=== PATIENT | male | born 1945 | race Caucasian/White ===

== ENCOUNTER 2023-06-22 08:09 | Inpatient (IN) | payer OTHER ==
[~2023-06-22] VITALS: Ht 165.1 cm; Wt 78.5 kg
[~2023-06-22 08:09] MED LIST: ASCO500T11 PO; ASPI81CH59 PO; B-COCAP36 OR; COEN50CA9 PO; GABA-1308 PO; LOVA40TA72 PO; METO25TA36 PO; MULT-778 PO; OMEGCAP2 OR; POTA99TA3 PO
[2023-06-22] MEDS ORDERED: ceFAZolin 2 GM/D5W100ml 100 ML IV ONE (10:12)
[2023-06-22] MEDS ORDERED: HYDROmorphone HCL 2 MG/ML VL/or syr ONE (10:14)
[2023-06-22] MEDS ORDERED: MIDAZOLAM HCL 2MG/2ML 2ml VIAL (1mg/ml) ONE (10:15)
[2023-06-22] MEDS ORDERED: LIDOCAINE 2% (LOCAL ANESTH.) PF 5ml SDV ONE (10:15)
[2023-06-22] MEDS ORDERED: GLYCOPYRROLATE 0.2 MG/ML 1ML VIAL ONE (10:15)
[2023-06-22] MEDS ORDERED: ONDANSETRON HCL 4 MG/2 ML VIAL ONE (10:15)
[2023-06-22] MEDS ORDERED: fentaNYL CITRATE 100 MCG/2 ML VL ONE ×2 (10:15→12:18)
[2023-06-22] MEDS ORDERED: DexAMETHasone SOD PHOS 10MG/1ML VIAL INJ ONE (10:15)
[2023-06-22] MEDS ORDERED: TRANEXAMIC ACID 20 ML ONE (11:32)
[2023-06-22] MEDS ORDERED: LIDOCAINE W/ EPINEPHRINE 2% INJ 20ML VIAL ONE (11:33)
[2023-06-22] MEDS ORDERED: NITROGLYCERIN 0.4 MG SL TAB SL PRN (13:30)
[2023-06-22] MEDS: ceFAZolin 1GM/50ML 50 ML IV SCH ×2 (13:30→21:38)
[2023-06-22] MEDS ORDERED: MORPHINE SULFATE INJ 2 MG/ml SYRG IV PRN ×2 (13:30)
[2023-06-22] MEDS ORDERED: ONDANSETRON HCL 4 MG/2 ML VIAL IV PRN ×2 (13:30→16:45)
[2023-06-22] MEDS: CYCLOBENZAPRINE HCL 10 MG TAB PO SCH ×2 (14:00→22:00)
[2023-06-22 16:23] VITALS: O2SAT 100
[2023-06-22] MEDS ORDERED: HYDROmorphone HCL 2 MG/ML VL/or syr IV PRN (16:45)
[2023-06-22] MEDS: D5W/SOD CHLO 0.9% 1,000 ML IV SCH ×2 (17:22→23:30)
[2023-06-22 18:38] VITALS: RESP 16; O2SAT 97
[2023-06-22 20:00] VITALS: PULSE 94
[2023-06-22] MEDS ORDERED: CYCLOBENZAPRINE HCL 10 MG TAB ONE (21:22)
[2023-06-22] MEDS ORDERED: DOCUSATE SOD 100 MG CAP PO ONE (21:22)
[2023-06-22] MEDS ORDERED: ceFAZolin 1GM/50ML 50 ML IV ONE ×2 (21:22→21:33)
[2023-06-22] MEDS: DOCUSATE SOD 100 MG CAP PO SCH (21:29)
[2023-06-22 22:00] VITALS: BP 138/75; PULSE 119; RESP 18; TEMP 97.4; O2SAT 97
[2023-06-23] VITALS (8 sets, daily range): BP systolic 105–131; BP diastolic 40–69; PULSE 85–121; RESP 16–20; TEMP 97.2–98.7; O2SAT 90–96
[2023-06-23] MEDS ORDERED: THROAT LOZENGES(CEPASTAT) MT ONE ×2 (00:11→03:30)
[2023-06-23] MEDS: THROAT LOZENGES(CEPASTAT) MT PRN ×2 (00:14→03:31)
[2023-06-23] MEDS: CYCLOBENZAPRINE HCL 10 MG TAB PO SCH ×3 (06:33→21:23)
[2023-06-23] MEDS: HYDROcodone-ACET 10/325MG TAB PO PRN ×2 (08:54→16:30)
[2023-06-23] MEDS: D5W/SOD CHLO 0.9% 1,000 ML IV SCH ×2 (08:57→20:26)
[2023-06-23] MEDS: DOCUSATE SOD 100 MG CAP PO SCH ×2 (09:52→21:23)
[2023-06-23] MEDS ORDERED: SACU1TAB PO (16:57)
[2023-06-24] VITALS (9 sets, daily range): BP systolic 116–142; BP diastolic 52–76; PULSE 103–116; RESP 17–20; TEMP 97.3–98.8; O2SAT 90–97
[2023-06-24] MEDS: HYDROcodone-ACET 10/325MG TAB PO PRN ×3 (01:30→16:57)
[2023-06-24] MEDS: CYCLOBENZAPRINE HCL 10 MG TAB PO SCH ×3 (05:30→21:45)
[2023-06-24] MEDS: D5W/SOD CHLO 0.9% 1,000 ML IV SCH (05:36)
[2023-06-24] MEDS: DOCUSATE SOD 100 MG CAP PO SCH ×2 (09:30→21:45)
[2023-06-25] MEDS: HYDROcodone-ACET 10/325MG TAB PO PRN ×3 (02:52→22:02)
[2023-06-25 05:00] VITALS: BP 99/68; PULSE 114; RESP 18; TEMP 98; O2SAT 94
[2023-06-25 06:32] LABS: Basophils # (auto) 0 10 ^3/uL (0-0.2); Basophils % (auto) 0.3 % (0.0-2.0); Eosinophils # (auto) 0.2 10 ^3/uL (0-0.8); Eosinophils % (auto) 1.8 % (0.0-7.0); Hematocrit 39.7 % (41.0-53.0); Hemoglobin 13.3 g/dL (13.5-17.5); Lymphocytes # (auto) 2.7 10 ^3/uL (0.4-5.4); Lymphocytes % (auto) 27.1 % (10.0-50.0); Mean Corpuscular Hemoglobin 32.2 pg (28.0-32.0); Mean Corpuscular Hgb Conc. 33.6 g/dL (32.0-36.0); Mean Corpuscular Volume 95.9 fL (80.0-100.0); Monocytes # (auto) 1.3 10 ^3/uL (0-1.3); Monocytes % (auto) 12.6 % (0.0-12.0); Neutrophils # (auto) 5.9 10 ^3/uL (1.6-8.6); Neutrophils % (auto) 58.2 % (37.0-80.0); Nucleated Red Blood Cells % 0.1 %; Red Blood Cells 4.14 10^6/uL (4.5-5.90); Red Cell Distribution Width 13.7 % (11.8-14.3); White Blood Cell 10.1 10^3/uL (4.4-10.8)
[2023-06-25 06:45] LABS: Calcium 8.6 mg/dL (8.7-10.4); Chloride 105 mmol/L (98-107); Potassium 4.8 mmol/L (3.5-5.1); Sodium 138 mmol/L (136-145)
[2023-06-25 06:46] LABS: Anion Gap 2 (5-15); Carbon Dioxide 31 mmol/L (20-30)
[2023-06-25 06:51] LABS: BUN/Creatinine Ratio 10.8 (10.0-20.0); Blood Urea Nitrogen 10 mg/dL (9-23); Glucose 127 mg/dL (74-106)
[2023-06-25] MEDS: CYCLOBENZAPRINE HCL 10 MG TAB PO SCH ×3 (07:08→22:00)
[2023-06-25] MEDS: ENOXAPARIN SOD 40 MG/0.4 ML SYRINGE SC SCH (07:25)
[2023-06-25 09:00] VITALS: BP 125/68; PULSE 116; RESP 18; TEMP 97.5; O2SAT 96
[2023-06-25] MEDS: DOCUSATE SOD 100 MG CAP PO SCH ×2 (09:30→22:00)
[2023-06-25 13:00] VITALS: BP 110/59; PULSE 117; RESP 20; TEMP 98.5; O2SAT 92
[2023-06-25 17:00] VITALS: BP 103/50; PULSE 104; RESP 20; TEMP 97.3; O2SAT 93
[2023-06-25 22:00] VITALS: BP 105/49; PULSE 123; RESP 18; TEMP 97.8; O2SAT 96
[2023-06-26] VITALS (7 sets, daily range): BP systolic 95–117; BP diastolic 45–64; PULSE 108–120; RESP 18–20; TEMP 97.6–100.4; O2SAT 92–96
[2023-06-26] MEDS: CYCLOBENZAPRINE HCL 10 MG TAB PO SCH ×3 (05:33→22:43)
[2023-06-26] MEDS: ENOXAPARIN SOD 40 MG/0.4 ML SYRINGE SC SCH (09:36)
[2023-06-26] MEDS: DOCUSATE SOD 100 MG CAP PO SCH ×2 (09:36→22:43)
[2023-06-26] MEDS: HYDROcodone-ACET 10/325MG TAB PO PRN ×2 (09:47→22:44)
[2023-06-27] VITALS (8 sets, daily range): BP systolic 91–130; BP diastolic 46–62; PULSE 62–107; RESP 17–20; TEMP 97.7–98.7; O2SAT 93–97
[2023-06-27] MEDS: CYCLOBENZAPRINE HCL 10 MG TAB PO SCH ×3 (06:00→22:35)
[2023-06-27] MEDS: DOCUSATE SOD 100 MG CAP PO SCH ×2 (09:49→22:35)
[2023-06-27] MEDS: ENOXAPARIN SOD 40 MG/0.4 ML SYRINGE SC SCH (09:49)
[2023-06-27] MEDS: HYDROcodone-ACET 10/325MG TAB PO PRN (10:00)
[2023-06-27] MEDS: ACETAMINOPHEN 325 MG TAB PO PRN (22:36)
[2023-06-28 05:00] VITALS: BP 126/63; PULSE 87; RESP 17; TEMP 97; O2SAT 96
[2023-06-28] MEDS: CYCLOBENZAPRINE HCL 10 MG TAB PO SCH ×2 (05:48→13:48)
[2023-06-28 08:00] VITALS: RESP 18; O2SAT 95
[2023-06-28] MEDS: ENOXAPARIN SOD 40 MG/0.4 ML SYRINGE SC SCH (08:58)
[2023-06-28] MEDS: DOCUSATE SOD 100 MG CAP PO SCH (08:59)
[2023-06-28 09:11] VITALS: BP 107/53; PULSE 56; RESP 16; TEMP 97.6; O2SAT 96
[2023-06-28 12:26] VITALS: TEMP 36.4
[2023-06-28 13:18] VITALS: BP 106/51; PULSE 92; RESP 16; TEMP 98.2; O2SAT 95
[2023-06-28] MEDS: ACETAMINOPHEN 325 MG TAB PO PRN (13:46)
== END 2023-06-28 15:55 | disposition home health service (06) | DRG 458 ==
LOC: SUR 08:09 → TELE 13:20 → TELE-WESTW 18:27 → WEST WING 06-24 21:54
PROVIDERS: ADMIT Orthopaedic Surgery; ATTEND Orthopaedic Surgery
PROC: 0SG10K1 Fusion of 2 or more Lumbar Vertebral Joints with Nonautologous Tissue Substitute, Posterior Approach, Posterior Column, Open Approach (ICD-10-PCS; principal; 2023-06-26)
PROC: 01NB0ZZ Release Lumbar Nerve, Open Approach (ICD-10-PCS; 2023-06-26)
PROC: 4A11X4G Monitoring of Peripheral Nervous Electrical Activity, Intraoperative, External Approach (ICD-10-PCS; 2023-06-26)
DX: M48.061 Spinal stenosis, lumbar region without neurogenic claudication (principal); M41.56 Other secondary scoliosis, lumbar region; M51.16 Intervertebral disc disorders with radiculopathy, lumbar region; G62.9 Polyneuropathy, unspecified; I10 Essential (primary) hypertension; E78.5 Hyperlipidemia, unspecified; G89.29 Other chronic pain
CPT/HCPCS: 36415; 72100; 76000; 80048; 85025; 86850; 86900; 86901; 93005; 97110; 97116; 97163; 97530; G0378; J1100; J2001; J2250; J2405; J7042

== ENCOUNTER 2024-05-07 21:19 | Inpatient (IN) | payer OTHER ==
[~2024-05-07] VITALS: Ht 152.4 cm; Wt 71.6 kg
[~2024-05-07 21:19] MED LIST changes: +SACU1TAB PO
[2024-05-07] MEDS ORDERED: ONDANSETRON HCL 4 MG/2 ML VIAL IV PRN (23:15)
[2024-05-07 23:42] VITALS: BP 126/62; PULSE 115; RESP 20; TEMP 97.4; O2SAT 95
[2024-05-08] VITALS (8 sets, daily range): BP systolic 93–128; BP diastolic 42–65; PULSE 63–111; RESP 16–20; TEMP 97.6–98.8; O2SAT 91–95
--- NOTE | 2024-05-08 00:39 | DVHHP2 ---
Admitting Diagnosis: Right Large Pleural Effusion History of Present Illness History Source: Patient Exam Limitations: No limitations HPI Mr. Segundo Gupta is a 78 yo male with a past medical history of non hodgkin's lymphoma, CHF, high cholesterol, hypertension. Patient is a direct admit from [facility] ED as per HMO insurance request. Patient had presented with a chief complaint of shortness of breath on exertion x 2 weeks. Patient reports exertional shortness of breath with chest pain when he coughs. Patient denies chest pain, dizziness, nausea, vomiting, fevers, chills, abdominal pain. [facility] workup: WBC 13.35, H&H 14/43.6, Platelets 346, INR 1.0, PT 10.9, Na 140, K 3.7, BUN 19/0.99, BNP 846, Troponin 13, Lipase 31, Lactic 1.1, CTA chest w contrast: large right pleural effusion. Complete right lower lobe atelectasis. Partial right upper lobe atelectasis. No pulmonary embolism. 21 mm right renal cyst. chest x ray: Dense right basilar airspace opacification, likely reflecting a combination of moderate right pleural effusion with adjacent atelectasis/ consolidation. Home Meds Reported Medications Sacubitril-Valsartan (Entresto 24-26 mg) 1 Tab Tab, 1 TAB PO BID, TAB 06/23/23 B-Complex W/Biotin & Folic Aci (SUPER B-COMPLEX) Complex Cap, 1 CAP OR DAILY, CAP 06/16/23 Ascorbic Acid (VITAMIN C TABLET) 500 Mg Tb, 500 MG PO DAILY, TAB 06/16/23 Potassium (Gnp Potassium) Unknown Strength Tab, PO DAILY, TAB 06/16/23 Multiple Vitamins W/ Minerals (MULTI FOR HIM) For Him Cap, 1 HIM PO DAILY, CAP 06/16/23 [place]-3 Fatty Acids (Fish Oil) Cap, 1 OR DAILY, CAP 06/16/23 Gabapentin (Gabapentin) 100 Mg Cap, 100 MG PO TID, CAP 06/16/23 Coenzyme Q10 (Coq-10) 50 Mg Cap, 50 MG PO DAILY, CAP 06/16/23 Aspirin (Aspirin Low Dose) 81 Mg Chw, 81 MG PO DAILY, TAB.CHEW 06/16/23 Lovastatin (Lovastatin) 40 Mg Tab, 40 MG PO DAILY, TAB 06/16/23 Metoprolol Succinate (Toprol Xl) 25 Mg Tab, 25 MG PO DAILY, TAB 06/16/23 Past Medical History Cardiac: CHF, HTN, Other (high cholesterol) Pulmonary: No pertinent Hx Central Nervous System: No pertinent Hx GI: No pertinent Hx Hemotology/Oncology: No pertinent Hx Hepatobiliary: No pertinent Hx Psychiatric: No pertinent Hx Musculoskeletal: No pertinent Hx Rheumotologic: No pertinent Hx Infectious Disease: No peritnent Hx ENT: No pertinent Hx Renal/: No pertinent Hx Endocrine: No pertinent Hx Dermatology: No pertinent Hx Others non hodgkin's lymphoma Patient Family History: Patient reports no known family medical history. Smoker: No Hx (Negative) Alocohol: None Drugs: None Lives with: With family Domestic Violence: Neg Review of Systems Constitutional: No symptom reported Ears, Nose, & Throat: No symptom reported Eyes: No symptom reported Pulmonary/Respiratory: Dyspnea (exertional), Cough, Pleuritic Chest Pain Cardiovascular: No symptom reported Gastrointestinal: No symptom reported Genitourinary: No symptom reported Musculoskeletal: No symptom reported Skin: No symptom reported Psychiatric: No symptom reported Endocrine: No symptom reported Hemotologic/Lymphatic: No symptom reported H&P Exam General Appeara: Well developed, Well nourished, Normal Appearance Head Exam: Normal inspection Neck Exam: Normal inspection, Non-tender, Normal alignment Eye Exam: bilateral eye Normal inspection, bilateral eye PERRL, bilateral eye EOMI Ear Exam: bilateral ear Auricle normal Nasal Exam: Normal inspection Mouth: Normal Inspection Pulmonary/Respiratory: Normal inspection, Chest non-tender, Other (diminished breath sounds) Cardiovascular/Chest: Normal inspection, Regular rate, Normal Rhythm Peripheral Pulses: 2+ dorsalis pedis (R), 2+ dorsalis pedis (L), 2+ Radial (R), 2+ Radial (L) Abdominal Exam: Normal bowel sounds, Soft Rectal Exam: Deferred Male Genital Exam: Not done CLINIC RECEPTIONIST Exam: Normal hearing, Normal speech, PERRL Neuro/Mental St: Alert, Oriented Appearance: Appropriate appearance, Appropriate insight Eye contact/ Speech: Cooperative, Good eye contact, Normal speech Thoughts/Psych: Normal thought pattern Skin Exam: Normal inspection, Normal color, Warm/dry Assessment/Plan Problem List: (1) Pleural effusion, right Plan 78 yo male with known history of hypertension, CHF, high cholesterol, non Hodgkin's Lymphoma presents as a direct admit from [facility] ED with shortness of breath, generalized weakness, cough. Patient found to have 1. right large pleural effusion 2. right lower lobe atelectasis 3. shortness of breath -Admit Telemetry Interventional radiology consultation thoracentesis IV diuresis Furosemide IV antibiotic Levaquin Fluid Restriction Strict I&O's PT, INR , CBC, BMP in am Discussed all above with patient who verbalizes agreement and understanding of care plan. All questions were answered. Discussed assessment and care plan with admitting and supervising MD Dr. Valdes. Plan discussed with: Patient, Other Code Visit Code Visit Total Time (mins): 45 Additional Comments Additional Comments Additional Comments Patient was seen and evaluated by me. I agree with the assessment and plan as outlined by my nurse practitioner. LEXY ATKINS May 08, 2024 00:39 MICHELLE VALDES MD May 08, 2024 14:10
[2024-05-08] MEDS: FUROSEMIDE 40 MG/4 ML VIAL IV SCH (01:17)
[2024-05-08 06:22] LABS: Basophils # (auto) 0 10 ^3/uL (0-0.2); Basophils % (auto) 0.1 % (0.0-2.0); Eosinophils # (auto) 0.2 10 ^3/uL (0-0.8); Eosinophils % (auto) 1.2 % (0.0-7.0); Hematocrit 43.2 % (41.0-53.0); Hemoglobin 14.1 g/dL (13.5-17.5); Lymphocytes # (auto) 3.4 10 ^3/uL (0.4-5.4); Lymphocytes % (auto) 26.1 % (10.0-50.0); Mean Corpuscular Hemoglobin 29.7 pg (28.0-32.0); Mean Corpuscular Hgb Conc. 32.5 g/dL (32.0-36.0); Mean Corpuscular Volume 91.4 fL (80.0-100.0); Monocytes % (auto) 7.9 % (0.0-12.0); Neutrophils # (auto) 8.5 10 ^3/uL (1.6-8.6); Neutrophils % (auto) 64.7 % (37.0-80.0); Nucleated Red Blood Cells % 0.1 %; Platelet Count (auto) 425 10^3/uL (140-450); Red Blood Cells 4.73 10^6/uL (4.5-5.90); Red Cell Distribution Width 13.4 % (11.8-14.3); White Blood Cell 13.2 10^3/uL (4.4-10.8)
[2024-05-08 06:32] LABS: Anion Gap 9 (5-15); Carbon Dioxide 29 mmol/L (20-31); Chloride 105 mmol/L (98-107); Potassium 4.1 mmol/L (3.5-5.1); Sodium 143 mmol/L (136-145)
[2024-05-08 06:33] LABS: Calcium 9.9 mg/dL (8.7-10.4)
[2024-05-08 06:38] LABS: BUN/Creatinine Ratio 16.2 (10.0-20.0); Blood Urea Nitrogen 18 mg/dL (9-23); Glucose 110 mg/dL (74-106)
[2024-05-08 07:00] LABS: INR 1.01 (0.9-1.15); Prothrombin Time 10.7 sec (9.3-11.8)
--- NOTE | 2024-05-08 08:07 | DVH ---
Procedure: US CHEST ULTRASOUND 05/08/2024 07:31 AM Indication: FLUID CHECK FOR POSSIBLE THORACENTESIS. Comparison: None Technique: Sonogram of the right and left homero thoraces utilizing grayscale technique. FINDINGS: At least moderate amount of right pleural effusion is seen. No pleural effusion on the side. IMPRESSION: At least moderate right pleural effusion sufficient for safe thoracentesis. No pleural effusion on th e left side.
[2024-05-08] MEDS: levoFLOXacin 500MG 100 ML IV SCH (10:00)
[2024-05-08] MEDS: PANTOPRAZOLE 40 MG/10 ML VIAL INJ IV SCH (10:37)
[2024-05-08] MEDS: ENOXAPARIN SOD 40 MG/0.4 ML SYRINGE SC SCH (10:38)
[2024-05-08] MEDS: levoFLOXacin 250MG 50 ML IV SCH (15:44)
[2024-05-08] MEDS: HYDROcodone-ACET 5/325MG TAB PO PRN (15:48)
--- NOTE | 2024-05-08 16:03 | DVH ---
CHEST RADIOGRAPH Indication:POST THORACENTESIS Technique: Single frontal view of the chest was obtained Comparison: None FINDINGS: Lines and Tubes: None Lungs: There is no pneumothorax on the right. Pleura: No effusion. No pneumothorax. Cardiomediastinal contours: Unremarkable Bones: No acute osseous abnormality. IMPRESSION: 1. No pneumothorax . 2. No pneumothorax on the right. Changes in the right base may represent residual findings from right pleural effusion.
--- NOTE | 2024-05-08 17:11 | DVH ---
US THORACENTESIS, HISTORY: RT PLUERAL EFFUSION PROCEDURE: Informed consent was obtained. The patient was seated on the gurney. A limited localizatio n ultrasound of the right thorax was obtained, and the optimal approach was marked on the skin. The a jackie was prepped with chlorhexidine which was allowed to dry and draped in the usual sterile fashion. Time out was performed. The skin and the soft tissues were infiltrated with 1% lidocaine. A 5.5 Frenc h centesis needle catheter was advanced into right pleural space. Following aspiration of fluid, the catheter was advanced and the needle removed. About 2400 cc of fluid was drained. Specimen/s was/were sent for appropriate cultures/cytology/cultures and cytology. No immediate complication was identifi ed. FINDINGS: Moderate to large right pleural effusion. Aspirated fluid is clear and serous. IMPRESSION: Right thoracentesis with 2.4L removed.
[2024-05-08 20:16] LABS: Body Fluid Polymorphonuclear 5 % (0-25); Body Fluid Red Blood Cells 12373 CUMM (0-2000); Body Fluid White Blood Cells 3308 CUMM (0-200)
--- NOTE | 2024-05-08 20:55 | DVHINCON2 ---
Date of service: May 08, 2024 Referring Physician Saba Iniguez NP Reason for Consultation YANEZ, right pleural effusion. History of Present Illness A 78-year-old man with past medical history of non Hodgkin's lymphoma, CHF, high cholesterol, and hypertension who is a direct admit from [facility] ED on 05/07 per HMO insurance request where he presented with a chief complaint of shortness of breath on exertion x 2 weeks. Patient reports exertional shortness of breath with chest pain when he coughs. Denies dizziness, nausea, vomiting, fevers, chills, or abdominal pain. CTA chest w/ contrast done at [facility] showed large right pleural effusion and atelectasis, no pulmonary embolism. Patient was admitted for further care and pulmonary consultation is requested for evaluation and management due to these findings. Review of Systems: 14-point review of systems negative unless otherwise noted above. Past Medical History: Non Hodgkin's lymphoma, CHF, high cholesterol, and hypertension Past Surgical History: None Medications: Reviewed. Allergies: No known drug allergies. Family History: No family history of premature CAD. No family history of lung disorders. Social History: Nonsmoker. No alcohol or illicit drug use. Family History: Patient reports no known family medical history. Allergies: Coded Allergies: NO KNOWN ALLERGIES (Unverified , 06/16/23) Home Meds Active Scripts Doxycycline (Monohydrate) (Doxycycline) 100 Mg Cap, 100 MG PO BID, #10 CAP Prov:LINO MCCORMACK MD 05/10/24 Sacubitril-Valsartan (Entresto 24-26 mg) 1 Tab Tab, 1 TAB PO BID, #60 TAB Prov:LINO MCCORMACK MD 05/10/24 Metoprolol Succinate (Toprol Xl) 25 Mg Tab, 25 MG PO DAILY, #60 TAB Prov:LINO MCCORMACK MD 05/10/24 Reported Medications B-Complex W/Biotin & Folic Aci (SUPER B-COMPLEX) Complex Cap, 1 CAP OR DAILY, CAP 06/16/23 Multiple Vitamins W/ Minerals (MULTI FOR HIM) For Him Cap, 1 HIM PO DAILY, CAP 06/16/23 [place]out-3 Fatty Acids (Fish Oil) Cap, 1 OR DAILY, CAP 06/16/23 Gabapentin (Gabapentin) 100 Mg Cap, 100 MG PO TID, CAP 06/16/23 Coenzyme Q10 (Coq-10) 50 Mg Cap, 50 MG PO DAILY, CAP 06/16/23 Aspirin (Aspirin Low Dose) 81 Mg Chw, 81 MG PO DAILY, TAB.CHEW 06/16/23 Lovastatin (Lovastatin) 40 Mg Tab, 40 MG PO DAILY, TAB 06/16/23 Discontinued Reported Medications Ascorbic Acid (VITAMIN C TABLET) 500 Mg Tb, 500 MG PO DAILY, TAB 06/16/23 Potassium (Gnp Potassium) Unknown Strength Tab, PO DAILY, TAB 06/16/23 Current Medications Current Medications Medications (Trade) Dose Ordered Sig/Anderson Route PRN Reason Start Time Stop Time Status Last Admin Furosemide (Lasix Injection) 40 mg BIDD IV 05/07/24 23:15 05/08/24 17:43 Ondansetron HCl (Zofran) 4 mg Q6HPRN PRN IV NAUSEA / VOMITING 05/07/24 23:15 Acetaminophen (Tylenol Tablet) 650 mg Q6HPRN PRN PO TEMP GREATER THAN 100.4 05/07/24 23:15 Pantoprazole Sodium (Protonix) 40 mg DAILY IV 05/08/24 10:00 05/08/24 10:37 Acetaminophen/ Hydrocodone Bitart ([place] 5/325MG Tab) 1 tab Q6HPRN PRN PO PAIN SCALE 1 THRU 6 05/07/24 23:15 05/08/24 15:48 Enoxaparin Sodium (Lovenox) 40 mg DAILY SC 05/08/24 10:00 05/08/24 10:38 Levofloxacin/ Dextrose 100 ml @ 100 mls/hr DAILY IV 05/08/24 10:00 05/08/24 12:39 DC Levofloxacin 50 ml @ 50 mls/hr DAILY IV 05/08/24 12:39 05/08/24 15:44 Vital Signs Vital Signs Date Time Temp Pulse Resp B/P (MAP) Pulse Ox O2 Delivery O2 Flow Rate FiO2 05/08/24 17:43 107/59 05/08/24 17:00 98.8 105 16 92 98.8 05/08/24 08:10 Room Air* 0 21 Physical Exam Gen.: Patient lying in bed in no apparent distress. Breathing on room air. Head: Normocephalic, atraumatic. Eyes: EOMI/PERRLA. Ears: Normal hearing. Normal anatomy. Neck/trachea: Trachea midline, supple. Nose: Normal external anatomy. Mouth: Moist mucous membranes. Chest: Decreased air entry bilaterally. No wheezing or rhonchi. Cardiovascular: Positive S1, positive S2. Regular rate and rhythm. Abdomen: Positive bowel sounds in all 4 quadrants. Soft, non-tender, non- distended. : Deferred. Rectal: Deferred. Skin: Warm, dry. Intact. Extremities: 2+ radial pulses bilaterally. No lower extremity edema. Neuro: Awake, alert, oriented x3. No gross motor or sensory deficits. Cranial nerves II through XII intact. Gait not assessed. Labs/Diagnostic Data Labs Test 05/08/24 17:00 05/08/24 11:39 05/08/24 05:25 Range/Units Body Fluid Source Pleural fluid Body Fluid pH 8.0 Body Fluid WBC (Manual) 3308 H 0-200 CUMM Body Fluid RBC (Manual) 83847 H 0-2000 CUMM Body Fluid Mononuclear Cells 95 % Body Fluid Polymorphonuclear Cells 5 0-25 % Troponin I High Sensitivity 75 *H </=54 ng/L White Blood Count 13.2 H 4.4-10.8 10^3/uL Red Blood Count 4.73 4.5-5.90 10^6/uL Hemoglobin 14.1 13.5-17.5 g/dL Hematocrit 43.2 41.0-53.0 % Mean Corpuscular Volume 91.4 80.0-100.0 fL Mean Corpuscular Hemoglobin 29.7 28.0-32.0 pg Mean Corpuscular Hemoglobin Concent 32.5 32.0-36.0 g/dL Red Cell Distribution Width 13.4 11.8-14.3 % Platelet Count 425 140-450 10^3/uL Mean Platelet Volume 7.7 6.9-10.8 fL Neutrophils (%) (Auto) 64.7 37.0-80.0 % Lymphocytes (%) (Auto) 26.1 10.0-50.0 % Monocytes (%) (Auto) 7.9 0.0-12.0 % Eosinophils (%) (Auto) 1.2 0.0-7.0 % Basophils (%) (Auto) 0.1 0.0-2.0 % Neutrophils # (Auto) 8.5 1.6-8.6 10 ^3/uL Lymphocytes # (Auto) 3.4 0.4-5.4 10 ^3/uL Monocytes # (Auto) 1.0 0-1.3 10 ^3/uL Eosinophils # (Auto) 0.2 0-0.8 10 ^3/uL Basophils # (Auto) 0 0-0.2 10 ^3/uL Nucleated Red Blood Cells 0.1 % Prothrombin Time 10.7 9.3-11.8 sec Prothrombin Time INR 1.01 0.9-1.15 Sodium Level 143 136-145 mmol/L Potassium Level 4.1 3.5-5.1 mmol/L Chloride Level 105 98-107 mmol/L Carbon Dioxide Level 29 20-31 mmol/L Anion Gap 9 5-15 Blood Urea Nitrogen 18 9-23 mg/dL Creatinine 1.11 0.700-1.30 mg/dL Glomerular Filtration Rate Calc 68 >90 mL/min BUN/Creatinine Ratio 16.2 10.0-20.0 Serum Glucose 110 H 74-106 mg/dL Calcium Level 9.9 8.7-10.4 mg/dL Assessment Impression: Large right pleural effusion Atelectasis Dyspnea Obesity, BMI 30.8 Plan: S/p right thoracentesis with drainage of 2.4 L. Supplemental oxygen PRN Titrate to keep O2 sats above 92%. Continue antibiotics -Levaquin Follow up cultures Incentive spirometry Diurese w/ Lasix Monitor renal function. Monitor electrolytes. Supplement as necessary. Monitor ins and outs. Diet and lifestyle modifications for weight reduction Obesity - complicates all care. DVT prophylaxis. Prognosis: Guarded given patient's multiple co-morbidities. Rest of plan per hospitalist and other consultants. Thank you Saba Iniguez NP, for allowing me to participate in this patient's care. Further recommendations will depend on the patient's clinical course. Please do not hesitate to contact me if you have any questions or concerns. This medical document was created using an electronic medical record system with [email or web address] dictation system. Although these documentations are being carefully reviewed, there may still be some phonetic and typographical changes. The errors are purely typographical, due to imperfection on the software program, and do not reflect any compromise in the patient's medical care. Plan discussed with: Patient, Other (CUSTOMER ENGAGEMENT ANALYST, RN) VALERI BRANTLEY MD May 08, 2024 20:55
[2024-05-09] VITALS (8 sets, daily range): BP systolic 94–113; BP diastolic 47–58; PULSE 88–106; RESP 16–19; TEMP 97.6–98.1; O2SAT 92–96
--- NOTE | 2024-05-09 06:10 | DVH ---
CHEST RADIOGRAPH Indication:post thoracentesis Technique: Single frontal view of the chest was obtained Comparison: XY CHEST PORTABLE on DOS: 05/08/24 FINDINGS: Lines and Tubes: None Lungs: Patchy right mid to lower lung zone opacities. Pleura: Small right pleural effusion. No pneumothorax. Cardiomediastinal contours: Unremarkable Bones: No acute osseous abnormality. IMPRESSION: 1. Right pleural effusion and right lower lung zone opacities.
--- NOTE | 2024-05-09 12:32 | DVHPN2 ---
Subjective Overnight events noted. Patient was refused chest x-ray as per the bedside RN. Pleural Fluid study is still pending. Patient had elevated troponin cardiology consult and 2D echo has been ordered. Reviewed: Care Plan Changes from previous H/P or p: No Changes Objective Vitals Vital Signs Date Time Temp Pulse Resp B/P (MAP) Pulse Ox O2 Delivery O2 Flow Rate FiO2 05/09/24 08:41 98.1 96 16 102/57 (72) 92 98.1 05/09/24 08:00 Room Air* 0 21 Intake/Output Intake and Output 05/09/24 07:00 Intake Total 1010 ml Output Total 600 ml Balance 410 ml Intake Oral 960 ml IV Total 50 ml Output Urine Total 600 ml Exam HEENT pupils are reactive Neck is supple CV is S1-S2 regular rate and rhythm Respiratory diminished breath sound right lung base GI posterior bowel sound Extremity no edema RAILROADER no motor deficit Medications Current Medications Medications Dose Ordered Sig/Anderson Route Start Time Stop Time Status Last Admin Dose Admin Furosemide 40 mg BIDD IV 05/07/24 23:15 05/09/24 05:15 40 MG Ondansetron HCl 4 mg Q6HPRN PRN IV 05/07/24 23:15 Acetaminophen 650 mg Q6HPRN PRN PO 05/07/24 23:15 Pantoprazole Sodium 40 mg DAILY IV 05/08/24 10:00 05/09/24 09:43 40 MG Acetaminophen/ Hydrocodone Bitart 1 tab Q6HPRN PRN PO 05/07/24 23:15 05/09/24 00:00 1 TAB Enoxaparin Sodium 40 mg DAILY SC 05/08/24 10:00 05/09/24 09:43 40 MG Levofloxacin 50 ml @ 50 mls/hr DAILY IV 05/08/24 12:39 05/09/24 09:43 50 MLS/HR Laboratory Results Laboratory Tests 05/08/24 05:25 Microbiology Microbiology Date/Time Source Procedure Growth Status 05/08/24 17:00 Pleural Fluid Gram Stain - Final Resulted 05/08/24 17:00 Pleural Fluid Body Fluid Culture - Preliminary Resulted Assessment/Plan Assessment/Plan 78-year-old male with a known history of hypertension, dyslipidemia, congestive heart failure, history of non-Hodgkin lymphoma in 50s status post radiation, history of non-Hodgkin lymphoma recurrence in 60s status post radiation at [facility] presented to the hospital with increasing shortness of breath for last three weeks found to have 1. Large right-sided pleural effusion status post thoracentesis with 2.4 L removed, rule out exudative/transudative pleural effusion 2. Shortness of breaths secondary to 1. Currently improved 3. Elevated troponin suspect demand ischemia rule out acute MO 4. Hypotension 5. Dyslipidemia 6. History of non-Hodgkin lymphoma status post radiation -had clear fluid status cytology, LDH, serum LDH, empirical antibiotics, repeat chest x-ray -2D echo, cardiology consultation, pulmonary consultation. Plan discussed with: Patient My Orders Orders - MICHELLE VALDES MD Procedure Category Date Status Time *Consult CONS 05/08/24 Transmitted / 13:35 Electrocardigram EKG 05/09/24 Logged 10:40 Cytology TYRA 05/09/24 Transmitted 11:23 * Cardiology Consult CONS 05/09/24 Transmitted 11:26 Echo 2d Mode Cardiac US 05/09/24 Logged DOP 11:26 Troponin-I Hs LAB 05/09/24 Logged 11:26 Troponin-I Hs LAB 05/09/24 Logged 12:26 Lactate Dehydrogenase LAB 05/09/24 Logged 11:31 * Infectious Louann- CONS 05/09/24 Transmitted Mallad 11:36 Date of Service: May 09, 2024 Billing Provider: MICHELLE VALDES MD Common Visit Codes: NOT BILLABLE MICHELLE VALDES MD May 09, 2024 12:32
--- NOTE | 2024-05-09 12:59 | DVH ---
CHEST RADIOGRAPH Indication:S/P Thora Technique: Single frontal view of the chest was obtained Comparison: XY CHEST PORTABLE on DOS: 05/09/24, XY CHEST PORTABLE on DOS: 05/08/24 FINDINGS: Lines and Tubes: None Lungs: Right basiclar opacty. Pleura: Small right pleural effusion. No pneumothorax. Cardiomediastinal contours: Unremarkable Bones: No acute osseous abnormality. IMPRESSION: Small right pleural effusion.
[2024-05-09] MEDS: METOPROLOL TARTRATE 25 MG TAB PO ONE (14:36)
--- NOTE | 2024-05-09 14:59 | DVHINCON2 ---
Date of service: May 09, [address] NP Reason for Consultation Pleural effusion History of Present Illness Mr. Segundo Gupta is a 78 yo male with a past medical history of non hodgkin's lymphoma, CHF, high cholesterol, hypertension. Patient is a direct admit from [facility] ED as per O insurance request. Patient had presented with a chief complaint of shortness of breath on exertion x 2 weeks. Patient reports exertional shortness of breath with chest pain when he coughs. Patient denies chest pain, dizziness, nausea, vomiting, fevers, chills, abdominal pain. Family History: Patient reports no known family medical history. Allergies: Coded Allergies: NO KNOWN ALLERGIES (Unverified , 06/16/23) Home Meds Reported Medications Sacubitril-Valsartan (Entresto 24-26 mg) 1 Tab Tab, 1 TAB PO BID, TAB 06/23/23 B-Complex W/Biotin & Folic Aci (SUPER B-COMPLEX) Complex Cap, 1 CAP OR DAILY, CAP 06/16/23 Ascorbic Acid (VITAMIN C TABLET) 500 Mg Tb, 500 MG PO DAILY, TAB 06/16/23 Potassium (Gnp Potassium) Unknown Strength Tab, PO DAILY, TAB 06/16/23 Multiple Vitamins W/ Minerals (MULTI FOR HIM) For Him Cap, 1 HIM PO DAILY, CAP 06/16/23 [place]-3 Fatty Acids (Fish Oil) Cap, 1 OR DAILY, CAP 06/16/23 Gabapentin (Gabapentin) 100 Mg Cap, 100 MG PO TID, CAP 06/16/23 Coenzyme Q10 (Coq-10) 50 Mg Cap, 50 MG PO DAILY, CAP 06/16/23 Aspirin (Aspirin Low Dose) 81 Mg Chw, 81 MG PO DAILY, TAB.CHEW 06/16/23 Lovastatin (Lovastatin) 40 Mg Tab, 40 MG PO DAILY, TAB 06/16/23 Metoprolol Succinate (Toprol Xl) 25 Mg Tab, 25 MG PO DAILY, TAB 06/16/23 Current Medications Current Medications Medications (Trade) Dose Ordered Sig/Anderson Route PRN Reason Start Time Stop Time Status Last Admin Metoprolol Tartrate (Lopressor Tablet) 25 mg BID PO 05/09/24 22:00 Doxycycline Monohydrate (Vibramycin Tablet) 100 mg Q12HR PO 05/09/24 22:00 Review of Systems Review of Systems Constitutional: No symptom reported Ears, Nose, & Throat: No symptom reported Eyes: No symptom reported Pulmonary/Respiratory: Dyspnea (exertional), Cough, Pleuritic Chest Pain Cardiovascular: No symptom reported Gastrointestinal: No symptom reported Genitourinary: No symptom reported Musculoskeletal: No symptom reported Skin: No symptom reported Psychiatric: No symptom reported Endocrine: No symptom reported Hemotologic/Lymphatic: No symptom reported Vital Signs Vital Signs Date Time Temp Pulse Resp B/P (MAP) Pulse Ox O2 Delivery O2 Flow Rate FiO2 05/09/24 14:36 129 112/58 05/09/24 13:00 97.6 16 96 97.6 05/09/24 08:00 Room Air* 0 21 Physical Exam H&P Exam General Appeara: Well developed, Well nourished, Normal Appearance Neck Exam: Normal inspection, Non-tender, Normal alignment Eye Exam: bilateral eye Normal inspection, bilateral eye PERRL, bilateral eye EOMI Pulmonary/Respiratory: Normal inspection, Chest non-tender, Other (diminished breath sounds r> L) Cardiovascular/Chest: Normal inspection, Regular rate, Normal Rhythm Peripheral Pulses: 2+ dorsalis pedis (R), 2+ dorsalis pedis (L), 2+ Radial (R), 2+ Radial (L) Abdominal Exam: Normal bowel sounds, Soft WIG COMBER Exam: Normal hearing, Normal speech, PERRL Neuro/Mental St: Alert, Oriented Appearance: Appropriate appearance, Appropriate insight Eye contact/ Speech: Cooperative, Good eye contact, Normal speech Thoughts/Psych: Normal thought pattern Skin Exam: Normal inspection, Normal color, Warm/dry Labs/Diagnostic Data Labs Test 05/09/24 14:05 05/08/24 17:00 05/08/24 05:25 Range/Units Troponin I High Sensitivity 35 </=54 ng/L Body Fluid Source Pleural fluid Body Fluid pH 8.0 Body Fluid WBC (Manual) 3308 H 0-200 CUMM Body Fluid RBC (Manual) 16738 H 0-2000 CUMM Body Fluid Mononuclear Cells 95 % Body Fluid Polymorphonuclear Cells 5 0-25 % White Blood Count 13.2 H 4.4-10.8 10^3/uL Red Blood Count 4.73 4.5-5.90 10^6/uL Hemoglobin 14.1 13.5-17.5 g/dL Hematocrit 43.2 41.0-53.0 % Mean Corpuscular Volume 91.4 80.0-100.0 fL Mean Corpuscular Hemoglobin 29.7 28.0-32.0 pg Mean Corpuscular Hemoglobin Concent 32.5 32.0-36.0 g/dL Red Cell Distribution Width 13.4 11.8-14.3 % Platelet Count 425 140-450 10^3/uL Mean Platelet Volume 7.7 6.9-10.8 fL Neutrophils (%) (Auto) 64.7 37.0-80.0 % Lymphocytes (%) (Auto) 26.1 10.0-50.0 % Monocytes (%) (Auto) 7.9 0.0-12.0 % Eosinophils (%) (Auto) 1.2 0.0-7.0 % Basophils (%) (Auto) 0.1 0.0-2.0 % Neutrophils # (Auto) 8.5 1.6-8.6 10 ^3/uL Lymphocytes # (Auto) 3.4 0.4-5.4 10 ^3/uL Monocytes # (Auto) 1.0 0-1.3 10 ^3/uL Eosinophils # (Auto) 0.2 0-0.8 10 ^3/uL Basophils # (Auto) 0 0-0.2 10 ^3/uL Nucleated Red Blood Cells 0.1 % Prothrombin Time 10.7 9.3-11.8 sec Prothrombin Time INR 1.01 0.9-1.15 Sodium Level 143 136-145 mmol/L Potassium Level 4.1 3.5-5.1 mmol/L Chloride Level 105 98-107 mmol/L Carbon Dioxide Level 29 20-31 mmol/L Anion Gap 9 5-15 Blood Urea Nitrogen 18 9-23 mg/dL Creatinine 1.11 0.700-1.30 mg/dL Glomerular Filtration Rate Calc 68 >90 mL/min BUN/Creatinine Ratio 16.2 10.0-20.0 Serum Glucose 110 H 74-106 mg/dL Calcium Level 9.9 8.7-10.4 mg/dL Microbiology Date/Time Source Procedure Growth Status 05/08/24 17:00 Pleural Fluid Gram Stain - Final Resulted 05/08/24 17:00 Pleural Fluid Body Fluid Culture - Preliminary Resulted Assessment Assessment/Plan 78 yo male with 1. right large pleural effusion 2. right lower lobe atelectasis 3. shortness of breath 4. New onset CHF with EF of 30% 5. non Hodgkin's Lymphoma recommendations s/p thoracocentesis 2.4L out fluid analysis is pending Follow fluid culture Cardiology is on board. EF is 30%, my suspicion for pleural fluid is possibly secondary to CHF however empirically continue antibiotics for possible pneumonia Repeat CBC strict I and O's also reviewed [facility] workup: WBC 13.35, H&H 14/43.6, Platelets 346, INR 1.0, PT 10.9, Na 140, K 3.7, BUN 19/0.99, BNP 846, Troponin 13, Lipase 31, Lactic 1.1, CTA chest w contrast: large right pleural effusion. Complete right lower lobe atelectasis. Partial right upper lobe atelectasis. No pulmonary embolism. 21 mm right renal cyst. chest x ray: Dense right basilar airspace opacification, likely reflecting a combination of moderate right pleural effusion with adjacent atelectasis/ consolidation. Discussed assessment and care plan with admitting and supervising MD Dr. Chavira. Plan/Recommendation Plan discussed with: Patient, Other ERICK LOPEZ MD May 09, 2024 14:59
--- NOTE | 2024-05-09 15:58 | DVHSR ---
APPROVED REPORT EXAM: LIMITED Two-dimensional and M-mode echocardiogram with Doppler and color Doppler. Blood Pressure: 102/57 mmHg INDICATION Elevated Trops RISK FACTORS Height: 5', Weight: 157 DIMENSIONS LVDd4.6 (3.8-5.7cm)LA (2D)3.5 (1.9-4.0cm)Aortic Root3.3 (2.0-3.7cm) LVDs4.0 (2.5-4.0cm)LA (MM) (1.9-4.0cm)Aortic Cusp Exc1.6 (1.5-2.0cm) EF (%) 30.0 (55-70%)Rt. Atrium (1.9-4.0cm)Asc. Aorta cm IVSd1.2 (0.7-1.1cm)RV (D) (1.8-2.4cm) PWd0.8 (0.7-1.1cm) Mitral Valve MitralMitral Stenosis E/A ratio0.02D MVAcm2 Aortic Valve Aortic ValveAortic Stenosis V10.60m/Dominick Mean GR.4mmHg V21.20m/Dominick Peak GR.6mmHg LVOT Diameter2.2 (1.8-2.4cm)Doppler AVA1.90cm2 Other Information Quality : Technically LimitedRhythm : Atrial Fibrillation Technically limited study due to body habitus and rhythm. Conclusion Technically difficult study. Difficult acoustic windows. Undetermined rhythm. Left atrial enlargement. Left ventricular enlargement. Concentric LVH. The mitral aortic and tricuspid appear to be structurally normal. Left ventricular function appears to be dyssynchronous. There is abnormal septal motion due to left bundle branch block. There is associated dyskinesis of the anterior septum. Overall left ventricula r ejection fraction is about 30%. Global hypokinesis. Normal RV function. Doppler reveals no significant regurgitant jets. No pericardial effusion masses or vegetations discernible. Increased pericardial reflection noted.
--- NOTE | 2024-05-09 18:15 | DVHINCON2 ---
Date Seen: May 09, [address] Oglesby Reason for Consultation Shortness of breath History of Present Illness 78-year-old gentleman with a previous history of back problems. I have had the pleasure of re-evaluating him several months ago. He recently had back surgery. He has a history of neuropathy of the lower extremities. Recently he has been complaining of right-sided chest pain. He came for further evaluation was noted to have a significant pleural effusion that required thoracentesis. He feels better. Cardiac evaluation was requested. Past Medical History His past medical history significant for back problems status post spinal surgery. He has a history of shortness of breath. Pleuritic pain and pain with coughing. His past medical history is otherwise noncontributory. With the exception of back pain. Past Surgical History Spinal surgery recently. Family History: Patient reports no known family medical history. Allergies: Coded Allergies: NO KNOWN ALLERGIES (Unverified , 06/16/23) Home Meds Reported Medications Sacubitril-Valsartan (Entresto 24-26 mg) 1 Tab Tab, 1 TAB PO BID, TAB 06/23/23 B-Complex W/Biotin & Folic Aci (SUPER B-COMPLEX) Complex Cap, 1 CAP OR DAILY, CAP 06/16/23 Ascorbic Acid (VITAMIN C TABLET) 500 Mg Tb, 500 MG PO DAILY, TAB 06/16/23 Potassium (Gnp Potassium) Unknown Strength Tab, PO DAILY, TAB 06/16/23 Multiple Vitamins W/ Minerals (MULTI FOR HIM) For Him Cap, 1 HIM PO DAILY, CAP 06/16/23 [place]-3 Fatty Acids (Fish Oil) Cap, 1 OR DAILY, CAP 06/16/23 Gabapentin (Gabapentin) 100 Mg Cap, 100 MG PO TID, CAP 06/16/23 Coenzyme Q10 (Coq-10) 50 Mg Cap, 50 MG PO DAILY, CAP 06/16/23 Aspirin (Aspirin Low Dose) 81 Mg Chw, 81 MG PO DAILY, TAB.CHEW 06/16/23 Lovastatin (Lovastatin) 40 Mg Tab, 40 MG PO DAILY, TAB 06/16/23 Metoprolol Succinate (Toprol Xl) 25 Mg Tab, 25 MG PO DAILY, TAB 06/16/23 Current Medications Current Medications Medications (Trade) Dose Ordered Sig/Anderson Route PRN Reason Start Time Stop Time Status Last Admin Metoprolol Tartrate (Lopressor Tablet) 25 mg BID PO 05/09/24 22:00 Doxycycline Monohydrate (Vibramycin Tablet) 100 mg Q12HR PO 05/09/24 22:00 Review of Systems No constitutional symptoms of fevers chills or weight loss. Neuro as noted above. Cardiac and respiratory as noted above with right-sided chest pain. ENT negative. GI musculoskeletal as noted. Skin psychiatric endocrine hematologic lymphatic and immunologic negative. Vital Signs Vital Signs Date Time Temp Pulse Resp B/P (MAP) Pulse Ox O2 Delivery O2 Flow Rate FiO2 05/09/24 17:00 97.9 105 16 94/55 (68) 93 97.9 05/09/24 08:00 Room Air* 0 21 Physical Exam His blood pressure is 94/55 respiratory rate of 16 HEENT examination is otherw ise unremarkable orally well hydrated. Trachea is central neck is supple thyroid is not palpable. Diminished air entry at the right base. Left side is clear. Heart exam reveals a regular S1-S2. Soft S4. Abdominal examination is unremarkable. Extremities reveal adequate perfusion without clubbing or cyanosis no edema. Neurologically intact. Integumentary is within [place] [address] hemoglobin and hematocrit of 14 and 43 respectively. Chemistry panel is otherwise unremarkable with a serum glucose of 110. Labs/Diagnostic Data Echocardiogram shows EF of 30%. Chest x-ray shows right pleural effusion. Labs Test 05/09/24 16:15 05/08/24 17:00 05/08/24 05:25 Range/Units Troponin I High Sensitivity 40 </=54 ng/L Body Fluid Source Pleural fluid Body Fluid pH 8.0 Body Fluid WBC (Manual) 3308 H 0-200 CUMM Body Fluid RBC (Manual) 72456 H 0-2000 CUMM Body Fluid Mononuclear Cells 95 % Body Fluid Polymorphonuclear Cells 5 0-25 % White Blood Count 13.2 H 4.4-10.8 10^3/uL Red Blood Count 4.73 4.5-5.90 10^6/uL Hemoglobin 14.1 13.5-17.5 g/dL Hematocrit 43.2 41.0-53.0 % Mean Corpuscular Volume 91.4 80.0-100.0 fL Mean Corpuscular Hemoglobin 29.7 28.0-32.0 pg Mean Corpuscular Hemoglobin Concent 32.5 32.0-36.0 g/dL Red Cell Distribution Width 13.4 11.8-14.3 % Platelet Count 425 140-450 10^3/uL Mean Platelet Volume 7.7 6.9-10.8 fL Neutrophils (%) (Auto) 64.7 37.0-80.0 % Lymphocytes (%) (Auto) 26.1 10.0-50.0 % Monocytes (%) (Auto) 7.9 0.0-12.0 % Eosinophils (%) (Auto) 1.2 0.0-7.0 % Basophils (%) (Auto) 0.1 0.0-2.0 % Neutrophils # (Auto) 8.5 1.6-8.6 10 ^3/uL Lymphocytes # (Auto) 3.4 0.4-5.4 10 ^3/uL Monocytes # (Auto) 1.0 0-1.3 10 ^3/uL Eosinophils # (Auto) 0.2 0-0.8 10 ^3/uL Basophils # (Auto) 0 0-0.2 10 ^3/uL Nucleated Red Blood Cells 0.1 % Prothrombin Time 10.7 9.3-11.8 sec Prothrombin Time INR 1.01 0.9-1.15 Sodium Level 143 136-145 mmol/L Potassium Level 4.1 3.5-5.1 mmol/L Chloride Level 105 98-107 mmol/L Carbon Dioxide Level 29 20-31 mmol/L Anion Gap 9 5-15 Blood Urea Nitrogen 18 9-23 mg/dL Creatinine 1.11 0.700-1.30 mg/dL Glomerular Filtration Rate Calc 68 >90 mL/min BUN/Creatinine Ratio 16.2 10.0-20.0 Serum Glucose 110 H 74-106 mg/dL Calcium Level 9.9 8.7-10.4 mg/dL Microbiology Date/Time Source Procedure Growth Status 05/08/24 17:00 Pleural Fluid Gram Stain - Final Resulted 05/08/24 17:00 Pleural Fluid Body Fluid Culture - Preliminary Resulted Assessment Pleural effusion. Etiology unknown. cardiomyopathy appears to be of new onset. EF of 30%. Plan/Recommendation We will initiate Entresto monitor blood pressure. Monitor for dysrhythmias. Plan discussed with: Patient Date of Service: May 09, 2024 Billing Provider: MIKALA JEFFERSON Sr., MD Cardiology Common Codes: 68606-[id number] INP/OBS CARE (High) MIKALA JEFFERSON Sr., MD May 09, 2024 18:15
--- NOTE | 2024-05-09 21:25 | DVHPN2 ---
Progress Note - Dictate Date Seen: May 09, 2024 Medical Necessity Reason Pt with a Central, PICC or Fol: No Subjective Patient seen and examined at bedside. Breathing comfortably on room air. Overnight events reviewed. vital signs Vital Sign Date Time Temp Pulse Resp B/P (MAP) Pulse Ox O2 Delivery O2 Flow Rate FiO2 05/09/24 18:00 94/45 05/09/24 17:00 97.9 105 16 93 97.9 05/09/24 08:00 Room Air* 0 21 Total Intake and Output 05/08/24 05/08/24 05/09/24 15:00 23:00 07:00 Intake Total 670 ml 340 ml Output Total 600 ml Balance 670 ml -260 ml medications Current Medications Medications Dose Ordered Sig/Anderson Route Start Time Stop Time Status Last Admin Dose Admin Furosemide 40 mg BIDD IV 05/07/24 23:15 05/09/24 05:15 40 MG Ondansetron HCl 4 mg Q6HPRN PRN IV 05/07/24 23:15 Acetaminophen 650 mg Q6HPRN PRN PO 05/07/24 23:15 Acetaminophen/ Hydrocodone Bitart 1 tab Q6HPRN PRN PO 05/07/24 23:15 05/09/24 14:09 1 TAB Enoxaparin Sodium 40 mg DAILY SC 05/08/24 10:00 05/09/24 09:43 40 MG Metoprolol Tartrate 25 mg BID PO 05/09/24 22:00 Doxycycline Monohydrate 100 mg Q12HR PO 05/09/24 22:00 objective Gen.: Patient lying in bed in no apparent distress. Breathing on room air. Head: Normocephalic, atraumatic. Eyes: EOMI/PERRLA. Ears: Normal hearing. Normal anatomy. Neck/trachea: Trachea midline, supple. Nose: Normal external anatomy. Mouth: Moist mucous membranes. Chest: Decreased air entry bilaterally. No wheezing or rhonchi. Cardiovascular: Positive S1, positive S2. Regular rate and rhythm. Abdomen: Positive bowel sounds in all 4 quadrants. Soft, non-tender, non- distended. : Deferred. Rectal: Deferred. Skin: Warm, dry. Intact. Extremities: 2+ radial pulses bilaterally. No lower extremity edema. Neuro: Awake, alert, oriented x3. No gross motor or sensory deficits. Cranial nerves II through XII intact. Gait not assessed laboratory and microbiology Laboratory Tests 05/08/24 05:25 Test 05/08/24 05:25 Range/Units Serum Glucose 110 H 74-106 mg/dL Assessment/Plan Impression: Large right pleural effusion Atelectasis Dyspnea Obesity, BMI 30.8 Events: Breathing on room air No respiratory distress. CXR reviewed, demonstrates small right pleural effusion. Diurese. Continue abx Follow up ID recommendations Recommend outpatient followup at [facility] for monitoring for pleural fluid recurrence. Labs and imaging reviewed. Rest of plan as noted below. Plan: S/p right thoracentesis with drainage of 2.4 L. Supplemental oxygen PRN Titrate to keep O2 sats above 92%. Continue antibiotics -Levaquin Follow up cultures Incentive spirometry Diurese w/ Lasix Monitor renal function. Monitor electrolytes. Supplement as necessary. Monitor ins and outs. Diet and lifestyle modifications for weight reduction Obesity - complicates all care. DVT prophylaxis. Prognosis: Guarded given patient's multiple co-morbidities. Rest of plan per hospitalist and other consultants. Thank you Saba Iniguez NP, for allowing me to participate in this patient's care. Further recommendations will depend on the patient's clinical course. Please do not hesitate to contact me if you have any questions or concerns. This medical document was created using an electronic medical record system with [employer] dictation system. Although these documentations are being carefully reviewed, there may still be some phonetic and typographical changes. The errors are purely typographical, due to imperfection on the software program, and do not reflect any compromise in the patient's medical care. Plan discussed with: Patient, Other (IBETH Lozano) VALERI BRANTLEY MD May 09, 2024 21:25
[2024-05-09] MEDS: DOXYCYCLINE 100 MG TAB/CAP PO SCH (22:05)
[2024-05-09] MEDS: ACETAMINOPHEN 325 MG TAB PO PRN (22:06)
[2024-05-09] MEDS: METOPROLOL TARTRATE 25 MG TAB PO SCH (22:07)
[2024-05-10] VITALS (7 sets, daily range): BP systolic 102–113; BP diastolic 47–57; PULSE 82–95; RESP 18–20; TEMP 97.7–98.7; O2SAT 94–97
--- NOTE | 2024-05-10 10:13 | DVHPN2 ---
Progress Note - Dictate Date Seen: May 10, 2024 Medical Necessity Reason Pt with a Central, PICC or Fol: No Subjective Patient was seen and evaluated. He feels better, chest pain is improved. vital signs Vital Sign Date Time Temp Pulse Resp B/P (MAP) Pulse Ox O2 Delivery O2 Flow Rate FiO2 05/10/24 05:55 105/55 05/10/24 05:00 97.8 82 18 94 97.8 05/09/24 20:00 Room Air* 0 21 Total Intake and Output 05/09/24 05/09/24 05/10/24 15:00 23:00 07:00 Intake Total 800 ml 970 ml 250 ml Output Total 600 ml 670 ml Balance 800 ml 370 ml -420 ml medications Current Medications Medications Dose Ordered Sig/Anderson Route Start Time Stop Time Status Last Admin Dose Admin Furosemide 40 mg BIDD IV 05/07/24 23:15 05/10/24 05:55 40 MG Ondansetron HCl 4 mg Q6HPRN PRN IV 05/07/24 23:15 Acetaminophen 650 mg Q6HPRN PRN PO 05/07/24 23:15 05/09/24 22:06 650 MG Acetaminophen/ Hydrocodone Bitart 1 tab Q6HPRN PRN PO 05/07/24 23:15 05/09/24 14:09 1 TAB Enoxaparin Sodium 40 mg DAILY SC 05/08/24 10:00 05/09/24 09:43 40 MG Metoprolol Tartrate 25 mg BID PO 05/09/24 22:00 05/09/24 22:07 25 MG Doxycycline Monohydrate 100 mg Q12HR PO 05/09/24 22:00 05/09/24 22:05 100 MG objective General Appeara: Well developed, Well nourished, Normal Appearance Neck Exam: Normal inspection, Non-tender, Normal alignment Eye Exam: bilateral eye Normal inspection, bilateral eye PERRL, bilateral eye EOMI Pulmonary/Respiratory: Normal inspection, Chest non-tender, Other (diminished breath sounds r> L) Cardiovascular/Chest: Normal inspection, Regular rate, Normal Rhythm Peripheral Pulses: 2+ dorsalis pedis (R), 2+ dorsalis pedis (L), 2+ Radial (R), 2+ Radial (L) Abdominal Exam: Normal bowel sounds, Soft [employer] Exam: Normal hearing, Normal speech, PERRL Neuro/Mental St: Alert, Oriented Appearance: Appropriate appearance, Appropriate insight Eye contact/ Speech: Cooperative, Good eye contact, Normal speech Thoughts/Psych: Normal thought pattern Skin Exam: Normal inspection, Normal color, Warm/dry laboratory and microbiology Laboratory Tests 05/08/24 05:25 Test 05/08/24 05:25 Range/Units Serum Glucose 110 H 74-106 mg/dL Assessment/Plan Assessment/Plan 78 yo male with 1. right large pleural effusion 2. right lower lobe atelectasis 3. shortness of breath 4. New onset CHF with EF of 30% 5. non Hodgkin's Lymphoma recommendations s/p thoracocentesis 2.4L out fluid analysis is pending: advised RN дмитрий to call lab for LDH Follow fluid culture: prelim no growth Cardiology is on board. EF is 30%, my suspicion for pleural fluid is possibly secondary to CHF however empirically continue antibiotics for possible pneumonia Repeat CBC strict I and O's on Doxycyline for now get EKG: for Qtc also reviewed [facility] workup: WBC 13.35, H&H 14/43.6, Platelets 346, INR 1.0, PT 10.9, Na 140, K 3.7, BUN 19/0.99, BNP 846, Troponin 13, Lipase 31, Lactic 1.1, CTA chest w contrast: large right pleural effusion. Complete right lower lobe atelectasis. Partial right upper lobe atelectasis. No pulmonary embolism. 21 mm right renal cyst. chest x ray: Dense right basilar airspace opacification, likely reflecting a combination of moderate right pleural effusion with adjacent atelectasis/ consolidation. Discussed assessment and care plan with patient and RN Plan discussed with: Patient ERICK LOPEZ MD May 10, 2024 10:13
[2024-05-10] MEDS ORDERED: SACU1TAB PO (12:48)
[2024-05-10] MEDS ORDERED: DOXY100C79 PO (12:48)
[2024-05-10] MEDS ORDERED: METO25TA36 PO (12:48)
--- NOTE | 2024-05-10 12:50 | DVHDS2 ---
Discharge Summary Date of Admission May 07, 2024 at 22:35 Date of Discharge: May 10, 2024 Labs/Diagnostic Data: Laboratory Results Test 05/09/24 16:15 05/08/24 17:00 05/08/24 05:25 Troponin I High Sensitivity 40 ng/L (</=54) Body Fluid Source Pleural fluid Body Fluid pH 8.0 Body Fluid WBC (Manual) 3308 CUMM (0-200) Body Fluid RBC (Manual) 26037 CUMM (0-2000) Body Fluid Mononuclear Cells 95 % Body Fluid Polymorphonuclear Cells 5 % (0-25) White Blood Count 13.2 10^3/uL (4.4-10.8) Red Blood Count 4.73 10^6/uL (4.5-5.90) Hemoglobin 14.1 g/dL (13.5-17.5) Hematocrit 43.2 % (41.0-53.0) Mean Corpuscular Volume 91.4 fL (80.0-100.0) Mean Corpuscular Hemoglobin 29.7 pg (28.0-32.0) Mean Corpuscular Hemoglobin Concent 32.5 g/dL (32.0-36.0) Red Cell Distribution Width 13.4 % (11.8-14.3) Platelet Count 425 10^3/uL (140-450) Mean Platelet Volume 7.7 fL (6.9-10.8) Neutrophils (%) (Auto) 64.7 % (37.0-80.0) Lymphocytes (%) (Auto) 26.1 % (10.0-50.0) Monocytes (%) (Auto) 7.9 % (0.0-12.0) Eosinophils (%) (Auto) 1.2 % (0.0-7.0) Basophils (%) (Auto) 0.1 % (0.0-2.0) Neutrophils # (Auto) 8.5 10 ^3/uL (1.6-8.6) Lymphocytes # (Auto) 3.4 10 ^3/uL (0.4-5.4) Monocytes # (Auto) 1.0 10 ^3/uL (0-1.3) Eosinophils # (Auto) 0.2 10 ^3/uL (0-0.8) Basophils # (Auto) 0 10 ^3/uL (0-0.2) Nucleated Red Blood Cells 0.1 % Prothrombin Time 10.7 sec (9.3-11.8) Prothrombin Time INR 1.01 (0.9-1.15) Sodium Level 143 mmol/L (136-145) Potassium Level 4.1 mmol/L (3.5-5.1) Chloride Level 105 mmol/L (98-107) Carbon Dioxide Level 29 mmol/L (20-31) Anion Gap 9 (5-15) Blood Urea Nitrogen 18 mg/dL (9-23) Creatinine 1.11 mg/dL (0.700-1.30) Glomerular Filtration Rate Calc 68 mL/min (>90) BUN/Creatinine Ratio 16.2 (10.0-20.0) Serum Glucose 110 mg/dL (74-106) Calcium Level 9.9 mg/dL (8.7-10.4) Other Laboratory Tests 05/08/24 05:25 Final Diagnosis/Problems List Pleural effusions status post thoracentesis ruled out malignancy Chronic congestive heart failure/cardiomyopathy EF 30% History of lymphoma Discharge Disposition: Home Discharge Instruct/Medications Diet: Consistent carbohydrate, Cardiac 2g Na,low cholest Diet comment: To limit your oral fluid intake to 1500 mL per 24 hours. Activity: No Restrictions, As Tolerated Follow Up/Referral: With Dr. Collado lung doctor after two weeks for results of lung fluid cytology. Dr. Del Valle primary care physician two weeks for heart failure management. Medications: As prescribed and home medications per discharge medication list. Discharge Statement: "Patient was advised to return to the ER or call 911 if any headaches, dizziness, shortness of breath, chest pain, abdominal pain, bleeding, fevers, or worsening of medical condition. Patient was counseled about treatment plan, medications, possible side effects, patientverbalized understanding. All questions were answered to the best of my ability. This discharge took greater then 30 minutes in planning, reviewing documentation, counseling the patient, and discussing with other team members." ASSESSMENT ASSESSMENT Assessment Pleural effusions status post thoracentesis ruled out malignancy Chronic congestive heart failure/cardiomyopathy EF 30% History of lymphoma LINO MCCORMACK MD May 10, 2024 12:50
[2024-05-10 13:07] LABS: Protein, Body Fluid 4.3 g/dL (.)
--- NOTE | 2024-05-10 22:29 | DVHPN2 ---
Progress Note - Dictate Date Seen: May 10, 2024 Medical Necessity Reason Pt with a Central, PICC or Fol: No vital signs Vital Sign Date Time Temp Pulse Resp B/P (MAP) Pulse Ox O2 Delivery O2 Flow Rate FiO2 05/10/24 14:55 98.7 84 20 97 05/10/24 12:00 112/57 (75) 05/10/24 08:30 Room Air* 0 21 Total Intake and Output 05/09/24 05/09/24 05/10/24 15:00 23:00 07:00 Intake Total 800 ml 970 ml 250 ml Output Total 600 ml 670 ml Balance 800 ml 370 ml -420 ml laboratory and microbiology Laboratory Tests 05/08/24 05:25 Test 05/08/24 05:25 Range/Units Serum Glucose 110 H 74-106 mg/dL PALOMA TINSLEY ACNP May 10, 2024 22:29
--- NOTE | 2024-05-11 10:16 | DVHPN2 ---
Progress Note - Dictate Date Seen: May 10, 2024 Medical Necessity Reason Pt with a Central, PICC or Fol: No Subjective Patient seen and examined at bedside. Breathing comfortably on room air. Overnight events reviewed. vital signs Vital Sign Date Time Temp Pulse Resp B/P (MAP) Pulse Ox O2 Delivery O2 Flow Rate FiO2 05/10/24 14:55 98.7 84 20 97 05/10/24 12:00 112/57 (75) 05/10/24 08:30 Room Air* 0 21 objective Gen.: Patient lying in bed in no apparent distress. Breathing on room air. Head: Normocephalic, atraumatic. Eyes: EOMI/PERRLA. Ears: Normal hearing. Normal anatomy. Neck/trachea: Trachea midline, supple. Nose: Normal external anatomy. Mouth: Moist mucous membranes. Chest: Decreased air entry bilaterally. No wheezing or rhonchi. Cardiovascular: Positive S1, positive S2. Regular rate and rhythm. Abdomen: Positive bowel sounds in all 4 quadrants. Soft, non-tender, non- distended. : Deferred. Rectal: Deferred. Skin: Warm, dry. Intact. Extremities: 2+ radial pulses bilaterally. No lower extremity edema. Neuro: Awake, alert, oriented x3. No gross motor or sensory deficits. Cranial nerves II through XII intact. Gait not assessed laboratory and microbiology Laboratory Tests 05/08/24 05:25 Test 05/08/24 05:25 Range/Units Serum Glucose 110 H 74-106 mg/dL Assessment/Plan Impression: Large right pleural effusion Atelectasis Dyspnea Obesity, BMI 30.8 Events: Breathing on room air No respiratory distress. CXR reviewed, demonstrates small right pleural effusion. Diurese. Continue abx ID recommendations appreciated Recommend outpatient followup at [facility] for monitoring for pleural fluid recurrence. Labs and imaging reviewed. Rest of plan as noted below. Plan: S/p right thoracentesis with drainage of 2.4 L. Supplemental oxygen PRN Titrate to keep O2 sats above 92%. Continue antibiotics -Levaquin Follow up cultures Incentive spirometry Diurese w/ Lasix Monitor renal function. Monitor electrolytes. Supplement as necessary. Monitor ins and outs. Diet and lifestyle modifications for weight reduction Obesity - complicates all care. DVT prophylaxis. Prognosis: Guarded given patient's multiple co-morbidities. Rest of plan per hospitalist and other consultants. Thank you Saba Iniguez NP, for allowing me to participate in this patient's care. Further recommendations will depend on the patient's clinical course. Please do not hesitate to contact me if you have any questions or concerns. This medical document was created using an electronic medical record system with [employer] dictation system. Although these documentations are being carefully reviewed, there may still be some phonetic and typographical changes. The errors are purely typographical, due to imperfection on the software program, and do not reflect any compromise in the patient's medical care. Plan discussed with: Patient, Other (RN) VALERI BRANTLEY MD May 11, 2024 10:16
== END 2024-05-10 15:30 | disposition home health service (06) | DRG 187 ==
LOC: CENTRAL 22:35 → TELE-CENTR 23:39
PROVIDERS: ADMIT Nurse Practitioner Family; ATTEND Hospitalist
PROC: 0W993ZZ Drainage of Right Pleural Cavity, Percutaneous Approach (ICD-10-PCS; principal; 2024-05-08)
DX: J90 Pleural effusion, not elsewhere classified (principal); I42.9 Cardiomyopathy, unspecified; J98.11 Atelectasis; I11.0 Hypertensive heart disease with heart failure; E66.9 Obesity, unspecified; I50.9 Heart failure, unspecified; E78.00 Pure hypercholesterolemia, unspecified; Z87.891 Personal history of nicotine dependence; Z85.72 Personal history of non-Hodgkin lymphomas; Z68.30 Body mass index [BMI] 30.0-30.9, adult; Z92.3 Personal history of irradiation
CPT/HCPCS: 32555; 36415; 71045; 76604; 76942; 80048; 83986; 84484; 85025; 85610; 87205; 89051; 93306; 97163; G0378; J2470

== ENCOUNTER 2024-05-22 14:57 | Emergency (ER) | payer OTHER ==
[~2024-05-22] VITALS: Ht 165.1 cm; Wt 64.0 kg
[~2024-05-22 14:57] MED LIST changes: -ASCO500T11 PO; +DOXY100C79 PO; -POTA99TA3 PO
[2024-05-22 15:20] VITALS: PULSE 103; RESP 16; O2SAT 97
[2024-05-22] MEDS: ACETAMINOPHEN/CODEINE#3 (300/30mg) TAB PO ONE (16:19)
--- NOTE | 2024-05-22 16:27 | DVH ---
PROCEDURE: ULTRASOUND GUIDED THORACENTESIS USING TEMPORARY CATHETER HISTORY: 78 Male with sob and right pleural effusion requiring thoracentesis. DOCUMENTATION: Informed consent was obtained and a procedural time out was performed. TECHNIQUE: Ultrasound was used to locate the right pleural fluid collection with an image archived i n the PACS. The skin over the right posterior hemithorax was sterilely prepped, draped, and infiltra artie with 1% lidocaine. Under real time ultrasound guidance, the right pleural space was accessed wit h a 19-gauge Yueh needle and connected to Vacutainers. The Yueh catheter was advanced, the needle was removed and the temporary catheter was advanced and connected to the Vacutainer. Approximately 0.3 l iters of straw colored fluid was removed. The temporary catheter was removed and sterile dressings w ere applied. FINDINGS: Ultrasound demonstrates a small right pleural effusion. Imaging confirms the needle tip wi thin the fluid. IMPRESSION: SUCCESSFUL ULTRASOUND GUIDED THORACENTESIS. Procedure perfomed by Dr. Cho
--- NOTE | 2024-05-22 16:33 | DVH ---
CHEST RADIOGRAPH Indication:POST THORACENTESIS Technique: Single frontal view of the chest was obtained Comparison: XY CHEST XRAY 1 VIEW on DOS: 05/09/24, XY CHEST PORTABLE on DOS: 05/09/24, XY CHEST RANDA BLE on DOS: 05/08/24 FINDINGS: Lines and Tubes: None Lungs: No focal consolidation. Elevated right hemidiaphragm with redemonstration of hazy opacificatio n of the right mid lower lung zones. Minimal blunting of the right costophrenic angle. No pneumothorax. Cardiomediastinal contours: Unremarkable Bones: No acute osseous abnormality. IMPRESSION: Elevated right hemidiaphragm with relatively unchanged hazy opacification of the right mid and lower lung zone. Possible small right-sided pleural effusion.
[2024-05-22] MEDS ORDERED: ACE3T PO (16:39)
--- NOTE | 2024-05-22 16:41 | ED.PDOC ---
History of Present Illness HPI Comments 78-year-old male complaining of right-sided abdominal and rib pain. Patient states he was at Dr. Collado's office today, senior speech pathologist, he was advised to come into the emergency department for paracentesis. Dr. Collado met the patient at the emergency department and performed paracentesis. 300 cc of fluid was r emoved. Patient states he did feel relief from his pain because they numb the injection area. Patient states he has been having the pain in that area since the last time they did paracentesis two weeks ago. Chief Complaint: Rib Pain Time Seen by MD: 15:25 Reviewed Notes: Nurses Notes Allergies: Coded Allergies: NO KNOWN ALLERGIES (Unverified , 06/16/23) Home Meds Active Scripts Doxycycline (Monohydrate) (Doxycycline) 100 Mg Cap, 100 MG PO BID, #10 CAP Prov:LINO MCCORMACK MD 05/10/24 Sacubitril-Valsartan (Entresto 24-26 mg) 1 Tab Tab, 1 TAB PO BID, #60 TAB Prov:LINO MCCORMACK MD 05/10/24 Metoprolol Succinate (Toprol Xl) 25 Mg Tab, 25 MG PO DAILY, #60 TAB Prov:LINO MCCORMACK MD 05/10/24 Reported Medications B-Complex W/Biotin & Folic Aci (SUPER B-COMPLEX) Complex Cap, 1 CAP OR DAILY, CAP 06/16/23 Multiple Vitamins W/ Minerals (MULTI FOR HIM) For Him Cap, 1 HIM PO DAILY, CAP 06/16/23 [place]-3 Fatty Acids (Fish Oil) Cap, 1 OR DAILY, CAP 06/16/23 Gabapentin (Gabapentin) 100 Mg Cap, 100 MG PO TID, CAP 06/16/23 Coenzyme Q10 (Coq-10) 50 Mg Cap, 50 MG PO DAILY, CAP 06/16/23 Aspirin (Aspirin Low Dose) 81 Mg Chw, 81 MG PO DAILY, TAB.CHEW 06/16/23 Lovastatin (Lovastatin) 40 Mg Tab, 40 MG PO DAILY, TAB 06/16/23 Information Source: Patient Mode of Arrival: Ambulatory Past Medical History PAST MEDICAL HISTORY: Denies Surgical History: Denies all surgeries Constitutional: denies: chills, diaphoresis, fatigue, fever, malaise, sweats, weakness, others EENTM: denies: blurred vision, double vision, ear bleeding, ear discharge, ear drainage, ear pain, ear ringing, eye pain, eye redness, hearing loss, mouth pain, mouth swelling, nasal discharge, nose bleeding, nose congestion, nose pain, photophobia, tearing, throat pain, throat swelling, voice changes, others Respiratory: denies: cough, hemoptysis, orthopnea, SOB at rest, shortness of breath, SOB with excertion, stridor, wheezing, others Cardiovascular: denies: chest pain, dizzy spells, diaphoresis, Dyspnea on exertion, edema, irregular heart beat, left arm pain, lightheadedness, palpitations, PND, syncope, others Gastrointestinal: denies: abdomen distended, abdominal pain, blood streaked bowels, constipated, diarrhea, dysphagia, difficulty swallowing, hematemesis, melena, nausea, poor appetite, poor fluid intake, rectal bleeding, rectal pain, vomiting, others Genitourinary: denies: burning, dysuria, flank pain, frequency, hematuria, incontinence, penile discharge, penile sore, pain, testicle pain, testicle swelling, urgency, others Neurological: denies: dizziness, fainting, headache, left sided numbness, left sided weakness, numbness, paresthesia, pre-existing deficit, right sided numbness, right sided weakness, seizure, speech problems, tingling, tremors, weakness, others Musculoskeletal: denies: back pain, gout, joint pain, joint swelling, muscle pain, muscle stiffness, neck pain, others Integumetry: denies: bruises, change in color, change in hair/nails, dryness, laceration, lesions, lumps, rash, wounds, others Allergic/Immunocompromised: denies: Difficulty Healing, Frequent Infections, Hives, Itching, others Hematologic/Lymphatic: denies: anemia, blood clots, easy bleeding, easy bruising, swollen glands, others Physical Exam General Appearance: No Apparent Distress, Normal HEENT: Normal ENT Inspection, Pharynx Normal, TMs Normal Neck: Full Range of Motion, Non-Tender, Normal, Normal Inspection Respiratory: Chest Non-Tender, Lungs Clear, No Accessory Muscle Use, No Respiratory Distress, Normal Breath Sounds Cardiovascular: No Edema, No JVD, No Murmur, No Gallop, Normal Peripheral Pulses, Regular Rate/Rhythm Breast Exam: Deferred Gastrointestinal: No Organomegaly, Non Tender, No Pulsatile Mass, Normal Bowel Sounds, Soft Genitalia: Deferred Pelvic: Deferred Rectal: Deferred Extremities: No calf tenderness, Normal capillary refill, Normal inspection, Normal range of motion, Non-tender, No pedal edema Musculoskeletal : Apperance: Normal Neurologic: Alert, support assistant II-XII nml as Tested, No Motor Deficits, Normal Affect, Normal Mood, No Sensory Deficits Cerebellar Function: Normal Reflexes: Normal Skin: Dry, Normal Color, Warm Lymphatic: No Adenopathy Was a procedure done? Was a procedure done?: No Differential Dx Considerations may include: Rib fracture, pneumonia, ascites, cellulitis X-Ray, Labs, Meds, VS Vital Signs Date Time Temp Pulse Resp B/P (MAP) Pulse Ox O2 Delivery O2 Flow Rate FiO2 05/22/24 15:20 97.9 103 16 149/55 (86) 97 05/22/24 15:20 97.9 103 16 149/55 (86) 97 97.9 05/22/24 15:20 103 16 97 Room Air* 0 21 Current Medications Medications (Trade) Dose Ordered Sig/Anderson Route Start Time Stop Time Status Last Admin Acetaminophen/ Codeine Phosphate (Tylenol W/Cod #3 Tablet) 1 tab ONCE ONCE PO 05/22/24 16:15 05/22/24 16:16 DC 05/22/24 16:19 X-Ray, Labs, Meds, VS Comment Imaging: X-rays and CT scans were reviewed and interpreted by this provider, imaging shows no fractures and no pathological disease. Pending radiology review. Laboratory: Labs reviewed and interpreted by this provider. No significant abnormalities noted. Patient has prior medical visits reviewed. Med reconciliation performed Vital signs reviewed Time of 1ST Reevaluation: 16:41 Reevaluation 1ST: Improved Patient Education/Counseling: Diagnosis, Treatment, Need For Follow Up (Patient advised to follow-up in the emergency room in the next 24 to 48 hours if symptoms do not improve. Advised follow-up with PCP in the next 3 to 5 days. P atient verbalized understanding. ) Family Education/Counseling: Diagnosis, Treatment Departure 1 Departure Time of Disposition: 16:39 Impression: Primary Impression: Pleural effusion, right Disposition: 01 HOME / SELF CARE / HOMELESS Condition: Fair e-Prescriptions Acetaminophen W/ Codeine (Tylenol W/Cod #3) 1 Tab Tb 1 TAB PO BID PRN, #20 TAB Prov: SHAHEEN WATSON 05/22/24 Discharged With: Self Critical Care Note Critical Care Time?: No Stability Stability form required: No Heart Score Heart Score: Heart Score Response (Comments) Value History N/A 0 EKG N/A 0 Age N/A 0 Risk Factors N/A 0 Troponin N/A 0 Total 0 SHAHEEN WATSON May 22, 2024 16:41
[2024-05-22 17:00] VITALS: BP 121/53; PULSE 108; RESP 14; TEMP 97.9; O2SAT 99
--- NOTE | 2024-05-22 17:03 | DVHNC2 ---
Procedure - Ultrasound-guided RIGHT thoracentesis procedure note: Physician: Dr Lilia Collado Date: 05/22/2024 Time: 0415 pm Consent: Consent was obtained from patient prior to procedure. Indication, risks, and benefits were explained at length. Procedure summary: A time-out was performed and a chest x-ray was reviewed prior to procedure. The appropriate site was confirmed and marked. My hands were washed immediately rodriguez or to the procedure, I wore a surgical cap, mask with protective eyewear, sterile gown and sterile gloves throughout the procedure. The patient was prepped and draped in a sterile manner using chlorhexidine scrub after the appropriate level was percussed and confirmed by ultrasound. 1% lidocaine was used to anesthetize the skin, subcutaneous tissue, superior aspect of the rib periosteum and parietal pleura. A finder needle was then introduced over the superior aspect of the rib to locate the pleural fluid; yellow fluid was aspirated. Thoracentesis needle was then introduced through the skin incision into the pleural space using negative aspiration pressure. The thoracentesis catheter was then threaded without difficulty. 300 mL of yellow colored fluid w ere removed without difficulty. The catheter was then removed. No immediate complications were noted during the procedure. A post-procedure chest x-ray is pending at the time of this note. Estimated blood loss is less than 5 mL's. CPT: 88310 VALERI COLLADO MD May 22, 2024 17:03
--- NOTE | 2024-05-22 17:04 | DVHINCON2 ---
Date of service: May 22, [address] Neves Reason for Consultation Right pleural effusion, in need of thoracentesis, intractable right sided pain. History of Present Illness 78-year-old man history of pleural effusion, CHF, hypertension, non-Hodgkin's lymphoma who presented for right-sided rib pain and abdominal pain. I referred him from my office in [address]. On examination he had dullness to percussion in the right lower lung field. It was suggestive of a right pleural effusion. He was recently drained during his last hospitalization. Limited chest ultrasound was performed and demonstrated a [id number] right pleural effusion. Pulmonary consultation was called for emergent right thoracentesis. Review of systems: 14 point review of systems is negative unless otherwise noted above. Past medical history: Pleural effusion, atelectasis, CHF, hypertension, non- Hodgkin's lymphoma Past surgical history: None mentioned in prior surgeries. Medications: Reviewed Allergies: No known drug allergies. Family history: No family history of premature CAD. No family history of lung disease. Social history: Smoker. Quit July 10, 1968. Former smoker. No illicit drug use. Social alcohol use. Family History: Patient reports no known family medical history. Allergies: Coded Allergies: NO KNOWN ALLERGIES (Unverified , 06/16/23) Home Meds Active Scripts Acetaminophen W/ Codeine (Tylenol W/Cod #3) 1 Tab Tb, 1 TAB PO BID PRN, #20 TAB Prov:SHAHEEN WATSON 05/22/24 Doxycycline (Monohydrate) (Doxycycline) 100 Mg Cap, 100 MG PO BID, #10 CAP Prov:LINO MCCORMACK MD 05/10/24 Sacubitril-Valsartan (Entresto 24-26 mg) 1 Tab Tab, 1 TAB PO BID, #60 TAB Prov:LINO MCCORMACK MD 05/10/24 Metoprolol Succinate (Toprol Xl) 25 Mg Tab, 25 MG PO DAILY, #60 TAB Prov:LINO MCCORMACK MD 05/10/24 Reported Medications B-Complex W/Biotin & Folic Aci (SUPER B-COMPLEX) Complex Cap, 1 CAP OR DAILY, CAP 06/16/23 Multiple Vitamins W/ Minerals (MULTI FOR HIM) For Him Cap, 1 HIM PO DAILY, CAP 06/16/23 [place]-3 Fatty Acids (Fish Oil) Cap, 1 OR DAILY, CAP 06/16/23 Gabapentin (Gabapentin) 100 Mg Cap, 100 MG PO TID, CAP 06/16/23 Coenzyme Q10 (Coq-10) 50 Mg Cap, 50 MG PO DAILY, CAP 06/16/23 Aspirin (Aspirin Low Dose) 81 Mg Chw, 81 MG PO DAILY, TAB.CHEW 06/16/23 Lovastatin (Lovastatin) 40 Mg Tab, 40 MG PO DAILY, TAB 06/16/23 Vital Signs Vital Signs Date Time Temp Pulse Resp B/P (MAP) Pulse Ox O2 Delivery O2 Flow Rate FiO2 05/22/24 15:20 97.9 103 16 149/55 (86) 97 05/22/24 15:20 Room Air* 0 21 Physical Exam Gen.: Patient lying in bed in moderate apparent distress. On room air. Head: Normocephalic, atraumatic Eyes: EOMI/PERRLA. Ears: Normal hearing. Normal anatomy. Neck/trachea: Trachea midline, supple. Nose: Normal external anatomy. Mouth: Moist mucous membranes. Chest: Decreased air entry bilaterally. No wheezing or rhonchi. Dullness to percussion in the right lower lung field. Cardio vascular: Tachycardic. Positive S1, positive S2. Regular rhythm. Abdomen: Positive bowel sounds in all 4 quadrants. Soft, non-tender, non- distended. : Deferred. Rectal: Deferred Skin: Warm, dry. Extremities: 2+ radial pulses bilaterally. No lower extremity edema. Neuro: Awake, alert, oriented x3. No gross motor or sensory deficits. Cranial nerves II through XII intact. Gait not assessed. Assessment Impression: Right pleural effusion, loculated Atelectasis , compressive Right rib pain CHF Non-Hodgkin's lymphoma Plan: Limited chest ultrasound was performed. Loculated right pleural effusion. Thoracentesis was performed with the largest pocket after informed consent was obtained. 300 mL of yellow-colored fluid was removed. Sent for culture and cytology. Patient tolerated procedure well. Postprocedure chest x-ray demonstrates no pneumothorax. Interval slight reduction in right pleural effusion. Elevated right hemidiaphragm. Unchanged hazy opacification of the right mid to lower lung field. See separate procedure note for full details. Patient was to follow up in the office in 2-3 weeks to discuss pleural fluid culture and cytology results. Condition: Critical Prognosis: Guarded given multiple comorbidities. Rest of plan per hospitalist and other consultants. A total of 36 minutes of critical care time was spent reviewing the patient record, examining the patient, making a diagnostic and therapeutic plan, discussing this plan with the medical personnel, following up on diagnostic studies and following the patient for clinical stability excluding any and all procedures. At least 50% of this time was spent in direct, [id number] contact. Thank you Dr. Neves/ BRYCE Watson for allowing me to participate in this patient's care. Please do not hesitate to contact me if you have any questions or concerns. This medical document was created using an electronic medical record system with [employer] dictation system. Although this document has been carefully reviewed, there may still be some phonetic and typographical errors. These areas are purely typographical due to imperfections of the software programs, and do not reflect any compromise in the patient's medical care. Plan discussed with: Patient, Spouse, Other (IBETH Hamm, BRYCE/) VALERI BRANTLEY MD May 22, 2024 17:04
[2024-05-22 22:07] LABS: Body Fluid Red Blood Cells 179 CUMM (0-2000); Body Fluid White Blood Cells 4014 CUMM (0-200)
[2024-05-22 22:08] LABS: Body Fluid Polymorphonuclear 3 % (0-25)
== END 2024-05-22 17:05 | disposition home or self-care (01) ==
LOC: ER 14:57
DX: J90 Pleural effusion, not elsewhere classified (principal); Z79.899 Other long term (current) drug therapy; Z79.84 Long term (current) use of oral hypoglycemic drugs
CPT/HCPCS: 71045; 76942; 83986; 87205; 89051; 99284; C1729

== ENCOUNTER 2024-05-26 09:11 | Emergency (ER) | payer OTHER ==
[~2024-05-26] VITALS: Ht 165.1 cm; Wt 63.6 kg
[~2024-05-26 09:11] MED LIST changes: +ACE3T PO
[2024-05-26 10:08] VITALS: PULSE 115; RESP 18; O2SAT 97
[2024-05-26 10:18] LABS: Basophils # (auto) 0 10 ^3/uL (0-0.2); Basophils % (auto) 0.4 % (0.0-2.0); Eosinophils # (auto) 0.1 10 ^3/uL (0-0.8); Eosinophils % (auto) 1.2 % (0.0-7.0); Hematocrit 35.6 % (41.0-53.0); Hemoglobin 11.9 g/dL (13.5-17.5); Lymphocytes # (auto) 1.6 10 ^3/uL (0.4-5.4); Lymphocytes % (auto) 18.1 % (10.0-50.0); Mean Corpuscular Hemoglobin 29.8 pg (28.0-32.0); Mean Corpuscular Hgb Conc. 33.4 g/dL (32.0-36.0); Mean Corpuscular Volume 89.2 fL (80.0-100.0); Monocytes # (auto) 0.8 10 ^3/uL (0-1.3); Monocytes % (auto) 9.6 % (0.0-12.0); Neutrophils # (auto) 6.1 10 ^3/uL (1.6-8.6); Neutrophils % (auto) 70.7 % (37.0-80.0); Platelet Count (auto) 447 10^3/uL (140-450); Red Blood Cells 3.99 10^6/uL (4.5-5.90); Red Cell Distribution Width 13.5 % (11.8-14.3); White Blood Cell 8.6 10^3/uL (4.4-10.8)
--- NOTE | 2024-05-26 10:23 | ED.PDOC ---
History of Present Illness HPI Comments 78M presents to the ER w/ prior Hx of hip surgery which may be associated to the c/c of ABD pain. Pt reports on having upper epigastric pain for the past 2 weeks associated w/ constipation for 3 days. [place] type of an 02/16. PMHx of pleura effusion, HTN, HF, Cancer, and High lipids. SHx of Stents, Tonsillectomy, Cataract Surgery and Hernia Surgery. Social Hx of rare alcohol use, but denies tobacco, and substance use. Family Hx of DM. Denies chills, fever, N/V/D, SOB, CP or other associated symptoms, modifiers, or recent injuries at this time. Chief Complaint: Abdominal Pain Time Seen by MD: 09:50 Reviewed Notes: Nurses Notes, Medications, Allergies Allergies: Coded Allergies: NO KNOWN ALLERGIES (Unverified , 06/16/23) Home Meds Active Scripts Acetaminophen W/ Codeine (Tylenol W/Cod #3) 1 Tab Tb, 1 TAB PO BID PRN, #20 TAB Prov:SHAHEEN WATSON 05/22/24 Doxycycline (Monohydrate) (Doxycycline) 100 Mg Cap, 100 MG PO BID, #10 CAP Prov:LINO MCCORMACK MD 05/10/24 Sacubitril-Valsartan (Entresto 24-26 mg) 1 Tab Tab, 1 TAB PO BID, #60 TAB Prov:LINO MCCORMACK MD 05/10/24 Metoprolol Succinate (Toprol Xl) 25 Mg Tab, 25 MG PO DAILY, #60 TAB Prov:LINO MCCORMACK MD 05/10/24 Reported Medications B-Complex W/Biotin & Folic Aci (SUPER B-COMPLEX) Complex Cap, 1 CAP OR DAILY, CAP 06/16/23 Multiple Vitamins W/ Minerals (MULTI FOR HIM) For Him Cap, 1 HIM PO DAILY, CAP 06/16/23 [place]-3 Fatty Acids (Fish Oil) Cap, 1 OR DAILY, CAP 06/16/23 Gabapentin (Gabapentin) 100 Mg Cap, 100 MG PO TID, CAP 06/16/23 Coenzyme Q10 (Coq-10) 50 Mg Cap, 50 MG PO DAILY, CAP 06/16/23 Aspirin (Aspirin Low Dose) 81 Mg Chw, 81 MG PO DAILY, TAB.CHEW 06/16/23 Lovastatin (Lovastatin) 40 Mg Tab, 40 MG PO DAILY, TAB 06/16/23 Information Source: Patient Mode of Arrival: Ambulatory Severity: Moderate Timing: Weeks Duration: Since onset Prehospital treatment: None Past Medical History PAST MEDICAL HISTORY: Cancer, High Lipids, HTN Past Medical History (Other): Pleura Effusion, HF Surgical History: Hernia Repair, Tonsillectomy Surgical History (Other): Stent, Hip Surgery, Cataract Surgery, Family History Family History: Family hx of DM Social History Smoker: Non-Smoker Alcohol: Rarely Drugs: Denies Drug Use Lives In: Home Constitutional: denies: chills, diaphoresis, fatigue, fever, malaise, sweats, weakness, others EENTM: denies: blurred vision, double vision, ear bleeding, ear discharge, ear drainage, ear pain, ear ringing, eye pain, eye redness, hearing loss, mouth pain, mouth swelling, nasal discharge, nose bleeding, nose congestion, nose pain, photophobia, tearing, throat pain, throat swelling, voice changes, others Respiratory: denies: cough, hemoptysis, orthopnea, SOB at rest, shortness of breath, SOB with excertion, stridor, wheezing, others Cardiovascular: denies: chest pain, dizzy spells, diaphoresis, Dyspnea on e xertion, edema, irregular heart beat, left arm pain, lightheadedness, palpitations, PND, syncope, others Gastrointestinal: reports: abdominal pain, constipated; denies: abdomen distended, blood streaked bowels, diarrhea, dysphagia, difficulty swallowing, hematemesis, melena, nausea, poor appetite, poor fluid intake, rectal bleeding, rectal pain, vomiting, others Genitourinary: denies: burning, dysuria, flank pain, frequency, hematuria, incontinence, penile discharge, penile sore, pain, testicle pain, testicle swelling, urgency, others Neurological: denies: dizziness, fainting, headache, left sided numbness, left sided weakness, numbness, paresthesia, pre-existing deficit, right sided numbness, right sided weakness, seizure, speech problems, tingling, tremors, weakness, others Musculoskeletal: denies: back pain, gout, joint pain, joint swelling, muscle pain, muscle stiffness, neck pain, others Integumetry: denies: bruises, change in color, change in hair/nails, dryness, laceration, lesions, lumps, rash, wounds, others Allergic/Immunocompromised: denies: Difficulty Healing, Frequent Infections, Hives, Itching, others Hematologic/Lymphatic: denies: anemia, blood clots, easy bleeding, easy bruisin g, swollen glands, others Endocrine: denies: excessive hunger, excessive sweating, excessive thirst, excessive urination, flushing, intolerance to cold, intolerance to heat, unexplained weight gain, unexplained weight loss, others Psychiatric: denies: anxiety, bipolar disorder, depression, hopeless, panic disorder, schizophrenia, sleepless, suicidal, others All Other Systems: Reviewed and Negative Physical Exam General Appearance: Mild Distress HEENT: Normal ENT Inspection, Pharynx Normal, TMs Normal Neck: Full Range of Motion, Non-Tender, Normal, Normal Inspection Respiratory: Chest Non-Tender, Lungs Clear, No Accessory Muscle Use, No Respiratory Distress, Normal Breath Sounds Cardiovascular: No Edema, No JVD, No Murmur, No Gallop, Normal Peripheral Pulses, Regular Rate/Rhythm Breast Exam: Deferred Gastrointestinal: No Organomegaly, Non Tender, No Pulsatile Mass, Normal Bowel Sounds, Soft Genitalia: Deferred Pelvic: Deferred Rectal: Deferred Extremities: No calf tenderness, Normal capillary refill, Normal inspection, Normal range of motion, Non-tender, No pedal edema Musculoskeletal : Apperance: Normal Neurologic: Alert, drilling engineer II-XII nml as Tested, No Motor Deficits, Normal Affect, Normal Mood, No Sensory Deficits Cerebellar Function: Normal Reflexes: Normal Skin: Dry, Normal Color, Warm Lymphatic: No Adenopathy Was a procedure done? Was a procedure done?: No EKG EKG : Pulse Rate (adult): 124 [place]: Normal Cardiac Rhythm: NSR Block: LBBB Hypertrophy: None ST: Normal Differential Dx Considerations may include: Generalized weakness, constipation, appendicitis, small-bowel obstruction X-Ray, Labs, Meds, VS Vital Signs Date Time Temp Pulse Resp B/P (MAP) Pulse Ox O2 Delivery O2 Flow Rate FiO2 05/26/24 10:23 124 05/26/24 10:08 115 18 136/67 (90) 95 05/26/24 10:08 115 18 97 Room Air* 0 21 05/26/24 09:39 124 05/26/24 09:36 97.9 131 22 123/57 79 97 Lab Test 05/26/24 13:34 05/26/24 10:10 Range/Units Urine Color Light-yellow Yellow Urine Clarity Clear Clear Urine pH 6.0 5.0-9.0 Urine Specific [place] 1.017 1.001-1.035 Urine Protein Negative Negative Urine Ketones 1+ H Negative Urine Blood Negative Negative /uL Urine Nitrite Negative Negative Urine Bilirubin Negative Negative Urine Urobilinogen Normal Negative mg/dL Urine Leukocyte Esterase Negative Negative /uL Urine RBC <1 0 - 3 /hpf Urine WBC <1 0 - 3 /hpf Urine Squamous Epithelial Cells None seen <5 /hpf Urine Bacteria None seen None Seen /hpf Urine Glucose Normal Normal mg/dL White Blood Count 8.6 4.4-10.8 10^3/uL Red Blood Count 3.99 L 4.5-5.90 10^6/uL Hemoglobin 11.9 L 13.5-17.5 g/dL Hematocrit 35.6 L 41.0-53.0 % Mean Corpuscular Volume 89.2 80.0-100.0 fL Mean Corpuscular Hemoglobin 29.8 28.0-32.0 pg Mean Corpuscular Hemoglobin Concent 33.4 32.0-36.0 g/dL Red Cell Distribution Width 13.5 11.8-14.3 % Platelet Count 447 140-450 10^3/uL Mean Platelet Volume 7.1 6.9-10.8 fL Neutrophils (%) (Auto) 70.7 37.0-80.0 % Lymphocytes (%) (Auto) 18.1 10.0-50.0 % Monocytes (%) (Auto) 9.6 0.0-12.0 % Eosinophils (%) (Auto) 1.2 0.0-7.0 % Basophils (%) (Auto) 0.4 0.0-2.0 % Neutrophils # (Auto) 6.1 1.6-8.6 10 ^3/uL Lymphocytes # (Auto) 1.6 0.4-5.4 10 ^3/uL Monocytes # (Auto) 0.8 0-1.3 10 ^3/uL Eosinophils # (Auto) 0.1 0-0.8 10 ^3/uL Basophils # (Auto) 0 0-0.2 10 ^3/uL Nucleated Red Blood Cells 0.0 % Sodium Level 138 136-145 mmol/L Potassium Level 4.2 3.5-5.1 mmol/L Chloride Level 103 98-107 mmol/L Carbon Dioxide Level 26 20-31 mmol/L Anion Gap 9 5-15 Blood Urea Nitrogen 15 9-23 mg/dL Creatinine 0.88 0.700-1.30 mg/dL Glomerular Filtration Rate Calc 87 >90 mL/min BUN/Creatinine Ratio 17.0 10.0-20.0 Serum Glucose 122 H 74-106 mg/dL Calcium Level 9.8 8.7-10.4 mg/dL Total Bilirubin 0.6 0.2-1.0 mg/dL Aspartate Amino Transferase (AST) 17 13-40 U/L Alanine Aminotransferase (ALT) 27 7-40 U/L Alkaline Phosphatase 152 H 46-116 U/L Total Protein 6.6 5.7-8.2 g/dL Albumin 4.2 3.2-4.8 g/dL Lipase 31 12-53 U/L The patient's urine test is negative for any infection. The patient's CBC is within normal limits. The chemistry panel is within normal limits An IV Hep-Lock was placed The patient stated that he did not want any morphine for the pain The patient was given [place] The CT scan of the abdomen and pelvis shows: IMPRESSION: 1. No acute abdominal or pelvic findings. 2. Nodular densities in the right lower lobe suspicious for pneumonia. 3. Small right pleural effusion. At this time, we did speak with the hospitalist from [facility] and the patient is now being discharged. Images Reviewed?: Images reviewed and evaluated by me Time of 1ST Reevaluation: 10:20 Reevaluation 1ST: Unchanged Patient Education/Counseling: Diagnosis, Treatment, Prognosis, Need For Follow Up Family Education/Counseling: No Family Present Departure 1 Departure Time of Disposition: 15:40 Impression: Primary Impression: Abdominal pain Qualified Codes: R10.9 - Unspecified abdominal pain Additional Impression: Constipation Qualified Codes: K59.00 - Constipation, unspecified Disposition: 01 HOME / SELF CARE / HOMELESS Condition: Fair Discharged With: Self Critical Care Note Critical Care Time?: No Stability Stability form required: No Heart Score Heart Score: Heart Score Response (Comments) Value History N/A 0 EKG N/A 0 Age N/A 0 Risk Factors N/A 0 Troponin N/A 0 Total 0 I personally scribed for MJ WINKLER MD ([email or web address]) on 05/26/24 at 10:23. Electronically submitted by Leonard Cleaning ([email or web address]). MJ WINKLER MD May 26, 2024 10:23
[2024-05-26 10:39] LABS: Alanine Aminotransferase 27 U/L (7-40); Alkaline Phosphatase 152 U/L (46-116); Anion Gap 9 (5-15); Aspartate Aminotransferase 17 U/L (13-40); Blood Urea Nitrogen 15 mg/dL (9-23); Calcium 9.8 mg/dL (8.7-10.4); Carbon Dioxide 26 mmol/L (20-31); Chloride 103 mmol/L (98-107); Glucose 122 mg/dL (74-106); Lipase 31 U/L (12-53); Potassium 4.2 mmol/L (3.5-5.1); Sodium 138 mmol/L (136-145)
[2024-05-26 10:40] LABS: Albumin 4.2 g/dL (3.2-4.8); Bilirubin, Total 0.6 mg/dL (0.2-1.0); Total Protein 6.6 g/dL (5.7-8.2)
--- NOTE | 2024-05-26 10:47 | DVH ---
Exam: CT CT AB PEL WO CON-NO ORAL OR IV History: pain Comparison Study: None Technique: Multidetector spiral CT of the abdomen was performed from lung bases to pubic symphysis. Imaging was performed without IV contrast. Axial, coronal and sagittal multiplanar reformats were ob tained from the axial data set by the technologist. Radiation Dose : 1. Abdomen/Pelvis: CTDIvol 9.0 mGy, DLP 542.07 mGy*cm. Findings: Evaluation of solid organs is limited due to lack of intravenous contrast use. Lung Bases: Nodular densities throughout the right lower lung, suspicious for pneumonia. Small right pleural effusion. Liver: The liver is normal in size. No focal lesions. Gallbladder and Biliary Tree: Unremarkable Spleen: Unremarkable Pancreas: The pancreas is grossly normal in appearance. Adrenal Glands: Unremarkable Kidneys: Kidneys are grossly normal without calculi or hydronephrosis. Bladder: Grossly unremarkable for degree of distention. Bowel: The stomach is grossly normal in appearance. Small bowel and colon are normal in caliber and d istribution. The appendix is not visualized; however, no secondary findings of acute appendicitis id entified. Ascites: Absent Lymphadenopathy: No mesenteric, retroperitoneal or periportal lymphadenopathy. Abdominal Wall and Mesentery: Trace fat containing umbilical hernia. Vasculature: The visualized abdominal aorta is normal in size and caliber. Evaluation of abdominal a nd pelvic vessels is limited due to lack of intravenous contrast. Pelvic Organs: Unremarkable Musculoskeletal: No aggressive focal bony lesions, acute fractures or dislocation. Surgical fixation hardware seen in the left hip. Lumbar fixation hardware is noted. IMPRESSION: 1. No acute abdominal or pelvic findings. 2. Nodular densities in the right lower lobe suspicious for pneumonia. 3. Small right pleural effusion. Radiation optimization: All CT scans at this facility use at least one of these dose optimization olga hniques: automated exposure control mA and/or kV adjustment per patient size (includes targeted exam s where dose is matched to clinical indication) or iterative reconstruction.
[2024-05-26] MEDS: MORPHINE SULFATE 4 MG/ML SYR/VIAL IV ONE (12:45)
[2024-05-26] MEDS: ONDANSETRON HCL 4 MG/2 ML VIAL IV ONE (13:30)
[2024-05-26 13:58] LABS: Urine Blood Negative /uL (Negative); Urine Clarity Clear (Clear); Urine Color Light-Yellow (Yellow); Urine Protein, UAD Negative (Negative); Urine Specific Gravity 1.017 (1.001-1.035); Urine Urobilinogen Normal (Negative); Urine WBC <1 /hpf (0 - 3)
[2024-05-26 14:02] LABS: Urine Bacteria NONE SEEN /hpf (None Seen)
[2024-05-26] MEDS: HYDROcodone-ACET 5/325MG TAB PO ONE (15:20)
[2024-05-26] MEDS ORDERED: AZIT1POW PO (15:56)
[2024-05-26 16:00] VITALS: BP 125/56; PULSE 111; RESP 14; O2SAT 92
--- NOTE | 2024-05-28 10:35 | ECG ---
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
== END 2024-05-26 16:54 | disposition home or self-care (01) ==
LOC: ER 09:11
DX: K59.00 Constipation, unspecified (principal); I10 Essential (primary) hypertension; J90 Pleural effusion, not elsewhere classified; J98.4 Other disorders of lung; Z79.82 Long term (current) use of aspirin; Z79.899 Other long term (current) drug therapy; Z90.89 Acquired absence of other organs; Z98.890 Other specified postprocedural states
CPT/HCPCS: 36415; 74176; 80053; 81001; 83690; 85025; 93005; 96374; 99285; J2405

== ENCOUNTER 2024-06-28 10:53 | Inpatient (IN) | payer OTHER ==
[~2024-06-28] VITALS: Ht 165.1 cm; Wt 82.3 kg
[~2024-06-28 10:53] MED LIST changes: +AMOX875T3 PO; +AZIT1POW PO; +LOSA-534 PO; +METO25TA93 PO; +PANT40TA2 PO; +TAMS0.4C39 PO; +TIZA2CAP PO; +TRAM50TA2 PO
[2024-06-28 11:31] LABS: Basophils # (auto) 0.1 10 ^3/uL (0-0.2); Basophils % (auto) 0.8 % (0.0-2.0); Eosinophils # (auto) 0 10 ^3/uL (0-0.8); Eosinophils % (auto) 0.5 % (0.0-7.0); Hematocrit 29.9 % (41.0-53.0); Hemoglobin 9.6 g/dL (13.5-17.5); Lymphocytes # (auto) 0.9 10 ^3/uL (0.4-5.4); Lymphocytes % (auto) 11.9 % (10.0-50.0); Mean Corpuscular Hemoglobin 26.6 pg (28.0-32.0); Mean Corpuscular Volume 83.3 fL (80.0-100.0); Monocytes # (auto) 0.9 10 ^3/uL (0-1.3); Monocytes % (auto) 11.6 % (0.0-12.0); Neutrophils # (auto) 5.9 10 ^3/uL (1.6-8.6); Neutrophils % (auto) 75.2 % (37.0-80.0); Nucleated Red Blood Cells % 0.1 %; Platelet Count (auto) 402 10^3/uL (140-450); Red Blood Cells 3.59 10^6/uL (4.5-5.90); Red Cell Distribution Width 14.6 % (11.8-14.3); White Blood Cell 7.8 10^3/uL (4.4-10.8)
--- NOTE | 2024-06-28 11:36 | ED.PDOC ---
SOB-HPI HPI Comments 69 y.o male with PMH of HTN, Hodgkin lymphoma, HI, was sent to the ED by Dr. Collado, PCP for an evaluation of hypoxia. Patient's SPO2 read 76% on room air at PCP's office, was placed on 4 liters via NC and it increased to 96%. Patient arrives to the ED with who states patient has had reoccurring PNA for the past 3 months and has a chest tube. reports patient is also developing a wound to his sacrum. Patient has an EJ fraction of 30%. No chest pain, nausea, vomiting, diarrhea, fever or chills reported. Chief Complaint: Shortness of Breath Time Seen by MD: 11:25 Reviewed notes: Nurses Notes, Medications, Allergies Information Source: Patient, Spouse Mode of Arrival: Ambulatory Severity: Moderate Timing: Days Duration: Since onset Context: At Rest History of: Recent Antibiotic, Other (PNA ) Modifying Factors: Nothing Associated Signs and Symptoms: Cough If cough with SOB: Productive Past Medical History PAST MEDICAL HISTORY: Cancer, High Lipids, HTN, HI Surgical History: Hernia Repair, Tonsillectomy Family History Family History: Family hx of DM Social History Smoker: Non-Smoker Alcohol: Rarely Drugs: Denies Drug Use Lives In: Home Constitutional: denies: chills, diaphoresis, fatigue, fever, malaise, sweats, weakness, others EENTM: denies: blurred vision, double vision, ear bleeding, ear discharge, ear drainage, ear pain, ear ringing, eye pain, eye redness, hearing loss, mouth pain, mouth swelling, nasal discharge, nose bleeding, nose congestion, nose pain, photophobia, tearing, throat pain, throat swelling, voice changes, others Respiratory: reports: SOB at rest, shortness of breath, SOB with excertion; denies: cough, hemoptysis, orthopnea, stridor, wheezing, others Cardiovascular: denies: chest pain, dizzy spells, diaphoresis, Dyspnea on exertion, edema, irregular heart beat, left arm pain, lightheadedness, palpitations, PND, syncope, others Gastrointestinal: denies: abdomen distended, abdominal pain, blood streaked bowels, constipated, diarrhea, dysphagia, difficulty swallowing, hematemesis, melena, nausea, poor appetite, poor fluid intake, rectal bleeding, rectal pain, vomiting, others Genitourinary: denies: burning, dysuria, flank pain, frequency, hematuria, incontinence, penile discharge, penile sore, pain, testicle pain, testicle swelling, urgency, others Neurological: denies: dizziness, fainting, headache, left sided numbness, left sided weakness, numbness, paresthesia, pre-existing deficit, right sided numbness, right sided weakness, seizure, speech problems, tingling, tremors, weakness, others Musculoskeletal: denies: back pain, gout, joint pain, joint swelling, muscle pain, muscle stiffness, neck pain, others Integumetry: denies: bruises, change in color, change in hair/nails, dryness, laceration, lesions, lumps, rash, wounds, others Allergic/Immunocompromised: denies: Difficulty Healing, Frequent Infections, Hives, Itching, others Hematologic/Lymphatic: denies: anemia, blood clots, easy bleeding, easy bruising, swollen glands, others Endocrine: denies: excessive hunger, excessive sweating, excessive thirst, excessive urination, flushing, intolerance to cold, intolerance to heat, unexplained weight gain, unexplained weight loss, others Psychiatric: denies: anxiety, bipolar disorder, depression, hopeless, panic disorder, schizophrenia, sleepless, suicidal, others All Other Systems: Reviewed and Negative Physical Exam General Appearance: Moderate Distress HEENT: Normal ENT Inspection, Pharynx Normal, TMs Normal Neck: Full Range of Motion, Non-Tender, Normal, Normal Inspection Respiratory: Accessory Muscle Use, Respiratory Distress, Other (Decreased breath sounds on the right side) Cardiovascular: No Edema, No JVD, No Murmur, No Gallop, Normal Peripheral Pulses, Regular Rate/Rhythm Breast Exam: Deferred Gastrointestinal: No Organomegaly, Non Tender, No Pulsatile Mass, Normal Bowel Sounds, Soft Genitalia: Deferred Pelvic: Deferred Rectal: Deferred Extremities: No calf tenderness Musculoskeletal : Apperance: Normal Neurologic: Alert Cerebellar Function: NOT DONE Reflexes: NOT DONE Skin: Dry, Normal Color, Warm Peripheral Pulses: 3+ Radial (R), 3+ Radial (L) Lymphatic: No Adenopathy Was a procedure done? Was a procedure done?: Yes Sedation Sedation?: No Chest Tube Indication: Effusion Procedure: Sterile preparation Anesthetic: Lidocaine Site: R 5th intercostal space Drainage: Fluid Informed consent obtained: Yes Risks/benefits/alt described: Yes Notes Catheter placed with success explained to the patient CT scan of the abdomen after the procedure shows in right place explained to the family that it was a difficult procedure as the area was very narrow. Catheter was very close to the liver was able to maneuver the catheter with ultrasound guide away from the liver into the pleural cavity. Differential Dx Differential Diagnosis: Anxiety, Asthma, Bronchitis, CHF, COPD, Pneumonia, Pneumothorax, Pulmonary Embolism, Respiratory Distress, URI X-Ray, Labs, Meds, VS Vital Signs Date Time Temp Pulse Resp B/P (MAP) Pulse Ox O2 Delivery O2 Flow Rate FiO2 06/28/24 13:47 96/43 06/28/24 11:46 89 15 06/28/24 11:46 92 21 99 Nasal Cannula* 2 28 06/28/24 11:30 100 Nasal Cannula* 2 28 06/28/24 11:08 98.0 89 20 70/31 (44) 95 Lab Test 06/28/24 12:57 06/28/24 11:10 Range/Units Sodium Level 137 136-145 mmol/L Potassium Level 4.3 3.5-5.1 mmol/L Chloride Level 105 98-107 mmol/L Carbon Dioxide Level 26 20-31 mmol/L Anion Gap 6 5-15 Blood Urea Nitrogen 20 9-23 mg/dL Creatinine 0.82 0.700-1.30 mg/dL Glomerular Filtration Rate Calc 89 >90 mL/min BUN/Creatinine Ratio 24.4 H 10.0-20.0 Serum Glucose 155 H 74-106 mg/dL Calcium Level 8.9 8.7-10.4 mg/dL Total Bilirubin 0.3 0.2-1.0 mg/dL Aspartate Amino Transferase (AST) 24 13-40 U/L Alanine Aminotransferase (ALT) 23 7-40 U/L Alkaline Phosphatase 185 H 46-116 U/L Troponin I High Sensitivity 11 10 </=54 ng/L Total Protein 4.7 L 5.7-8.2 g/dL Albumin 3.1 L 3.2-4.8 g/dL White Blood Count 7.8 4.4-10.8 10^3/uL Red Blood Count 3.59 L 4.5-5.90 10^6/uL Hemoglobin 9.6 L 13.5-17.5 g/dL Hematocrit 29.9 L 41.0-53.0 % Mean Corpuscular Volume 83.3 80.0-100.0 fL Mean Corpuscular Hemoglobin 26.6 L 28.0-32.0 pg Mean Corpuscular Hemoglobin Concent 32.0 32.0-36.0 g/dL Red Cell Distribution Width 14.6 H 11.8-14.3 % Platelet Count 402 140-450 10^3/uL Mean Platelet Volume 8.1 6.9-10.8 fL Neutrophils (%) (Auto) 75.2 37.0-80.0 % Lymphocytes (%) (Auto) 11.9 10.0-50.0 % Monocytes (%) (Auto) 11.6 0.0-12.0 % Eosinophils (%) (Auto) 0.5 0.0-7.0 % Basophils (%) (Auto) 0.8 0.0-2.0 % Neutrophils # (Auto) 5.9 1.6-8.6 10 ^3/uL Lymphocytes # (Auto) 0.9 0.4-5.4 10 ^3/uL Monocytes # (Auto) 0.9 0-1.3 10 ^3/uL Eosinophils # (Auto) 0 0-0.8 10 ^3/uL Basophils # (Auto) 0.1 0-0.2 10 ^3/uL Nucleated Red Blood Cells 0.1 % Prothrombin Time 12.0 H 9.3-11.8 sec Prothrombin Time INR 1.14 0.9-1.15 Activated Partial Thromboplast Time 28.9 24.5-34.5 SEC Lactic Acid Level 2.1 *H 0.4-2.0 mmol/L B-Type Natriuretic Peptide 137.58 0-100 pg/mL Current Medications Medications (Trade) Dose Ordered Sig/Anderson Route Start Time Stop Time Status Last Admin Ceftriaxone Sodium 50 ml @ 100 mls/hr ONCE ONCE IV 06/28/24 12:15 06/28/24 12:44 DC 06/28/24 12:24 Azithromycin 250 ml @ 125 mls/hr ONCE ONCE IV 06/28/24 12:15 06/28/24 14:14 DC 06/28/24 12:15 Norepinephrine Bitartrate 250 ml @ 3.75 mls/hr Q24H IV 06/28/24 13:15 06/28/24 13:47 Patient alert. Complaining of shortness a breath. Blood pressure low. Placed on oxygen. WBC within normal limits. Spoke with his primary care physician. Possibly will need chest tube for right side pleural effusion. Continue oxygen. Reviewed his previous visit. Explained to the patient. Continue cardiac monitoring. Time of 1ST Reevaluation: 11:35 Reevaluation 1ST: Unchanged Patient Education/Counseling: Diagnosis, Treatment, Prognosis Family Education/Counseling: Diagnosis, Treatment, Prognosis Additional Information The following tests were ordered, and results were reviewed by me: (Labs, XY, EKG) Additional Information was gathered from interviewing the following independent historians: spouse I reviewed and agreed with the following test results read by other providers: X-Ray, CT CHEST WITHOUT CONTRAST I discussed treatment and results with medical personnel and spouse CHEST RADIOGRAPH Indication: SOB Technique: Single frontal view of the chest was obtained Comparison: XY CHEST PORTABLE on DOS: 05/22/24, XY CHEST XRAY 1 VIEW on DOS: 05/09/24 FINDINGS: Lines and Tubes: None Lungs: Right mid and lower lung zone hazy and patchy opacities. Pleura: Moderate-size right pleural effusion.. No pneumothorax. Cardiomediastinal contours: Unremarkable Bones: No acute osseous abnormality. IMPRESSION: 1. Moderate size right pleural effusion with adjacent compressive atelectasis v ersus infiltrate. Procedure: CT CHEST WITHOUT CONTRAST 06/28/2024 11:29 AM Indication: SOB Comparison Study: None available at time of dictation. Technique: Axial images were obtained and reformatted in coronal and sagittal planes. All CT scans at this medical facility are performed using dose modulation techniques as appropriate to a performed exam including the following: Automated exposure control was utilized; adjustment of the MA and/or KV according to patient size; and use of iterative reconstruction technique. CT Dose: CTDI volume is 10.86 mGy. Dose-length product is 422.23 mGy*cm FINDINGS: Lower neck: Multinodular thyroid. Cardiomediastinal: Moderate cardiomegaly. Evidence of anemia. Coronary artery calcification. Calcification of the aortic valve. Aorta is normal in caliber with moderate scattered calcified plaques noted. Lungs: Moderate-sized loculated right pleural effusion along the posterolateral right hemithorax with moderate adjacent pulmonary opacities. No pneumothorax. Small amount of fluid mixed with air noted in the dependent part of the right main bronchus. A 5 mm noncalcified juxtapleural nodule is seen in the lateral basal segment of the left lower. Bones/soft tissues: A 2.6 cm lytic lesion noted in the medial aspect of the right 9th rib . Multilevel degenerative changes of the thoracic spine are noted. Upper abdomen: Incidentally noted is mild splenomegaly. Cholelithiasis. IMPRESSION: 1. Grossly stable moderate-sized loculated right pleural effusion with surrounding pleural thickening and adjacent alveolar and interstitial opacities. There is decreased volume of the right lung. No gas bubbles are seen in the pleural collection. The findings may reflect chronic complicated pleural effusion, hemothorax, empyema, post therapeutic/radiation changes, pruritus or other. Further evaluation thoracentesis and analysis of pleural fluid for cytology and culture is recommended. 2. A 2.6 cm lytic lesion in the medial aspect of the right 9th rib at the costochondral junction with full-thickness loss of the bone and overlying anterior and posterior cortices. Mild adjacent soft tissue thickening noted con cerning for extraosseous extension of pathology. The findings may reflect a primary or metastatic lytic bone lesion or osteomyelitis. Recommend clinical and biochemical correlation. 3. Cardiomegaly, atherosclerotic disease and anemia. 4. Visualized upper abdomen shows mild splenomegaly and cholelithiasis. Departure 1 Departure Time of Disposition: 11:45 Impression: Primary Impression: Acute respiratory failure Qualified Codes: J96.01 - Acute respiratory failure with hypoxia Additional Impressions: Pneumonia Qualified Codes: J18.9 - Pneumonia, unspecified organism Pleural effusion, right Disposition: ADMITTED INPATIENT Admit to: Med Surg Condition: Guarded Critical Care Note Critical Care Time?: Yes (90 min-critical care time only) Stability Stability form required: No I personally scribed for BIMAL HERNANDEZ MD ([email or web address]) on 06/28/24 at 11:36. Electronically submitted by Graciela Borrego ([facility]). I personally scribed for BIMAL HERNANDEZ MD ([email or web address]) on 06/28/24 at 12:48. Electronically submitted by Graciela Borrego ([facility]). BIMAL HERNANDEZ MD Jun 28, 2024 11:36
[2024-06-28 11:46] VITALS: PULSE 92; RESP 21; O2SAT 99
--- NOTE | 2024-06-28 11:46 | DVH ---
CHEST RADIOGRAPH Indication: SOB Technique: Single frontal view of the chest was obtained Comparison: XY CHEST PORTABLE on DOS: 05/22/24, XY CHEST XRAY 1 VIEW on DOS: 05/09/24 FINDINGS: Lines and Tubes: None Lungs: Right mid and lower lung zone hazy and patchy opacities. Pleura: Moderate-size right pleural effusion.. No pneumothorax. Cardiomediastinal contours: Unremarkable Bones: No acute osseous abnormality. IMPRESSION: 1. Moderate size right pleural effusion with adjacent compressive atelectasis versus infiltrate. HS:Y
[2024-06-28 11:47] LABS: INR 1.14 (0.9-1.15); Partial Thromboplastin Time 28.9 SEC (24.5-34.5)
--- NOTE | 2024-06-28 12:09 | DVH ---
Procedure: CT CHEST WITHOUT CONTRAST 06/28/2024 11:29 AM Indication: SOB Comparison Study: None available at time of dictation. Technique: Axial images were obtained and reformatted in coronal and sagittal planes. All CT scans at this medical facility are performed using dose modulation techniques as appropriate t o a performed exam including the following: Automated exposure control was utilized; adjustment of th e MA and/or KV according to patient size; and use of iterative reconstruction technique. CT Dose: CTDI volume is 10.86 mGy. Dose-length product is 422.23 mGy*cm FINDINGS: Lower neck: Multinodular thyroid. Cardiomediastinal: Moderate cardiomegaly. Evidence of anemia. Coronary artery calcification. Calcif ication of the aortic valve. Aorta is normal in caliber with moderate scattered calcified plaques no artie. Lungs: Moderate-sized loculated right pleural effusion along the posterolateral right hemithorax with moderate adjacent pulmonary opacities. No pneumothorax. Small amount of fluid mixed with air noted in the dependent part of the right main bronchus. A 5 mm noncalcified juxtapleural nodule is seen in the lateral basal segment of the left lower. Bones/soft tissues: A 2.6 cm lytic lesion noted in the medial aspect of the right 9th rib . Multileve l degenerative changes of the thoracic spine are noted. Upper abdomen: Incidentally noted is mild splenomegaly. Cholelithiasis. IMPRESSION: 1. Grossly stable moderate-sized loculated right pleural effusion with surrounding pleural thickening and adjacent alveolar and interstitial opacities. There is decreased volume of the right lung. No ga s bubbles are seen in the pleural collection. The findings may reflect chronic complicated pleural e ffusion, hemothorax, empyema, post therapeutic/radiation changes, pruritus or other. Further evaluati on thoracentesis and analysis of pleural fluid for cytology and culture is recommended. 2. A 2.6 cm lytic lesion in the medial aspect of the right 9th rib at the costochondral junction with full-thickness loss of the bone and overlying anterior and posterior cortices. Mild adjacent soft tissue thickening noted concerning for extraosseous extension of pathology. The findings may reflect a primary or metastatic lytic bone lesion or osteomyelitis. Recommend clinical and biochemical correl ation. 3. Cardiomegaly, atherosclerotic disease and anemia. 4. Visualized upper abdomen shows mild splenomegaly and cholelithiasis.
[2024-06-28] MEDS: AZITHROMYCIN 500MG/ 250ML 250 ML IV ONE (12:15)
[2024-06-28] MEDS: cefTRIAXone 1GM/50ML D5W 50 ML IV ONE (12:24)
[2024-06-28 12:31] LABS: Lactic Acid w/Reflex 2.1 mmol/L (0.4-2.0)
[2024-06-28] MEDS: LIDOCAINE 1% HCL (LOCAL ANESTH.) INJ 20ML MDV ONE (12:59)
[2024-06-28] MEDS: NOREPINEPHRINE 8 MG/250ML KIT 250 ML IV SCH (13:47)
[2024-06-28 13:48] LABS: Alanine Aminotransferase 23 U/L (7-40); Anion Gap 6 (5-15); Aspartate Aminotransferase 24 U/L (13-40); BUN/Creatinine Ratio 24.4 (10.0-20.0); Blood Urea Nitrogen 20 mg/dL (9-23); Calcium 8.9 mg/dL (8.7-10.4); Carbon Dioxide 26 mmol/L (20-31); Chloride 105 mmol/L (98-107); Potassium 4.3 mmol/L (3.5-5.1); Sodium 137 mmol/L (136-145)
[2024-06-28 13:52] LABS: Albumin 3.1 g/dL (3.2-4.8); Alkaline Phosphatase 185 U/L (46-116); Bilirubin, Total 0.3 mg/dL (0.2-1.0); Glucose 155 mg/dL (74-106); Total Protein 4.7 g/dL (5.7-8.2)
[2024-06-28] MEDS ORDERED: NITROGLYCERIN 0.4 MG SL TAB SL PRN (14:45)
[2024-06-28] MEDS ORDERED: ONDANSETRON HCL 4 MG/2 ML VIAL IV PRN (14:45)
[2024-06-28] MEDS ORDERED: MORPHINE SULFATE INJ 2 MG/ml SYRG IV PRN ×2 (14:45)
--- NOTE | 2024-06-28 14:59 | DVHHP2 ---
History of Present Illness Reason for Visit: Was sent by Dr. Collado for hypoxia History of Present Illness 78-year-old male with a known history of congestive heart failure with EF of 30%, coronary artery disease status post PCI, was seen by Dr. Collado in his clinic was found to have hypoxia with saturation at 60%. Eventually patient was sent to ER. In the ER patient was found to have right-sided pleural effusion rule out empyema. Patient does have known history of Hodgkin's disease. Patient is currently denies any chest pain palpitation cough or phlegm. Cardiovascular: CAD, CHF, RI Pulmonary: Pneumonia Heme/Onc: Other (Hodgkin's lymphoma.) Past Surgical History: Hernia Repair Family History: None Smoke: No ALCOHOL: none Review of Systems Review of Systems Review of system are negative besides mentioned above. Allergies: Coded Allergies: NO KNOWN ALLERGIES (Unverified , 06/16/23) Medications Current Medications Medications Dose Ordered Sig/Anderson Route Start Time Stop Time Status Last Admin Dose Admin Norepinephrine Bitartrate 250 ml @ 3.75 mls/hr Q24H IV 06/28/24 13:15 06/28/24 13:47 3.75 MLS/HR Acetaminophen/ Hydrocodone Bitart 1 tab Q4HP PRN PO 06/28/24 14:45 UNV Ondansetron HCl 4 mg Q4HP PRN IV 06/28/24 14:45 UNV Acetaminophen 650 mg Q6HP PRN PO 06/28/24 14:45 UNV Morphine Sulfate 2 mg Q4HPRN PRN IV 06/28/24 14:45 UNV Nitroglycerin 0.4 mg Q5MINP PRN SL 06/28/24 14:45 UNV Morphine Sulfate 2 mg Q30M PRN IV 06/28/24 14:45 UNV Exam Vital Signs Vital Signs Date Time Temp Pulse Resp B/P (MAP) Pulse Ox O2 Delivery O2 Flow Rate FiO2 06/28/24 13:47 96/43 06/28/24 11:46 89 15 06/28/24 11:30 100 Nasal Cannula* 2 28 06/28/24 11:08 98.0 Exam HEENT pupils are reactive Neck is supple CV is S1-S2 regular rate and rhythm Respiratory diminished breath sounds right lung base GI positive bowel sound Extremity no edema [employer]CTION[employer]ER[employer] DIRECTOR no motor deficit Labs/Xrays Labs Test 06/28/24 12:57 12/20/24 11:10 Range/Units Sodium Level 137 136-145 mmol/L Potassium Level 4.3 3.5-5.1 mmol/L Chloride Level 105 98-107 mmol/L Carbon Dioxide Level 26 20-31 mmol/L Anion Gap 6 5-15 Blood Urea Nitrogen 20 9-23 mg/dL Creatinine 0.82 0.700-1.30 mg/dL Glomerular Filtration Rate Calc 89 >90 mL/min BUN/Creatinine Ratio 24.4 H 10.0-20.0 Serum Glucose 155 H 74-106 mg/dL Calcium Level 8.9 8.7-10.4 mg/dL Total Bilirubin 0.3 0.2-1.0 mg/dL Aspartate Amino Transferase (AST) 24 13-40 U/L Alanine Aminotransferase (ALT) 23 7-40 U/L Alkaline Phosphatase 185 H 46-116 U/L Troponin I High Sensitivity 11 </=54 ng/L Total Protein 4.7 L 5.7-8.2 g/dL Albumin 3.1 L 3.2-4.8 g/dL White Blood Count 7.8 4.4-10.8 10^3/uL Red Blood Count 3.59 L 4.5-5.90 10^6/uL Hemoglobin 9.6 L 13.5-17.5 g/dL Hematocrit 29.9 L 41.0-53.0 % Mean Corpuscular Volume 83.3 80.0-100.0 fL Mean Corpuscular Hemoglobin 26.6 L 28.0-32.0 pg Mean Corpuscular Hemoglobin Concent 32.0 32.0-36.0 g/dL Red Cell Distribution Width 14.6 H 11.8-14.3 % Platelet Count 402 140-450 10^3/uL Mean Platelet Volume 8.1 6.9-10.8 fL Neutrophils (%) (Auto) 75.2 37.0-80.0 % Lymphocytes (%) (Auto) 11.9 10.0-50.0 % Monocytes (%) (Auto) 11.6 0.0-12.0 % Eosinophils (%) (Auto) 0.5 0.0-7.0 % Basophils (%) (Auto) 0.8 0.0-2.0 % Neutrophils # (Auto) 5.9 1.6-8.6 10 ^3/uL Lymphocytes # (Auto) 0.9 0.4-5.4 10 ^3/uL Monocytes # (Auto) 0.9 0-1.3 10 ^3/uL Eosinophils # (Auto) 0 0-0.8 10 ^3/uL Basophils # (Auto) 0.1 0-0.2 10 ^3/uL Nucleated Red Blood Cells 0.1 % Prothrombin Time 12.0 H 9.3-11.8 sec Prothrombin Time INR 1.14 0.9-1.15 Activated Partial Thromboplast Time 28.9 24.5-34.5 SEC Lactic Acid Level 2.1 *H 0.4-2.0 mmol/L B-Type Natriuretic Peptide 137.58 0-100 pg/mL Assessment/Plan Assessment/Plan 8-year-old male with a known history of Hodgkin's lymphoma initially presented to the hospital with a hypoxia found to have 1. Acute hypoxic respiratory failure 2. Right-sided pleural effusion rule out empyema 3. History of recurrent pneumonia 4. Lytic lesion 9th rib rule out malignancy 5. Acute CHF exacerbation with a possible systolic dysfunction 6. Coronary artery disease status post PCI -IR consult for thoracentesis versus pigtail catheter placement,-pulmonary consultation 2D echo, cardiologyConsultation -add IV antibiotics. Plan discussed with: Patient, Spouse My Orders Orders - MICHELLE VALDES MD Procedure Category Date Status Time Norepinephrine 8 PHA 06/28/24 In Process Mg/250ml Kit 13:15 Admit ADMIT 06/28/24 Transmitted 14:43 Code Status CODE 06/28/24 Transmitted 14:43 Hydrocodone-Acet PHA 06/28/24 Logged 5/325mg Tab ([place] 14:45 Ondansetron Hcl PHA 06/28/24 Logged (Zofran) 14:45 Fall Risk Precautions [facility]ES[facility] 06/28/[address] 14:43 Complete Blood Count LAB 06/29/24 Verified 04:00 Comprehensive LAB 06/29/24 Verified Metabolic Panel 04:00 Echo 2d Mode Cardiac US 06/28/24 Logged DOP 14:43 Condition: Critical JESICA 06/28/24 In Process 14:43 Acetaminophen Tablet PHA 06/28/24 Logged (Tylenol Tablet) 14:45 Morphine Sulfate PHA 06/28/24 Logged Injection 14:45 Nitroglycerin PHA 06/28/24 Logged Sublingual (Ntrostat 14:45 Morphine Sulfate PHA 06/28/24 Logged Injection 14:45 Stat Ekg For Chest [facility] 06/28/24 In Process Pain 14:43 Notify Md Of Changes [facility] 06/28/24 In Process From Base 14:43 Websphere Message Broker Developer For [facility] 06/28/24 In Process 24 Hours 14:43 Emergency Dysrhythmia [facility] 06/28/24 In Process Protocol 14:43 Rhythm Strips Once [facility] 06/28/24 In Process Every Shift 14:43 Oxygen By Nasal RT 06/28/24 Transmitted Cannula 14:43 * Cardiology Consult CONS 06/28/24 Transmitted 14:43 *Consult CONS 06/28/24 Transmitted / 14:43 Problem List: (1) Acute respiratory failure (2) Pleural effusion, right (3) Pneumonia Date of Service: Jun 28, 2024 Billing Provider: MICHELLE VALDES MD Common Visit Codes: NOT BILLABLE MICHELLE VALDES MD Jun 28, 2024 14:59
--- NOTE | 2024-06-28 15:18 | DVH ---
CHEST RADIOGRAPH Indication: CHEST TUBE Technique: Single frontal view of the chest was obtained Comparison: XY CHEST PORTABLE on DOS: 06/28/24, XY CHEST PORTABLE on DOS: 05/22/24, XY CHEST XRAY 1 V IEW on DOS: 05/09/24 FINDINGS: Lines and Tubes: Tubing from nasal oxygen noted over the right shoulder.. Chest tube noted along the right diaphragm in the right lower lung field. Lungs: Worsening right lower lobe infiltrate and small pleural effusion. No pneumothorax. Cardiomediastinal contours: Unremarkable Bones: No acute osseous abnormality. IMPRESSION: 1. Chest tube on the right along the right diaphragm with the pigtail catheter no medially in the rig ht lung base. 2. Right lower lobe infiltrate..
--- NOTE | 2024-06-28 15:52 | DVH ---
US US GUIDANCE FOR NEEDLE PLACEME, HISTORY: RT CHEST TUBE PLACEMENT TECHNICAL DATA: Transverse and longitudinal sonographic images were obtained of the chest. COMPARISON: None FINDINGS: Ultrasound guidance was utilized for placement of a chest tube performed by Dr. Ibarra. IMPRESSION: Ultrasound guidance was utilized for placement of a chest tube performed by Dr. Ibarra.
--- NOTE | 2024-06-28 16:41 | DVH ---
CT CT AB PEL WO CON-NO ORAL OR IV INDICATION: liver EXAM DATE: 06/28/2024 04:04 PM COMPARISON: CT CT AB PEL WO CON-NO ORAL OR IV on DOS: 05/26/24 RADIATION DOSE: CTDIvol: 11 mGy, DLP: 613 mGy*cm PROCEDURE: Helical CT images were obtained of the abdomen and pelvis without IV contrast Sagittal an d coronal reconstructions are provided. ORAL CONTRAST: None. ADDITIONAL IMAGES / REFORMATS: None All CT scans at this medical facility are performed using dose modulation techniques as appropriate t o a performed exam including the following: Automated exposure control was utilized; adjustment of th e MA and/or KV according to patient size; and use of iterative reconstruction technique. FINDINGS: LUNG BASE: Multifocal right basilar consolidation with a complex small right pleural effusion contain ing locules of gas and a pigtail catheter in the pleural space. LIVER: Normal. GALLBLADDER AND BILIARY TREE: Punctate gallstone in the gallbladder. No intra- or extrahepatic biliar y ductal dilation. PANCREAS: Normal. SPLEEN: Normal. BOWEL: Mild colonic diverticulosis. Appendix not seen. ADRENALS: Normal. KIDNEYS AND URETER: Small left peripelvic cysts are noted. There is a small left kidney cyst. BLADDER: Normal. REPRODUCTIVE ORGANS: Normal. LYMPH NODES:No lymphadenopathy. PERITONEUM: No ascites or free air. No other fluid collection. Trace pelvic fluid, likely physiologic . Mild mesenteric edema. VESSELS: Scattered atherosclerotic calcifications are noted. RETROPERITONEUM: Normal. ABDOMINAL WALL: Mildly edematous. BONES: Scattered osseous degenerative changes are noted. 3 left femoral neck screws are noted. Post s urgical changes from lumbar spinal hardware and laminectomy is noted. IMPRESSION: No hyperdense perihepatic fluid to suggest for hematoma. Multifocal right basilar consolidation with a complex small right pleural effusion containing locules of gas and a pigtail catheter in the pleural space. Mild colonic diverticulosis.
--- NOTE | 2024-06-28 19:28 | DVHINCON2 ---
Date of service: Jun 28, 2024 Referring Physician Maulik Chavira MD Reason for Consultation Acute hypoxic respiratory failure and loculated pleural effusion. History of Present Illness A 78-year-old man with past medical history of congestive heart failure with EF of 30%, coronary artery disease status post PCI, CA, Hodgkin's lymphoma, and pneumonia who was seen by Dr. Collado in his clinic, found to have hypoxia with saturation at 60%. Eventually patient was sent to ER. In the ER patient was found to have right-sided pleural effusion, rule out empyema. He denies any chest pain, palpitations, cough or phlegm. Patient was admitted for further care and pulmonary consultation is requested for evaluation and management of acute hypoxic respiratory failure and loculated pleural effusion. Review of Systems: 14-point review of systems negative unless otherwise noted above. Past Medical History: Congestive heart failure with EF of 30%, coronary artery disease status post PCI, CA, Hodgkin's lymphoma, and pneumonia Past Surgical History: Hernia Repair Medications: Reviewed. Allergies: No known drug allergies. Family History: No family history of premature CAD. No family history of lung disorders. Social History: Nonsmoker. No alcohol or illicit drug use. Family History: Patient reports no known family medical history. Allergies: Coded Allergies: NO KNOWN ALLERGIES (Unverified , 06/16/23) Home Meds Active Scripts Azithromycin (Zithromax) 1 Gm Pow, 1 PACK PO ONCE, #1 PACK Prov:MJ WINKLER MD 05/26/24 Acetaminophen W/ Codeine (Tylenol W/Cod #3) 1 Tab Tb, 1 TAB PO BID PRN, #20 TAB Prov:SHAHEEN WATSON 05/22/24 Doxycycline (Monohydrate) (Doxycycline) 100 Mg Cap, 100 MG PO BID, #10 CAP Prov:LINO MCCORMACK MD 05/10/24 Sacubitril-Valsartan (Entresto 24-26 mg) 1 Tab Tab, 1 TAB PO BID, #60 TAB Prov:LINO MCCORMACK MD 05/10/24 Metoprolol Succinate (Toprol Xl) 25 Mg Tab, 25 MG PO DAILY, #60 TAB Prov:LINO MCCORMACK MD 05/10/24 Reported Medications B-Complex W/Biotin & Folic Aci (SUPER B-COMPLEX) Complex Cap, 1 CAP OR DAILY, CAP 06/16/23 Multiple Vitamins W/ Minerals (MULTI FOR HIM) For Him Cap, 1 HIM PO DAILY, CAP 06/16/23 [place]-3 Fatty Acids (Fish Oil) Cap, 1 OR DAILY, CAP 06/16/23 Gabapentin (Gabapentin) 100 Mg Cap, 100 MG PO TID, CAP 06/16/23 Coenzyme Q10 (Coq-10) 50 Mg Cap, 50 MG PO DAILY, CAP 06/16/23 Aspirin (Aspirin Low Dose) 81 Mg Chw, 81 MG PO DAILY, TAB.CHEW 06/16/23 Lovastatin (Lovastatin) 40 Mg Tab, 40 MG PO DAILY, TAB 06/16/23 Current Medications Current Medications Medications (Trade) Dose Ordered Sig/Anderson Route PRN Reason Start Time Stop Time Status Last Admin Norepinephrine Bitartrate 250 ml @ 3.75 mls/hr Q24H IV 06/28/24 13:15 06/28/24 13:47 Acetaminophen/ Hydrocodone Bitart (Wilbur 5/325MG Tab) 1 tab Q4HP PRN PO MODERATE PAIN (4-6 PAIN SCALE) 06/28/24 14:45 Ondansetron HCl (Zofran) 4 mg Q4HP PRN IV NAUSEA / VOMITING 06/28/24 14:45 Acetaminophen (Tylenol Tablet) 650 mg Q6HP PRN PO PAIN SCALE 1-3 OR TEMP>100.4 06/28/24 14:45 Morphine Sulfate 2 mg Q4HPRN PRN IV SEVERE PAIN (7-10 PAIN SCALE) 06/28/24 14:45 Nitroglycerin (Ntrostat Sublingual) 0.4 mg Q5MINP PRN SL FOR CHEST PAIN 06/28/24 14:45 Morphine Sulfate 2 mg Q30M PRN IV FOR CHEST PAIN 06/28/24 14:45 Vital Signs Vital Signs Date Time Temp Pulse Resp B/P (MAP) Pulse Ox O2 Delivery O2 Flow Rate FiO2 06/28/24 19:00 83 20 131/54 (79) 99 06/28/24 11:46 Nasal Cannula* 2 28 06/28/24 11:08 98.0 Physical Exam Gen.: Patient lying in bed in no apparent distress. On supplemental oxygen. Head: Normocephalic, atraumatic. Eyes: EOMI/PERRLA. Ears: Normal hearing. Normal anatomy. Neck/trachea: Trachea midline, supple. Nose: Normal external anatomy. Mouth: Moist mucous membranes. Chest: Decreased air entry bilaterally. No wheezing or rhonchi. Cardiovascular: Positive S1, positive S2. Regular rate and rhythm. Abdomen: Positive bowel sounds in all 4 quadrants. Soft, non-tender, non- distended. : Deferred. Rectal: Deferred. Skin: Warm, dry. Intact. Extremities: 2+ radial pulses bilaterally. No lower extremity edema. Neuro: Awake, alert, oriented x3. No gross motor or sensory deficits. Cranial nerves II through XII intact. Gait not assessed. Labs/Diagnostic Data Labs Test 06/28/24 15:12 06/28/24 12:57 06/28/24 11:10 Range/Units Lactic Acid Level 1.4 0.4-2.0 mmol/L Troponin I High Sensitivity 11 </=54 ng/L Sodium Level 137 136-145 mmol/L Potassium Level 4.3 3.5-5.1 mmol/L Chloride Level 105 98-107 mmol/L Carbon Dioxide Level 26 20-31 mmol/L Anion Gap 6 5-15 Blood Urea Nitrogen 20 9-23 mg/dL Creatinine 0.82 0.700-1.30 mg/dL Glomerular Filtration Rate Calc 89 >90 mL/min BUN/Creatinine Ratio 24.4 H 10.0-20.0 Serum Glucose 155 H 74-106 mg/dL Calcium Level 8.9 8.7-10.4 mg/dL Total Bilirubin 0.3 0.2-1.0 mg/dL Aspartate Amino Transferase (AST) 24 13-40 U/L Alanine Aminotransferase (ALT) 23 7-40 U/L Alkaline Phosphatase 185 H 46-116 U/L Total Protein 4.7 L 5.7-8.2 g/dL Albumin 3.1 L 3.2-4.8 g/dL White Blood Count 7.8 4.4-10.8 10^3/uL Red Blood Count 3.59 L 4.5-5.90 10^6/uL Hemoglobin 9.6 L 13.5-17.5 g/dL Hematocrit 29.9 L 41.0-53.0 % Mean Corpuscular Volume 83.3 80.0-100.0 fL Mean Corpuscular Hemoglobin 26.6 L 28.0-32.0 pg Mean Corpuscular Hemoglobin Concent 32.0 32.0-36.0 g/dL Red Cell Distribution Width 14.6 H 11.8-14.3 % Platelet Count 402 140-450 10^3/uL Mean Platelet Volume 8.1 6.9-10.8 fL Neutrophils (%) (Auto) 75.2 37.0-80.0 % Lymphocytes (%) (Auto) 11.9 10.0-50.0 % Monocytes (%) (Auto) 11.6 0.0-12.0 % Eosinophils (%) (Auto) 0.5 0.0-7.0 % Basophils (%) (Auto) 0.8 0.0-2.0 % Neutrophils # (Auto) 5.9 1.6-8.6 10 ^3/uL Lymphocytes # (Auto) 0.9 0.4-5.4 10 ^3/uL Monocytes # (Auto) 0.9 0-1.3 10 ^3/uL Eosinophils # (Auto) 0 0-0.8 10 ^3/uL Basophils # (Auto) 0.1 0-0.2 10 ^3/uL Nucleated Red Blood Cells 0.1 % Prothrombin Time 12.0 H 9.3-11.8 sec Prothrombin Time INR 1.14 0.9-1.15 Activated Partial Thromboplast Time 28.9 24.5-34.5 SEC B-Type Natriuretic Peptide 137.58 0-100 pg/mL Assessment Impression: Acute hypoxic respiratory failure Loculated pleural effusion, right Atelectasis Shock, possible sepsis Pneumonia likely gram negative Plan: Supplemental oxygen 3 LPM NC Titrate to keep O2 sats above 92%. Taper O2 as tolerated. Bronchodilators PRN Antibiotics Incentive spirometry CT chest showing moderate-sized loculated right pleural effusion w/ surrounding pleural thickening and adjacent alveolar and interstitial opacities. A 2.6 cm lytic lesion in the medial aspect of the right 9th rib at the costochondral junction with full-thickness loss of the bone and overlying anterior and posterior cortices. See report for full details. Chest tube placement d/t loculated pleural effusion. Plan for tPA course to mobilize pleural fluid. Monitor renal function. Monitor electrolytes. Supplement as necessary. Monitor ins and outs. DVT prophylaxis. Prognosis: Poor given patient's multiple co-morbidities. Condition: Critical Rest of plan per hospitalist and other consultants. A total of 36 minutes of critical care time was spent reviewing the patient record, examining the patient, making a diagnostic and therapeutic plan, discussing this plan with the medical personnel, following up on diagnostic studies and following the patient for clinical stability excluding any and all procedures. At least 50% of this time was spent in direct, [id number] contact. Thank you Dr. Maulik Chavira MD, for allowing me to participate in this patient's care. Further recommendations will depend on the patient's clinical course. Please do not hesitate to contact me if you have any questions or concerns. This medical document was created using an electronic medical record system with [employer] computerized dictation system. Although these documentations are being carefully reviewed, there may still be some phonetic and typographical changes. The errors are purely typographical, due to imperfection on the software progr am, and do not reflect any compromise in the patient's medical care. Plan discussed with: Patient, Other (RN/MD Chavira) VALERI COLLADO MD Jun 28, 2024 19:28
[2024-06-28 20:30] VITALS: PULSE 93; RESP 17; O2SAT 100
[2024-06-28] MEDS: HYDROcodone-ACET 5/325MG TAB PO PRN (21:02)
[2024-06-29 01:15] LABS: Urine Bacteria None Seen /hpf (None Seen)
[2024-06-29 01:35] LABS: Urine Blood Negative /uL (Negative); Urine Clarity Clear (Clear); Urine Color Yellow (Yellow); Urine Hyaline Cast MOD /lpf (0 - 2); Urine Mucus FEW (None Seen); Urine Protein, UAD TRACE (Negative); Urine Specific Gravity 1.032 (1.001-1.035); Urine Squamous Epithelial Cell None Seen /hpf (<5); Urine Urobilinogen 2 mg/dL (Negative); Urine WBC <1 /hpf (0 - 3); Urine pH 5.5 (5.0-9.0)
[2024-06-29 05:43] LABS: Basophils # (auto) 0 10 ^3/uL (0-0.2); Eosinophils # (auto) 0.1 10 ^3/uL (0-0.8); Eosinophils % (auto) 0.7 % (0.0-7.0); Hemoglobin 9.1 g/dL (13.5-17.5); Monocytes # (auto) 0.9 10 ^3/uL (0-1.3); Red Cell Distribution Width 14.5 % (11.8-14.3); White Blood Cell 8.5 10^3/uL (4.4-10.8)
[2024-06-29 05:46] LABS: Basophils % (auto) 0.2 % (0.0-2.0); Hematocrit 27.6 % (41.0-53.0); Lymphocytes % (auto) 12.1 % (10.0-50.0); Mean Corpuscular Hgb Conc. 32.8 g/dL (32.0-36.0); Mean Corpuscular Volume 82.2 fL (80.0-100.0); Monocytes % (auto) 11.1 % (0.0-12.0); Neutrophils # (auto) 6.4 10 ^3/uL (1.6-8.6); Neutrophils % (auto) 75.9 % (37.0-80.0); Platelet Count (auto) 411 10^3/uL (140-450); Red Blood Cells 3.36 10^6/uL (4.5-5.90)
[2024-06-29 05:55] LABS: Alanine Aminotransferase 24 U/L (7-40); Albumin 3.4 g/dL (3.2-4.8); Anion Gap 5 (5-15); Aspartate Aminotransferase 23 U/L (13-40); BUN/Creatinine Ratio 20.3 (10.0-20.0); Bilirubin, Total 0.4 mg/dL (0.2-1.0); Blood Urea Nitrogen 14 mg/dL (9-23); Carbon Dioxide 27 mmol/L (20-31); Chloride 104 mmol/L (98-107); Potassium 4.2 mmol/L (3.5-5.1); Sodium 136 mmol/L (136-145)
[2024-06-29 06:02] LABS: Alkaline Phosphatase 167 U/L (46-116); Glucose 127 mg/dL (74-106); Total Protein 5.4 g/dL (5.7-8.2)
[2024-06-29 07:20] VITALS: PULSE 98; RESP 16; O2SAT 98
[2024-06-29] MEDS: CATHFLO ACTIVASE (ALTEPLASE) 2 MG VIAL IV ONE (11:00)
--- NOTE | 2024-06-29 12:04 | DVHINCON2 ---
DATE OF CONSULTATION: 06/28/2024 REFERRING PHYSICIAN: Dr. Chavira. CONSULTING PHYSICIAN: Dr. Hutton. INDICATION: Shortness of breath, hypoxia. 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 Further workup revealed pleural effusion, possible empyema. The patient has been complaining of cough for the most part nonproductive. Denies any fever or chills. Denies any orthopnea, paroxysmal nocturnal dyspnea. He has on and off leg swelling. PAST MEDICAL HISTORY: * History of CAD, status post DC, status post angioplasty. * Ischemic cardiomyopathy. * CHF. * History of pneumonia. MEDICATIONS: Per med rec. ALLERGIES: No known drug allergies. PHYSICAL EXAMINATION: GENERAL: Alert and awake, in no form of cardiopulmonary distress. VITAL SIGNS: Blood pressure 110/50, pulse 82 per minute, saturation 93%. HEENT: No carotid bruits. No jugular venous distention. CHEST: Bilateral air entry decreased, scattered wheeze and rhonchi. CARDIOVASCULAR: Submucosal and palpable. Normal S1, S2. EXTREMITIES: No peripheral edema. DIAGNOSTIC DATA: White count 8, hemoglobin 9, platelet is 411. Sodium 137, potassium 4.2, creatinine is 0.6. Troponin negative x 2. BNP is 137. ASSESSMENT: * Hypoxia. * Pleural effusion. * Sepsis. * Pneumonia. * History of coronary artery disease status angioplasty. * Ischemic cardiomyopathy. RECOMMENDATIONS: * Continue IV antibiotics. * The patient is awaiting thoracentesis. * Monitor electrolytes closely. * Start aspirin, statin therapy. * We will review echo . * Continue tele monitoring. Thank you for allowing me to participate in the care of this patient. MD SERINA Miranda/JAGUAR/HERNANDEZ TID: [id number] RECEIPT: [id number]
--- NOTE | 2024-06-29 13:47 | DVH ---
EXAM: XY CHEST XRAY 1 VIEW TECHNIQUE: Single frontal chest radiograph CLINICAL HISTORY: INTERVAL CHANGES STATUS POST TPA ADMINISTRATION COMPARISON: XY CHEST XRAY 1 VIEW on DOS: 06/28/24, XY CHEST PORTABLE on DOS: 06/28/24, XY CHEST RANDA BLE on DOS: 05/22/24 Findings/Impression: Frontal chest radiograph demonstrates no acute osseous or superficial soft tissue abnormalities. The trachea is midline. Mild cardiomegaly. Decreased size of the small right pleural effusion. There is associated compressive atelectasis. A mills perimposed infectious process is not excluded. Small bore chest tube terminates near the right cardio phrenic angle. No pneumothorax.
--- NOTE | 2024-06-29 16:41 | DVHPN2 ---
Progress Note - Dictate Date Seen: Jun 29, 2024 Medical Necessity Reason Pt with a Central, PICC or Fol: No Subjective Patient seen and examined at bedside. Remains on supplemental oxygen Overnight events reviewed. vital signs Vital Sign Date Time Temp Pulse Resp B/P (MAP) Pulse Ox O2 Delivery O2 Flow Rate FiO2 06/29/24 16:21 106 15 97/49 (65) 97 06/29/24 07:20 97.8 97.8 06/29/24 07:20 Nasal Cannula* 2 28 Total Intake and Output 06/28/24 06/28/24 06/29/24 15:00 23:00 07:00 Intake Total 52.5 ml 60.0 ml Balance 52.5 ml 60.0 ml medications Current Medications Medications Dose Ordered Sig/Anderson Route Start Time Stop Time Status Last Admin Dose Admin Norepinephrine Bitartrate 250 ml @ 3.75 mls/hr Q24H IV 06/28/24 13:15 06/28/24 13:47 3.75 MLS/HR Acetaminophen/ Hydrocodone Bitart 1 tab Q4HP PRN PO 06/28/24 14:45 06/29/24 15:50 1 TAB Ondansetron HCl 4 mg Q4HP PRN IV 06/28/24 14:45 Acetaminophen 650 mg Q6HP PRN PO 06/28/24 14:45 Morphine Sulfate 2 mg Q4HPRN PRN IV 06/28/24 14:45 Nitroglycerin 0.4 mg Q5MINP PRN SL 06/28/24 14:45 Morphine Sulfate 2 mg Q30M PRN IV 06/28/24 14:45 objective Gen.: Patient lying in bed in no apparent distress. On supplemental oxygen. Head: Normocephalic, atraumatic. Eyes: EOMI/PERRLA. Ears: Normal hearing. Normal anatomy. Neck/trachea: Trachea midline, supple. Nose: Normal external anatomy. Mouth: Moist mucous membranes. Chest: Decreased air entry bilaterally. No wheezing or rhonchi. Cardiovascular: Positive S1, positive S2. Regular rate and rhythm. Abdomen: Positive bowel sounds in all 4 quadrants. Soft, non-tender, non- distended. : Deferred. Rectal: Deferred. Skin: Warm, dry. Intact. Extremities: 2+ radial pulses bilaterally. No lower extremity edema. Neuro: Awake, alert, oriented x3. No gross motor or sensory deficits. Cranial nerves II through XII intact. Gait not assessed. laboratory and microbiology Laboratory Tests 06/29/24 05:11 Test 06/29/24 05:11 Range/Units Serum Glucose 127 H 74-106 mg/dL Assessment/Plan Impression: Acute hypoxic respiratory failure Loculated pleural effusion, right Atelectasis Shock, possible sepsis Pneumonia likely gram negative Events: Remains on supplemental oxygen, 2 LPM NC Taper O2 as tolerated Tapered off Levophed - hemodynamically stable. Continue antibiotics Incentive spirometry Minimal chest tube output Plan for first dose of tPA today. Labs and imaging reviewed. Rest of plan as noted below. Plan: Supplemental oxygen Titrate to keep O2 sats above 92%. Bronchodilators PRN Antibiotics Incentive spirometry CT chest showing moderate-sized loculated right pleural effusion w/ surrounding pleural thickening and adjacent alveolar and interstitial opacities. A 2.6 cm lytic lesion in the medial aspect of the right 9th rib at the costochondral junction with full-thickness loss of the bone and overlying anterior and posterior cortices. See report for full details. S/p right chest tube placement d/t loculated pleural effusion. Plan for tPA course to mobilize pleural fluid. Monitor renal function. Monitor electrolytes. Supplement as necessary. Monitor ins and outs. DVT prophylaxis. Prognosis: Poor given patient's multiple co-morbidities. Condition: Critical Rest of plan per hospitalist and other consultants. A total of 35 minutes of critical care time was spent reviewing the patient record, examining the patient, making a diagnostic and therapeutic plan, discussing this plan with the medical personnel, following up on diagnostic studies and following the patient for clinical stability excluding any and all procedures. At least 50% of this time was spent in direct, [id number] contact. Thank you Dr. Maulik Chavira MD, for allowing me to participate in this patient's care. Further recommendations will depend on the patient's clinical course. Please do not hesitate to contact me if you have any questions or concerns. This medical document was created using an electronic medical record system with [employer] system. Although these documentations are being carefully reviewed, there may still be some phonetic and typographical changes. The errors are purely typographical, due to imperfection on the software program, and do not reflect any compromise in the patient's medical care. Plan discussed with: Other (RN Maryan) Critical Care Time(min): 35 VALERI BRANTLEY MD Jun 29, 2024 16:41
[2024-06-29 17:31] VITALS: BP 78/48; PULSE 109; RESP 20; TEMP 98.5; O2SAT 91; O2SAT 93
--- NOTE | 2024-06-29 18:53 | DVHPN2 ---
Subjective Overnight events noted. Patient has had a chest tube placement. 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 Medications Current Medications Medications Dose Ordered Sig/Anderson Route Start Time Stop Time Status Last Admin Dose Admin Norepinephrine Bitartrate 250 ml @ 3.75 mls/hr Q24H IV 06/28/24 13:15 06/28/24 13:47 3.75 MLS/HR Acetaminophen/ Hydrocodone Bitart 1 tab Q4HP PRN PO 06/28/24 14:45 06/29/24 15:50 1 TAB Ondansetron HCl 4 mg Q4HP PRN IV 06/28/24 14:45 Acetaminophen 650 mg Q6HP PRN PO 06/28/24 14:45 Morphine Sulfate 2 mg Q4HPRN PRN IV 06/28/24 14:45 Nitroglycerin 0.4 mg Q5MINP PRN SL 06/28/24 14:45 Morphine Sulfate 2 mg Q30M PRN IV 06/28/24 14:45 Laboratory Results Laboratory Tests 06/29/24 05:11 Chemistry Test 06/29/24 05:11 Albumin 3.4 g/dL (3.2-4.8) Calcium Level 9.0 mg/dL (8.7-10.4) Total Protein 5.4 g/dL (5.7-8.2) L LFT Test 06/29/24 05:11 Alanine Aminotransferase (ALT) 24 U/L (7-40) Alkaline Phosphatase 167 U/L (46-116) H Aspartate Amino Transferase (AST) 23 U/L (13-40) Total Bilirubin 0.4 mg/dL (0.2-1.0) Urinalysis Test 06/29/24 01:10 Urine Color Yellow (Yellow) Urine Clarity Clear (Clear) Urine pH 5.5 (5.0-9.0) Urine Specific [place] 1.032 (1.001-1.035) Urine Protein Trace (Negative) H Urine Ketones Trace (Negative) Urine Blood Negative /uL (Negative) Urine Nitrite Negative (Negative) Urine Bilirubin Negative (Negative) Urine Urobilinogen 2 mg/dL (Negative) H Urine Leukocyte Esterase Negative /uL (Negative) Urine RBC 1 /hpf (0 - 3) Urine WBC <1 /hpf (0 - 3) Urine Squamous Epithelial Cells None seen /hpf (<5) Urine Bacteria None seen /hpf (None Seen) Urine Hyaline Casts Mod /lpf (0 - 2) Urine Mucus Few (None Seen) Urine Glucose Normal mg/dL (Normal) Assessment/Plan Assessment/Plan 78-year-old male with a known history of Hodgkin's lymphoma initially presented to the hospital with a hypoxia found to have 1. Acute hypoxic respiratory failure 2. Right-sided pleural effusion rule out empyema status post chest tube placement 3. History of recurrent pneumonia 4. Lytic lesion 9th rib rule out malignancy 5. Acute CHF exacerbation with a possible systolic dysfunction 6. Coronary artery disease status post PCI -status post chest tube placement,-pulmonary consultation appreciated 2D echo, cardiologyConsultation -add IV antibiotics. Plan discussed with: Patient Date of Service: Jun 29, 2024 Billing Provider: MICHELLE VALDES MD Common Visit Codes: NOT BILLABLE MICHELLE VALDES MD Jun 29, 2024 18:53
[2024-06-29] MEDS ORDERED: SACU1TAB PO (19:06)
[2024-06-29 20:00] VITALS: PULSE 97
[2024-06-29 21:00] VITALS: BP 106/49; PULSE 107; RESP 18; TEMP 99.1; O2SAT 94
[2024-06-30] VITALS (8 sets, daily range): BP systolic 99–118; BP diastolic 41–89; PULSE 94–120; RESP 18–81; TEMP 97.5–98.2; O2SAT 90–98
--- NOTE | 2024-06-30 05:39 | DVH ---
CHEST RADIOGRAPH Indication: INTERVAL CHANGES STATUS POST TPA ADMINISTRATION Technique: Single frontal view of the chest was obtained Comparison: XY CHEST XRAY 1 VIEW on DOS: 06/29/24, XY CHEST XRAY 1 VIEW on DOS: 06/28/24, XY CHEST PO RTABLE on DOS: 06/28/24 IMPRESSION: Cardiomediastinal silhouette appears stable. The left lung appears clear. There persists a small bas ilar right pneumothorax with pleural catheter along the right lateral aspect. Patchy airspace opaciti es in the right lower lung appear similar. No significant interval change.
[2024-06-30] MEDS: DOCUSATE SOD 100 MG CAP PO SCH (10:09)
--- NOTE | 2024-06-30 15:51 | DVHPN2 ---
Subjective Overnight events noted. Patient has had a chest tube placement. Reviewed: Care Plan Changes from previous H/P or p: No Changes Objective Vitals Vital Signs Date Time Temp Pulse Resp B/P (MAP) Pulse Ox O2 Delivery O2 Flow Rate FiO2 06/30/24 13:00 97.7 100 18 102/46 (64) 92 97.7 06/30/24 08:00 Nasal Cannula* 1 24 Intake/Output Intake and Output 06/30/24 07:00 Intake Total 432.5 ml Output Total 575 ml Balance -142.5 ml Intake Oral 425 ml IV Total 7.5 ml Output Urine Total 475 ml Chest Tube Drainage Total 100 ml Exam HEENT pupils are reactive Neck is supple CV is S1-S2 regular rate and rhythm Respiratory diminished breath sounds right lung base GI positive bowel sound Extremity no 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 Medications Current Medications Medications Dose Ordered Sig/Anderson Route Start Time Stop Time Status Last Admin Dose Admin Acetaminophen/ Hydrocodone Bitart 1 tab Q4HP PRN PO 06/28/24 14:45 06/30/24 08:39 1 TAB Ondansetron HCl 4 mg Q4HP PRN IV 06/28/24 14:45 Acetaminophen 650 mg Q6HP PRN PO 06/28/24 14:45 Morphine Sulfate 2 mg Q4HPRN PRN IV 06/28/24 14:45 Nitroglycerin 0.4 mg Q5MINP PRN SL 06/28/24 14:45 Morphine Sulfate 2 mg Q30M PRN IV 06/28/24 14:45 Docusate Sodium 100 mg BID PO 06/30/24 10:00 06/30/24 10:09 100 MG Sennosides 8.6 mg QID PRN PO 06/30/24 11:00 Laboratory Results Laboratory Tests 06/29/24 05:11 Urinalysis Test 06/29/24 01:10 Urine Color Yellow (Yellow) Urine Clarity Clear (Clear) Urine pH 5.5 (5.0-9.0) Urine Specific [place] 1.032 (1.001-1.035) Urine Protein Trace (Negative) H Urine Ketones Trace (Negative) Urine Blood Negative /uL (Negative) Urine Nitrite Negative (Negative) Urine Bilirubin Negative (Negative) Urine Urobilinogen 2 mg/dL (Negative) H Urine Leukocyte Esterase Negative /uL (Negative) Urine RBC 1 /hpf (0 - 3) Urine WBC <1 /hpf (0 - 3) Urine Squamous Epithelial Cells None seen /hpf (<5) Urine Bacteria None seen /hpf (None Seen) Urine Hyaline Casts Mod /lpf (0 - 2) Urine Mucus Few (None Seen) Urine Glucose Normal mg/dL (Normal) Microbiology Microbiology Date/Time Source Procedure Growth Status 06/30/24 06:40 Nose MRSA Screen - Final Complete Assessment/Plan Assessment/Plan 78-year-old male with a known history of Hodgkin's lymphoma initially presented to the hospital with a hypoxia found to have 1. Acute hypoxic respiratory failure 2. Right-sided pleural effusion rule out empyema status post chest tube placement 3. History of recurrent pneumonia 4. Lytic lesion 9th rib rule out malignancy 5. Acute CHF exacerbation with a possible systolic dysfunction 6. Coronary artery disease status post PCI -status post chest tube placement,-pulmonary consultation appreciated 2D echo, cardiologyConsultation -add IV antibiotics. Plan discussed with: Patient My Orders Orders - MICHELLE VALDES MD Procedure Category Date Status Time Senna Pod Tablet PHA 06/30/24 In Process (Senokot Tablet) 11:00 Pt Request For Service PT 06/30/24 Logged 15:19 Date of Service: Jun 30, 2024 Billing Provider: MICHELLE VALDES MD Common Visit Codes: NOT BILLABLE MICHELLE VALDES MD Jun 30, 2024 15:51
[2024-06-30] MEDS: SENNA 8.6 MG TAB PO PRN (17:25)
--- NOTE | 2024-06-30 22:03 | DVHPN2 ---
Progress Note - Dictate Date Seen: Jun 30, 2024 Medical Necessity Reason Pt with a Central, PICC or Fol: No Subjective Patient seen and examined at bedside. Remains on supplemental oxygen Overnight events reviewed. vital signs Vital Sign Date Time Temp Pulse Resp B/P (MAP) Pulse Ox O2 Delivery O2 Flow Rate FiO2 06/30/24 17:00 97.7 97 81 118/89 (99) 98 97.7 06/30/24 08:00 Nasal Cannula* 1 24 Total Intake and Output 06/29/24 06/29/24 06/30/24 15:00 23:00 07:00 Intake Total 7.5 ml 425 ml Output Total 575 ml Balance 7.5 ml -150 ml medications Current Medications Medications Dose Ordered Sig/Anderson Route Start Time Stop Time Status Last Admin Dose Admin Acetaminophen/ Hydrocodone Bitart 1 tab Q4HP PRN PO 06/28/24 14:45 06/30/24 17:25 1 TAB Ondansetron HCl 4 mg Q4HP PRN IV 06/28/24 14:45 Acetaminophen 650 mg Q6HP PRN PO 06/28/24 14:45 Morphine Sulfate 2 mg Q4HPRN PRN IV 06/28/24 14:45 Nitroglycerin 0.4 mg Q5MINP PRN SL 06/28/24 14:45 Morphine Sulfate 2 mg Q30M PRN IV 06/28/24 14:45 Docusate Sodium 100 mg BID PO 06/30/24 10:00 06/30/24 10:09 100 MG Sennosides 8.6 mg QID PRN PO 06/30/24 11:00 06/30/24 17:25 8.6 MG objective Gen.: Patient lying in bed in no apparent distress. On supplemental oxygen. Head: Normocephalic, atraumatic. Eyes: EOMI/PERRLA. Ears: Normal hearing. Normal anatomy. Neck/trachea: Trachea midline, supple. Nose: Normal external anatomy. Mouth: Moist mucous membranes. Chest: Decreased air entry bilaterally. No wheezing or rhonchi. Cardiovascular: Positive S1, positive S2. Regular rate and rhythm. Abdomen: Positive bowel sounds in all 4 quadrants. Soft, non-tender, non- distended. : Deferred. Rectal: Deferred. Skin: Warm, dry. Intact. Extremities: 2+ radial pulses bilaterally. No lower extremity edema. Neuro: Awake, alert, oriented x3. No gross motor or sensory deficits. Cranial nerves II through XII intact. Gait not assessed. laboratory and microbiology Laboratory Tests 06/29/24 05:11 Test 06/29/24 05:11 Range/Units Serum Glucose 127 H 74-106 mg/dL Assessment/Plan Impression: Acute hypoxic respiratory failure Loculated pleural effusion, right Atelectasis Shock, possible sepsis Pneumonia likely gram negative Events: Remains on supplemental oxygen, 1 LPM NC Taper O2 as tolerated CXR reviewed, demonstrates small basilar right pneumothorax with pleural catheter along the right lateral aspect. Patchy airspace opacities in the right lower lung. Serosanguineous fluid draining. Continue to monitor chest tube output Held off TPA today. Stool softeners. Continue antibiotics Incentive spirometry PT evaluation. Will reassess in the AM. Obtain CXR in the AM for interval changes Labs and imaging reviewed. Rest of plan as noted below. Plan: Supplemental oxygen Titrate to keep O2 sats above 92%. Bronchodilators PRN Antibiotics Incentive spirometry CT chest showing moderate-sized loculated right pleural effusion w/ surrounding pleural thickening and adjacent alveolar and interstitial opacities. A 2.6 cm lytic lesion in the medial aspect of the right 9th rib at the costochondral junction with full-thickness loss of the bone and overlying anterior and posterior cortices. See report for full details. S/p right chest tube placement d/t loculated pleural effusion. Plan for tPA course to mobilize pleural fluid. Off pressors, hemodynamically stable. Monitor renal function. Monitor electrolytes. Supplement as necessary. Monitor ins and outs. DVT prophylaxis. Prognosis: Poor given patient's multiple co-morbidities. Rest of plan per hospitalist and other consultants. Thank you Dr. Maulik Chavira MD, for allowing me to participate in this patient's care. Further recommendations will depend on the patient's clinical course. Please do not hesitate to contact me if you have any questions or concerns. This medical document was created using an electronic medical record system with [employer] system. Although these documentations are being carefully reviewed, there may still be some phonetic and typographical changes. The errors are purely typographical, due to imperfection on the software program, and do not reflect any compromise in the patient's medical care. Plan discussed with: Patient, Other (VALERI Kerns MD Jun 30, 2024 22:03
[2024-07-01] VITALS (9 sets, daily range): BP systolic 95–118; BP diastolic 46–54; PULSE 96–123; RESP 16–18; TEMP 97.9–98.4; O2SAT 94–99
--- NOTE | 2024-07-01 07:10 | DVH ---
CHEST RADIOGRAPH Indication: INTERVAL CHANGES STATUS POST tPA ADMINISTRATION Technique: Single frontal view of the chest was obtained Comparison: XY CHEST XRAY 1 VIEW on DOS: 06/30/24 FINDINGS: Lines and Tubes: Right pigtail catheter is unchanged. Lungs: Right mid to lower lung field opacification. Pleura: Right pleural effusion. No pneumothorax. Cardiomediastinal contours: Stable cardiovascular silhouette. Bones: No acute osseous abnormality. IMPRESSION: 1. Right pleural effusion and right basilar opacities similar to prior study. Right pigtail catheter is unchanged in position.
--- NOTE | 2024-07-01 15:07 | CONS ---
Pharmacy Clinical Information: CQM HF. Patient has had consistently low BP since admission; may be beneficial to correct hypotension before starting EBBB, ACEI/ARB/ARNI, MRA, SGLT2 as they have a side effect of hypotension. BHARATHI BRAY PHARMACIST Jul 01, 2024 15:07
--- NOTE | 2024-07-01 16:31 | DVHPN2 ---
Subjective Overnight events noted. Patient was stated the christina Collado is going to do another procedure today the chest tube Reviewed: Care Plan Changes from previous H/P or p: No Changes Objective Vitals Vital Signs Date Time Temp Pulse Resp B/P (MAP) Pulse Ox O2 Delivery O2 Flow Rate FiO2 07/01/24 12:47 97.9 98 18 106/49 (68) 98 97.9 07/01/24 08:00 Nasal Cannula* 1 24 Intake/Output Intake and Output 07/01/24 07:00 Intake Total 996 ml Output Total 600 ml Balance 396 ml Intake Oral 996 ml Output Urine Total 600 ml Exam HEENT pupils are reactive Neck is supple CV is S1-S2 regular rate and rhythm Respiratory diminished breath sounds right lung base GI positive bowel sound Extremity no edema 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 Medications Current Medications Medications Dose Ordered Sig/Anderson Route Start Time Stop Time Status Last Admin Dose Admin Acetaminophen/ Hydrocodone Bitart 1 tab Q4HP PRN PO 06/28/24 14:45 07/01/24 14:55 1 TAB Ondansetron HCl 4 mg Q4HP PRN IV 06/28/24 14:45 Acetaminophen 650 mg Q6HP PRN PO 06/28/24 14:45 Morphine Sulfate 2 mg Q4HPRN PRN IV 06/28/24 14:45 Nitroglycerin 0.4 mg Q5MINP PRN SL 06/28/24 14:45 Morphine Sulfate 2 mg Q30M PRN IV 06/28/24 14:45 Docusate Sodium 100 mg BID PO 06/30/24 10:00 07/01/24 09:25 100 MG Sennosides 8.6 mg QID PRN PO 06/30/24 11:00 06/30/24 17:25 8.6 MG Laboratory Results Laboratory Tests 06/29/24 05:11 Urinalysis Test 06/29/24 01:10 Urine Color Yellow (Yellow) Urine Clarity Clear (Clear) Urine pH 5.5 (5.0-9.0) Urine Specific [place] 1.032 (1.001-1.035) Urine Protein Trace (Negative) H Urine Ketones Trace (Negative) Urine Blood Negative /uL (Negative) Urine Nitrite Negative (Negative) Urine Bilirubin Negative (Negative) Urine Urobilinogen 2 mg/dL (Negative) H Urine Leukocyte Esterase Negative /uL (Negative) Urine RBC 1 /hpf (0 - 3) Urine WBC <1 /hpf (0 - 3) Urine Squamous Epithelial Cells None seen /hpf (<5) Urine Bacteria None seen /hpf (None Seen) Urine Hyaline Casts Mod /lpf (0 - 2) Urine Mucus Few (None Seen) Urine Glucose Normal mg/dL (Normal) Microbiology Microbiology Date/Time Source Procedure Growth Status 06/30/24 06:40 Nose MRSA Screen - Final Complete Assessment/Plan Assessment/Plan 78-year-old male with a known history of Hodgkin's lymphoma initially presented to the hospital with a hypoxia found to have 1. Acute hypoxic respiratory failure 2. Right-sided pleural effusion rule out empyema status post chest tube placement 3. History of recurrent pneumonia 4. Lytic lesion 9th rib rule out malignancy 5. Acute CHF exacerbation with a possible systolic dysfunction 6. Coronary artery disease status post PCI -status post chest tube placement,-pulmonary consultation appreciated 2D echo, cardiologyConsultation Continue current antibiotics Physical therapy evaluation and treatment. Plan discussed with: Patient Date of Service: Jul 01, 2024 Billing Provider: MICHELLE VALDES MD Common Visit Codes: NOT BILLABLE MICHELLE VALDES MD Jul 01, 2024 16:31
[2024-07-01] MEDS: CATHFLO ACTIVASE (ALTEPLASE) 2 MG VIAL XX ONE (18:50)
--- NOTE | 2024-07-01 22:05 | DVHPN2 ---
Progress Note - Dictate Date Seen: Jul 01, 2024 Medical Necessity Reason Pt with a Central, PICC or Fol: No Subjective Patient seen and examined at bedside. Remains on supplemental oxygen Overnight events reviewed. vital signs Vital Sign Date Time Temp Pulse Resp B/P (MAP) Pulse Ox O2 Delivery O2 Flow Rate FiO2 07/01/24 17:09 98.3 109 18 95/54 (68) 94 98.3 07/01/24 08:00 Nasal Cannula* 1 24 Total Intake and Output 06/30/24 06/30/24 07/01/24 15:00 23:00 07:00 Intake Total 236 ml 360 ml 400 ml Output Total 250 ml 350 ml Balance 236 ml 110 ml 50 ml medications Current Medications Medications Dose Ordered Sig/Anderson Route Start Time Stop Time Status Last Admin Dose Admin Acetaminophen/ Hydrocodone Bitart 1 tab Q4HP PRN PO 06/28/24 14:45 07/01/24 14:55 1 TAB Ondansetron HCl 4 mg Q4HP PRN IV 06/28/24 14:45 Acetaminophen 650 mg Q6HP PRN PO 06/28/24 14:45 Morphine Sulfate 2 mg Q4HPRN PRN IV 06/28/24 14:45 Nitroglycerin 0.4 mg Q5MINP PRN SL 06/28/24 14:45 Morphine Sulfate 2 mg Q30M PRN IV 06/28/24 14:45 Docusate Sodium 100 mg BID PO 06/30/24 10:00 07/01/24 09:25 100 MG Sennosides 8.6 mg QID PRN PO 06/30/24 11:00 06/30/24 17:25 8.6 MG objective Gen.: Patient lying in bed in no apparent distress. On supplemental oxygen. Head: Normocephalic, atraumatic. Eyes: EOMI/PERRLA. Ears: Normal hearing. Normal anatomy. Neck/trachea: Trachea midline, supple. Nose: Normal external anatomy. Mouth: Moist mucous membranes. Chest: Decreased air entry bilaterally. No wheezing or rhonchi. Cardiovascular: Positive S1, positive S2. Regular rate and rhythm. Abdomen: Positive bowel sounds in all 4 quadrants. Soft, non-tender, non- distended. : Deferred. Rectal: Deferred. Skin: Warm, dry. Intact. Extremities: 2+ radial pulses bilaterally. No lower extremity edema. Neuro: Awake, alert, oriented x3. No gross motor or sensory deficits. Cranial nerves II through XII intact. Gait not assessed. laboratory and microbiology Laboratory Tests 06/29/24 05:11 Test 06/29/24 05:11 Range/Units Serum Glucose 127 H 74-106 mg/dL Assessment/Plan Impression: Acute hypoxic respiratory failure Loculated pleural effusion, right Atelectasis Shock, possible sepsis Pneumonia likely gram negative Events: Remains on supplemental oxygen, 2 LPM NC Taper O2 as tolerated CXR reviewed, demonstrates right pleural effusion and right basilar opacities similar to prior study. Right pigtail catheter in place. Second dose of alteplase given this evening. Unclamp chest tube in 1.5 hours Obtain CXR in the AM for interval changes Stool softeners. Continue antibiotics Incentive spirometry IS. Pain control Avoid oversedation Labs and imaging reviewed. Rest of plan as noted below. Plan: Supplemental oxygen Titrate to keep O2 sats above 92%. Bronchodilators PRN Antibiotics Incentive spirometry CT chest showing moderate-sized loculated right pleural effusion w/ surrounding pleural thickening and adjacent alveolar and interstitial opacities. A 2.6 cm lytic lesion in the medial aspect of the right 9th rib at the costochondral junction with full-thickness loss of the bone and overlying anterior and posterior cortices. See report for full details. S/p right chest tube placement d/t loculated pleural effusion. Plan for tPA course to mobilize pleural fluid. Off pressors, hemodynamically stable. Monitor renal function. Monitor electrolytes. Supplement as necessary. Monitor ins and outs. DVT prophylaxis. Prognosis: Poor given patient's multiple co-morbidities. Rest of plan per hospitalist and other consultants. Thank you Dr. Maulik Chavira MD, for allowing me to participate in this patient's care. Further recommendations will depend on the patient's clinical course. Please do not hesitate to contact me if you have any questions or concerns. This medical document was created using an electronic medical record system with [employer] system. Although these documentations are being carefully reviewed, there may still be some phonetic and typographical changes. The errors are purely typographical, due to imperfection on the software program, and do not reflect any compromise in the patient's medical care. Plan discussed with: Patient, Other (IBETH Lo) VALERI BRANTLEY MD Jul 01, 2024 22:05
[2024-07-02] VITALS (8 sets, daily range): BP systolic 93–110; BP diastolic 46–51; PULSE 85–105; RESP 16–18; TEMP 97.3–98.5; O2SAT 97–100
--- NOTE | 2024-07-02 08:29 | DVH ---
CHEST RADIOGRAPH Indication: INTERVAL CHANGES STATUS POST TPA ADMINISTRATION Technique: Single frontal view of the chest was obtained COMPARISON: XY CHEST XRAY 1 VIEW on DOS: 07/01/24, XY CHEST XRAY 1 VIEW on DOS: 06/30/24, XY CHEST XR AY 1 VIEW on DOS: 06/29/24, XY CHEST XRAY 1 VIEW on DOS: 06/28/24, XY CHEST PORTABLE on DOS: 06/28/24 FINDINGS: Lines and Tubes: Right chest tube in-situ. Lungs: Multifocal right lung airspace disease. Pleura: No effusion. Small right basilar pneumothorax. Cardiomediastinal contours: Unremarkable Bones: Unremarkable IMPRESSION: No significant interval change.
--- NOTE | 2024-07-02 15:24 | DVH ---
CHEST RADIOGRAPH Indication: chest tube placement Technique: Single frontal view of the chest was obtained COMPARISON: XY CHEST XRAY 1 VIEW on DOS: 07/02/24, XY CHEST XRAY 1 VIEW on DOS: 07/01/24, XY CHEST XR AY 1 VIEW on DOS: 06/30/24, XY CHEST XRAY 1 VIEW on DOS: 06/29/24, XY CHEST XRAY 1 VIEW on DOS: 06/28 FINDINGS: Lines and Tubes: Right chest tube in the periphery of the right chest. Lungs: Multifocal right lung airspace disease. Pleura: No effusion. Small right basilar pneumothorax. Cardiomediastinal contours: Unremarkable Bones: Unremarkable IMPRESSION: Right chest tube in the periphery of the right chest; clinical correlation advised. Small right basilar pneumothorax, unchanged.
--- NOTE | 2024-07-02 17:35 | DVHPN2 ---
Subjective Overnight events noted. Patient's chest tube came out. Reviewed: Care Plan Changes from previous H/P or p: No Changes Objective Vitals Vital Signs Date Time Temp Pulse Resp B/P (MAP) Pulse Ox O2 Delivery O2 Flow Rate FiO2 07/02/24 16:53 97.3 94 16 93/49 (64) 100 97.3 07/02/24 08:00 Nasal Cannula* 2 28 Intake/Output Intake and Output 07/02/24 07:00 Intake Total 1580 ml Output Total 1110 ml Balance 470 ml Intake Oral 1580 ml Output Urine Total 700 ml Chest Tube Drainage Total 410 ml # Bowel Movements 1 Exam HEENT pupils are reactive Neck is supple CV is S1-S2 regular rate and rhythm Respiratory diminished breath sounds right lung base GI positive bowel sound Extremity no edema 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 Medications Current Medications Medications Dose Ordered Sig/Anderson Route Start Time Stop Time Status Last Admin Dose Admin Acetaminophen/ Hydrocodone Bitart 1 tab Q4HP PRN PO 06/28/24 14:45 07/02/24 08:39 1 TAB Ondansetron HCl 4 mg Q4HP PRN IV 06/28/24 14:45 Acetaminophen 650 mg Q6HP PRN PO 06/28/24 14:45 Morphine Sulfate 2 mg Q4HPRN PRN IV 06/28/24 14:45 Nitroglycerin 0.4 mg Q5MINP PRN SL 06/28/24 14:45 Morphine Sulfate 2 mg Q30M PRN IV 06/28/24 14:45 Docusate Sodium 100 mg BID PO 06/30/24 10:00 07/01/24 09:25 100 MG Sennosides 8.6 mg QID PRN PO 06/30/24 11:00 06/30/24 17:25 8.6 MG Laboratory Results Laboratory Tests 06/29/24 05:11 Urinalysis Test 06/29/24 01:10 Urine Color Yellow (Yellow) Urine Clarity Clear (Clear) Urine pH 5.5 (5.0-9.0) Urine Specific [place] 1.032 (1.001-1.035) Urine Protein Trace (Negative) H Urine Ketones Trace (Negative) Urine Blood Negative /uL (Negative) Urine Nitrite Negative (Negative) Urine Bilirubin Negative (Negative) Urine Urobilinogen 2 mg/dL (Negative) H Urine Leukocyte Esterase Negative /uL (Negative) Urine RBC 1 /hpf (0 - 3) Urine WBC <1 /hpf (0 - 3) Urine Squamous Epithelial Cells None seen /hpf (<5) Urine Bacteria None seen /hpf (None Seen) Urine Hyaline Casts Mod /lpf (0 - 2) Urine Mucus Few (None Seen) Urine Glucose Normal mg/dL (Normal) Microbiology Microbiology Date/Time Source Procedure Growth Status 06/30/24 06:40 Nose MRSA Screen - Final Complete Assessment/Plan Assessment/Plan 78-year-old male with a known history of Hodgkin's lymphoma initially presented to the hospital with a hypoxia found to have 1. Acute hypoxic respiratory failure 2. Right-sided pleural effusion rule out empyema status post chest tube placement 3. History of recurrent pneumonia 4. Lytic lesion 9th rib rule out malignancy 5. Acute CHF exacerbation with a possible systolic dysfunction 6. Coronary artery disease status post PCI -status post chest tube placement,-pulmonary consultation appreciated -follow up Pulmonary for chest tube removal Continue current antibiotics Physical therapy evaluation and treatment. Plan discussed with: Other Date of Service: Jul 02, 2024 Billing Provider: MICHELLE VALDES MD Common Visit Codes: NOT BILLABLE MICHELLE VALDES MD Jul 02, 2024 17:35
--- NOTE | 2024-07-02 21:28 | DVHPN2 ---
Progress Note - Dictate Date Seen: Jul 02, 2024 Medical Necessity Reason Pt with a Central, PICC or Fol: No Subjective Patient seen and examined at bedside. Remains on supplemental oxygen Overnight events reviewed. vital signs Vital Sign Date Time Temp Pulse Resp B/P (MAP) Pulse Ox O2 Delivery O2 Flow Rate FiO2 07/02/24 16:53 97.3 94 16 93/49 (64) 100 97.3 07/02/24 08:00 Nasal Cannula* 2 28 Total Intake and Output 07/01/24 07/01/24 07/02/24 15:00 23:00 07:00 Intake Total 1180 ml 400 ml Output Total 400 ml 710 ml Balance 780 ml -310 ml medications Current Medications Medications Dose Ordered Sig/Anderson Route Start Time Stop Time Status Last Admin Dose Admin Acetaminophen/ Hydrocodone Bitart 1 tab Q4HP PRN PO 06/28/24 14:45 07/02/24 21:23 1 TAB Ondansetron HCl 4 mg Q4HP PRN IV 06/28/24 14:45 Acetaminophen 650 mg Q6HP PRN PO 06/28/24 14:45 Morphine Sulfate 2 mg Q4HPRN PRN IV 06/28/24 14:45 Nitroglycerin 0.4 mg Q5MINP PRN SL 06/28/24 14:45 Morphine Sulfate 2 mg Q30M PRN IV 06/28/24 14:45 Docusate Sodium 100 mg BID PO 06/30/24 10:00 07/01/24 09:25 100 MG Sennosides 8.6 mg QID PRN PO 06/30/24 11:00 06/30/24 17:25 8.6 MG objective Gen.: Patient lying in bed in no apparent distress. On supplemental oxygen. Head: Normocephalic, atraumatic. Eyes: EOMI/PERRLA. Ears: Normal hearing. Normal anatomy. Neck/trachea: Trachea midline, supple. Nose: Normal external anatomy. Mouth: Moist mucous membranes. Chest: Decreased air entry bilaterally. No wheezing or rhonchi. Cardiovascular: Positive S1, positive S2. Regular rate and rhythm. Abdomen: Positive bowel sounds in all 4 quadrants. Soft, non-tender, non- distended. : Deferred. Rectal: Deferred. Skin: Warm, dry. Intact. Extremities: 2+ radial pulses bilaterally. No lower extremity edema. Neuro: Awake, alert, oriented x3. No gross motor or sensory deficits. Cranial nerves II through XII intact. Gait not assessed. laboratory and microbiology Laboratory Tests 06/29/24 05:11 Test 06/29/24 05:11 Range/Units Serum Glucose 127 H 74-106 mg/dL Assessment/Plan Impression: Acute hypoxic respiratory failure Loculated pleural effusion, right Atelectasis Shock, possible sepsis Pneumonia likely gram negative Events: Remains on supplemental oxygen, 2 LPM NC Taper O2 as tolerated Chest tube with 450 mL serosanguineous fluid output CXR reviewed, demonstrates multifocal right lung airspace disease. Small right basilar pneumothorax. Slight interval improvement. Incentive spirometry Pain control Avoid oversedation Labs and imaging reviewed. Rest of plan as noted below. Plan: Supplemental oxygen Titrate to keep O2 sats above 92%. Bronchodilators PRN Antibiotics Incentive spirometry CT chest showing moderate-sized loculated right pleural effusion w/ surrounding pleural thickening and adjacent alveolar and interstitial opacities. A 2.6 cm lytic lesion in the medial aspect of the right 9th rib at the costochondral junction with full-thickness loss of the bone and overlying anterior and posterior cortices. See report for full details. S/p right chest tube placement d/t loculated pleural effusion. Plan for tPA course to mobilize pleural fluid. S/p two doses of Alteplase Off pressors, hemodynamically stable. Monitor renal function. Monitor electrolytes. Supplement as necessary. Monitor ins and outs. DVT prophylaxis. Prognosis: Poor given patient's multiple co-morbidities. Rest of plan per hospitalist and other consultants. Thank you Dr. Maulik Chavira MD, for allowing me to participate in this patient's care. Further recommendations will depend on the patient's clinical course. Please do not hesitate to contact me if you have any questions or concerns. This medical document was created using an electronic medical record system with [employer] dictation system. Although these documentations are being carefully reviewed, there may still be some phonetic and typographical changes. The errors are purely typographical, due to imperfection on the software program, and do not reflect any compromise in the patient's medical care. Plan discussed with: Patient, Other (IBETH Lo) VALERI BRANTLEY MD Jul 02, 2024 21:28
[2024-07-03] VITALS (9 sets, daily range): BP systolic 10–105; BP diastolic 45–50; PULSE 91–121; RESP 16–20; TEMP 97.5–98.9; O2SAT 94–98
--- NOTE | 2024-07-03 05:27 | DVH ---
CHEST RADIOGRAPH Indication: CHEST TUBE Technique: Single frontal view of the chest was obtained Comparison: XY CHEST XRAY 1 VIEW on DOS: 07/02/24, XY CHEST XRAY 1 VIEW on DOS: 07/02/24, XY CHEST XR AY 1 VIEW on DOS: 07/01/24, XY CHEST XRAY 1 VIEW on DOS: 06/30/24, XY CHEST XRAY 1 VIEW on DOS: 06/29, XY CHEST XRAY 1 VIEW on DOS: 07/02/24 FINDINGS: Lines and Tubes: Right chest tube in the periphery of the right chest. Lungs: Multifocal right lung airspace disease. Pleura: No effusion. Small right basilar pneumothorax. Cardiomediastinal contours: Unremarkable Bones: Unremarkable IMPRESSION: Right chest tube in the periphery of the right chest; clinical correlation advised. Small right basilar pneumothorax, unchanged.
[2024-07-03] MEDS ORDERED: AZITHROMYCIN 500MG/ 250ML 250 ML IV SCH (12:30)
[2024-07-03] MEDS: cefTRIAXone 1GM/50ML D5W 50 ML IV SCH (12:43)
--- NOTE | 2024-07-03 13:14 | DVHPN2 ---
Subjective Overnight events noted. Patient's chest tube has been discontinued Reviewed: Care Plan Changes from previous H/P or p: No Changes Objective Vitals Vital Signs Date Time Temp Pulse Resp B/P (MAP) Pulse Ox O2 Delivery O2 Flow Rate FiO2 07/03/24 12:45 98.5 96 17 100/45 (63) 94 98.5 07/03/24 08:00 Nasal Cannula* 2 28 Intake/Output Intake and Output 07/03/24 07:00 Intake Total 860 ml Output Total 525 ml Balance 335 ml Intake Oral 860 ml Output Urine Total 525 ml Exam HEENT pupils are reactive Neck is supple CV is S1-S2 regular rate and rhythm Respiratory diminished breath sounds right lung base GI positive bowel sound Extremity no edema 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 Medications Current Medications Medications Dose Ordered Sig/Anderson Route Start Time Stop Time Status Last Admin Dose Admin Acetaminophen/ Hydrocodone Bitart 1 tab Q4HP PRN PO 06/28/24 14:45 07/02/24 21:23 1 TAB Ondansetron HCl 4 mg Q4HP PRN IV 06/28/24 14:45 Acetaminophen 650 mg Q6HP PRN PO 06/28/24 14:45 Morphine Sulfate 2 mg Q4HPRN PRN IV 06/28/24 14:45 Nitroglycerin 0.4 mg Q5MINP PRN SL 06/28/24 14:45 Morphine Sulfate 2 mg Q30M PRN IV 06/28/24 14:45 Docusate Sodium 100 mg BID PO 06/30/24 10:00 07/03/24 10:20 100 MG Sennosides 8.6 mg QID PRN PO 06/30/24 11:00 06/30/24 17:25 8.6 MG Ceftriaxone Sodium 50 ml @ 100 mls/hr DAILY@09 IV 07/03/24 13:00 07/03/24 12:43 100 MLS/HR Azithromycin 500 mg DAILY PO 07/04/24 10:00 Laboratory Results Laboratory Tests 06/29/24 05:11 Urinalysis Test 06/29/24 01:10 Urine Color Yellow (Yellow) Urine Clarity Clear (Clear) Urine pH 5.5 (5.0-9.0) Urine Specific [place] 1.032 (1.001-1.035) Urine Protein Trace (Negative) H Urine Ketones Trace (Negative) Urine Blood Negative /uL (Negative) Urine Nitrite Negative (Negative) Urine Bilirubin Negative (Negative) Urine Urobilinogen 2 mg/dL (Negative) H Urine Leukocyte Esterase Negative /uL (Negative) Urine RBC 1 /hpf (0 - 3) Urine WBC <1 /hpf (0 - 3) Urine Squamous Epithelial Cells None seen /hpf (<5) Urine Bacteria None seen /hpf (None Seen) Urine Hyaline Casts Mod /lpf (0 - 2) Urine Mucus Few (None Seen) Urine Glucose Normal mg/dL (Normal) Microbiology Microbiology Date/Time Source Procedure Growth Status 06/30/24 06:40 Nose MRSA Screen - Final Complete Assessment/Plan Assessment/Plan 78-year-old male with a known history of Hodgkin's lymphoma initially presented to the hospital with a hypoxia found to have 1. Acute hypoxic respiratory failure 2. Loculated Right-sided pleural effusion rule out empyema status post chest tube placement, status post chest tube removal 3. History of recurrent pneumonia 4. Lytic lesion 9th rib rule out malignancy 5. Acute CHF exacerbation with a possible systolic dysfunction 6. Coronary artery disease status post PCI -status post chest tube placement and removal,-pulmonary consultation appreciated -surgical consultation with Dr. De Los Santos for thoracotomy Continue current antibiotics Physical therapy evaluation and treatment. Plan discussed with: Patient My Orders Orders - MICHELLE VALDES MD Procedure Category Date Status Time Ceftriaxone 1gm/50ml PHA 07/03/24 In Process D5w (Rocephin) 13:00 Azithromycin Tablet PHA 07/04/24 In Process (Zithromax Tablet) 10:00 Date of Service: Jul 03, 2024 Billing Provider: MICHELLE VALDES MD Common Visit Codes: NOT BILLABLE MICHELLE VALDES MD Jul 03, 2024 13:14
[2024-07-03] MEDS: AZITHROMYCIN 250 MG TAB PO ONE (13:26)
--- NOTE | 2024-07-03 22:33 | DVHPN2 ---
Progress Note - Dictate Date Seen: Jul 03, 2024 Medical Necessity Reason Pt with a Central, PICC or Fol: No Subjective Patient seen and examined at bedside. Remains on supplemental oxygen Overnight events reviewed. vital signs Vital Sign Date Time Temp Pulse Resp B/P (MAP) Pulse Ox O2 Delivery O2 Flow Rate FiO2 07/03/24 21:00 98.2 117 20 101/49 (66) 96 98.2 07/03/24 20:00 Nasal Cannula* 3 32 Total Intake and Output 07/02/24 07/02/24 07/03/24 15:00 23:00 07:00 Intake Total 660 ml 200 ml Output Total 525 ml Balance 135 ml 200 ml medications Current Medications Medications Dose Ordered Sig/Anderson Route Start Time Stop Time Status Last Admin Dose Admin Acetaminophen/ Hydrocodone Bitart 1 tab Q4HP PRN PO 06/28/24 14:45 07/03/24 21:06 1 TAB Ondansetron HCl 4 mg Q4HP PRN IV 06/28/24 14:45 Acetaminophen 650 mg Q6HP PRN PO 06/28/24 14:45 Morphine Sulfate 2 mg Q4HPRN PRN IV 06/28/24 14:45 Nitroglycerin 0.4 mg Q5MINP PRN SL 06/28/24 14:45 Morphine Sulfate 2 mg Q30M PRN IV 06/28/24 14:45 Docusate Sodium 100 mg BID PO 06/30/24 10:00 07/03/24 21:06 100 MG Sennosides 8.6 mg QID PRN PO 06/30/24 11:00 06/30/24 17:25 8.6 MG Ceftriaxone Sodium 50 ml @ 100 mls/hr DAILY@09 IV 07/03/24 13:00 07/03/24 12:43 100 MLS/HR Azithromycin 500 mg DAILY PO 07/04/24 10:00 objective Gen.: Patient lying in bed in no apparent distress. On supplemental oxygen. Head: Normocephalic, atraumatic. Eyes: EOMI/PERRLA. Ears: Normal hearing. Normal anatomy. Neck/trachea: Trachea midline, supple. Nose: Normal external anatomy. Mouth: Moist mucous membranes. Chest: Decreased air entry bilaterally. No wheezing or rhonchi. Cardiovascular: Positive S1, positive S2. Regular rate and rhythm. Abdomen: Positive bowel sounds in all 4 quadrants. Soft, non-tender, non- distended. : Deferred. Rectal: Deferred. Skin: Warm, dry. Intact. Extremities: 2+ radial pulses bilaterally. No lower extremity edema. Neuro: Awake, alert, oriented x3. No gross motor or sensory deficits. Cranial nerves II through XII intact. Gait not assessed. laboratory and microbiology Laboratory Tests 06/29/24 05:11 Test 06/29/24 05:11 Range/Units Serum Glucose 127 H 74-106 mg/dL Assessment/Plan Impression: Acute hypoxic respiratory failure Loculated pleural effusion, right Atelectasis Shock, possible sepsis Pneumonia likely gram negative Events: Remains on supplemental oxygen, 2 LPM NC Taper O2 as tolerated CXR reviewed, demonstrates small right basilar pneumothorax. Chest tube is dislodged. Plan to remove chest tube in the AM by IR or by myself. Consult Surgery for decortication. Send pleural fluid for cultures Incentive spirometry Pain control Avoid oversedation Labs and imaging reviewed. Rest of plan as noted below. Plan: Supplemental oxygen Titrate to keep O2 sats above 92%. Bronchodilators PRN Antibiotics Incentive spirometry CT chest showing moderate-sized loculated right pleural effusion w/ surrounding pleural thickening and adjacent alveolar and interstitial opacities. A 2.6 cm lytic lesion in the medial aspect of the right 9th rib at the costochondral junction with full-thickness loss of the bone and overlying anterior and posterior cortices. See report for full details. S/p right chest tube placement d/t loculated pleural effusion. Plan for tPA course to mobilize pleural fluid. S/p two doses of Alteplase Off pressors, hemodynamically stable. Monitor renal function. Monitor electrolytes. Supplement as necessary. Monitor ins and outs. DVT prophylaxis. Prognosis: Poor given patient's multiple co-morbidities. Rest of plan per hospitalist and other consultants. Thank you Dr. Maulik Chavira MD, for allowing me to participate in this patient's care. Further recommendations will depend on the patient's clinical course. Please do not hesitate to contact me if you have any questions or concerns. This medical document was created using an electronic medical record system with [employer] system. Although these documentations are being carefully reviewed, there may still be some phonetic and typographical changes. The errors are purely typographical, due to imperfection on the software program, and do not reflect any compromise in the patient's medical care. Plan discussed with: Patient, Other (IBETH Davidson) VALERI BRANTLEY MD Jul 03, 2024 22:33
[2024-07-04] VITALS (8 sets, daily range): BP systolic 97–111; BP diastolic 49–56; PULSE 89–122; RESP 16–20; TEMP 97.7–99.4; O2SAT 95–99
--- NOTE | 2024-07-04 06:02 | DVH ---
CHEST RADIOGRAPH Indication: Interval changes in ex-vacuo pneumothorax Technique: Single frontal view of the chest was obtained COMPARISON: XY CHEST PORTABLE on DOS: 07/03/24, XY CHEST XRAY 1 VIEW on DOS: 07/02/24, XY CHEST XRAY 1 VIEW on DOS: 07/02/24, XY CHEST XRAY 1 VIEW on DOS: 07/01/24, XY CHEST XRAY 1 VIEW on DOS: 06/30/24 FINDINGS: Lines and Tubes: None Lungs: Multifocal right lung airspace disease. Pleura: Small right pleural effusion No pneumothorax. Cardiomediastinal contours: Unremarkable Bones: Unremarkable IMPRESSION: Multifocal right lung airspace disease. Small right pleural effusion.
--- NOTE | 2024-07-04 09:27 | DVHINCON2 ---
Date of service: Jul 04, 2024 Family History: Alcoholism G8 FATHER Diabetes mellitus G8 MOTHER FH: heart attack G8 MOTHER FH: heart failure G8 MOTHER FH: hypertension G8 MOTHER Allergies: Coded Allergies: NO KNOWN ALLERGIES (Unverified , 06/16/23) Home Meds Reported Medications Metoprolol Succinate (Metoprolol Succinate Er) 25 Mg Tab, 1 TAB PO DAILY for 60 Days, #60 07/01/24 Tamsulosin Hcl (Tamsulosin Hcl) 0.4 Mg Cap, 1 CAP PO DAILY for 90 Days, #90 07/01/24 Pantoprazole Sodium Sesquihydr (Protonix) 40 Mg Tab, 1 TAB PO DAILY for 30 Days, #30 07/01/24 Amoxicillin Trihydrate (Amoxicillin) 875 Mg Tab, 1 TAB PO BID for 10 Days, #20 07/01/24 Lovastatin (Lovastatin) 40 Mg Tab, 1 TAB PO DAILY for 90 Days, #90 06/29/24 Tramadol Hcl (Tramadol Hcl) 50 Mg Tab, 1 TAB PO TID PRN for PAIN SCALE 7 THRU 10 for 7 Days, #21 06/29/24 Sacubitril-Valsartan (Entresto 24-26 mg) 1 Tab Tab, 0.5 TAB PO DAILYPRN for IF SBP>115, MEDICATION IS HELD, TAB 06/29/24 Losartan Potassium (Losartan Potassium) 50 Mg Tab, 1 TAB PO DAILY for 90 Days, #90 06/29/24 Tizanidine Hydrochloride (Zanaflex) 2 Mg Cap, 1 CAP PO BID for 30 Days, #60 06/29/24 Current Medications Current Medications Medications (Trade) Dose Ordered Sig/Anderson Route PRN Reason Start Time Stop Time Status Last Admin Ceftriaxone Sodium 50 ml @ 100 mls/hr DAILY@09 IV 07/03/24 13:00 07/04/24 09:00 Azithromycin 250 ml @ 125 mls/hr DAILY IV 07/03/24 12:30 07/03/24 12:58 DC Azithromycin (Zithromax Tablet) 500 mg DAILY PO 07/04/24 10:00 Vital Signs Vital Signs Date Time Temp Pulse Resp B/P (MAP) Pulse Ox O2 Delivery O2 Flow Rate FiO2 07/04/24 09:00 98.4 109 20 107/52 (70) 98 98.4 12/26/24 07:49 Nasal Cannula* 2 28 Labs/Diagnostic Data Labs Test 06/29/24 05:11 06/29/24 01:10 06/28/24 15:12 06/28/24 11:10 Range/Units White Blood Count 8.5 4.4-10.8 10^3/uL Red Blood Count 3.36 L 4.5-5.90 10^6/uL Hemoglobin 9.1 L 13.5-17.5 g/dL Hematocrit 27.6 L 41.0-53.0 % Mean Corpuscular Volume 82.2 80.0-100.0 fL Mean Corpuscular Hemoglobin 27.0 L 28.0-32.0 pg Mean Corpuscular Hemoglobin Concent 32.8 32.0-36.0 g/dL Red Cell Distribution Width 14.5 H 11.8-14.3 % Platelet Count 411 140-450 10^3/uL Mean Platelet Volume 7.6 6.9-10.8 fL Neutrophils (%) (Auto) 75.9 37.0-80.0 % Lymphocytes (%) (Auto) 12.1 10.0-50.0 % Monocytes (%) (Auto) 11.1 0.0-12.0 % Eosinophils (%) (Auto) 0.7 0.0-7.0 % Basophils (%) (Auto) 0.2 0.0-2.0 % Neutrophils # (Auto) 6.4 1.6-8.6 10 ^3/uL Lymphocytes # (Auto) 1.0 0.4-5.4 10 ^3/uL Monocytes # (Auto) 0.9 0-1.3 10 ^3/uL Eosinophils # (Auto) 0.1 0-0.8 10 ^3/uL Basophils # (Auto) 0 0-0.2 10 ^3/uL Nucleated Red Blood Cells 0.0 % Sodium Level 136 136-145 mmol/L Potassium Level 4.2 3.5-5.1 mmol/L Chloride Level 104 98-107 mmol/L Carbon Dioxide Level 27 20-31 mmol/L Anion Gap 5 5-15 Blood Urea Nitrogen 14 9-23 mg/dL Creatinine 0.69 L 0.700-1.30 mg/dL Glomerular Filtration Rate Calc 94 >90 mL/min BUN/Creatinine Ratio 20.3 H 10.0-20.0 Serum Glucose 127 H 74-106 mg/dL Calcium Level 9.0 8.7-10.4 mg/dL Total Bilirubin 0.4 0.2-1.0 mg/dL Aspartate Amino Transferase (AST) 23 13-40 U/L Alanine Aminotransferase (ALT) 24 7-40 U/L Alkaline Phosphatase 167 H 46-116 U/L Total Protein 5.4 L 5.7-8.2 g/dL Albumin 3.4 3.2-4.8 g/dL Urine Color Yellow Yellow Urine Clarity Clear Clear Urine pH 5.5 5.0-9.0 Urine Specific [place] 1.032 1.001-1.035 Urine Protein Trace H Negative Urine Ketones Trace Negative Urine Blood Negative Negative /uL Urine Nitrite Negative Negative Urine Bilirubin Negative Negative Urine Urobilinogen 2 H Negative mg/dL Urine Leukocyte Esterase Negative Negative /uL Urine RBC 1 0 - 3 /hpf Urine WBC <1 0 - 3 /hpf Urine Squamous Epithelial Cells None seen <5 /hpf Urine Bacteria None seen None Seen /hpf Urine Hyaline Casts Mod 0 - 2 /lpf Urine Mucus Few None Seen Urine Glucose Normal Normal mg/dL Lactic Acid Level 1.4 0.4-2.0 mmol/L Troponin I High Sensitivity 11 </=54 ng/L Prothrombin Time 12.0 H 9.3-11.8 sec Prothrombin Time INR 1.14 0.9-1.15 Activated Partial Thromboplast Time 28.9 24.5-34.5 SEC B-Type Natriuretic Peptide 137.58 0-100 pg/mL Microbiology Date/Time Source Procedure Growth Status 06/30/24 06:40 Nose MRSA Screen - Final Complete Assessment patient quit smoking many years ago, hs been symptomatic with SOB for several months, has dilated ischemic myocardiopathy 2with compromised EF, multiple other comorbidities, has been treated for pneumonia during this hospitalization, requires supplemental oxygen at rest. He needs to be medically optimized and re evaluated by cardiology to asses his tolerance to a thoracotomy. I will schedule his operation for the 12 of July. he lost 30 lb s in the last tw2o months due to"difficulty eating". needs to be nutritionally optimized as well.thoracotomy and decortication explained in detail, all questions answered Plan discussed with: Patient JACE KRISHNA MD Jul 04, 2024 09:27
[2024-07-04] MEDS: AZITHROMYCIN 250 MG TAB PO SCH (09:32)
[2024-07-04 09:42] LABS: Basophils # (auto) 0 10 ^3/uL (0-0.2); Eosinophils # (auto) 0.1 10 ^3/uL (0-0.8); Hemoglobin 9.4 g/dL (13.5-17.5); Monocytes # (auto) 0.9 10 ^3/uL (0-1.3); Neutrophils % (auto) 76.8 % (37.0-80.0)
[2024-07-04 09:44] LABS: Basophils % (auto) 0.3 % (0.0-2.0); Eosinophils % (auto) 0.8 % (0.0-7.0); Hematocrit 29.3 % (41.0-53.0); Lymphocytes % (auto) 11.7 % (10.0-50.0); Mean Corpuscular Hemoglobin 26.3 pg (28.0-32.0); Mean Corpuscular Hgb Conc. 32.3 g/dL (32.0-36.0); Mean Corpuscular Volume 81.5 fL (80.0-100.0); Monocytes % (auto) 10.4 % (0.0-12.0); Neutrophils # (auto) 6.5 10 ^3/uL (1.6-8.6); Nucleated Red Blood Cells % 0.1 %; Platelet Count (auto) 405 10^3/uL (140-450); Red Blood Cells 3.59 10^6/uL (4.5-5.90); Red Cell Distribution Width 14.5 % (11.8-14.3); White Blood Cell 8.5 10^3/uL (4.4-10.8)
[2024-07-04 10:01] LABS: Alanine Aminotransferase 23 U/L (7-40); Anion Gap 4 (5-15); Aspartate Aminotransferase 18 U/L (13-40); Bilirubin, Total 0.4 mg/dL (0.2-1.0); Calcium 9.2 mg/dL (8.7-10.4); Carbon Dioxide 31 mmol/L (20-31); Chloride 102 mmol/L (98-107); Potassium 4.4 mmol/L (3.5-5.1); Sodium 137 mmol/L (136-145)
[2024-07-04 10:03] LABS: Albumin 3.2 g/dL (3.2-4.8); Alkaline Phosphatase 175 U/L (46-116); Blood Urea Nitrogen 9 mg/dL (9-23); Glucose 168 mg/dL (74-106); Total Protein 5.3 g/dL (5.7-8.2)
[2024-07-04 11:04] LABS: INR 1.09 (0.9-1.15); Partial Thromboplastin Time 32.2 SEC (24.5-34.5); Prothrombin Time 11.5 sec (9.3-11.8)
[2024-07-04] MEDS: Ensure HIGH Protein Chocolate 8oz Bottle PO SCH (12:16)
[2024-07-04] MEDS ORDERED: TPN PER PHARMACY 0 ML IV SCH (13:00)
[2024-07-04 13:24] LABS: Magnesium 2.1 mg/dL (1.6-2.6)
[2024-07-04 13:25] LABS: Phosphorus 3.1 mg/dL (2.4-5.1)
--- NOTE | 2024-07-04 16:34 | DVHPN2 ---
Subjective Overnight events noted. Surgical consultation for thoracotomy and decortication of the loculated pleural effusion. 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 Medications Current Medications Medications Dose Ordered Sig/Anderson Route Start Time Stop Time Status Last Admin Dose Admin Acetaminophen/ Hydrocodone Bitart 1 tab Q4HP PRN PO 06/28/24 14:45 07/04/24 05:21 1 TAB Ondansetron HCl 4 mg Q4HP PRN IV 06/28/24 14:45 Acetaminophen 650 mg Q6HP PRN PO 06/28/24 14:45 Morphine Sulfate 2 mg Q4HPRN PRN IV 06/28/24 14:45 Nitroglycerin 0.4 mg Q5MINP PRN SL 06/28/24 14:45 Morphine Sulfate 2 mg Q30M PRN IV 06/28/24 14:45 Docusate Sodium 100 mg BID PO 06/30/24 10:00 07/04/24 09:32 100 MG Sennosides 8.6 mg QID PRN PO 06/30/24 11:00 06/30/24 17:25 8.6 MG Ceftriaxone Sodium 50 ml @ 100 mls/hr DAILY@09 IV 07/03/24 13:00 07/04/24 09:00 100 MLS/HR Azithromycin 500 mg DAILY PO 07/04/24 10:00 07/04/24 09:32 500 MG Enteral Nutritional Formula 240 ml TIDWM PO 07/04/24 12:00 07/04/24 12:16 240 ML Amino Acids 0 ml @ 0 mls/hr PER PHARMACY IV 07/04/24 13:00 Diagnostic Test (Pha) 1 strip Q6HR 07/05/24 00:00 Insulin Human Regular FOLLOW SLIDING SCALE Q6HR SC 07/05/24 00:00 Dextrose 50 ml UD IV 07/05/24 00:00 Amino Acids 1,000 ml @ 41 mls/hr DAILY@2200 IV 07/04/24 22:00 07/05/24 21:59 Laboratory Results Laboratory Tests 07/04/24 09:18 Chemistry Test 07/04/24 09:18 Albumin 3.2 g/dL (3.2-4.8) Calcium Level 9.2 mg/dL (8.7-10.4) Magnesium Level 2.1 mg/dL (1.6-2.6) Phosphorus Level 3.1 mg/dL (2.4-5.1) Total Protein 5.3 g/dL (5.7-8.2) L Coagulation Test 07/04/24 09:18 Prothrombin Time 11.5 sec (9.3-11.8) Prothrombin Time INR 1.09 (0.9-1.15) Activated Partial Thromboplast Time 32.2 SEC (24.5-34.5) LFT Test 07/04/24 09:18 Alanine Aminotransferase (ALT) 23 U/L (7-40) Alkaline Phosphatase 175 U/L (46-116) H Aspartate Amino Transferase (AST) 18 U/L (13-40) Total Bilirubin 0.4 mg/dL (0.2-1.0) Urinalysis Test 06/29/24 01:10 Urine Color Yellow (Yellow) Urine Clarity Clear (Clear) Urine pH 5.5 (5.0-9.0) Urine Specific [place] 1.032 (1.001-1.035) Urine Protein Trace (Negative) H Urine Ketones Trace (Negative) Urine Blood Negative /uL (Negative) Urine Nitrite Negative (Negative) Urine Bilirubin Negative (Negative) Urine Urobilinogen 2 mg/dL (Negative) H Urine Leukocyte Esterase Negative /uL (Negative) Urine RBC 1 /hpf (0 - 3) Urine WBC <1 /hpf (0 - 3) Urine Squamous Epithelial Cells None seen /hpf (<5) Urine Bacteria None seen /hpf (None Seen) Urine Hyaline Casts Mod /lpf (0 - 2) Urine Mucus Few (None Seen) Urine Glucose Normal mg/dL (Normal) Microbiology Microbiology Date/Time Source Procedure Growth Status 06/30/24 06:40 Nose MRSA Screen - Final Complete Assessment/Plan Assessment/Plan 78-year-old male with a known history of Hodgkin's lymphoma initially presented to the hospital with a hypoxia found to have 1. Acute hypoxic respiratory failure 2. Loculated Right-sided pleural effusion rule out empyema status post chest tube placement, status post chest tube removal 3. History of recurrent pneumonia 4. Lytic lesion 9th rib rule out malignancy 5. Acute CHF exacerbation with a possible systolic dysfunction 6. Coronary artery disease status post PCI -status post chest tube placement and removal,-pulmonary consultation appreciated -surgical consultation with Dr. De Los Santos for thoracotomy Continue current antibiotics Physical therapy evaluation and treatment. Plan discussed with: Patient Date of Service: Jul 04, 2024 Billing Provider: MICHELLE VALDES MD Common Visit Codes: NOT BILLABLE MICHELLE VALDES MD Jul 04, 2024 16:34
[2024-07-04] MEDS: AMINO ACID INFUSION IN D5W 1,000 ML IV SCH (20:59)
--- NOTE | 2024-07-04 21:20 | DVHPN2 ---
Progress Note - Dictate Date Seen: Jul 04, 2024 Medical Necessity Reason Pt with a Central, PICC or Fol: Yes The following are medically ne: PICC Line Subjective Patient seen and examined at bedside. Remains on supplemental oxygen Overnight events reviewed. vital signs Vital Sign Date Time Temp Pulse Resp B/P (MAP) Pulse Ox O2 Delivery O2 Flow Rate FiO2 07/04/24 20:00 18 98 Nasal Cannula* 3 32 07/04/24 16:46 98.1 114 97/49 (65) 98.1 Total Intake and Output 07/03/24 07/03/24 07/04/24 15:00 23:00 07:00 Intake Total 750 ml 360 ml Output Total 475 ml 350 ml Balance 275 ml 10 ml medications Current Medications Medications Dose Ordered Sig/Anderson Route Start Time Stop Time Status Last Admin Dose Admin Acetaminophen/ Hydrocodone Bitart 1 tab Q4HP PRN PO 06/28/24 14:45 07/04/24 19:21 1 TAB Ondansetron HCl 4 mg Q4HP PRN IV 06/28/24 14:45 Acetaminophen 650 mg Q6HP PRN PO 06/28/24 14:45 Morphine Sulfate 2 mg Q4HPRN PRN IV 06/28/24 14:45 Nitroglycerin 0.4 mg Q5MINP PRN SL 06/28/24 14:45 Morphine Sulfate 2 mg Q30M PRN IV 06/28/24 14:45 Docusate Sodium 100 mg BID PO 06/30/24 10:00 07/04/24 20:59 100 MG Sennosides 8.6 mg QID PRN PO 06/30/24 11:00 06/30/24 17:25 8.6 MG Ceftriaxone Sodium 50 ml @ 100 mls/hr DAILY@09 IV 07/03/24 13:00 07/04/24 09:00 100 MLS/HR Azithromycin 500 mg DAILY PO 07/04/24 10:00 07/04/24 09:32 500 MG Enteral Nutritional Formula 240 ml TIDWM PO 07/04/24 12:00 07/04/24 17:31 240 ML Amino Acids 0 ml @ 0 mls/hr PER PHARMACY IV 07/04/24 13:00 Diagnostic Test (Pha) 1 strip Q6HR 07/05/24 00:00 Insulin Human Regular FOLLOW SLIDING SCALE Q6HR SC 07/05/24 00:00 Dextrose 50 ml UD IV 07/05/24 00:00 Amino Acids 1,000 ml @ 41 mls/hr DAILY@2200 IV 07/04/24 22:00 07/05/24 21:59 07/04/24 20:59 41 MLS/HR objective Gen.: Patient lying in bed in no apparent distress. On supplemental oxygen. Head: Normocephalic, atraumatic. Eyes: EOMI/PERRLA. Ears: Normal hearing. Normal anatomy. Neck/trachea: Trachea midline, supple. Nose: Normal external anatomy. Mouth: Moist mucous membranes. Chest: Decreased air entry bilaterally. No wheezing or rhonchi. Cardiovascular: Positive S1, positive S2. Regular rate and rhythm. Abdomen: Positive bowel sounds in all 4 quadrants. Soft, non-tender, non- distended. : Deferred. Rectal: Deferred. Skin: Warm, dry. Intact. Extremities: 2+ radial pulses bilaterally. No lower extremity edema. Neuro: Awake, alert, oriented x3. No gross motor or sensory deficits. Cranial nerves II through XII intact. Gait not assessed. laboratory and microbiology Laboratory Tests 07/04/24 09:18 Test 07/04/24 09:18 Range/Units Serum Glucose 168 H 74-106 mg/dL Assessment/Plan Impression: Acute hypoxic respiratory failure Loculated pleural effusion, right Atelectasis Shock, possible sepsis Pneumonia likely gram negative Events: Remains on supplemental oxygen, 2 LPM NC Taper O2 as tolerated PICC line in place. TPN for nutritional support Continue antibiotics CXR reviewed, demonstrates multifocal right lung airspace disease. Small right pleural effusion. S/p chest tube removal. Surgery consulted - recommend decortication. Patient agreed. Consult Cardiology for cardiology clearance. Incentive spirometry Pain control Avoid oversedation Labs and imaging reviewed. Rest of plan as noted below. Plan: Supplemental oxygen Titrate to keep O2 sats above 92%. Bronchodilators PRN Antibiotics Incentive spirometry CT chest showing moderate-sized loculated right pleural effusion w/ surrounding pleural thickening and adjacent alveolar and interstitial opacities. A 2.6 cm lytic lesion in the medial aspect of the right 9th rib at the costochondral junction with full-thickness loss of the bone and overlying anterior and posterior cortices. See report for full details. Pt underwent right chest tube placement d/t loculated pleural effusion. Plan for tPA course to mobilize pleural fluid. S/p two doses of Alteplase Currently s/p removal of chest tube. Off pressors, hemodynamically stable. Monitor renal function. Monitor electrolytes. Supplement as necessary. Monitor ins and outs. DVT prophylaxis. Prognosis: Poor given patient's multiple co-morbidities. Rest of plan per hospitalist and other consultants. Thank you Dr. Maulik Chavira MD, for allowing me to participate in this patient's care. Further recommendations will depend on the patient's clinical course. Please do not hesitate to contact me if you have any questions or concerns. This medical document was created using an electronic medical record system with [employer]ation system. Although these documentations are being carefully reviewed, there may still be some phonetic and typographical changes. The errors are purely typographical, due to imperfection on the software program, and do not reflect any compromise in the patient's medical care. Plan discussed with: Patient, Other (IBETH Bender) VALERI BRANTLEY MD Jul 04, 2024 21:20
[2024-07-04] MEDS: ACCU-CHEK COMFORT CURVE STRIP VI SCH (23:25)
[2024-07-04] MEDS: InsuLIN REG 1unit/0.01ml Soln (100units/ml) SC SCH (23:59)
[2024-07-05] VITALS (7 sets, daily range): BP systolic 94–109; BP diastolic 49–60; PULSE 87–125; RESP 17–20; TEMP 97.7–98.8; O2SAT 96–98
[2024-07-05] MEDS ORDERED: DEXTROSE (50%) 50ML SYRG IV SCH
[2024-07-05 08:11] LABS: Potassium 4.4 mmol/L (3.5-5.1)
[2024-07-05 08:13] LABS: Calcium 9.3 mg/dL (8.7-10.4)
[2024-07-05 08:17] LABS: Albumin 3.3 g/dL (3.2-4.8)
[2024-07-05 08:18] LABS: BUN/Creatinine Ratio 19.3 (10.0-20.0)
[2024-07-05 08:24] LABS: Phosphorus 2.5 mg/dL (2.4-5.1)
--- NOTE | 2024-07-05 13:39 | DVHSR ---
APPROVED REPORT EXAM: Two-dimensional echocardiogram. Blood Pressure: 94/49 mmHg INDICATION Limited for EF RISK FACTORS Height: 5' 5", Weight: 140 DIMENSIONS LVDd4.9 (3.8-5.7cm)LA (2D)4.0 (1.9-4.0cm)Aortic Root (2.0-3.7cm) LVDs4.3 (2.5-4.0cm)LA (MM) (1.9-4.0cm)Aortic Cusp Exc (1.5-2.0cm) EF (%) 25.0 (55-70%)Rt. Atrium3.7 (1.9-4.0cm)Asc. Aorta cm IVSd0.9 (0.7-1.1cm)RV (D) (1.8-2.4cm) PWd1.1 (0.7-1.1cm) Mitral Valve MitralMitral Stenosis E/A ratio0.02D MVAcm2 Other Information Quality : LimitedRhythm : Conclusion limited study to reassess LV function LV is dilated LV systolic function is severely depressed ejection fraction is estimated at 20%
--- NOTE | 2024-07-05 15:36 | DVHPN2 ---
Subjective Overnight events noted. Surgical consultation for thoracotomy and decortication of the loculated pleural effusion. Reviewed: Care Plan Changes from previous H/P or p: No Changes Objective Vitals Vital Signs Date Time Temp Pulse Resp B/P (MAP) Pulse Ox O2 Delivery O2 Flow Rate FiO2 07/05/24 13:00 98.0 115 18 101/60 (74) 97 98.0 07/05/24 08:00 Nasal Cannula* 3 32 Intake/Output Intake and Output 07/05/24 07:00 Intake Total 1799 ml Output Total 615 ml Balance 1184 ml Intake Oral 1380 ml IV Total 419 ml Output Urine Total 615 ml # Voids 2 # Bowel Movements 1 Exam HEENT pupils are reactive Neck is supple CV is S1-S2 regular rate and rhythm Respiratory diminished breath sounds right lung base GI positive bowel sound Extremity no edema [employer] no motor deficit Medications Current Medications Medications Dose Ordered Sig/Anderson Route Start Time Stop Time Status Last Admin Dose Admin Acetaminophen/ Hydrocodone Bitart 1 tab Q4HP PRN PO 06/28/24 14:45 07/05/24 15:13 1 TAB Ondansetron HCl 4 mg Q4HP PRN IV 06/28/24 14:45 Acetaminophen 650 mg Q6HP PRN PO 06/28/24 14:45 Morphine Sulfate 2 mg Q4HPRN PRN IV 06/28/24 14:45 Nitroglycerin 0.4 mg Q5MINP PRN SL 06/28/24 14:45 Morphine Sulfate 2 mg Q30M PRN IV 06/28/24 14:45 Docusate Sodium 100 mg BID PO 06/30/24 10:00 07/05/24 09:23 100 MG Sennosides 8.6 mg QID PRN PO 06/30/24 11:00 06/30/24 17:25 8.6 MG Ceftriaxone Sodium 50 ml @ 100 mls/hr DAILY@09 IV 07/03/24 13:00 07/05/24 08:56 100 MLS/HR Azithromycin 500 mg DAILY PO 07/04/24 10:00 07/05/24 09:23 500 MG Enteral Nutritional Formula 240 ml TIDWM PO 07/04/24 12:00 07/05/24 11:35 240 ML Amino Acids 0 ml @ 0 mls/hr PER PHARMACY IV 07/04/24 13:00 Diagnostic Test (Pha) 1 strip Q6HR 12/27/24 00:00 07/05/24 11:32 1 STRIP Insulin Human Regular FOLLOW SLIDING SCALE Q6HR SC 07/05/24 00:00 Dextrose 50 ml UD IV 07/05/24 00:00 Amino Acids 1,000 ml @ 41 mls/hr DAILY@2200 IV 07/04/24 22:00 07/05/24 21:59 07/04/24 20:59 41 MLS/HR Fat Emulsion Intravenous 50 ml/ Sodium Phosphate 26.4 meq/ Magnesium Sulfate 4 meq/ Multivitamins 10 ml/Chromium/ Copper/Manganese/ Zinc 1 ml/Amino Acids/Dextrose/ Purified Water 1,268.6 ml @ 52 mls/hr [id number] IV 07/05/24 22:00 07/06/24 21:59 Laboratory Results Laboratory Tests 07/04/24 09:18 07/05/24 06:47 Chemistry Test 07/05/24 06:47 Albumin 3.3 g/dL (3.2-4.8) Calcium Level 9.3 mg/dL (8.7-10.4) Magnesium Level 2.0 mg/dL (1.6-2.6) Phosphorus Level 2.5 mg/dL (2.4-5.1) Lipid panel Test 07/05/24 06:47 Triglycerides Level 123 mg/dL (< 150) Urinalysis Test 06/29/24 01:10 Urine Color Yellow (Yellow) Urine Clarity Clear (Clear) Urine pH 5.5 (5.0-9.0) Urine Specific [place] 1.032 (1.001-1.035) Urine Protein Trace (Negative) H Urine Ketones Trace (Negative) Urine Blood Negative /uL (Negative) Urine Nitrite Negative (Negative) Urine Bilirubin Negative (Negative) Urine Urobilinogen 2 mg/dL (Negative) H Urine Leukocyte Esterase Negative /uL (Negative) Urine RBC 1 /hpf (0 - 3) Urine WBC <1 /hpf (0 - 3) Urine Squamous Epithelial Cells None seen /hpf (<5) Urine Bacteria None seen /hpf (None Seen) Urine Hyaline Casts Mod /lpf (0 - 2) Urine Mucus Few (None Seen) Urine Glucose Normal mg/dL (Normal) Microbiology Microbiology Date/Time Source Procedure Growth Status 06/30/24 06:40 Nose MRSA Screen - Final Complete Assessment/Plan Assessment/Plan 78-year-old male with a known history of Hodgkin's lymphoma initially presented to the hospital with a hypoxia found to have 1. Acute hypoxic respiratory failure 2. Loculated Right-sided pleural effusion rule out empyema status post chest tube placement, status post chest tube removal 3. History of recurrent pneumonia 4. Lytic lesion 9th rib rule out malignancy 5. Acute CHF exacerbation with a possible systolic dysfunction 6. Coronary artery disease status post PCI -status post chest tube placement and removal,-pulmonary consultation appreciated -surgical consultation with Dr. De Los Santos for thoracotomy Continue current antibiotics Physical therapy evaluation and treatment. Plan discussed with: Patient Date of Service: Jul 05, 2024 Billing Provider: MICHELLE VALDES MD Common Visit Codes: NOT BILLABLE MICHELLE VALDES MD Jul 05, 2024 15:36
[2024-07-05] MEDS: LIDOCAINE 1% (LOCAL ANESTH.) PF 5ml SDV ID ONE (16:15)
[2024-07-05] MEDS: PPN PER PHARMACY IV NR (21:14)
--- NOTE | 2024-07-05 21:23 | DVHPN2 ---
Progress Note - Dictate Date Seen: Jul 05, 2024 Medical Necessity Reason Pt with a Central, PICC or Fol: Yes The following are medically ne: PICC Line Subjective Patient seen and examined at bedside. Remains on supplemental oxygen Overnight events reviewed. vital signs Vital Sign Date Time Temp Pulse Resp B/P (MAP) Pulse Ox O2 Delivery O2 Flow Rate FiO2 07/05/24 16:43 97.7 119 20 109/59 (76) 98 97.7 07/05/24 08:00 Nasal Cannula* 3 32 Total Intake and Output 07/04/24 07/04/24 07/05/24 15:00 23:00 07:00 Intake Total 50 ml 400 ml 1349 ml Output Total 615 ml Balance 50 ml 400 ml 734 ml medications Current Medications Medications Dose Ordered Sig/Anderson Route Start Time Stop Time Status Last Admin Dose Admin Acetaminophen/ Hydrocodone Bitart 1 tab Q4HP PRN PO 06/28/24 14:45 07/05/24 20:31 1 TAB Ondansetron HCl 4 mg Q4HP PRN IV 06/28/24 14:45 Acetaminophen 650 mg Q6HP PRN PO 06/28/24 14:45 Morphine Sulfate 2 mg Q4HPRN PRN IV 06/28/24 14:45 Nitroglycerin 0.4 mg Q5MINP PRN SL 06/28/24 14:45 Morphine Sulfate 2 mg Q30M PRN IV 06/28/24 14:45 Docusate Sodium 100 mg BID PO 06/30/24 10:00 07/05/24 09:23 100 MG Sennosides 8.6 mg QID PRN PO 06/30/24 11:00 06/30/24 17:25 8.6 MG Ceftriaxone Sodium 50 ml @ 100 mls/hr DAILY@09 IV 07/03/24 13:00 07/05/24 08:56 100 MLS/HR Azithromycin 500 mg DAILY PO 07/04/24 10:00 07/05/24 09:23 500 MG Enteral Nutritional Formula 240 ml TIDWM PO 07/04/24 12:00 07/05/24 18:24 240 ML Amino Acids 0 ml @ 0 mls/hr PER PHARMACY IV 07/04/24 13:00 Diagnostic Test (Pha) 1 strip Q6HR 07/05/24 00:00 12/27/24 18:24 1 STRIP Insulin Human Regular FOLLOW SLIDING SCALE Q6HR SC 07/05/24 00:00 07/05/24 18:25 2 UNITS Dextrose 50 ml UD IV 07/05/24 00:00 Amino Acids 1,000 ml @ 41 mls/hr DAILY@2200 IV 07/04/24 22:00 07/05/24 21:59 07/04/24 20:59 41 MLS/HR Fat Emulsion Intravenous 50 ml/ Sodium Phosphate 26.4 meq/ Magnesium Sulfate 4 meq/ Multivitamins 10 ml/Chromium/ Copper/Manganese/ Zinc 1 ml/Amino Acids/Dextrose/ Purified Water 1,268.6 ml @ 52 mls/hr [id number] IV 07/05/24 22:00 07/06/24 21:59 07/05/24 21:14 52 MLS/HR Sodium Chloride 10 ml QSHIFT@10,22 IV 07/05/24 22:00 objective Gen.: Patient lying in bed in no apparent distress. On supplemental oxygen. Head: Normocephalic, atraumatic. Eyes: EOMI/PERRLA. Ears: Normal hearing. Normal anatomy. Neck/trachea: Trachea midline, supple. Nose: Normal external anatomy. Mouth: Moist mucous membranes. Chest: Decreased air entry bilaterally. No wheezing or rhonchi. Cardiovascular: Positive S1, positive S2. Regular rate and rhythm. Abdomen: Positive bowel sounds in all 4 quadrants. Soft, non-tender, non- distended. : Deferred. Rectal: Deferred. Skin: Warm, dry. Intact. Extremities: 2+ radial pulses bilaterally. No lower extremity edema. Neuro: Awake, alert, oriented x3. No gross motor or sensory deficits. Cranial nerves II through XII intact. Gait not assessed. laboratory and microbiology Laboratory Tests 07/05/24 06:47 07/04/24 09:18 Test 07/05/24 06:47 Range/Units Serum Glucose 133 H 74-106 mg/dL Assessment/Plan Impression: Acute hypoxic respiratory failure Loculated pleural effusion, right Atelectasis Shock, possible sepsis Pneumonia likely gram negative Events: Remains on supplemental oxygen, 3 LPM NC Taper O2 as tolerated Awaiting Cardiology recommendations PICC line placement. Clinimix for nutritional support Continue antibiotics Incentive spirometry Recommend decortication surgery. Patient needs cardiology clearance. Pain control Avoid oversedation Continue PT. Labs and imaging reviewed. Rest of plan as noted below. Plan: Supplemental oxygen Titrate to keep O2 sats above 92%. Bronchodilators PRN Antibiotics Incentive spirometry CT chest showing moderate-sized loculated right pleural effusion w/ surrounding pleural thickening and adjacent alveolar and interstitial opacities. A 2.6 cm lytic lesion in the medial aspect of the right 9th rib at the costochondral junction with full-thickness loss of the bone and overlying anterior and posterior cortices. See report for full details. Pt underwent right chest tube placement d/t loculated pleural effusion. Plan for tPA course to mobilize pleural fluid. S/p two doses of Alteplase Currently s/p removal of chest tube. Off pressors, hemodynamically stable. Monitor renal function. Monitor electrolytes. Supplement as necessary. Monitor ins and outs. DVT prophylaxis. Prognosis: Poor given patient's multiple co-morbidities. Rest of plan per hospitalist and other consultants. Thank you Dr. Maulik Chavira MD, for allowing me to participate in this patient's care. Further recommendations will depend on the patient's clinical course. Please do not hesitate to contact me if you have any questions or concerns. This medical document was created using an electronic medical record system with [employer] dictation system. Although these documentations are being carefully reviewed, there may still be some phonetic and typographical changes. The errors are purely typographical, due to imperfection on the software program, and do not reflect any compromise in the patient's medical care. Dietary Evaluation Review Comments: encourage and monitor PO feedings to meet 75% of his needs. continue preasent plan of care: regular diet nutrition supplements with clinimix and ensure hi protein. may consider a 2GNA Diet with low fat Low cholesterol retriction if he has elevated lipid profile. Expected Outcomes/Goals: improved physical strength, gradual weight gain. Plan discussed with: Patient, Other (IBETH Bender) VALERI BRANTLEY MD Jul 05, 2024 21:23
[2024-07-05] MEDS: SODIUM CHLOR 0.9% PF (SALINE LOCK) 10ML VIAL/SYR IV SCH (22:29)
[2024-07-06] VITALS (7 sets, daily range): BP systolic 106–124; BP diastolic 37–56; PULSE 85–132; RESP 18–96; TEMP 97.1–98.4; O2SAT 96–99
[2024-07-06 07:30] LABS: Alanine Aminotransferase 21 U/L (7-40); Albumin 3.3 g/dL (3.2-4.8); Anion Gap 8 (5-15); Aspartate Aminotransferase 18 U/L (13-40); BUN/Creatinine Ratio 26.2 (10.0-20.0); Blood Urea Nitrogen 16 mg/dL (9-23); Calcium 9.3 mg/dL (8.7-10.4); Carbon Dioxide 29 mmol/L (20-31); Magnesium 2.1 mg/dL (1.6-2.6)
[2024-07-06 07:31] LABS: Bilirubin, Total 0.3 mg/dL (0.2-1.0); Phosphorus 3.2 mg/dL (2.4-5.1)
[2024-07-06 08:52] LABS: Alkaline Phosphatase 168 U/L (46-116); Chloride 100 mmol/L (98-107); Glucose 134 mg/dL (74-106); Potassium 4.3 mmol/L (3.5-5.1); Sodium 137 mmol/L (136-145); Total Protein 5.2 g/dL (5.7-8.2)
--- NOTE | 2024-07-06 16:58 | DVHPN2 ---
Subjective Overnight events noted. Surgical consultation for thoracotomy and decortication of the loculated pleural effusion. Dr. Loaiza was consulted for preop clearance patient is high risk for surgery because of ejection fraction 20%. Reviewed: Care Plan Changes from previous H/P or p: No Changes Objective Vitals Vital Signs Date Time Temp Pulse Resp B/P (MAP) Pulse Ox O2 Delivery O2 Flow Rate FiO2 07/06/24 16:52 97.2 85 18 113/41 (65) 99 97.2 07/06/24 08:03 Nasal Cannula* 3 32 Intake/Output Intake and Output 07/06/24 07:00 Intake Total 1130 ml Output Total 1750 ml Balance -620 ml Intake Oral 1130 ml Output Urine Total 1750 ml Exam HEENT pupils are reactive Neck is supple CV is S1-S2 regular rate and rhythm Respiratory diminished breath sounds right lung base GI positive bowel sound Extremity no edema [employer] no motor deficit Medications Current Medications Medications Dose Ordered Sig/Anderson Route Start Time Stop Time Status Last Admin Dose Admin Acetaminophen/ Hydrocodone Bitart 1 tab Q4HP PRN PO 06/28/24 14:45 07/06/24 12:07 1 TAB Ondansetron HCl 4 mg Q4HP PRN IV 06/28/24 14:45 Acetaminophen 650 mg Q6HP PRN PO 06/28/24 14:45 Morphine Sulfate 2 mg Q4HPRN PRN IV 06/28/24 14:45 Nitroglycerin 0.4 mg Q5MINP PRN SL 06/28/24 14:45 Morphine Sulfate 2 mg Q30M PRN IV 06/28/24 14:45 Docusate Sodium 100 mg BID PO 06/30/24 10:00 07/06/24 09:37 100 MG Sennosides 8.6 mg QID PRN PO 06/30/24 11:00 06/30/24 17:25 8.6 MG Ceftriaxone Sodium 50 ml @ 100 mls/hr DAILY@09 IV 07/03/24 13:00 07/06/24 08:48 100 MLS/HR Azithromycin 500 mg DAILY PO 07/04/24 10:00 07/06/24 09:37 500 MG Enteral Nutritional Formula 240 ml TIDWM PO 07/04/24 12:00 07/06/24 12:05 240 ML Amino Acids 0 ml @ 0 mls/hr PER PHARMACY IV 07/04/24 13:00 Diagnostic Test (Pha) 1 strip Q6HR 07/05/24 00:00 07/06/24 12:05 1 STRIP Insulin Human Regular FOLLOW SLIDING SCALE Q6HR SC 07/05/24 00:00 07/06/24 06:10 2 UNITS Dextrose 50 ml UD IV 07/05/24 00:00 Fat Emulsion Intravenous 50 ml/ Sodium Phosphate 26.4 meq/ Magnesium Sulfate 4 meq/ Multivitamins 10 ml/Chromium/ Copper/Manganese/ Zinc 1 ml/Amino Acids/Dextrose/ Purified Water 1,268.6 ml @ 52 mls/hr [id number] IV 07/05/24 22:00 07/06/24 21:59 07/05/24 21:14 52 MLS/HR Sodium Chloride 10 ml QSHIFT@10,22 IV 07/05/24 22:00 07/06/24 09:37 10 ML Fat Emulsion Intravenous 100 ml/Sodium Chloride 30 meq/ Sodium Phosphate 20 meq/Potassium Chloride 10 meq/ Magnesium Sulfate 8 meq/ Multivitamins 10 ml/Chromium/ Copper/Manganese/ Zinc 1 ml/Amino Acids/Dextrose/ Purified Water 1,530.5 ml @ 63 mls/hr [id number] IV 07/06/24 22:00 07/07/24 21:59 Laboratory Results Laboratory Tests 07/04/24 09:18 07/06/24 05:09 Chemistry Test 07/06/24 05:09 Albumin 3.3 g/dL (3.2-4.8) Calcium Level 9.3 mg/dL (8.7-10.4) Magnesium Level 2.1 mg/dL (1.6-2.6) Phosphorus Level 3.2 mg/dL (2.4-5.1) Total Protein 5.2 g/dL (5.7-8.2) L LFT Test 07/06/24 05:09 Alanine Aminotransferase (ALT) 21 U/L (7-40) Alkaline Phosphatase 168 U/L (46-116) H Aspartate Amino Transferase (AST) 18 U/L (13-40) Total Bilirubin 0.3 mg/dL (0.2-1.0) Urinalysis Test 06/29/24 01:10 Urine Color Yellow (Yellow) Urine Clarity Clear (Clear) Urine pH 5.5 (5.0-9.0) Urine Specific [place] 1.032 (1.001-1.035) Urine Protein Trace (Negative) H Urine Ketones Trace (Negative) Urine Blood Negative /uL (Negative) Urine Nitrite Negative (Negative) Urine Bilirubin Negative (Negative) Urine Urobilinogen 2 mg/dL (Negative) H Urine Leukocyte Esterase Negative /uL (Negative) Urine RBC 1 /hpf (0 - 3) Urine WBC <1 /hpf (0 - 3) Urine Squamous Epithelial Cells None seen /hpf (<5) Urine Bacteria None seen /hpf (None Seen) Urine Hyaline Casts Mod /lpf (0 - 2) Urine Mucus Few (None Seen) Urine Glucose Normal mg/dL (Normal) Microbiology Microbiology Date/Time Source Procedure Growth Status 06/30/24 06:40 Nose MRSA Screen - Final Complete Assessment/Plan Assessment/Plan 78-year-old male with a known history of Hodgkin's lymphoma initially presented to the hospital with a hypoxia found to have 1. Acute hypoxic respiratory failure 2. Loculated Right-sided pleural effusion rule out empyema status post chest tube placement, status post chest tube removal 3. History of recurrent pneumonia 4. Lytic lesion 9th rib rule out malignancy 5. Acute CHF exacerbation with a possible systolic dysfunction 6. Coronary artery disease status post PCI 7. 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% -status post chest tube placement and removal,-pulmonary consultation appreciated -surgical consultation with Dr. De Los Santos for thoracotomy Continue current antibiotics Physical therapy evaluation and treatment. Plan discussed with: Patient Date of Service: Jul 06, 2024 Billing Provider: MICHELLE VALDES MD Common Visit Codes: NOT BILLABLE MICHELLE VALDSE MD Jul 06, 2024 16:58
--- NOTE | 2024-07-06 20:47 | DVHPN2 ---
Progress Note - Dictate Date Seen: Jul 06, 2024 Medical Necessity Reason Pt with a Central, PICC or Fol: Yes The following are medically ne: PICC Line Subjective Patient seen and examined at bedside. Remains on supplemental oxygen Overnight events reviewed. vital signs Vital Sign Date Time Temp Pulse Resp B/P (MAP) Pulse Ox O2 Delivery O2 Flow Rate FiO2 07/06/24 16:52 97.2 85 18 113/41 (65) 99 97.2 07/06/24 08:03 Nasal Cannula* 3 32 Total Intake and Output 07/05/24 07/05/24 07/06/24 15:00 23:00 07:00 Intake Total 1030 ml 100 ml Output Total 750 ml 1000 ml Balance 280 ml -900 ml medications Current Medications Medications Dose Ordered Sig/Anderson Route Start Time Stop Time Status Last Admin Dose Admin Acetaminophen/ Hydrocodone Bitart 1 tab Q4HP PRN PO 06/28/24 14:45 07/06/24 20:40 1 TAB Ondansetron HCl 4 mg Q4HP PRN IV 06/28/24 14:45 Acetaminophen 650 mg Q6HP PRN PO 06/28/24 14:45 Morphine Sulfate 2 mg Q4HPRN PRN IV 06/28/24 14:45 Nitroglycerin 0.4 mg Q5MINP PRN SL 06/28/24 14:45 Morphine Sulfate 2 mg Q30M PRN IV 06/28/24 14:45 Docusate Sodium 100 mg BID PO 06/30/24 10:00 07/06/24 09:37 100 MG Sennosides 8.6 mg QID PRN PO 06/30/24 11:00 06/30/24 17:25 8.6 MG Ceftriaxone Sodium 50 ml @ 100 mls/hr DAILY@09 IV 07/03/24 13:00 07/06/24 08:48 100 MLS/HR Azithromycin 500 mg DAILY PO 07/04/24 10:00 07/06/24 09:37 500 MG Enteral Nutritional Formula 240 ml TIDWM PO 07/04/24 12:00 07/06/24 17:47 240 ML Amino Acids 0 ml @ 0 mls/hr PER PHARMACY IV 07/04/24 13:00 Diagnostic Test (Pha) 1 strip Q6HR 07/05/24 00:00 07/06/24 17:15 1 STRIP Insulin Human Regular FOLLOW SLIDING SCALE Q6HR SC 07/05/24 00:00 07/06/24 17:15 2 UNITS Dextrose 50 ml UD IV 07/05/24 00:00 Fat Emulsion Intravenous 50 ml/ Sodium Phosphate 26.4 meq/ Magnesium Sulfate 4 meq/ Multivitamins 10 ml/Chromium/ Copper/Manganese/ Zinc 1 ml/Amino Acids/Dextrose/ Purified Water 1,268.6 ml @ 52 mls/hr [id number] IV 07/05/24 22:00 07/06/24 21:59 07/05/24 21:14 52 MLS/HR Sodium Chloride 10 ml QSHIFT@10,22 IV 07/05/24 22:00 07/06/24 09:37 10 ML Fat Emulsion Intravenous 100 ml/Sodium Chloride 30 meq/ Sodium Phosphate 20 meq/Potassium Chloride 10 meq/ Magnesium Sulfate 8 meq/ Multivitamins 10 ml/Chromium/ Copper/Manganese/ Zinc 1 ml/Amino Acids/Dextrose/ Purified Water 1,530.5 ml @ 63 mls/hr [id number] IV 07/06/24 22:00 07/07/24 21:59 objective Gen.: Patient lying in bed in no apparent distress. On supplemental oxygen. Head: Normocephalic, atraumatic. Eyes: EOMI/PERRLA. Ears: Normal hearing. Normal anatomy. Neck/trachea: Trachea midline, supple. Nose: Normal external anatomy. Mouth: Moist mucous membranes. Chest: Decreased air entry bilaterally. No wheezing or rhonchi. Cardiovascular: Positive S1, positive S2. Regular rate and rhythm. Abdomen: Positive bowel sounds in all 4 quadrants. Soft, non-tender, non- distended. : Deferred. Rectal: Deferred. Skin: Warm, dry. Intact. Extremities: 2+ radial pulses bilaterally. No lower extremity edema. Neuro: Awake, alert, oriented x3. No gross motor or sensory deficits. Cranial nerves II through XII intact. Gait not assessed. laboratory and microbiology Laboratory Tests 07/06/24 05:09 07/04/24 09:18 Test 07/06/24 05:09 Range/Units Serum Glucose 134 H 74-106 mg/dL Assessment/Plan Impression: Acute hypoxic respiratory failure Loculated pleural effusion, right Atelectasis Shock, possible sepsis Pneumonia likely gram negative Events: Remains on supplemental oxygen, 2 LPM NC Taper O2 as tolerated Continue bronchodilators Continue antibiotics Incentive spirometry Recommend decortication surgery - pt wishes to proceed with surgery. Deemed to be high risk from cardiology standpoint - EF of 20% Cardiology recommendations appreciated. Pain control Avoid oversedation Continue PT. Clinimix for nutritional support Labs and imaging reviewed. Rest of plan as noted below. Plan: Supplemental oxygen Titrate to keep O2 sats above 92%. Bronchodilators PRN Antibiotics Incentive spirometry CT chest showing moderate-sized loculated right pleural effusion w/ surrounding pleural thickening and adjacent alveolar and interstitial opacities. A 2.6 cm lytic lesion in the medial aspect of the right 9th rib at the costochondral junction with full-thickness loss of the bone and overlying anterior and posterior cortices. See report for full details. Pt underwent right chest tube placement d/t loculated pleural effusion. Plan for tPA course to mobilize pleural fluid. S/p two doses of Alteplase Currently s/p removal of chest tube. Off pressors, hemodynamically stable. Monitor renal function. Monitor electrolytes. Supplement as necessary. Monitor ins and outs. DVT prophylaxis. Prognosis: Poor given patient's multiple co-morbidities. Rest of plan per hospitalist and other consultants. Thank you Dr. Maulik Chavira MD, for allowing me to participate in this patient's care. Further recommendations will depend on the patient's clinical course. Please do not hesitate to contact me if you have any questions or concerns. This medical document was created using an electronic medical record system with [employer] dictation system. Although these documentations are being carefully reviewed, there may still be some phonetic and typographical changes. The errors are purely typographical, due to imperfection on the software program, and do not reflect any compromise in the patient's medical care. Dietary Evaluation Review Comments: encourage and monitor PO feedings to meet 75% of his needs. continue preasent plan of care: regular diet nutrition supplements with clinimix and ensure hi protein. may consider a 2GNA Diet with low fat Low cholesterol retriction if he has elevated lipid profile. Expected Outcomes/Goals: improved physical strength, gradual weight gain. Plan discussed with: Patient, Other (IBETH Bender) VALERI BRANTLEY MD Jul 06, 2024 20:47
[2024-07-06] MEDS: PPN PER PHARMACY IV NR (21:36)
[2024-07-07] VITALS (9 sets, daily range): BP systolic 106–120; BP diastolic 49–95; PULSE 72–126; RESP 14–19; TEMP 97.5–98.1; O2SAT 95–98
[2024-07-07 09:02] LABS: Calcium 8.8 mg/dL (8.7-10.4); Potassium 4.3 mmol/L (3.5-5.1)
[2024-07-07 09:07] LABS: BUN/Creatinine Ratio 35.1 (10.0-20.0)
[2024-07-07 09:09] LABS: Phosphorus 3.1 mg/dL (2.4-5.1)
[2024-07-07 09:11] LABS: Albumin 3.1 g/dL (3.2-4.8)
--- NOTE | 2024-07-07 16:45 | DVHPN2 ---
Subjective Overnight events noted. Surgical consultation for thoracotomy and decortication of the loculated pleural effusion. Dr. Loaiza was consulted for preop clearance patient is high risk for surgery because of ejection fraction 20%. 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 Medications Current Medications Medications Dose Ordered Sig/Anderson Route Start Time Stop Time Status Last Admin Dose Admin Acetaminophen/ Hydrocodone Bitart 1 tab Q4HP PRN PO 06/28/24 14:45 07/07/24 05:42 1 TAB Ondansetron HCl 4 mg Q4HP PRN IV 06/28/24 14:45 Acetaminophen 650 mg Q6HP PRN PO 06/28/24 14:45 Morphine Sulfate 2 mg Q4HPRN PRN IV 06/28/24 14:45 Nitroglycerin 0.4 mg Q5MINP PRN SL 06/28/24 14:45 Morphine Sulfate 2 mg Q30M PRN IV 06/28/24 14:45 Docusate Sodium 100 mg BID PO 06/30/24 10:00 07/07/24 09:51 100 MG Sennosides 8.6 mg QID PRN PO 06/30/24 11:00 06/30/24 17:25 8.6 MG Ceftriaxone Sodium 50 ml @ 100 mls/hr DAILY@09 IV 07/03/24 13:00 07/07/24 09:51 100 MLS/HR Azithromycin 500 mg DAILY PO 07/04/24 10:00 07/07/24 09:52 500 MG Enteral Nutritional Formula 240 ml TIDWM PO 07/04/24 12:00 07/07/24 11:42 240 ML Amino Acids 0 ml @ 0 mls/hr PER PHARMACY IV 07/04/24 13:00 Diagnostic Test (Pha) 1 strip Q6HR 07/05/24 00:00 07/07/24 11:44 1 STRIP Insulin Human Regular FOLLOW SLIDING SCALE Q6HR SC 07/05/24 00:00 07/07/24 11:45 2 UNITS Dextrose 50 ml UD IV 07/05/24 00:00 Sodium Chloride 10 ml QSHIFT@10,22 IV 07/05/24 22:00 07/07/24 09:52 10 ML Fat Emulsion Intravenous 100 ml/Sodium Chloride 30 meq/ Sodium Phosphate 20 meq/Potassium Chloride 10 meq/ Magnesium Sulfate 8 meq/ Multivitamins 10 ml/Chromium/ Copper/Manganese/ Zinc 1 ml/Amino Acids/Dextrose/ Purified Water 1,530.5 ml @ 63 mls/hr [id number] IV 07/06/24 22:00 07/07/24 21:59 07/06/24 21:36 63 MLS/HR Fat Emulsion Intravenous 150 ml/Sodium Chloride 50 meq/ Sodium Phosphate 24 meq/Potassium Chloride 10 meq/ Magnesium Sulfate 12 meq/ Multivitamins 10 ml/Chromium/ Copper/Manganese/ Zinc 1 ml/Amino Acids/Dextrose/ Purified Water 1,537.5 ml @ 64 mls/hr Q24H2M IV 07/07/24 22:00 07/08/24 21:59 Laboratory Results Laboratory Tests 07/04/24 09:18 07/07/24 07:15 Chemistry Test 07/07/24 07:15 Albumin 3.1 g/dL (3.2-4.8) L Calcium Level 8.8 mg/dL (8.7-10.4) Magnesium Level 2.0 mg/dL (1.6-2.6) Phosphorus Level 3.1 mg/dL (2.4-5.1) Urinalysis Test 06/29/24 01:10 Urine Color Yellow (Yellow) Urine Clarity Clear (Clear) Urine pH 5.5 (5.0-9.0) Urine Specific [place] 1.032 (1.001-1.035) Urine Protein Trace (Negative) H Urine Ketones Trace (Negative) Urine Blood Negative /uL (Negative) Urine Nitrite Negative (Negative) Urine Bilirubin Negative (Negative) Urine Urobilinogen 2 mg/dL (Negative) H Urine Leukocyte Esterase Negative /uL (Negative) Urine RBC 1 /hpf (0 - 3) Urine WBC <1 /hpf (0 - 3) Urine Squamous Epithelial Cells None seen /hpf (<5) Urine Bacteria None seen /hpf (None Seen) Urine Hyaline Casts Mod /lpf (0 - 2) Urine Mucus Few (None Seen) Urine Glucose Normal mg/dL (Normal) Microbiology Microbiology Date/Time Source Procedure Growth Status 06/30/24 06:40 Nose MRSA Screen - Final Complete Assessment/Plan Assessment/Plan 78-year-old male with a known history of Hodgkin's lymphoma initially presented to the hospital with a hypoxia found to have 1. Acute hypoxic respiratory failure 2. Loculated Right-sided pleural effusion rule out empyema status post chest tube placement, status post chest tube removal 3. History of recurrent pneumonia 4. Lytic lesion 9th rib rule out malignancy 5. Acute CHF exacerbation with a possible systolic dysfunction 6. Coronary artery disease status post PCI 7. 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% -status post chest tube placement and removal,-pulmonary consultation appreciated -surgical consultation with Dr. De Los Santos for thoracotomy Continue current antibiotics Physical therapy evaluation and treatment. Plan discussed with: Patient, Other My Orders Orders - MICHELLE VALDES MD Procedure Category Date Status Time Code Status CODE 07/07/24 Transmitted 07:02 Date of Service: Jul 07, 2024 Billing Provider: MICHELLE VALDES MD Common Visit Codes: NOT BILLABLE MICHELLE VALDES MD Jul 07, 2024 16:45
--- NOTE | 2024-07-07 17:46 | DVHPN ---
DATE: 07/06/2024 REFERRING PHYSICIAN: Dr. Chavira. This is for preoperative cardiac risk assessment. SUBJECTIVE: The patient denies any active chest pain; however, does have a history of shortness of breath with exertion. The patient is currently being evaluated for possible thoracotomy and decortication. OBJECTIVE: VITAL SIGNS: Blood pressure 110/60, pulse 102 per minute, saturation 96%. HEENT: No carotid bruits. No jugular venous distention. CHEST: Bilateral air entry decreased. CARDIOVASCULAR: Precordium is quiet. PMI nonpalpable. Normal S1, S2. Tachycardic. EXTREMITIES: No peripheral edema. DIAGNOSTIC DATA: White count 8, hemoglobin 9, platelet is 405. Sodium 137, potassium 4.3, creatinine is 0.6. ASSESSMENT AND PLAN: A 78-year-old male with history of coronary artery disease, status post angioplasty in the past, ischemic cardiomyopathy, ejection fraction at 20%, was sent to the hospital because he was found to be hypoxic. Further workup revealed empyema, currently being evaluated for possible thoracotomy and decortication. Given severe ischemic cardiomyopathy with ejection fraction of 20%, the patient is at high risk for perioperative cardiac event. This patient is to proceed with planned surgery. Avoid perioperative fluid overload given severe LV systolic dysfunction. Monitor electrolytes closely and keep potassium above 4 and magnesium above 2. MD SERINA Miranda/ELIZABETH/[place]OR[place] TID: [id number] RECEIPT: [id number]
--- NOTE | 2024-07-07 20:17 | DVHPN2 ---
Progress Note - Dictate Date Seen: Jul 07, 2024 Medical Necessity Reason Pt with a Central, PICC or Fol: Yes The following are medically ne: PICC Line Subjective Patient seen and examined at bedside. Remains on supplemental oxygen Overnight events reviewed. vital signs Vital Sign Date Time Temp Pulse Resp B/P (MAP) Pulse Ox O2 Delivery O2 Flow Rate FiO2 07/07/24 17:00 98.0 72 14 120/95 (103) 95 98.0 07/07/24 07:33 Nasal Cannula* 3 32 Total Intake and Output 07/06/24 07/06/24 07/07/24 15:00 23:00 07:00 Intake Total 300 ml Output Total 275 ml 800 ml Balance -275 ml -500 ml medications Current Medications Medications Dose Ordered Sig/Anderson Route Start Time Stop Time Status Last Admin Dose Admin Ondansetron HCl 4 mg Q4HP PRN IV 06/28/24 14:45 Acetaminophen 650 mg Q6HP PRN PO 06/28/24 14:45 Nitroglycerin 0.4 mg Q5MINP PRN SL 06/28/24 14:45 Docusate Sodium 100 mg BID PO 06/30/24 10:00 07/07/24 09:51 100 MG Sennosides 8.6 mg QID PRN PO 06/30/24 11:00 06/30/24 17:25 8.6 MG Ceftriaxone Sodium 50 ml @ 100 mls/hr DAILY@09 IV 07/03/24 13:00 07/07/24 09:51 100 MLS/HR Azithromycin 500 mg DAILY PO 07/04/24 10:00 07/07/24 09:52 500 MG Enteral Nutritional Formula 240 ml TIDWM PO 07/04/24 12:00 07/07/24 17:30 240 ML Amino Acids 0 ml @ 0 mls/hr PER PHARMACY IV 07/04/24 13:00 Diagnostic Test (Pha) 1 strip Q6HR 07/05/24 00:00 07/07/24 17:29 1 STRIP Insulin Human Regular FOLLOW SLIDING SCALE Q6HR SC 07/05/24 00:00 07/07/24 11:45 2 UNITS Dextrose 50 ml UD IV 07/05/24 00:00 Sodium Chloride 10 ml QSHIFT@ IV 07/05/24 22:00 07/07/24 09:52 10 ML Fat Emulsion Intravenous 100 ml/Sodium Chloride 30 meq/ Sodium Phosphate 20 meq/Potassium Chloride 10 meq/ Magnesium Sulfate 8 meq/ Multivitamins 10 ml/Chromium/ Copper/Manganese/ Zinc 1 ml/Amino Acids/Dextrose/ Purified Water 1,530.5 ml @ 63 mls/hr [id number] IV 07/06/24 22:00 07/07/24 21:59 07/06/24 21:36 63 MLS/HR Fat Emulsion Intravenous 150 ml/Sodium Chloride 50 meq/ Sodium Phosphate 24 meq/Potassium Chloride 10 meq/ Magnesium Sulfate 12 meq/ Multivitamins 10 ml/Chromium/ Copper/Manganese/ Zinc 1 ml/Amino Acids/Dextrose/ Purified Water 1,537.5 ml @ 64 mls/hr Q24H2M IV 07/07/24 22:00 07/08/24 21:59 Acetaminophen/ Hydrocodone Bitart 1 tab Q4HPRN PRN PO 07/07/24 20:15 UNV objective Gen.: Patient lying in bed in no apparent distress. On supplemental oxygen. Head: Normocephalic, atraumatic. Eyes: EOMI/PERRLA. Ears: Normal hearing. Normal anatomy. Neck/trachea: Trachea midline, supple. Nose: Normal external anatomy. Mouth: Moist mucous membranes. Chest: Decreased air entry bilaterally. No wheezing or rhonchi. Cardiovascular: Positive S1, positive S2. Regular rate and rhythm. Abdomen: Positive bowel sounds in all 4 quadrants. Soft, non-tender, non- distended. : Deferred. Rectal: Deferred. Skin: Warm, dry. Intact. Extremities: 2+ radial pulses bilaterally. No lower extremity edema. Neuro: Awake, alert, oriented x3. No gross motor or sensory deficits. Cranial nerves II through XII intact. Gait not assessed. laboratory and microbiology Laboratory Tests 07/07/24 07:15 07/04/24 09:18 Test 07/07/24 07:15 Range/Units Serum Glucose 136 H 74-106 mg/dL Assessment/Plan Impression: Acute hypoxic respiratory failure Loculated pleural effusion, right Atelectasis Shock, possible sepsis Pneumonia likely gram negative Events: Remains on supplemental oxygen, 3 LPM NC Taper O2 as tolerated Continue bronchodilators Continue antibiotics - PO Zithromax Incentive spirometry Pain control Avoid oversedation Continue PT. TPN for nutritional support S/p right upper extremity PICC line. Labs and imaging reviewed. Rest of plan as noted below. Plan: Supplemental oxygen Titrate to keep O2 sats above 92%. Bronchodilators PRN Antibiotics Incentive spirometry CT chest showing moderate-sized loculated right pleural effusion w/ surrounding pleural thickening and adjacent alveolar and interstitial opacities. A 2.6 cm lytic lesion in the medial aspect of the right 9th rib at the costochondral junction with full-thickness loss of the bone and overlying anterior and posterior cortices. See report for full details. Pt underwent right chest tube placement d/t loculated pleural effusion. Plan for tPA course to mobilize pleural fluid. S/p two doses of Alteplase Currently s/p removal of chest tube. Recommend decortication surgery - pt wishes to proceed with surgery. Deemed to be high risk from cardiology standpoint - EF of 20% Cardiology recommendations appreciated. Off pressors, hemodynamically stable. Monitor renal function. Monitor electrolytes. Supplement as necessary. Monitor ins and outs. DVT prophylaxis. Prognosis: Poor given patient's multiple co-morbidities. Rest of plan per hospitalist and other consultants. Thank you Dr. Maulik Chavira MD, for allowing me to participate in this patient's care. Further recommendations will depend on the patient's clinical course. Please do not hesitate to contact me if you have any questions or concerns. This medical document was created using an electronic medical record system with [employer] dictation system. Although these documentations are being carefully reviewed, there may still be some phonetic and typographical changes. The errors are purely typographical, due to imperfection on the software program, and do not reflect any compromise in the patient's medical care. Dietary Evaluation Review Comments: encourage and monitor PO feedings to meet 75% of his needs. continue preasent plan of care: regular diet nutrition supplements with clinimix and ensure hi protein. may consider a 2GNA Diet with low fat Low cholesterol retriction if he has elevated lipid profile. Expected Outcomes/Goals: improved physical strength, gradual weight gain. Plan discussed with: Patient, Other (IBETH Bender) VALERI BRANTLEY MD Jul 07, 2024 20:17
[2024-07-07] MEDS: HYDROcodone-ACET 5/325MG TAB PO PRN (20:28)
[2024-07-07] MEDS: TPN PER PHARMACY IV NR (22:04)
[2024-07-08] VITALS (8 sets, daily range): BP systolic 106–127; BP diastolic 50–63; PULSE 102–123; RESP 14–20; TEMP 97.7–99; O2SAT 95–98
[2024-07-08 08:16] LABS: Anion Gap 5 (5-15); Bilirubin, Total 0.3 mg/dL (0.2-1.0); Calcium 8.8 mg/dL (8.7-10.4); Carbon Dioxide 30 mmol/L (20-31); Chloride 100 mmol/L (98-107); GFR African American 164 mL/min; GFR Non-African American 136 mL/min; Phosphorus 2.8 mg/dL (2.4-5.1); Potassium 4.3 mmol/L (3.5-5.1)
[2024-07-08 08:17] LABS: BUN/Creatinine Ratio 32.8 (10.0-20.0); Blood Urea Nitrogen 20 mg/dL (9-23)
[2024-07-08 08:18] LABS: Alanine Aminotransferase 52 U/L (7-40); Alkaline Phosphatase 227 U/L (46-116); Aspartate Aminotransferase 43 U/L (13-40); Glucose 167 mg/dL (74-106); Sodium 135 mmol/L (136-145)
[2024-07-08 08:19] LABS: Albumin 3.1 g/dL (3.2-4.8)
--- NOTE | 2024-07-08 16:53 | DVHPN2 ---
Subjective Overnight events noted. Surgical consultation for thoracotomy and decortication of the loculated pleural effusion. Dr. Loaiza was consulted for preop clearance patient is high risk for surgery because of ejection fraction 20%. Reviewed: Care Plan Changes from previous H/P or p: No Changes Objective Vitals Vital Signs Date Time Temp Pulse Resp B/P (MAP) Pulse Ox O2 Delivery O2 Flow Rate FiO2 07/08/24 13:00 97.7 108 16 108/54 (72) 97 97.7 07/07/24 20:00 Nasal Cannula* 3 32 Intake/Output Intake and Output 07/08/24 07:00 Intake Total 2682.5 ml Output Total 1875 ml Balance 807.5 ml Intake Oral 1145 ml IV Total 1537.5 ml Output Urine Total 1875 ml # Bowel Movements 2 Exam HEENT pupils are reactive Neck is supple CV is S1-S2 regular rate and rhythm Respiratory diminished breath sounds right lung base GI positive bowel sound 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 Medications Current Medications Medications Dose Ordered Sig/Anderson Route Start Time Stop Time Status Last Admin Dose Admin Ondansetron HCl 4 mg Q4HP PRN IV 06/28/24 14:45 Acetaminophen 650 mg Q6HP PRN PO 06/28/24 14:45 Nitroglycerin 0.4 mg Q5MINP PRN SL 06/28/24 14:45 Docusate Sodium 100 mg BID PO 06/30/24 10:00 07/07/24 22:02 100 MG Sennosides 8.6 mg QID PRN PO 06/30/24 11:00 06/30/24 17:25 8.6 MG Ceftriaxone Sodium 50 ml @ 100 mls/hr DAILY@09 IV 07/03/24 13:00 07/08/24 08:56 100 MLS/HR Azithromycin 500 mg DAILY PO 07/04/24 10:00 07/08/24 08:58 500 MG Enteral Nutritional Formula 240 ml TIDWM PO 07/04/24 12:00 07/08/24 12:15 240 ML Amino Acids 0 ml @ 0 mls/hr PER PHARMACY IV 07/04/24 13:00 Diagnostic Test (Pha) 1 strip Q6HR 07/05/24 00:00 07/08/24 12:14 1 STRIP Insulin Human Regular FOLLOW SLIDING SCALE Q6HR SC 07/05/24 00:00 07/08/24 12:00 2 UNITS Dextrose 50 ml UD IV 07/05/24 00:00 Sodium Chloride 10 ml QSHIFT@10,22 IV 07/05/24 22:00 07/08/24 08:57 10 ML Fat Emulsion Intravenous 150 ml/Sodium Chloride 50 meq/ Sodium Phosphate 24 meq/Potassium Chloride 10 meq/ Magnesium Sulfate 12 meq/ Multivitamins 10 ml/Chromium/ Copper/Manganese/ Zinc 1 ml/Amino Acids/Dextrose/ Purified Water 1,537.5 ml @ 64 mls/hr Q24H2M IV 07/07/24 22:00 07/08/24 21:59 07/07/24 22:04 64 MLS/HR Acetaminophen/ Hydrocodone Bitart 1 tab Q4HPRN PRN PO 07/07/24 20:15 07/08/24 11:22 1 TAB Fat Emulsion Intravenous 150 ml/Sodium Chloride 60 meq/ Sodium Phosphate 32 meq/Magnesium Sulfate 14 meq/ Multivitamins 10 ml/Chromium/ Copper/Manganese/ Zinc 1 ml/Insulin Human Regular 2 units/Potassium Chloride 10 meq/ Amino Acids/ Dextrose/Purified Water 1,342.52 ml @ 55 mls/hr [id number] IV 07/08/24 22:00 07/09/24 21:59 Laboratory Results Laboratory Tests 07/04/24 09:18 07/08/24 06:36 Chemistry Test 07/08/24 06:36 Albumin 3.1 g/dL (3.2-4.8) L Calcium Level 8.8 mg/dL (8.7-10.4) Magnesium Level 2.0 mg/dL (1.6-2.6) Phosphorus Level 2.8 mg/dL (2.4-5.1) Total Protein 5.0 g/dL (5.7-8.2) L LFT Test 07/08/24 06:36 Alanine Aminotransferase (ALT) 52 U/L (7-40) H Alkaline Phosphatase 227 U/L (46-116) H Aspartate Amino Transferase (AST) 43 U/L (13-40) H Total Bilirubin 0.3 mg/dL (0.2-1.0) Urinalysis Test 06/29/24 01:10 Urine Color Yellow (Yellow) Urine Clarity Clear (Clear) Urine pH 5.5 (5.0-9.0) Urine Specific [place] 1.032 (1.001-1.035) Urine Protein Trace (Negative) H Urine Ketones Trace (Negative) Urine Blood Negative /uL (Negative) Urine Nitrite Negative (Negative) Urine Bilirubin Negative (Negative) Urine Urobilinogen 2 mg/dL (Negative) H Urine Leukocyte Esterase Negative /uL (Negative) Urine RBC 1 /hpf (0 - 3) Urine WBC <1 /hpf (0 - 3) Urine Squamous Epithelial Cells None seen /hpf (<5) Urine Bacteria None seen /hpf (None Seen) Urine Hyaline Casts Mod /lpf (0 - 2) Urine Mucus Few (None Seen) Urine Glucose Normal mg/dL (Normal) Microbiology Microbiology Date/Time Source Procedure Growth Status 06/30/24 06:40 Nose MRSA Screen - Final Complete Assessment/Plan Assessment/Plan 78-year-old male with a known history of Hodgkin's lymphoma initially presented to the hospital with a hypoxia found to have 1. Acute hypoxic respiratory failure 2. Loculated Right-sided pleural effusion rule out empyema status post chest tube placement, status post chest tube removal 3. History of recurrent pneumonia 4. Lytic lesion 9th rib rule out malignancy 5. Acute CHF exacerbation with a possible systolic dysfunction 6. Coronary artery disease status post PCI 7. 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% -status post chest tube placement and removal,-pulmonary consultation appreciated -surgical consultation with Dr. De Los Santos for thoracotomy, which is scheduled for July 12 Continue current antibiotics Physical therapy evaluation and treatment. Plan discussed with: Patient, Other Date of Service: Jul 08, 2024 Billing Provider: MICHELLE VALDES MD Common Visit Codes: NOT BILLABLE MICHELLE VALDES MD Jul 08, 2024 16:53
[2024-07-08] MEDS: TPN PER PHARMACY IV NR (22:08)
[2024-07-09] VITALS (8 sets, daily range): BP systolic 110–125; BP diastolic 50–68; PULSE 73–128; RESP 14–19; TEMP 98–98.9; O2SAT 95–97
[2024-07-09 08:02] LABS: Anion Gap 5 (5-15); Blood Urea Nitrogen 22 mg/dL (9-23); Calcium 8.8 mg/dL (8.7-10.4); Carbon Dioxide 30 mmol/L (20-31); Chloride 103 mmol/L (98-107); Magnesium 2.2 mg/dL (1.6-2.6); Potassium 4.3 mmol/L (3.5-5.1); Sodium 138 mmol/L (136-145)
[2024-07-09 08:03] LABS: Alanine Aminotransferase 88 U/L (7-40); Albumin 3.1 g/dL (3.2-4.8); Alkaline Phosphatase 261 U/L (46-116); Aspartate Aminotransferase 65 U/L (13-40); BUN/Creatinine Ratio 37.9 (10.0-20.0); Bilirubin, Total 0.3 mg/dL (0.2-1.0); Glucose 164 mg/dL (74-106)
[2024-07-09 08:06] LABS: Total Protein 4.9 g/dL (5.7-8.2)
--- NOTE | 2024-07-09 12:22 | DVHPN2 ---
Progress Note - Dictate Date Seen: Jul 09, 2024 Medical Necessity Reason Pt with a Central, PICC or Fol: Yes The following are medically ne: PICC Line Subjective Clinically remains stable. Waiting for surgeon to evaluate for possible thoracotomy and decortication for loculated lung effusions. Patient had a chest tube for this and it was removed. vital signs Vital Sign Date Time Temp Pulse Resp B/P (MAP) Pulse Ox O2 Delivery O2 Flow Rate FiO2 07/09/24 09:00 98.7 117 18 113/51 (71) 97 98.7 07/08/24 20:00 Nasal Cannula* 3 32 Total Intake and Output 07/08/24 07/08/24 07/09/24 15:00 23:00 07:00 Intake Total 100 ml 2400 ml 400 ml Output Total 350 ml Balance 100 ml 2400 ml 50 ml medications Current Medications Medications Dose Ordered Sig/Anderson Route Start Time Stop Time Status Last Admin Dose Admin Ondansetron HCl 4 mg Q4HP PRN IV 06/28/24 14:45 Acetaminophen 650 mg Q6HP PRN PO 06/28/24 14:45 Nitroglycerin 0.4 mg Q5MINP PRN SL 06/28/24 14:45 Docusate Sodium 100 mg BID PO 06/30/24 10:00 07/07/24 22:02 100 MG Sennosides 8.6 mg QID PRN PO 06/30/24 11:00 06/30/24 17:25 8.6 MG Ceftriaxone Sodium 50 ml @ 100 mls/hr DAILY@09 IV 07/03/24 13:00 07/09/24 11:35 100 MLS/HR Azithromycin 500 mg DAILY PO 07/04/24 10:00 07/09/24 11:35 500 MG Enteral Nutritional Formula 240 ml TIDWM PO 07/04/24 12:00 07/09/24 08:00 240 ML Amino Acids 0 ml @ 0 mls/hr PER PHARMACY IV 07/04/24 13:00 Diagnostic Test (Pha) 1 strip Q6HR 07/05/24 00:00 07/09/24 05:57 1 STRIP Insulin Human Regular FOLLOW SLIDING SCALE Q6HR SC 07/05/24 00:00 07/09/24 05:57 4 UNITS Dextrose 50 ml UD IV 07/05/24 00:00 Sodium Chloride 10 ml QSHIFT@ IV 07/05/24 22:00 07/09/24 11:36 10 ML Acetaminophen/ Hydrocodone Bitart 1 tab Q4HPRN PRN PO 07/07/24 20:15 07/09/24 08:40 1 TAB Fat Emulsion Intravenous 150 ml/Sodium Chloride 60 meq/ Sodium Phosphate 32 meq/Magnesium Sulfate 14 meq/ Multivitamins 10 ml/Chromium/ Copper/Manganese/ Zinc 1 ml/Insulin Human Regular 2 units/Potassium Chloride 10 meq/ Amino Acids/ Dextrose/Purified Water 1,342.52 ml @ 55 mls/hr [id number] IV 07/08/24 22:00 07/09/24 21:59 07/08/24 22:08 55 MLS/HR Fat Emulsion Intravenous 150 ml/Sodium Chloride 60 meq/ Sodium Phosphate 32 meq/Potassium Chloride 10 meq/ Magnesium Sulfate 14 meq/ Multivitamins 10 ml/Chromium/ Copper/Manganese/ Zinc 1 ml/Amino Acids/Dextrose/ Purified Water 1,217.5 ml @ 50 mls/hr [id number] IV 07/09/24 22:00 07/10/24 21:59 objective Comfortable in bed. Alert awake oriented to place and person. Heart regular rate and rhythm S1-S2. Lungs fair air movement with a degraded breath sounds in the bases. No audible wheezing. Abdomen soft positive bowel sounds. Extremities no edema. laboratory and microbiology Laboratory Tests 07/09/24 06:21 07/04/24 09:18 Test 07/09/24 06:21 Range/Units Serum Glucose 164 H 74-106 mg/dL Assessment/Plan Encouraged activity and ambulation and sitting out of bed to chair as much as possible to prevent general physical deconditioning given the prolonged hospital stay. Continue present management as he is on and apparently surgeon will be planned for decortication of his loculated pleural effusion for July 12. Discussed with the nurse and patient regarding care plan Problems(with codes): (1) Constipation (2) Pneumonia (3) Acute respiratory failure (4) Pleural effusion, right Dietary Evaluation Review Comments: encourage and monitor PO feedings to meet 75% of his needs. continue preasent plan of care: regular diet nutrition supplements with clinimix and ensure hi protein. may consider a 2GNA Diet with low fat Low cholesterol retriction if he has elevated lipid profile. Expected Outcomes/Goals: improved physical strength, gradual weight gain. Plan discussed with: Other LINO MCCORMACK MD Jul 09, 2024 12:21
[2024-07-09] MEDS: TPN PER PHARMACY IV NR (20:57)
--- NOTE | 2024-07-09 22:14 | DVHPN2 ---
Progress Note - Dictate Date Seen: Jul 09, 2024 Medical Necessity Reason Pt with a Central, PICC or Fol: Yes The following are medically ne: PICC Line Subjective Patient seen and examined at bedside. Remains on supplemental oxygen Overnight events reviewed. vital signs Vital Sign Date Time Temp Pulse Resp B/P (MAP) Pulse Ox O2 Delivery O2 Flow Rate FiO2 07/09/24 21:00 98.6 127 19 110/52 (71) 97 98.6 07/09/24 18:00 Nasal Cannula* 3 32 Total Intake and Output 07/08/24 07/08/24 07/09/24 15:00 23:00 07:00 Intake Total 100 ml 2400 ml 400 ml Output Total 350 ml Balance 100 ml 2400 ml 50 ml medications Current Medications Medications Dose Ordered Sig/Anderson Route Start Time Stop Time Status Last Admin Dose Admin Ondansetron HCl 4 mg Q4HP PRN IV 06/28/24 14:45 Acetaminophen 650 mg Q6HP PRN PO 06/28/24 14:45 Nitroglycerin 0.4 mg Q5MINP PRN SL 06/28/24 14:45 Docusate Sodium 100 mg BID PO 06/30/24 10:00 07/09/24 17:53 100 MG Sennosides 8.6 mg QID PRN PO 06/30/24 11:00 06/30/24 17:25 8.6 MG Ceftriaxone Sodium 50 ml @ 100 mls/hr DAILY@09 IV 07/03/24 13:00 07/09/24 11:35 100 MLS/HR Azithromycin 500 mg DAILY PO 07/04/24 10:00 07/09/24 11:35 500 MG Enteral Nutritional Formula 240 ml TIDWM PO 07/04/24 12:00 07/09/24 18:00 240 ML Amino Acids 0 ml @ 0 mls/hr PER PHARMACY IV 07/04/24 13:00 Diagnostic Test (Pha) 1 strip Q6HR 07/05/24 00:00 07/09/24 18:00 1 STRIP Insulin Human Regular FOLLOW SLIDING SCALE Q6HR SC 07/05/24 00:00 07/09/24 18:00 4 UNITS Dextrose 50 ml UD IV 07/05/24 00:00 Sodium Chloride 10 ml QSHIFT@10,22 IV 07/05/24 22:00 07/09/24 11:36 10 ML Acetaminophen/ Hydrocodone Bitart 1 tab Q4HPRN PRN PO 07/07/24 20:15 07/09/24 17:52 1 TAB Fat Emulsion Intravenous 150 ml/Sodium Chloride 60 meq/ Sodium Phosphate 32 meq/Potassium Chloride 10 meq/ Magnesium Sulfate 14 meq/ Multivitamins 10 ml/Chromium/ Copper/Manganese/ Zinc 1 ml/Amino Acids/Dextrose/ Purified Water 1,217.5 ml @ 50 mls/hr [id number] IV 07/09/24 22:00 07/10/24 21:59 07/09/24 20:57 50 MLS/HR objective Gen.: Patient lying in bed in no apparent distress. On supplemental oxygen. Head: Normocephalic, atraumatic. Eyes: EOMI/PERRLA. Ears: Normal hearing. Normal anatomy. Neck/trachea: Trachea midline, supple. Nose: Normal external anatomy. Mouth: Moist mucous membranes. Chest: Decreased air entry bilaterally. No wheezing or rhonchi. Cardiovascular: Positive S1, positive S2. Regular rate and rhythm. Abdomen: Positive bowel sounds in all 4 quadrants. Soft, non-tender, non- distended. : Deferred. Rectal: Deferred. Skin: Warm, dry. Intact. Extremities: 2+ radial pulses bilaterally. No lower extremity edema. Neuro: Awake, alert, oriented x3. No gross motor or sensory deficits. Cranial nerves II through XII intact. Gait not assessed. laboratory and microbiology Laboratory Tests 07/09/24 06:21 07/04/24 09:18 Test 07/09/24 06:21 Range/Units Serum Glucose 164 H 74-106 mg/dL Assessment/Plan Impression: Acute hypoxic respiratory failure Loculated pleural effusion, right Atelectasis Shock, possible sepsis Pneumonia likely gram negative Events: Remains on supplemental oxygen, 3 LPM NC Taper O2 as tolerated Constipation - soapsuds enema Continue bronchodilators PRN Continue antibiotics Incentive spirometry Continue PT. TPN for nutritional support Labs and imaging reviewed. Rest of plan as noted below. Plan: Supplemental oxygen Titrate to keep O2 sats above 92%. Bronchodilators PRN Antibiotics Incentive spirometry Pain control Avoid oversedation CT chest showing moderate-sized loculated right pleural effusion w/ surrounding pleural thickening and adjacent alveolar and interstitial opacities. A 2.6 cm lytic lesion in the medial aspect of the right 9th rib at the costochondral junction with full-thickness loss of the bone and overlying anterior and posterior cortices. See report for full details. Pt underwent right chest tube placement d/t loculated pleural effusion. Plan for tPA course to mobilize pleural fluid. S/p two doses of Alteplase Currently s/p removal of chest tube. Recommend decortication surgery - pt wishes to proceed with surgery. Deemed to be high risk from cardiology standpoint - EF of 20% Cardiology recommendations appreciated. Off pressors, hemodynamically stable. Monitor renal function. Monitor electrolytes. Supplement as necessary. Monitor ins and outs. DVT prophylaxis. Prognosis: Poor given patient's multiple co-morbidities. Rest of plan per hospitalist and other consultants. Thank you Dr. Maulik Chavira MD, for allowing me to participate in this patient's care. Further recommendations will depend on the patient's clinical course. Please do not hesitate to contact me if you have any questions or concerns. This medical document was created using an electronic medical record system with [employer] dictation system. Although these documentations are being carefully reviewed, there may still be some phonetic and typographical changes. The errors are purely typographical, due to imperfection on the software program, and do not reflect any compromise in the patient's medical care. Dietary Evaluation Review Comments: encourage and monitor PO feedings to meet 75% of his needs. continue preasent plan of care: regular diet nutrition supplements with clinimix and ensure hi protein. may consider a 2GNA Diet with low fat Low cholesterol retriction if he has elevated lipid profile. Expected Outcomes/Goals: improved physical strength, gradual weight gain. Plan discussed with: Patient, Other (IBETH Muniz) VALERI BRANTLEY MD Jul 09, 2024 22:14
[2024-07-10] VITALS (7 sets, daily range): BP systolic 101–124; BP diastolic 48–58; PULSE 103–116; RESP 18–20; TEMP 97.7–98.4; O2SAT 93–98
[2024-07-10 05:35] LABS: Anion Gap 6 (5-15); BUN/Creatinine Ratio 40.4 (10.0-20.0); Calcium 9.1 mg/dL (8.7-10.4); Carbon Dioxide 28 mmol/L (20-31); Chloride 103 mmol/L (98-107); Magnesium 2.1 mg/dL (1.6-2.6); Potassium 4.4 mmol/L (3.5-5.1); Sodium 137 mmol/L (136-145)
[2024-07-10 05:36] LABS: Bilirubin, Total 0.3 mg/dL (0.2-1.0); Phosphorus 3.3 mg/dL (2.4-5.1)
[2024-07-10 05:42] LABS: Eosinophils # (auto) 0.1 10 ^3/uL (0-0.8); Monocytes # (auto) 1.1 10 ^3/uL (0-1.3); Red Cell Distribution Width 15.5 % (11.8-14.3); White Blood Cell 9.7 10^3/uL (4.4-10.8)
[2024-07-10 05:44] LABS: Basophils # (auto) 0 10 ^3/uL (0-0.2); Basophils % (auto) 0.4 % (0.0-2.0); Eosinophils % (auto) 0.9 % (0.0-7.0); Hematocrit 24.9 % (41.0-53.0); Hemoglobin 7.9 g/dL (13.5-17.5); Lymphocytes # (auto) 0.9 10 ^3/uL (0.4-5.4); Lymphocytes % (auto) 9.3 % (10.0-50.0); Mean Corpuscular Hemoglobin 25.8 pg (28.0-32.0); Mean Corpuscular Hgb Conc. 31.9 g/dL (32.0-36.0); Monocytes % (auto) 11.4 % (0.0-12.0); Neutrophils # (auto) 7.6 10 ^3/uL (1.6-8.6); Platelet Count (auto) 322 10^3/uL (140-450); Red Blood Cells 3.08 10^6/uL (4.5-5.90)
[2024-07-10 05:57] LABS: Alanine Aminotransferase 103 U/L (7-40); Alkaline Phosphatase 283 U/L (46-116); Aspartate Aminotransferase 69 U/L (13-40); Blood Urea Nitrogen 23 mg/dL (9-23); Glucose 153 mg/dL (74-106)
[2024-07-10 05:58] LABS: Albumin 3.1 g/dL (3.2-4.8); Total Protein 5.1 g/dL (5.7-8.2)
--- NOTE | 2024-07-10 06:52 | DVH ---
CHEST RADIOGRAPH Indication: sob Technique: Single frontal view of the chest was obtained Comparison: XY CHEST XRAY 1 VIEW on DOS: 07/04/24, XY CHEST PORTABLE on DOS: 07/03/24, XY CHEST XRAY 1 VIEW on DOS: 07/02/24 IMPRESSION: The heart appears prominent size. The left lung appears relatively clear. Stable small right pleural effusion with airspace opacity of the right lower lung. Mild pulmonary vascular congestion. No disc rete pneumothorax. Right PICC line has been placed with tip in the region of the superior vena cava.
[2024-07-10] MEDS ORDERED: TPN PER PHARMACY IV ONE (12:30)
--- NOTE | 2024-07-10 16:54 | DVHPN2 ---
Progress Note - Dictate Date Seen: Jul 10, 2024 Medical Necessity Reason Pt with a Central, PICC or Fol: Yes The following are medically ne: PICC Line Subjective Clinically remains stable. Waiting for surgeon to evaluate for possible thoracotomy and decortication for loculated lung effusions apparently scheduled by surgeon for July 12 vital signs Vital Sign Date Time Temp Pulse Resp B/P (MAP) Pulse Ox O2 Delivery O2 Flow Rate FiO2 07/10/24 13:00 98.0 113 18 110/57 (74) 95 98.0 07/09/24 18:00 Nasal Cannula* 3 32 Total Intake and Output 07/09/24 07/09/24 07/10/24 15:00 23:00 07:00 Intake Total 820 ml 1250 ml 350 ml Output Total 670 ml 520 ml Balance 820 ml 580 ml -170 ml medications Current Medications Medications Dose Ordered Sig/Anderson Route Start Time Stop Time Status Last Admin Dose Admin Ondansetron HCl 4 mg Q4HP PRN IV 06/28/24 14:45 Acetaminophen 650 mg Q6HP PRN PO 06/28/24 14:45 Nitroglycerin 0.4 mg Q5MINP PRN SL 06/28/24 14:45 Docusate Sodium 100 mg BID PO 06/30/24 10:00 07/10/24 10:27 100 MG Sennosides 8.6 mg QID PRN PO 06/30/24 11:00 06/30/24 17:25 8.6 MG Ceftriaxone Sodium 50 ml @ 100 mls/hr DAILY@09 IV 07/03/24 13:00 07/10/24 10:27 100 MLS/HR Azithromycin 500 mg DAILY PO 07/04/24 10:00 07/10/24 11:34 500 MG Enteral Nutritional Formula 240 ml TIDWM PO 07/04/24 12:00 07/10/24 16:14 240 ML Amino Acids 0 ml @ 0 mls/hr PER PHARMACY IV 07/04/24 13:00 Diagnostic Test (Pha) 1 strip Q6HR 07/05/24 00:00 07/10/24 11:44 1 STRIP Insulin Human Regular FOLLOW SLIDING SCALE Q6HR SC 07/05/24 00:00 07/10/24 11:44 2 UNITS Dextrose 50 ml UD IV 07/05/24 00:00 Sodium Chloride 10 ml QSHIFT@ IV 07/05/24 22:00 07/10/24 09:46 10 ML Acetaminophen/ Hydrocodone Bitart 1 tab Q4HPRN PRN PO 07/07/24 20:15 07/10/24 09:45 1 TAB Fat Emulsion Intravenous 150 ml/Sodium Chloride 60 meq/ Sodium Phosphate 32 meq/Potassium Chloride 10 meq/ Magnesium Sulfate 14 meq/ Multivitamins 10 ml/Chromium/ Copper/Manganese/ Zinc 1 ml/Amino Acids/Dextrose/ Purified Water 1,217.5 ml @ 50 mls/hr [id number] IV 07/09/24 22:00 07/10/24 21:59 07/09/24 20:57 50 MLS/HR Fat Emulsion Intravenous 150 ml/Sodium Chloride 80 meq/ Sodium Phosphate 20 meq/Potassium Chloride 10 meq/ Magnesium Sulfate 16 meq/ Multivitamins 10 ml/Chromium/ Copper/Manganese/ Zinc 1 ml/Insulin Human Regular 2 units/Amino Acids/ Dextrose/Purified Water 1,345.02 ml @ 56 mls/hr Q24H2M IV 07/10/24 22:00 07/11/24 21:59 Cancel Fat Emulsion Intravenous 150 ml/Sodium Chloride 80 meq/ Sodium Phosphate 20 meq/Potassium Chloride 10 meq/ Magnesium Sulfate 16 meq/ Multivitamins 10 ml/Chromium/ Copper/Manganese/ Zinc 1 ml/Insulin Human Regular 2 units/Amino Acids/ Dextrose/Purified Water 1,345.02 ml @ 56 mls/hr Q24H2M IV 07/10/24 22:00 07/11/24 21:59 objective Comfortable in bed. Alert awake oriented to place and person. Heart regular rate and rhythm S1-S2. Lungs fair air movement with a degraded breath sounds in the bases. No audible wheezing. Abdomen soft positive bowel sounds. Extremities no edema. laboratory and microbiology Laboratory Tests 07/10/24 04:15 Test 07/10/24 04:15 Range/Units Serum Glucose 153 H 74-106 mg/dL Assessment/Plan His echocardiogram results reviewed and EF is 20%. Patient already seen by tobacco stemmer machine. We will have tobacco stemmer machine make a follow up evaluation and risk stratification from cardiac point of view prior to his thoracotomy. Discussed with the nurse at bedside regarding care plan. Encouraged activity and ambulation and sitting out of bed to chair as much as possible to prevent general physical deconditioning given the prolonged hospital stay. Continue present management as he is on and apparently surgeon will be planned for decortication of his loculated pleural effusion for July 12. Discussed with the nurse and patient regarding care plan Problems(with codes): (1) Pneumonia (2) Acute respiratory failure (3) Pleural effusion, right (4) Constipation Dietary Evaluation Review Comments: encourage and monitor PO feedings to meet 75% of his needs. continue preasent plan of care: regular diet nutrition supplements with clinimix and ensure hi protein. may consider a 2GNA Diet with low fat Low cholesterol retriction if he has elevated lipid profile. Expected Outcomes/Goals: improved physical strength, gradual weight gain. Plan discussed with: Other LINO MCCORMACK MD Jul 10, 2024 16:54
[2024-07-10] MEDS: TPN PER PHARMACY IV NR (21:19)
[2024-07-10] MEDS ORDERED: TPN PER PHARMACY IV NR (22:00)
--- NOTE | 2024-07-10 23:16 | DVHPN2 ---
Progress Note - Dictate Date Seen: Jul 10, 2024 Medical Necessity Reason Pt with a Central, PICC or Fol: Yes The following are medically ne: PICC Line Subjective Patient seen and examined at bedside. Remains on supplemental oxygen Overnight events reviewed. vital signs Vital Sign Date Time Temp Pulse Resp B/P (MAP) Pulse Ox O2 Delivery O2 Flow Rate FiO2 07/10/24 21:00 98.2 116 19 119/55 (76) 98 98.2 07/09/24 18:00 Nasal Cannula* 3 32 Total Intake and Output 07/09/24 07/09/24 07/10/24 15:00 23:00 07:00 Intake Total 820 ml 1250 ml 350 ml Output Total 670 ml 520 ml Balance 820 ml 580 ml -170 ml medications Current Medications Medications Dose Ordered Sig/Anderson Route Start Time Stop Time Status Last Admin Dose Admin Ondansetron HCl 4 mg Q4HP PRN IV 06/28/24 14:45 Acetaminophen 650 mg Q6HP PRN PO 06/28/24 14:45 Nitroglycerin 0.4 mg Q5MINP PRN SL 06/28/24 14:45 Docusate Sodium 100 mg BID PO 06/30/24 10:00 07/10/24 22:00 100 MG Sennosides 8.6 mg QID PRN PO 06/30/24 11:00 06/30/24 17:25 8.6 MG Ceftriaxone Sodium 50 ml @ 100 mls/hr DAILY@09 IV 07/03/24 13:00 07/10/24 10:27 100 MLS/HR Azithromycin 500 mg DAILY PO 07/04/24 10:00 07/10/24 11:34 500 MG Enteral Nutritional Formula 240 ml TIDWM PO 07/04/24 12:00 07/10/24 17:50 240 ML Amino Acids 0 ml @ 0 mls/hr PER PHARMACY IV 07/04/24 13:00 Diagnostic Test (Pha) 1 strip Q6HR 07/05/24 00:00 07/10/24 17:48 1 STRIP Insulin Human Regular FOLLOW SLIDING SCALE Q6HR SC 07/05/24 00:00 07/10/24 17:48 2 UNITS Dextrose 50 ml UD IV 07/05/24 00:00 Sodium Chloride 10 ml QSHIFT@ IV 07/05/24 22:00 07/10/24 22:00 10 ML Acetaminophen/ Hydrocodone Bitart 1 tab Q4HPRN PRN PO 07/07/24 20:15 07/10/24 22:35 1 TAB Fat Emulsion Intravenous 150 ml/Sodium Chloride 80 meq/ Sodium Phosphate 20 meq/Potassium Chloride 10 meq/ Magnesium Sulfate 16 meq/ Multivitamins 10 ml/Chromium/ Copper/Manganese/ Zinc 1 ml/Insulin Human Regular 2 units/Amino Acids/ Dextrose/Purified Water 1,345.02 ml @ 56 mls/hr Q24H2M IV 07/10/24 22:00 07/11/24 21:59 Cancel Fat Emulsion Intravenous 150 ml/Sodium Chloride 80 meq/ Sodium Phosphate 20 meq/Potassium Chloride 10 meq/ Magnesium Sulfate 16 meq/ Multivitamins 10 ml/Chromium/ Copper/Manganese/ Zinc 1 ml/Insulin Human Regular 2 units/Amino Acids/ Dextrose/Purified Water 1,345.02 ml @ 56 mls/hr Q24H2M IV 07/10/24 22:00 07/11/24 21:59 07/10/24 21:19 56 MLS/HR objective Gen.: Patient lying in bed in no apparent distress. On supplemental oxygen. Head: Normocephalic, atraumatic. Eyes: EOMI/PERRLA. Ears: Normal hearing. Normal anatomy. Neck/trachea: Trachea midline, supple. Nose: Normal external anatomy. Mouth: Moist mucous membranes. Chest: Decreased air entry bilaterally. No wheezing or rhonchi. Cardiovascular: Positive S1, positive S2. Regular rate and rhythm. Abdomen: Positive bowel sounds in all 4 quadrants. Soft, non-tender, non- distended. : Deferred. Rectal: Deferred. Skin: Warm, dry. Intact. Extremities: 2+ radial pulses bilaterally. No lower extremity edema. Neuro: Awake, alert, oriented x3. No gross motor or sensory deficits. Cranial nerves II through XII intact. Gait not assessed. laboratory and microbiology Laboratory Tests 07/10/24 04:15 Test 07/10/24 04:15 Range/Units Serum Glucose 153 H 74-106 mg/dL Assessment/Plan Impression: Acute hypoxic respiratory failure Loculated pleural effusion, right Atelectasis Shock, possible sepsis Pneumonia likely gram negative Events: Remains on supplemental oxygen, 3 LPM NC Taper O2 as tolerated Continue bronchodilators PRN Continue antibiotics Incentive spirometry Pain control Avoid oversedation Continue PT. TPN for nutritional support Labs and imaging reviewed. Rest of plan as noted below. Plan: Supplemental oxygen Titrate to keep O2 sats above 92%. Bronchodilators PRN Antibiotics Incentive spirometry Pain control Avoid oversedation CT chest showing moderate-sized loculated right pleural effusion w/ surrounding pleural thickening and adjacent alveolar and interstitial opacities. A 2.6 cm lytic lesion in the medial aspect of the right 9th rib at the costochondral junction with full-thickness loss of the bone and overlying anterior and posterior cortices. See report for full details. Pt underwent right chest tube placement d/t loculated pleural effusion. Plan for tPA course to mobilize pleural fluid. S/p two doses of Alteplase Currently s/p removal of chest tube. Recommend decortication surgery - pt wishes to proceed with surgery. Deemed to be high risk from cardiology standpoint - EF of 20% Cardiology recommendations appreciated. Off pressors, hemodynamically stable. Monitor renal function. Monitor electrolytes. Supplement as necessary. Monitor ins and outs. DVT prophylaxis. Prognosis: Poor given patient's multiple co-morbidities. Rest of plan per hospitalist and other consultants. Thank you Dr. Maulik Chavira MD, for allowing me to participate in this patient's care. Further recommendations will depend on the patient's clinical course. Please do not hesitate to contact me if you have any questions or concerns. This medical document was created using an electronic medical record system with [email or web address] dictation system. Although these documentations are being carefully reviewed, there may still be some phonetic and typographical changes. The errors are purely typographical, due to imperfection on the software program, and do not reflect any compromise in the patient's medical care. Dietary Evaluation Review Comments: encourage and monitor PO feedings to meet 75% of his needs. continue preasent plan of care: regular diet nutrition supplements with clinimix and ensure hi protein. may consider a 2GNA Diet with low fat Low cholesterol retriction if he has elevated lipid profile. Expected Outcomes/Goals: improved physical strength, gradual weight gain. Plan discussed with: Patient, Other (IBETH Barakat) VALERI BRANTLEY MD Jul 10, 2024 23:16
[2024-07-11] VITALS (8 sets, daily range): BP systolic 102–118; BP diastolic 49–65; PULSE 60–116; RESP 17–20; TEMP 98.3–98.8; O2SAT 91–96
[2024-07-11 00:50] LABS: INR 1.06 (0.9-1.15); Partial Thromboplastin Time 30.8 SEC (24.5-34.5); Prothrombin Time 11.4 sec (9.3-11.8)
[2024-07-11 05:38] LABS: Albumin 3.2 g/dL (3.2-4.8); Anion Gap 6 (5-15); BUN/Creatinine Ratio 41.8 (10.0-20.0); Bilirubin, Total 0.4 mg/dL (0.2-1.0); Calcium 9.2 mg/dL (8.7-10.4); Carbon Dioxide 28 mmol/L (20-31); Chloride 103 mmol/L (98-107); Magnesium 2.2 mg/dL (1.6-2.6); Potassium 4.5 mmol/L (3.5-5.1); Sodium 137 mmol/L (136-145)
[2024-07-11 06:11] LABS: Alanine Aminotransferase 125 U/L (7-40); Alkaline Phosphatase 311 U/L (46-116); Aspartate Aminotransferase 77 U/L (13-40); Blood Urea Nitrogen 23 mg/dL (9-23); Glucose 134 mg/dL (74-106); Total Protein 5.3 g/dL (5.7-8.2)
--- NOTE | 2024-07-11 17:26 | DVHPN2 ---
Progress Note - Dictate Date Seen: Jul 11, 2024 Medical Necessity Reason Pt with a Central, PICC or Fol: Yes The following are medically ne: PICC Line Subjective Clinically remains stable. Family/daughter at bedside. Patient evaluated by market research coordinator. Patient has seen by convex grinder felt moderate risk for surgery due to his poor ejection fraction with echocardiogram showing 20%. However patient does need to thoracotomy given his loculated lung effusions have not improved with a chest tube. This is discussed once again with the patient daughter at bedside and the risk of mixed. /postoperative complications given his poor ejection fraction with a cardiac history. vital signs Vital Sign Date Time Temp Pulse Resp B/P (MAP) Pulse Ox O2 Delivery O2 Flow Rate FiO2 07/11/24 16:46 98.6 60 20 102/65 (77) 96 98.6 07/09/24 18:00 Nasal Cannula* 3 32 Total Intake and Output 07/10/24 07/10/24 07/11/24 15:00 23:00 07:00 Intake Total 950 ml 340 ml Output Total 530 ml Balance 950 ml -190 ml medications Current Medications Medications Dose Ordered Sig/Anderson Route Start Time Stop Time Status Last Admin Dose Admin Ondansetron HCl 4 mg Q4HP PRN IV 06/28/24 14:45 Acetaminophen 650 mg Q6HP PRN PO 06/28/24 14:45 Nitroglycerin 0.4 mg Q5MINP PRN SL 06/28/24 14:45 Docusate Sodium 100 mg BID PO 06/30/24 10:00 07/11/24 08:19 100 MG Sennosides 8.6 mg QID PRN PO 06/30/24 11:00 06/30/24 17:25 8.6 MG Ceftriaxone Sodium 50 ml @ 100 mls/hr DAILY@09 IV 07/03/24 13:00 07/11/24 08:18 100 MLS/HR Azithromycin 500 mg DAILY PO 07/04/24 10:00 07/11/24 08:19 500 MG Enteral Nutritional Formula 240 ml TIDWM PO 07/04/24 12:00 07/11/24 12:09 240 ML Amino Acids 0 ml @ 0 mls/hr PER PHARMACY IV 07/04/24 13:00 Diagnostic Test (Pha) 1 strip Q6HR 07/05/24 00:00 07/11/24 12:07 1 STRIP Insulin Human Regular FOLLOW SLIDING SCALE Q6HR SC 07/05/24 00:00 07/11/24 12:12 4 UNITS Dextrose 50 ml UD IV 07/05/24 00:00 Sodium Chloride 10 ml QSHIFT@10,22 IV 07/05/24 22:00 07/11/24 08:19 10 ML Acetaminophen/ Hydrocodone Bitart 1 tab Q4HPRN PRN PO 07/07/24 20:15 07/11/24 15:58 1 TAB Fat Emulsion Intravenous 150 ml/Sodium Chloride 80 meq/ Sodium Phosphate 20 meq/Potassium Chloride 10 meq/ Magnesium Sulfate 16 meq/ Multivitamins 10 ml/Chromium/ Copper/Manganese/ Zinc 1 ml/Insulin Human Regular 2 units/Amino Acids/ Dextrose/Purified Water 1,345.02 ml @ 56 mls/hr Q24H2M IV 07/10/24 22:00 07/11/24 21:59 Cancel Fat Emulsion Intravenous 150 ml/Sodium Chloride 80 meq/ Sodium Phosphate 20 meq/Potassium Chloride 10 meq/ Magnesium Sulfate 16 meq/ Multivitamins 10 ml/Chromium/ Copper/Manganese/ Zinc 1 ml/Insulin Human Regular 2 units/Amino Acids/ Dextrose/Purified Water 1,345.02 ml @ 56 mls/hr Q24H2M IV 07/10/24 22:00 07/11/24 21:59 07/10/24 21:19 56 MLS/HR Fat Emulsion Intravenous 100 ml/Sodium Chloride 80 meq/ Sodium Phosphate 30 meq/Potassium Acetate 10 meq/ Magnesium Sulfate 16 meq/ Multivitamins 10 ml/Chromium/ Copper/Manganese/ Zinc 1 ml/Insulin Human Regular 2 units/Amino Acids/ Dextrose/Purified Water 1,347.52 ml @ 56 mls/hr Q24H4M IV 07/11/24 22:00 07/12/24 21:59 objective Comfortable in bed. Alert awake oriented to place and person. Heart regular rate and rhythm S1-S2. Lungs fair air movement with a degraded breath sounds in the bases. No audible wheezing. Abdomen soft positive bowel sounds. Extremities no edema. laboratory and microbiology Laboratory Tests 07/11/24 04:20 07/10/24 04:15 Test 07/11/24 04:20 Range/Units Serum Glucose 134 H 74-106 mg/dL Assessment/Plan His echocardiogram results reviewed and EF is 20%. Patient already seen by convex grinder. Patient is at moderate to high risk for Postoperative complications given his cardiac history. This is discussed with the patient and daughter. They understand the risks and given patient did not improve with conservative treatment they wanted to proceed with a thoracotomy/decortication as deemed appropriate by the surgeon, accepting the risks. Therefore we will keep him NPO after midnight and hopefully surgeon can re-evaluate him tomorrow and proceed with the planned surgery if anesthesia willing to proceed as well for the surgery. Meantime continue current supportive care and treatment as he is on. Patient's daughter verbalized understanding of his diagnosis and plan of care. Problems(with codes): (1) Constipation (2) Pleural effusion, right (3) Acute respiratory failure (4) Pneumonia Dietary Evaluation Review Comments: encourage and monitor PO feedings to meet 75% of his needs. continue preasent plan of care: regular diet nutrition supplements with clinimix and ensure hi protein. may consider a 2GNA Diet with low fat Low cholesterol retriction if he has elevated lipid profile. Expected Outcomes/Goals: improved physical strength, gradual weight gain. Plan discussed with: Other LINO MCCORMACK MD Jul 11, 2024 17:26
[2024-07-11] MEDS: TPN PER PHARMACY IV NR (21:36)
--- NOTE | 2024-07-11 22:16 | DVHPN2 ---
Progress Note - Dictate Date Seen: Jul 11, 2024 Medical Necessity Reason Pt with a Central, PICC or Fol: Yes The following are medically ne: PICC Line Subjective Patient seen and examined at bedside. Remains on supplemental oxygen Overnight events reviewed. vital signs Vital Sign Date Time Temp Pulse Resp B/P (MAP) Pulse Ox O2 Delivery O2 Flow Rate FiO2 07/11/24 16:46 98.6 60 20 102/65 (77) 96 98.6 07/09/24 18:00 Nasal Cannula* 3 32 Total Intake and Output 07/10/24 07/10/24 07/11/24 15:00 23:00 07:00 Intake Total 950 ml 340 ml Output Total 530 ml Balance 950 ml -190 ml medications Current Medications Medications Dose Ordered Sig/Anderson Route Start Time Stop Time Status Last Admin Dose Admin Ondansetron HCl 4 mg Q4HP PRN IV 06/28/24 14:45 Acetaminophen 650 mg Q6HP PRN PO 06/28/24 14:45 Nitroglycerin 0.4 mg Q5MINP PRN SL 06/28/24 14:45 Docusate Sodium 100 mg BID PO 06/30/24 10:00 07/11/24 21:24 100 MG Sennosides 8.6 mg QID PRN PO 06/30/24 11:00 06/30/24 17:25 8.6 MG Ceftriaxone Sodium 50 ml @ 100 mls/hr DAILY@09 IV 07/03/24 13:00 07/11/24 08:18 100 MLS/HR Azithromycin 500 mg DAILY PO 07/04/24 10:00 07/11/24 08:19 500 MG Enteral Nutritional Formula 240 ml TIDWM PO 07/04/24 12:00 07/11/24 17:52 240 ML Amino Acids 0 ml @ 0 mls/hr PER PHARMACY IV 07/04/24 13:00 Diagnostic Test (Pha) 1 strip Q6HR 07/05/24 00:00 07/11/24 17:51 1 STRIP Insulin Human Regular FOLLOW SLIDING SCALE Q6HR SC 07/05/24 00:00 07/11/24 17:50 2 UNITS Dextrose 50 ml UD IV 07/05/24 00:00 Sodium Chloride 10 ml QSHIFT@,22 IV 07/05/24 22:00 07/11/24 21:37 10 ML Acetaminophen/ Hydrocodone Bitart 1 tab Q4HPRN PRN PO 07/07/24 20:15 07/11/24 21:24 1 TAB Fat Emulsion Intravenous 150 ml/Sodium Chloride 80 meq/ Sodium Phosphate 20 meq/Potassium Chloride 10 meq/ Magnesium Sulfate 16 meq/ Multivitamins 10 ml/Chromium/ Copper/Manganese/ Zinc 1 ml/Insulin Human Regular 2 units/Amino Acids/ Dextrose/Purified Water 1,345.02 ml @ 56 mls/hr Q24H2M IV 07/10/24 22:00 07/11/24 21:59 Cancel Fat Emulsion Intravenous 100 ml/Sodium Chloride 80 meq/ Sodium Phosphate 30 meq/Potassium Acetate 10 meq/ Magnesium Sulfate 16 meq/ Multivitamins 10 ml/Chromium/ Copper/Manganese/ Zinc 1 ml/Insulin Human Regular 2 units/Amino Acids/ Dextrose/Purified Water 1,347.52 ml @ 56 mls/hr Q24H4M IV 07/11/24 22:00 07/12/24 21:59 07/11/24 21:36 56 MLS/HR objective Gen.: Patient lying in bed in no apparent distress. On supplemental oxygen. Head: Normocephalic, atraumatic. Eyes: EOMI/PERRLA. Ears: Normal hearing. Normal anatomy. Neck/trachea: Trachea midline, supple. Nose: Normal external anatomy. Mouth: Moist mucous membranes. Chest: Decreased air entry bilaterally. No wheezing or rhonchi. Cardiovascular: Positive S1, positive S2. Regular rate and rhythm. Abdomen: Positive bowel sounds in all 4 quadrants. Soft, non-tender, non- distended. : Deferred. Rectal: Deferred. Skin: Warm, dry. Intact. Extremities: 2+ radial pulses bilaterally. No lower extremity edema. Neuro: Awake, alert, oriented x3. No gross motor or sensory deficits. Cranial nerves II through XII intact. Gait not assessed. laboratory and microbiology Laboratory Tests 07/11/24 04:20 07/10/24 04:15 Test 07/11/24 04:20 Range/Units Serum Glucose 134 H 74-106 mg/dL Assessment/Plan Impression: Acute hypoxic respiratory failure Loculated pleural effusion, right Atelectasis Shock, possible sepsis Pneumonia likely gram negative Events: Remains on supplemental oxygen, 3 LPM NC Taper O2 as tolerated Awaiting cardiac clearance Patient planned for decortication surgery on Monday. NPO at midnight TPN for nutritional support Continue bronchodilators PRN Continue antibiotics Incentive spirometry Pain control Avoid oversedation Continue PT. Labs and imaging reviewed. Rest of plan as noted below. Plan: Supplemental oxygen Titrate to keep O2 sats above 92%. Bronchodilators PRN Antibiotics Incentive spirometry Pain control Avoid oversedation CT chest showing moderate-sized loculated right pleural effusion w/ surrounding pleural thickening and adjacent alveolar and interstitial opacities. A 2.6 cm lytic lesion in the medial aspect of the right 9th rib at the costochondral junction with full-thickness loss of the bone and overlying anterior and posterior cortices. See report for full details. Pt underwent right chest tube placement d/t loculated pleural effusion. Plan for tPA course to mobilize pleural fluid. S/p two doses of Alteplase Currently s/p removal of chest tube. Recommend decortication surgery - pt wishes to proceed with surgery. Deemed to be high risk from cardiology standpoint - EF of 20% Cardiology recommendations appreciated. Off pressors, hemodynamically stable. Monitor renal function. Monitor electrolytes. Supplement as necessary. Monitor ins and outs. DVT prophylaxis. Prognosis: Poor given patient's multiple co-morbidities. Rest of plan per hospitalist and other consultants. Thank you Dr. Maulik Chavira MD, for allowing me to participate in this patient's care. Further recommendations will depend on the patient's clinical course. Please do not hesitate to contact me if you have any questions or concerns. This medical document was created using an electronic medical record system with [email or web address] dictation system. Although these documentations are being carefully reviewed, there may still be some phonetic and typographical changes. The errors are purely typographical, due to imperfection on the software program, and do not reflect any compromise in the patient's medical care. Dietary Evaluation Review Comments: encourage and monitor PO feedings to meet 75% of his needs. continue preasent plan of care: regular diet nutrition supplements with clinimix and ensure hi protein. may consider a 2GNA Diet with low fat Low cholesterol retriction if he has elevated lipid profile. Expected Outcomes/Goals: improved physical strength, gradual weight gain. Plan discussed with: Patient, Other (IBETH Garcia) VALERI BRANTLEY MD Jul 11, 2024 22:16
[2024-07-12] VITALS (34 sets, daily range): BP systolic 70–121; BP diastolic 38–79; PULSE 93–124; RESP 14–25; TEMP 97.6–102.1; O2SAT 92–100
[2024-07-12 06:18] LABS: Anion Gap 6 (5-15); BUN/Creatinine Ratio 45.1 (10.0-20.0); Bilirubin, Total 0.4 mg/dL (0.2-1.0); Blood Urea Nitrogen 23 mg/dL (9-23); Calcium 9.2 mg/dL (8.7-10.4); Carbon Dioxide 27 mmol/L (20-31); Chloride 104 mmol/L (98-107); Magnesium 2.2 mg/dL (1.6-2.6); Phosphorus 3.1 mg/dL (2.4-5.1); Potassium 4.5 mmol/L (3.5-5.1); Sodium 137 mmol/L (136-145)
[2024-07-12 06:21] LABS: Glucose 175 mg/dL (74-106)
[2024-07-12 06:22] LABS: Alanine Aminotransferase 132 U/L (7-40); Albumin 3.2 g/dL (3.2-4.8); Alkaline Phosphatase 329 U/L (46-116); Aspartate Aminotransferase 66 U/L (13-40); Total Protein 5.1 g/dL (5.7-8.2)
[2024-07-12 06:36] LABS: Triglycerides 75 mg/dL (< 150)
[2024-07-12] MEDS ORDERED: KETAMINE 50mg/ML 1ml syringe ONE (08:17)
[2024-07-12] MEDS ORDERED: MIDAZOLAM HCL 2MG/2ML 2ml VIAL (1mg/ml) ONE (08:18)
[2024-07-12] MEDS ORDERED: fentaNYL CITRATE 100 MCG/2 ML VL ONE (08:18)
[2024-07-12] MEDS ORDERED: PROPOFOL 10 MG/ML 20 ML IV ONE (08:18)
[2024-07-12] MEDS ORDERED: MORPHINE SULF PF 5 MG/10 ML VIAL ONE (08:18)
[2024-07-12] MEDS ORDERED: ROCURONIUM 10MG/ML 10ML VIAL IV ONE (08:18)
[2024-07-12] MEDS ORDERED: LIDOCAINE 1% INJ PF 5ML AMP ONE ×2 (08:18→09:16)
[2024-07-12] MEDS ORDERED: SODIUM CHLORIDE LOCK 50 ML ONE (08:18)
[2024-07-12] MEDS ORDERED: LIDOCAINE HCL 2% TOP JELLY 5ML TOP ONE (08:18)
[2024-07-12] MEDS: ceFAZolin 2 GM/D5W100ml 100 ML IV ONE (08:24)
[2024-07-12] MEDS ORDERED: HYDROmorphone HCL 2 MG/ML VL/or syr ONE (08:56)
[2024-07-12] MEDS: BUPIVACAINE HCL 50 ML ONE (09:47)
[2024-07-12] MEDS ORDERED: HYDROmorphone HCL 2 MG/ML VL/or syr IV PRN ×3 (10:45→11:15)
[2024-07-12] MEDS: MIDAZOLAM DRIP 50 mg/50mL 50 ML IV ONE (10:48)
[2024-07-12] MEDS: MIDAZOLAM DRIP 50 mg/50mL 50 ML IV SCH (11:05)
[2024-07-12] MEDS ORDERED: fentaNYL CITRATE 100 MCG/2 ML VL IV PRN (11:15)
[2024-07-12] MEDS: fentaNYL Drip 2500mCg/250mlNS 250 ML IV SCH (11:30)
--- NOTE | 2024-07-12 11:34 | DVHOP ---
DATE OF SURGERY: 07/12/2024 PREOPERATIVE DIAGNOSES: Right lung pleural peel, pneumonia, pleural effusion. POSTOPERATIVE DIAGNOSES: Right lung pleural peel, pneumonia, pleural effusion. SURGEON: Anam De Los Santos MD ASSISTANT TECHNICIAN: Riley Goldman NP ANESTHESIA: General endotracheal, Dr. Sosa. PROCEDURES: * Right thoracotomy. * Right lung decortication. * Partial parietal pleurectomy. * Right upper lobe lung biopsy. DESCRIPTION OF PROCEDURE: Under general endotracheal anesthesia with the patient's skin prepped and the patient's body secured in a lateral decubitus position with the right chest facing upward, the down axilla protected by axillary roll, the knees on pillows, arms protected and padded and the body secured with a beanbag insufflation, the right posterolateral thoracotomy was accomplished. Incision deepened with electrocautery through subcutaneous fat and muscles. The thoracotomy was an incision in the fifth interspace. The intercostal muscles were and the pleural cavity was entered. The lung was densely adherent to the chest wall. The pleural peel was several millimeters thick. It was stripped from the lung to the best of my ability incurring several areas of disrupted pulmonary parenchyma. Following thorough mobilization of the lung, decortication of the accessible portions of the lung, there was an induration of the lingular segment anterolateral portion of the right upper lung. This was secured for biopsy. Biopsy was submitted. The patient's chest cavity was then irrigated and irrigant was aspirated. A size 40 chest tube was placed and directed posterosuperiorly. Subsequently, the chest cavity was closed using pericostal [id number] sutures with approximation of the ribs. Muscles were reapproximated using #1 double-stranded PDS suture. Skin was approximated using metallic skin suze. Approximately 7 mL of plain 0.5% Marcaine was then injected beneath the fourth and fifth ribs to accomplish a partial intercostal block. Skin approximated using metallic skin suze. The patient remained relatively stable throughout the procedure, left the operating room following an accurate needle and sponge count. MD DORINDA Stephens/MARISELA TID: [id number] RECEIPT: [id number]
--- NOTE | 2024-07-12 11:48 | DVH ---
CHEST RADIOGRAPH Indication: POST RIGHT LUNG DECORTICATION Technique: Single frontal view of the chest was obtained COMPARISON: XY CHEST PORTABLE on DOS: 07/10/24, XY CHEST XRAY 1 VIEW on DOS: 07/04/24, XY CHEST PORTABL E on DOS: 07/03/24, XY CHEST XRAY 1 VIEW on DOS: 07/02/24, XY CHEST XRAY 1 VIEW on DOS: 07/02/24 FINDINGS: Lines and Tubes: Endotracheal tube, enteric catheter and right chest tube and right PICC in satisfact ory position. Lungs: Multifocal right lung airspace disease. Pleura: No effusion. Small right basilar pneumothorax with right chest tube in-situ. Cardiomediastinal contours: Unremarkable Bones: Unremarkable IMPRESSION: Small right basilar pneumothorax with right chest tube in-situ.
[2024-07-12 12:13] LABS: Base Excess -2.8 mmol/L (-2.0-3.0)
[2024-07-12] MEDS: METOCLOPRAMIDE HCL 5MG/ml INJ 2ml VIAL IV ONE (13:00)
--- NOTE | 2024-07-12 15:15 | DVHPN2 ---
Progress Note - Dictate Date Seen: Jul 12, 2024 Medical Necessity Reason Pt with a Central, PICC or Fol: Yes The following are medically ne: PICC Line Subjective Status post thoracotomy with a decortication procedure this morning by surgeon. Postop patient remains intubated in the recovery unit. vital signs Vital Sign Date Time Temp Pulse Resp B/P (MAP) Pulse Ox O2 Delivery O2 Flow Rate FiO2 07/12/24 14:50 104 19 105/46 (65) 100 07/12/24 13:00 70 07/12/24 11:05 Mechanical Ventilator 07/12/24 11:05 98.2 98.2 Total Intake and Output 07/11/24 07/11/24 07/12/24 15:00 23:00 07:00 Intake Total 50 ml 1900 ml 0 ml Output Total 1000 ml 700 ml Balance 50 ml 900 ml -700 ml medications Current Medications Medications Dose Ordered Sig/Anderson Route Start Time Stop Time Status Last Admin Dose Admin Ondansetron HCl 4 mg Q4HP PRN IV 06/28/24 14:45 Acetaminophen 650 mg Q6HP PRN PO 06/28/24 14:45 Nitroglycerin 0.4 mg Q5MINP PRN SL 06/28/24 14:45 Docusate Sodium 100 mg BID PO 06/30/24 10:00 07/11/24 21:24 100 MG Sennosides 8.6 mg QID PRN PO 06/30/24 11:00 06/30/24 17:25 8.6 MG Ceftriaxone Sodium 50 ml @ 100 mls/hr DAILY@09 IV 07/03/24 13:00 07/11/24 08:18 100 MLS/HR Azithromycin 500 mg DAILY PO 07/04/24 10:00 07/11/24 08:19 500 MG Enteral Nutritional Formula 240 ml TIDWM PO 07/04/24 12:00 07/11/24 17:52 240 ML Amino Acids 0 ml @ 0 mls/hr PER PHARMACY IV 07/04/24 13:00 Diagnostic Test (Pha) 1 strip Q6HR 07/05/24 00:00 07/12/24 12:56 1 STRIP Insulin Human Regular FOLLOW SLIDING SCALE Q6HR SC 07/05/24 00:00 07/12/24 12:56 2 UNITS Dextrose 50 ml UD IV 07/05/24 00:00 Sodium Chloride 10 ml QSHIFT@10,22 IV 07/05/24 22:00 07/11/24 21:37 10 ML Acetaminophen/ Hydrocodone Bitart 1 tab Q4HPRN PRN PO 07/07/24 20:15 07/11/24 21:24 1 TAB Fat Emulsion Intravenous 150 ml/Sodium Chloride 80 meq/ Sodium Phosphate 20 meq/Potassium Chloride 10 meq/ Magnesium Sulfate 16 meq/ Multivitamins 10 ml/Chromium/ Copper/Manganese/ Zinc 1 ml/Insulin Human Regular 2 units/Amino Acids/ Dextrose/Purified Water 1,345.02 ml @ 56 mls/hr Q24H2M IV 07/10/24 22:00 07/11/24 21:59 Cancel Fat Emulsion Intravenous 100 ml/Sodium Chloride 80 meq/ Sodium Phosphate 30 meq/Potassium Acetate 10 meq/ Magnesium Sulfate 16 meq/ Multivitamins 10 ml/Chromium/ Copper/Manganese/ Zinc 1 ml/Insulin Human Regular 2 units/Amino Acids/ Dextrose/Purified Water 1,347.52 ml @ 56 mls/hr Q24H4M IV 07/11/24 22:00 07/12/24 21:59 07/11/24 21:36 56 MLS/HR Midazolam HCl 50 ml @ 1 mls/hr Q24H IV 07/12/24 10:45 07/12/24 11:05 1 MLS/HR Fentanyl Citrate 250 ml @ 2.5 mls/hr Q24H IV 07/12/24 10:45 07/12/24 11:30 2.5 MLS/HR Hydromorphone HCl 1 mg Q4HPRN PRN IV 07/12/24 10:45 Fat Emulsion Intravenous 100 ml/Sodium Chloride 80 meq/ Sodium Phosphate 30 meq/Potassium Acetate 10 meq/ Magnesium Sulfate 16 meq/ Multivitamins 10 ml/Chromium/ Copper/Manganese/ Zinc 1 ml/Insulin Human Regular 4 units/Amino Acids/ Dextrose/Purified Water 1,347.54 ml @ 56 mls/hr Q24H4M IV 07/12/24 22:00 07/13/24 21:59 objective Comfortable in bed. On ventilator without any acute cardiopulmonary distress. HEENT neck supple no JVD. Heart regular rate and rhythm S1 and S2. Lungs no audible wheezing noted. Abdomen soft positive bowel sounds. Extremities no edema. laboratory and microbiology Laboratory Tests 07/12/24 05:02 07/10/24 04:15 Test 07/12/24 05:02 Range/Units Serum Glucose 175 H 74-106 mg/dL Assessment/Plan Status post thoracotomy with a decortication with this morning and postop he remains intubated. Patient is on fentanyl and Versed for sedation and comfort. Not on any pressors. Vital signs are stable. Continue present management for now. We will do a hemoglobin check today and consider transfusing for hemoglobin below 7.5. Given patient has heart failure with the EF 20% avoid aggressive hydration or fluid resuscitation. This is discussed with the nurse at bedside. Problems(with codes): (1) Pneumonia (2) Acute respiratory failure (3) Pleural effusion, right (4) Constipation Dietary Evaluation Review Comments: encourage and monitor PO feedings to meet 75% of his needs. continue preasent plan of care: regular diet nutrition supplements with clinimix and ensure hi protein. may consider a 2GNA Diet with low fat Low cholesterol retriction if he has elevated lipid profile. Expected Outcomes/Goals: improved physical strength, gradual weight gain. Plan discussed with: Other LINO MCCORMACK MD Jul 12, 2024 15:15
[2024-07-12 15:20] LABS: Basophils # (auto) 0.1 10 ^3/uL (0-0.2); Basophils % (auto) 0.8 % (0.0-2.0); Eosinophils # (auto) 0.1 10 ^3/uL (0-0.8); Eosinophils % (auto) 0.9 % (0.0-7.0); Hematocrit 24.9 % (41.0-53.0); Hemoglobin 7.6 g/dL (13.5-17.5); Lymphocytes # (auto) 1.1 10 ^3/uL (0.4-5.4); Lymphocytes % (auto) 7.3 % (10.0-50.0); Mean Corpuscular Hemoglobin 25.1 pg (28.0-32.0); Mean Corpuscular Hgb Conc. 30.7 g/dL (32.0-36.0); Mean Corpuscular Volume 81.8 fL (80.0-100.0); Monocytes # (auto) 1.8 10 ^3/uL (0-1.3); Monocytes % (auto) 12.1 % (0.0-12.0); Neutrophils # (auto) 11.7 10 ^3/uL (1.6-8.6); Neutrophils % (auto) 78.9 % (37.0-80.0); Platelet Count (auto) 363 10^3/uL (140-450); Red Blood Cells 3.04 10^6/uL (4.5-5.90); Red Cell Distribution Width 15.7 % (11.8-14.3); White Blood Cell 14.8 10^3/uL (4.4-10.8)
[2024-07-12] MEDS: FUROSEMIDE 20 MG/2 ML VIAL IV ONE (18:00)
[2024-07-12] MEDS: ACETAMINOPHEN 325 MG TAB PO PRN (20:44)
[2024-07-12] MEDS: TPN PER PHARMACY IV NR (22:00)
[2024-07-12] MEDS: SODIUM CHLORIDE 0.9% 1,000 ML IV ONE (22:51)
[2024-07-12] MEDS: DOCUSATE ORAL LIQUID 100 MG/10 ML UD GT SCH (23:00)
--- NOTE | 2024-07-12 23:28 | DVHPN2 ---
Progress Note - Dictate Date Seen: Jul 12, 2024 Medical Necessity Reason Pt with a Central, PICC or Fol: Yes The following are medically ne: PICC Line Subjective Patient seen and examined at bedside. Sedated, intubated on mechanical ventilator. Overnight events reviewed. vital signs Vital Sign Date Time Temp Pulse Resp B/P (MAP) Pulse Ox O2 Delivery O2 Flow Rate FiO2 07/12/24 21:04 102.1 122 25 101/38 96 50 102.1 07/12/24 11:05 Mechanical Ventilator Total Intake and Output 07/11/24 07/11/24 07/12/24 15:00 23:00 07:00 Intake Total 50 ml 1900 ml 0 ml Output Total 1000 ml 700 ml Balance 50 ml 900 ml -700 ml medications Current Medications Medications Dose Ordered Sig/Anderson Route Start Time Stop Time Status Last Admin Dose Admin Ondansetron HCl 4 mg Q4HP PRN IV 06/28/24 14:45 Acetaminophen 650 mg Q6HP PRN PO 06/28/24 14:45 07/12/24 20:44 Nitroglycerin 0.4 mg Q5MINP PRN SL 06/28/24 14:45 Sennosides 8.6 mg QID PRN PO 06/30/24 11:00 06/30/24 17:25 Ceftriaxone Sodium 50 ml @ 100 mls/hr DAILY@09 IV 07/03/24 13:00 07/11/24 08:18 Azithromycin 500 mg DAILY PO 07/04/24 10:00 07/11/24 08:19 Enteral Nutritional Formula 240 ml TIDWM PO 07/04/24 12:00 07/11/24 17:52 Amino Acids 0 ml @ 0 mls/hr PER PHARMACY IV 07/04/24 13:00 Diagnostic Test (Pha) 1 strip Q6HR 07/05/24 00:00 07/12/24 19:24 Insulin Human Regular FOLLOW SLIDING SCALE Q6HR SC 07/05/24 00:00 07/12/24 19:24 Dextrose 50 ml UD IV 07/05/24 00:00 Sodium Chloride 10 ml QSHIFT@10,22 IV 07/05/24 22:00 07/12/24 22:26 Acetaminophen/ Hydrocodone Bitart 1 tab Q4HPRN PRN PO 07/07/24 20:15 07/11/24 21:24 Fat Emulsion Intravenous 150 ml/Sodium Chloride 80 meq/ Sodium Phosphate 20 meq/Potassium Chloride 10 meq/ Magnesium Sulfate 16 meq/ Multivitamins 10 ml/Chromium/ Copper/Manganese/ Zinc 1 ml/Insulin Human Regular 2 units/Amino Acids/ Dextrose/Purified Water 1,345.02 ml @ 56 mls/hr Q24H2M IV 07/10/24 22:00 07/11/24 21:59 Cancel Midazolam HCl 50 ml @ 1 mls/hr Q24H IV 07/12/24 10:45 07/12/24 11:05 Fentanyl Citrate 250 ml @ 2.5 mls/hr Q24H IV 07/12/24 10:45 07/12/24 11:30 Hydromorphone HCl 1 mg Q4HPRN PRN IV 07/12/24 10:45 Fat Emulsion Intravenous 100 ml/Sodium Chloride 80 meq/ Sodium Phosphate 30 meq/Potassium Acetate 10 meq/ Magnesium Sulfate 16 meq/ Multivitamins 10 ml/Chromium/ Copper/Manganese/ Zinc 1 ml/Insulin Human Regular 4 units/Amino Acids/ Dextrose/Purified Water 1,347.54 ml @ 56 mls/hr Q24H4M IV 07/12/24 22:00 07/13/24 21:59 07/12/24 22:00 Potassium Chloride/Dextrose/ Sod Cl 1,000 ml @ 100 mls/hr Q10H IV 07/12/24 22:30 Docusate Sodium 100 mg BID GT 07/12/24 23:00 objective Gen.: Patient lying in bed in medical ICU. Sedated, intubated on mechanical ventilator. Head: Normocephalic, atraumatic. Eyes: PERRLA. Ears: Normal external anatomy. Throat: Endotracheal tube and orogastric tube in place. Neck: Supple, trachea midline. Chest: Transmitted breath sounds bilaterally. Decreased air entry bilaterally. No wheezing. Bibasilar crackles. Cardiovascular: Positive S1, positive S2. Regular rate and rhythm. Abdomen: Positive bowel sounds in all 4 quadrants. Soft, nontender, nondistended. : Cespedes in place. Normal external genitalia. Rectal: Deferred. Skin: Warm, dry. Intact. Extremities: 2+ radial pulses bilaterally. No lower extremity edema. Neuro: Sedated. laboratory and microbiology Laboratory Tests 07/12/24 14:47 07/12/24 05:02 Test 07/12/24 05:02 Range/Units Serum Glucose 175 H 74-106 mg/dL Assessment/Plan Impression: Acute hypoxic respiratory failure on mechanical ventilator Loculated pleural effusion, right Atelectasis Shock, possible sepsis Pneumonia likely gram negative S/p decortication, right lung Empyema Events: s/p intubation on mechanical ventilator. AC mode with RR 14, VT 500, PEEP 5, FiO2 of 50% Sedated on Versed, Fentanyl. Patient is s/p decortication surgery Chest tube in place d/t empyema. Monitor chest tube output - 375 ml serosanguineous fluid drained Monitor renal function Monitor electrolytes. Supplement as necessary. Monitor ins and outs. TPN for nutritional support Continue bronchodilators PRN Continue antibiotics Labs and imaging reviewed. Rest of plan as noted below. Plan: s/p intubation on mechanical ventilator. AC mode with RR 14, VT 500, PEEP 5, FiO2 of 50% Sedated on Versed, Fentanyl. Pressors if necessary for hemodynamic support Titrate to keep mean arterial pressure greater than 65 mmHg. Bronchodilators PRN Antibiotics Incentive spirometry Pain control Avoid oversedation CT chest showing moderate-sized loculated right pleural effusion w/ surrounding pleural thickening and adjacent alveolar and interstitial opacities. A 2.6 cm lytic lesion in the medial aspect of the right 9th rib at the costochondral junction with full-thickness loss of the bone and overlying anterior and posterior cortices. See report for full details. Pt underwent right chest tube placement d/t loculated pleural effusion. Plan for tPA course to mobilize pleural fluid. S/p two doses of Alteplase S/p decortication surgery Deemed to be high risk from cardiology standpoint - EF of 20% Cardiology recommendations appreciated. Off pressors, hemodynamically stable. Monitor renal function. Monitor electrolytes. Supplement as necessary. Monitor ins and outs. DVT prophylaxis. Prognosis: Poor given patient's multiple co-morbidities. Rest of plan per hospitalist and other consultants. Thank you Dr. Maulik Chavira MD, for allowing me to participate in this patient's care. Further recommendations will depend on the patient's clinical course. Please do not hesitate to contact me if you have any questions or concerns. This medical document was created using an electronic medical record system with [employer] system. Although these documentations are being carefully reviewed, there may still be some phonetic and typographical changes. The errors are purely typographical, due to imperfection on the software program, and do not reflect any compromise in the patient's medical care. Dietary Evaluation Review Comments: encourage and monitor PO feedings to meet 75% of his needs. continue preasent plan of care: regular diet nutrition supplements with clinimix and ensure hi protein. may consider a 2GNA Diet with low fat Low cholesterol retriction if he has elevated lipid profile. Expected Outcomes/Goals: improved physical strength, gradual weight gain. Plan discussed with: Other (IBETH Nesbitt) Critical Care Time(min): 35 VALERI BRANTLEY MD Jul 12, 2024 23:28
[2024-07-12] MEDS: D5W/SOD CHL 0.45%/KCL 20MEQ 1,000 ML IV SCH (23:38)
[2024-07-13] VITALS (113 sets, daily range): BP systolic 86–131; BP diastolic 22–73; PULSE 81–97; RESP 12–25; TEMP 98.6–100.6; O2SAT 92–100
[2024-07-13] MEDS: PHENYLEPHRINE IV 250 ML IV SCH (01:45)
[2024-07-13 01:46] LABS: Basophils # (auto) 0.1 10 ^3/uL (0-0.2); Eosinophils # (auto) 0.1 10 ^3/uL (0-0.8); Eosinophils % (auto) 0.5 % (0.0-7.0); Hematocrit 23.7 % (41.0-53.0)
[2024-07-13 01:48] LABS: Basophils % (auto) 0.6 % (0.0-2.0); Hemoglobin 7.5 g/dL (13.5-17.5); Lymphocytes # (auto) 0.9 10 ^3/uL (0.4-5.4); Lymphocytes % (auto) 7.1 % (10.0-50.0); Mean Corpuscular Hemoglobin 26.7 pg (28.0-32.0); Mean Corpuscular Hgb Conc. 31.6 g/dL (32.0-36.0); Mean Corpuscular Volume 84.7 fL (80.0-100.0); Monocytes # (auto) 1.5 10 ^3/uL (0-1.3); Monocytes % (auto) 11.7 % (0.0-12.0); Neutrophils # (auto) 10.1 10 ^3/uL (1.6-8.6); Neutrophils % (auto) 80.1 % (37.0-80.0); Platelet Count (auto) 286 10^3/uL (140-450); Red Cell Distribution Width 17.5 % (11.8-14.3); White Blood Cell 12.7 10^3/uL (4.4-10.8)
--- NOTE | 2024-07-13 05:38 | DVH ---
CHEST RADIOGRAPH Indication: Ventilated Technique: Single frontal view of the chest was obtained Comparison: XY CHEST PORTABLE on DOS: 07/12/24, XY CHEST PORTABLE on DOS: 07/10/24, XY CHEST XRAY 1 VIEW on DOS: 07/04/24 IMPRESSION: Heart is prominent size. Support lines and tubes appear unchanged in position. Right basilar pneumo thorax appear similar with right chest tube. Airspace opacities and atelectasis in the right lower l sheryl persist. Increased subcutaneous emphysema along the right chest wall.
[2024-07-13 06:15] LABS: Basophils # (auto) 0.1 10 ^3/uL (0-0.2); Basophils % (auto) 0.5 % (0.0-2.0); Eosinophils # (auto) 0.1 10 ^3/uL (0-0.8); Eosinophils % (auto) 0.5 % (0.0-7.0); Hemoglobin 8.8 g/dL (13.5-17.5); Lymphocytes # (auto) 1.1 10 ^3/uL (0.4-5.4); Lymphocytes % (auto) 5.5 % (10.0-50.0); Mean Corpuscular Hemoglobin 26.8 pg (28.0-32.0); Mean Corpuscular Hgb Conc. 31.4 g/dL (32.0-36.0); Mean Corpuscular Volume 85.3 fL (80.0-100.0); Monocytes # (auto) 2.8 10 ^3/uL (0-1.3); Monocytes % (auto) 14.4 % (0.0-12.0); Neutrophils # (auto) 15.4 10 ^3/uL (1.6-8.6); Neutrophils % (auto) 79.1 % (37.0-80.0); Platelet Count (auto) 426 10^3/uL (140-450); Red Blood Cells 3.28 10^6/uL (4.5-5.90); Red Cell Distribution Width 16.8 % (11.8-14.3); White Blood Cell 19.5 10^3/uL (4.4-10.8)
[2024-07-13 06:38] LABS: Anion Gap 5 (5-15); Aspartate Aminotransferase 37 U/L (13-40); BUN/Creatinine Ratio 36.1 (10.0-20.0); Calcium 8.7 mg/dL (8.7-10.4); Carbon Dioxide 27 mmol/L (20-31); Chloride 106 mmol/L (98-107); Magnesium 2.2 mg/dL (1.6-2.6); Phosphorus 2.9 mg/dL (2.4-5.1); Sodium 138 mmol/L (136-145)
[2024-07-13 06:39] LABS: Alanine Aminotransferase 82 U/L (7-40); Albumin 2.9 g/dL (3.2-4.8); Alkaline Phosphatase 266 U/L (46-116); Bilirubin, Total 1.9 mg/dL (0.2-1.0); Blood Urea Nitrogen 26 mg/dL (9-23); Glucose 205 mg/dL (74-106); Total Protein 4.7 g/dL (5.7-8.2)
--- NOTE | 2024-07-13 08:32 | DVHPN2 ---
Progress Note Date Seen: Jul 13, 2024 Medical Necessity Reason Pt with a Central, PICC or Fol: Yes The following are medically ne: PICC Line Objective vital signs Vital Sign Date Time Temp Pulse Resp B/P (MAP) Pulse Ox O2 Delivery O2 Flow Rate FiO2 07/13/24 07:52 87 17 115/52 (73) 97 30 07/13/24 06:14 Mechanical Ventilator+ 07/13/24 04:00 99.9 99.9 Total Intake and Output 07/12/24 07/12/24 07/13/24 15:00 23:00 07:00 Intake Total 1108 ml 2655.5 ml Output Total 125 ml 800 ml 475 ml Balance -125 ml 308 ml 2180.5 ml medications Current Medications Medications Dose Ordered Sig/Anderson Route Start Time Stop Time Status Last Admin Dose Admin Ondansetron HCl 4 mg Q4HP PRN IV 06/28/24 14:45 Acetaminophen 650 mg Q6HP PRN PO 06/28/24 14:45 07/12/24 20:44 650 MG Nitroglycerin 0.4 mg Q5MINP PRN SL 06/28/24 14:45 Sennosides 8.6 mg QID PRN PO 06/30/24 11:00 06/30/24 17:25 8.6 MG Ceftriaxone Sodium 50 ml @ 100 mls/hr DAILY@09 IV 07/03/24 13:00 07/11/24 08:18 100 MLS/HR Azithromycin 500 mg DAILY PO 07/04/24 10:00 07/11/24 08:19 500 MG Enteral Nutritional Formula 240 ml TIDWM PO 07/04/24 12:00 07/11/24 17:52 240 ML Amino Acids 0 ml @ 0 mls/hr PER PHARMACY IV 07/04/24 13:00 Diagnostic Test (Pha) 1 strip Q6HR 07/05/24 00:00 07/13/24 05:36 1 STRIP Insulin Human Regular FOLLOW SLIDING SCALE Q6HR SC 07/05/24 00:00 07/13/24 05:36 4 UNITS Dextrose 50 ml UD IV 07/05/24 00:00 Sodium Chloride 10 ml QSHIFT@10,22 IV 07/05/24 22:00 07/12/24 22:26 10 ML Acetaminophen/ Hydrocodone Bitart 1 tab Q4HPRN PRN PO 07/07/24 20:15 07/11/24 21:24 1 TAB Fat Emulsion Intravenous 150 ml/Sodium Chloride 80 meq/ Sodium Phosphate 20 meq/Potassium Chloride 10 meq/ Magnesium Sulfate 16 meq/ Multivitamins 10 ml/Chromium/ Copper/Manganese/ Zinc 1 ml/Insulin Human Regular 2 units/Amino Acids/ Dextrose/Purified Water 1,345.02 ml @ 56 mls/hr Q24H2M IV 07/10/24 22:00 07/11/24 21:59 Cancel Midazolam HCl 50 ml @ 1 mls/hr Q24H IV 07/12/24 10:45 07/13/24 06:37 5 MLS/HR Fentanyl Citrate 250 ml @ 2.5 mls/hr Q24H IV 07/12/24 10:45 07/12/24 11:30 2.5 MLS/HR Hydromorphone HCl 1 mg Q4HPRN PRN IV 07/12/24 10:45 Fat Emulsion Intravenous 100 ml/Sodium Chloride 80 meq/ Sodium Phosphate 30 meq/Potassium Acetate 10 meq/ Magnesium Sulfate 16 meq/ Multivitamins 10 ml/Chromium/ Copper/Manganese/ Zinc 1 ml/Insulin Human Regular 4 units/Amino Acids/ Dextrose/Purified Water 1,347.54 ml @ 56 mls/hr Q24H4M IV 07/12/24 22:00 07/13/24 21:59 07/12/24 22:00 56 MLS/HR Potassium Chloride/Dextrose/ Sod Cl 1,000 ml @ 100 mls/hr Q10H IV 07/12/24 22:30 07/12/24 23:38 100 MLS/HR Docusate Sodium 100 mg BID GT 07/12/24 23:00 07/12/24 23:00 100 MG Phenylephrine HCl 250 ml @ 30 mls/hr Q8H20M IV 07/13/24 01:15 07/13/24 05:26 67.5 MLS/HR laboratory and microbiology Laboratory Tests 07/13/24 06:00 Test 07/13/24 06:00 Range/Units Serum Glucose 205 H 74-106 mg/dL Problem List/Assessment/Plan Problem List/Assessment/Plan 07/13/24 NEEDED INCREASED IV FLUID INTAKE AND BP SUPPORT RX DUE TO HYPOTENSION, BP NOW 117/62,HEART RATE 75,OCCASIONAL PVC, CHEST TUBE WITH MINIMAL AIR LEAK AND SOME SUBCUTANEOUS EMPHYSEMA IS PRESENT ALONG THE LATERAL RIGHT CHEST WALL, CXR WITH SMALL PNEUMOTHORAX AND STABLE LUNG APPEARANCE, "SURGICALLY" STABLE. HAVE CALLED TO GIVE AN UPDATE. KEEP INTUBATED NEXT 72 HOURS. Plan discussed with: Spouse, Other Dietary Evaluation Review Comments: encourage and monitor PO feedings to meet 75% of his needs. continue preasent plan of care: regular diet nutrition supplements with clinimix and ensure hi protein. may consider a 2GNA Diet with low fat Low cholesterol retriction if he has elevated lipid profile. Expected Outcomes/Goals: improved physical strength, gradual weight gain. JACE KRISHNA MD Jul 13, 2024 08:32
[2024-07-13] MEDS: ALBUMIN 25% 50 ML IV ONE (10:12)
[2024-07-13] MEDS: D5W/SOD CHL 0.45% 1,000 ML IV SCH (10:46)
[2024-07-13] MEDS: PHENYLEPHRINE IV 250 ML IV ONE (12:53)
[2024-07-13] MEDS: PHENYLEPHRINE INJ 80 MG in SODIUM CHL 0.9% 242 ML IV SCH (13:07)
--- NOTE | 2024-07-13 16:15 | DVHPN2 ---
Subjective Overnight events noted. Patient is status post thoracotomy and decortication of the right lung with a parietal pleurectomy postop day one.. Reviewed: Care Plan Changes from previous H/P or p: Changes Objective Vitals Vital Signs Date Time Temp Pulse Resp B/P (MAP) Pulse Ox O2 Delivery O2 Flow Rate FiO2 07/13/24 14:30 94 16 98/30 (52) 93 07/13/24 14:16 30 07/13/24 14:13 100.0 07/13/24 08:00 Mechanical Ventilator+ Intake/Output Intake and Output 07/13/24 07:00 Intake Total 3763.5 ml Output Total 1400 ml Balance 2363.5 ml IV Total 2863.5 ml Blood Product 300 ml Other 600 ml Output Urine Total 1100 ml Stool Total 0 ml Chest Tube Drainage Total 175 ml Drainage Total 125 ml Exam HEENT pupils are reactive Neck is supple CV is S1-S2 regular rate and rhythm Respiratory diminished breath sounds right lung base GI positive bowel sound Extremity no edema [employer]ING [employer]QU[employer]MENT [employer] intubated and sedated Medications Current Medications Medications Dose Ordered Sig/Anderson Route Start Time Stop Time Status Last Admin Dose Admin Ondansetron HCl 4 mg Q4HP PRN IV 06/28/24 14:45 Acetaminophen 650 mg Q6HP PRN PO 06/28/24 14:45 07/13/24 13:13 650 MG Nitroglycerin 0.4 mg Q5MINP PRN SL 06/28/24 14:45 Sennosides 8.6 mg QID PRN PO 06/30/24 11:00 06/30/24 17:25 8.6 MG Ceftriaxone Sodium 50 ml @ 100 mls/hr DAILY@09 IV 07/03/24 13:00 07/13/24 09:28 100 MLS/HR Azithromycin 500 mg DAILY PO 07/04/24 10:00 07/13/24 15:02 500 MG Amino Acids 0 ml @ 0 mls/hr PER PHARMACY IV 07/04/24 13:00 Diagnostic Test (Pha) 1 strip Q6HR 07/05/24 00:00 07/13/24 12:23 1 STRIP Insulin Human Regular FOLLOW SLIDING SCALE Q6HR SC 07/05/24 00:00 07/13/24 12:23 4 UNITS Dextrose 50 ml UD IV 07/05/24 00:00 Sodium Chloride 10 ml QSHIFT@ IV 07/05/24 22:00 07/13/24 11:01 10 ML Acetaminophen/ Hydrocodone Bitart 1 tab Q4HPRN PRN PO 07/07/24 20:15 07/11/24 21:24 1 TAB Fat Emulsion Intravenous 150 ml/Sodium Chloride 80 meq/ Sodium Phosphate 20 meq/Potassium Chloride 10 meq/ Magnesium Sulfate 16 meq/ Multivitamins 10 ml/Chromium/ Copper/Manganese/ Zinc 1 ml/Insulin Human Regular 2 units/Amino Acids/ Dextrose/Purified Water 1,345.02 ml @ 56 mls/hr Q24H2M IV 07/10/24 22:00 07/11/24 21:59 Cancel Midazolam HCl 50 ml @ 1 mls/hr Q24H IV 07/12/24 10:45 07/13/24 06:37 5 MLS/HR Fentanyl Citrate 250 ml @ 2.5 mls/hr Q24H IV 07/12/24 10:45 07/12/24 11:30 2.5 MLS/HR Hydromorphone HCl 1 mg Q4HPRN PRN IV 07/12/24 10:45 Fat Emulsion Intravenous 100 ml/Sodium Chloride 80 meq/ Sodium Phosphate 30 meq/Potassium Acetate 10 meq/ Magnesium Sulfate 16 meq/ Multivitamins 10 ml/Chromium/ Copper/Manganese/ Zinc 1 ml/Insulin Human Regular 4 units/Amino Acids/ Dextrose/Purified Water 1,347.54 ml @ 56 mls/hr Q24H4M IV 07/12/24 22:00 07/13/24 21:59 07/12/24 22:00 56 MLS/HR Docusate Sodium 100 mg BID GT 07/12/24 23:00 07/13/24 10:53 100 MG Fat Emulsion Intravenous 150 ml/Sodium Chloride 60 meq/ Sodium Phosphate 40 meq/Magnesium Sulfate 16 meq/ Multivitamins 10 ml/Insulin Human Regular 4 units/ Amino Acids/ Dextrose/Purified Water 1,539.04 ml @ 64 mls/hr Q24H3M IV 07/13/24 22:00 07/14/24 21:59 Dextrose/Sodium Chloride 1,000 ml @ 100 mls/hr Q10H IV 07/13/24 10:30 07/13/24 10:46 100 MLS/HR Phenylephrine HCl 80 mg/Sodium Chloride 250 ml @ 7.5 mls/hr Q24H IV 07/13/24 11:00 07/13/24 13:07 16.875 MLS/HR Laboratory Results Laboratory Tests 07/13/24 06:00 Chemistry Test 07/13/24 06:00 Albumin 2.9 g/dL (3.2-4.8) L Calcium Level 8.7 mg/dL (8.7-10.4) Magnesium Level 2.2 mg/dL (1.6-2.6) Phosphorus Level 2.9 mg/dL (2.4-5.1) Total Protein 4.7 g/dL (5.7-8.2) L LFT Test 07/13/24 06:00 Alanine Aminotransferase (ALT) 82 U/L (7-40) H Alkaline Phosphatase 266 U/L (46-116) H Aspartate Amino Transferase (AST) 37 U/L (13-40) Total Bilirubin 1.9 mg/dL (0.2-1.0) H Urinalysis Test 06/29/24 01:10 Urine Color Yellow (Yellow) Urine Clarity Clear (Clear) Urine pH 5.5 (5.0-9.0) Urine Specific [place] 1.032 (1.001-1.035) Urine Protein Trace (Negative) H Urine Ketones Trace (Negative) Urine Blood Negative /uL (Negative) Urine Nitrite Negative (Negative) Urine Bilirubin Negative (Negative) Urine Urobilinogen 2 mg/dL (Negative) H Urine Leukocyte Esterase Negative /uL (Negative) Urine RBC 1 /hpf (0 - 3) Urine WBC <1 /hpf (0 - 3) Urine Squamous Epithelial Cells None seen /hpf (<5) Urine Bacteria None seen /hpf (None Seen) Urine Hyaline Casts Mod /lpf (0 - 2) Urine Mucus Few (None Seen) Urine Glucose Normal mg/dL (Normal) Blood Gas Results Test 07/13/24 07:40 Arterial Blood pH 7.351 (7.350-7.450) FiO2 % 30.0 Microbiology Microbiology Date/Time Source Procedure Growth Status 07/12/24 11:17 Trachea Gram Stain - Final Resulted 07/12/24 11:17 Trachea Respiratory Culture - Preliminary Resulted Assessment/Plan Assessment/Plan 78-year-old male with a known history of Hodgkin's lymphoma initially presented to the hospital with a hypoxia found to have 1. Acute hypoxic respiratory failure currently status post intubation after the surgery 2. Loculated Right-sided pleural effusiont status post chest tube placement, status post chest tube removal, status post thoracotomy and decortication of the right lung with a parietal pleurectomy postop day one 3. History of recurrent pneumonia 4. Lytic lesion 9th rib rule out malignancy 5. Acute CHF exacerbation with a possible systolic dysfunction 6. Coronary artery disease status post PCI 7. 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
[2024-07-13] MEDS: ENOXAPARIN SOD 40 MG/0.4 ML SYRINGE SC SCH (17:39)
[2024-07-13] MEDS: TPN PER PHARMACY IV NR (21:32)
--- NOTE | 2024-07-13 22:36 | DVHPN2 ---
Progress Note - Dictate Date Seen: Jul 13, 2024 Medical Necessity Reason Pt with a Central, PICC or Fol: Yes The following are medically ne: PICC Line Subjective Patient seen and examined at bedside. Sedated, intubated on mechanical ventilator. Overnight events reviewed. vital signs Vital Sign Date Time Temp Pulse Resp B/P (MAP) Pulse Ox O2 Delivery O2 Flow Rate FiO2 07/13/24 22:00 14 97 Mechanical Ventilator+ 30 30 07/13/24 22:00 85 07/13/24 22:00 86/62 (70) 07/13/24 19:15 98.6 98.6 Total Intake and Output 07/12/24 07/12/24 07/13/24 15:00 23:00 07:00 Intake Total 1108 ml 2655.5 ml Output Total 125 ml 800 ml 475 ml Balance -125 ml 308 ml 2180.5 ml medications Current Medications Medications Dose Ordered Sig/Anderson Route Start Time Stop Time Status Last Admin Dose Admin Ondansetron HCl 4 mg Q4HP PRN IV 06/28/24 14:45 Acetaminophen 650 mg Q6HP PRN PO 06/28/24 14:45 07/13/24 13:13 650 MG Nitroglycerin 0.4 mg Q5MINP PRN SL 06/28/24 14:45 Sennosides 8.6 mg QID PRN PO 06/30/24 11:00 06/30/24 17:25 8.6 MG Ceftriaxone Sodium 50 ml @ 100 mls/hr DAILY@09 IV 07/03/24 13:00 07/13/24 09:28 100 MLS/HR Azithromycin 500 mg DAILY PO 07/04/24 10:00 07/13/24 15:02 500 MG Amino Acids 0 ml @ 0 mls/hr PER PHARMACY IV 07/04/24 13:00 Diagnostic Test (Pha) 1 strip Q6HR 07/05/24 00:00 07/13/24 18:19 1 STRIP Insulin Human Regular FOLLOW SLIDING SCALE Q6HR SC 07/05/24 00:00 07/13/24 18:20 4 UNITS Dextrose 50 ml UD IV 07/05/24 00:00 Sodium Chloride 10 ml QSHIFT@10,22 IV 07/05/24 22:00 07/13/24 21:57 10 ML Acetaminophen/ Hydrocodone Bitart 1 tab Q4HPRN PRN PO 07/07/24 20:15 07/11/24 21:24 1 TAB Fat Emulsion Intravenous 150 ml/Sodium Chloride 80 meq/ Sodium Phosphate 20 meq/Potassium Chloride 10 meq/ Magnesium Sulfate 16 meq/ Multivitamins 10 ml/Chromium/ Copper/Manganese/ Zinc 1 ml/Insulin Human Regular 2 units/Amino Acids/ Dextrose/Purified Water 1,345.02 ml @ 56 mls/hr Q24H2M IV 07/10/24 22:00 07/11/24 21:59 Cancel Midazolam HCl 50 ml @ 1 mls/hr Q24H IV 07/12/24 10:45 07/13/24 18:29 5 MLS/HR Fentanyl Citrate 250 ml @ 2.5 mls/hr Q24H IV 07/12/24 10:45 07/13/24 16:39 7.5 MLS/HR Hydromorphone HCl 1 mg Q4HPRN PRN IV 07/12/24 10:45 Docusate Sodium 100 mg BID GT 07/12/24 23:00 07/13/24 21:31 100 MG Fat Emulsion Intravenous 150 ml/Sodium Chloride 60 meq/ Sodium Phosphate 40 meq/Magnesium Sulfate 16 meq/ Multivitamins 10 ml/Insulin Human Regular 4 units/ Amino Acids/ Dextrose/Purified Water 1,539.04 ml @ 64 mls/hr Q24H3M IV 07/13/24 22:00 07/14/24 21:59 07/13/24 21:32 64 MLS/HR Dextrose/Sodium Chloride 1,000 ml @ 100 mls/hr Q10H IV 07/13/24 10:30 07/13/24 20:36 100 MLS/HR Phenylephrine HCl 80 mg/Sodium Chloride 250 ml @ 7.5 mls/hr Q24H IV 07/13/24 11:00 07/13/24 13:07 16.875 MLS/HR Enoxaparin Sodium 40 mg DAILY SC 07/13/24 16:15 07/13/24 17:39 40 MG objective Gen.: Patient lying in bed in medical ICU. Sedated, intubated on mechanical ventilator. Head: Normocephalic, atraumatic. Eyes: PERRLA. Ears: Normal external anatomy. Throat: Endotracheal tube and orogastric tube in place. Neck: Supple, trachea midline. Chest: Transmitted breath sounds bilaterally. Decreased air entry bilaterally. No wheezing. Bibasilar crackles. Cardiovascular: Positive S1, positive S2. Regular rate and rhythm. Abdomen: Positive bowel sounds in all 4 quadrants. Soft, nontender, nondistended. : Cespedes in place. Normal external genitalia. Rectal: Deferred. Skin: Warm, dry. Intact. Extremities: 2+ radial pulses bilaterally. No lower extremity edema. Neuro: Sedated. laboratory and microbiology Laboratory Tests 07/13/24 06:00 Test 07/13/24 06:00 Range/Units Serum Glucose 205 H 74-106 mg/dL Assessment/Plan Impression: Acute hypoxic respiratory failure on mechanical ventilator Loculated pleural effusion, right Atelectasis Shock, possible sepsis Pneumonia likely gram negative S/p decortication, right lung Empyema Events: s/p intubation on mechanical ventilator. AC mode with RR 14, VT 500, PEEP 5, FiO2 of 30% Improved O2 requirements Sedated on Versed, Fentanyl. Patient is s/p decortication surgery Chest tube in place d/t empyema. Monitor chest tube output - 190 ml serosanguineous fluid drained On pressors for hemodynamic support. On Rupert-Synephrine at 90 micrograms/minute. Monitor renal function Monitor electrolytes. Supplement as necessary. Monitor ins and outs. TPN for nutritional support Continue bronchodilators PRN Continue antibiotics Labs and imaging reviewed. Rest of plan as noted below. Plan: s/p intubation on mechanical ventilator. AC mode with RR 14, VT 500, PEEP 5, FiO2 of 30% Sedated on Versed, Fentanyl. Pressors if necessary for hemodynamic support Titrate to keep mean arterial pressure greater than 65 mmHg. Bronchodilators PRN Antibiotics Incentive spirometry Pain control Avoid oversedation CT chest showing moderate-sized loculated right pleural effusion w/ surrounding pleural thickening and adjacent alveolar and interstitial opacities. A 2.6 cm lytic lesion in the medial aspect of the right 9th rib at the costochondral junction with full-thickness loss of the bone and overlying anterior and posterior cortices. See report for full details. Pt underwent right chest tube placement d/t loculated pleural effusion. Plan for tPA course to mobilize pleural fluid. S/p two doses of Alteplase S/p decortication surgery Deemed to be high risk from cardiology standpoint - EF of 20% Cardiology recommendations appreciated. Off pressors, hemodynamically stable. Monitor renal function. Monitor electrolytes. Supplement as necessary. Monitor ins and outs. DVT prophylaxis. Prognosis: Poor given patient's multiple co-morbidities. Rest of plan per hospitalist and other consultants. Thank you Dr. Maulik Chavira MD, for allowing me to participate in this patient's care. Further recommendations will depend on the patient's clinical course. Please do not hesitate to contact me if you have any questions or concerns. This medical document was created using an electronic medical record system with [employer] dictation system. Although these documentations are being carefully reviewed, there may still be some phonetic and typographical changes. The errors are purely typographical, due to imperfection on the software program, and do not reflect any compromise in the patient's medical care. Dietary Evaluation Review Comments: encourage and monitor PO feedings to meet 75% of his needs. continue preasent plan of care: regular diet nutrition supplements with clinimix and ensure hi protein. may consider a 2GNA Diet with low fat Low cholesterol retriction if he has elevated lipid profile. Expected Outcomes/Goals: improved physical strength, gradual weight gain. Plan discussed with: Other (IBETH Shah, RT, ) Critical Care Time(min): 35 VALERI BRANTLEY MD Jul 13, 2024 22:36
[2024-07-14] VITALS (96 sets, daily range): BP systolic 83–120; BP diastolic 26–61; PULSE 73–89; RESP 9–24; TEMP 98.6–100; O2SAT 94–100
[2024-07-14 05:10] LABS: Anion Gap 5 (5-15); Aspartate Aminotransferase 27 U/L (13-40); BUN/Creatinine Ratio 35.8 (10.0-20.0); Carbon Dioxide 24 mmol/L (20-31); Chloride 105 mmol/L (98-107); Magnesium 2.3 mg/dL (1.6-2.6); Phosphorus 3.1 mg/dL (2.4-5.1); Potassium 4.5 mmol/L (3.5-5.1)
[2024-07-14 05:13] LABS: Alanine Aminotransferase 50 U/L (7-40); Albumin 2.7 g/dL (3.2-4.8); Alkaline Phosphatase 220 U/L (46-116); Bilirubin, Total 1.7 mg/dL (0.2-1.0); Blood Urea Nitrogen 24 mg/dL (9-23); Calcium 8.5 mg/dL (8.7-10.4); Glucose 270 mg/dL (74-106); Sodium 134 mmol/L (136-145); Total Protein 4.5 g/dL (5.7-8.2)
--- NOTE | 2024-07-14 06:13 | DVH ---
CHEST RADIOGRAPH Indication: vented and chest tube Technique: Single frontal view of the chest was obtained COMPARISON: XY CHEST PORTABLE on DOS: 07/13/24, XY CHEST PORTABLE on DOS: 07/12/24, XY CHEST PORTABLE on DOS: 07/10/24, XY CHEST XRAY 1 VIEW on DOS: 07/04/24, XY CHEST PORTABLE on DOS: 07/03/24 FINDINGS: Lines and Tubes: Endotracheal tube, enteric catheter and right PICC in satisfactory position. Right c hest tube in satisfactory position. Lungs: Right mid and lower lung airspace disease. Diffuse congestion. Pleura: No effusion. No pneumothorax. Cardiomediastinal contours: Cardiomegaly Bones: Unremarkable IMPRESSION: Lines and tubes in satisfactory position. No significant interval change.
[2024-07-14 08:32] LABS: Eosinophils # (auto) 0.2 10 ^3/uL (0-0.8); Hemoglobin 7.8 g/dL (13.5-17.5); Mean Corpuscular Hemoglobin 27.3 pg (28.0-32.0); Monocytes # (auto) 2.7 10 ^3/uL (0-1.3)
[2024-07-14 08:35] LABS: Basophils # (auto) 0.2 10 ^3/uL (0-0.2); Basophils % (auto) 0.9 % (0.0-2.0); Eosinophils % (auto) 0.6 % (0.0-7.0); Hematocrit 25.6 % (41.0-53.0); Lymphocytes # (auto) 1.6 10 ^3/uL (0.4-5.4); Lymphocytes % (auto) 6.3 % (10.0-50.0); Mean Corpuscular Hgb Conc. 30.4 g/dL (32.0-36.0); Mean Corpuscular Volume 89.8 fL (80.0-100.0); Monocytes % (auto) 10.9 % (0.0-12.0); Neutrophils # (auto) 20.1 10 ^3/uL (1.6-8.6); Neutrophils % (auto) 81.3 % (37.0-80.0); Platelet Count (auto) 380 10^3/uL (140-450); Red Blood Cells 2.85 10^6/uL (4.5-5.90); Red Cell Distribution Width 17.8 % (11.8-14.3); White Blood Cell 24.7 10^3/uL (4.4-10.8)
--- NOTE | 2024-07-14 09:00 | DVHPN2 ---
Progress Note Date Seen: Jul 14, 2024 Medical Necessity Reason Pt with a Central, PICC or Fol: Yes The following are medically ne: PICC Line Objective vital signs Vital Sign Date Time Temp Pulse Resp B/P (MAP) Pulse Ox O2 Delivery O2 Flow Rate FiO2 07/14/24 06:32 77 15 117/35 (62) 97 30 07/14/24 06:00 Mechanical Ventilator+ 07/14/24 04:00 98.6 98.6 Total Intake and Output 07/13/24 07/13/24 07/14/24 15:00 23:00 07:00 Intake Total 1886.11 ml 1518.61 ml 1439.502 ml Output Total 565 ml 490 ml Balance 1886.11 ml 953.61 ml 949.502 ml medications Current Medications Medications Dose Ordered Sig/Adnerson Route Start Time Stop Time Status Last Admin Dose Admin Ondansetron HCl 4 mg Q4HP PRN IV 06/28/24 14:45 Acetaminophen 650 mg Q6HP PRN PO 06/28/24 14:45 07/13/24 13:13 650 MG Nitroglycerin 0.4 mg Q5MINP PRN SL 06/28/24 14:45 Sennosides 8.6 mg QID PRN PO 06/30/24 11:00 06/30/24 17:25 8.6 MG Ceftriaxone Sodium 50 ml @ 100 mls/hr DAILY@09 IV 07/03/24 13:00 07/13/24 09:28 100 MLS/HR Azithromycin 500 mg DAILY PO 07/04/24 10:00 07/13/24 15:02 500 MG Amino Acids 0 ml @ 0 mls/hr PER PHARMACY IV 07/04/24 13:00 Diagnostic Test (Pha) 1 strip Q6HR 07/05/24 00:00 07/14/24 06:08 1 STRIP Insulin Human Regular FOLLOW SLIDING SCALE Q6HR SC 07/05/24 00:00 07/14/24 06:09 4 UNITS Dextrose 50 ml UD IV 07/05/24 00:00 Sodium Chloride 10 ml QSHIFT@10, IV 07/05/24 22:00 07/13/24 21:57 10 ML Acetaminophen/ Hydrocodone Bitart 1 tab Q4HPRN PRN PO 07/07/24 20:15 07/11/24 21:24 1 TAB Fat Emulsion Intravenous 150 ml/Sodium Chloride 80 meq/ Sodium Phosphate 20 meq/Potassium Chloride 10 meq/ Magnesium Sulfate 16 meq/ Multivitamins 10 ml/Chromium/ Copper/Manganese/ Zinc 1 ml/Insulin Human Regular 2 units/Amino Acids/ Dextrose/Purified Water 1,345.02 ml @ 56 mls/hr Q24H2M IV 07/10/24 22:00 07/11/24 21:59 Cancel Midazolam HCl 50 ml @ 1 mls/hr Q24H IV 07/12/24 10:45 07/14/24 04:23 5 MLS/HR Fentanyl Citrate 250 ml @ 2.5 mls/hr Q24H IV 07/12/24 10:45 07/13/24 16:39 7.5 MLS/HR Hydromorphone HCl 1 mg Q4HPRN PRN IV 07/12/24 10:45 Docusate Sodium 100 mg BID GT 07/12/24 23:00 07/13/24 21:31 100 MG Fat Emulsion Intravenous 150 ml/Sodium Chloride 60 meq/ Sodium Phosphate 40 meq/Magnesium Sulfate 16 meq/ Multivitamins 10 ml/Insulin Human Regular 4 units/ Amino Acids/ Dextrose/Purified Water 1,539.04 ml @ 64 mls/hr Q24H3M IV 07/13/24 22:00 07/14/24 21:59 07/13/24 21:32 64 MLS/HR Dextrose/Sodium Chloride 1,000 ml @ 100 mls/hr Q10H IV 07/13/24 10:30 07/14/24 06:30 100 MLS/HR Phenylephrine HCl 80 mg/Sodium Chloride 250 ml @ 7.5 mls/hr Q24H IV 07/13/24 11:00 07/14/24 01:41 21.563 MLS/HR Enoxaparin Sodium 40 mg DAILY SC 07/13/24 16:15 07/13/24 17:39 40 MG laboratory and microbiology Laboratory Tests 07/14/24 04:01 Test 07/14/24 04:01 Range/Units Serum Glucose 270 H 74-106 mg/dL Problem List/Assessment/Plan Problem List/Assessment/Plan 07/13/24 NEEDED INCREASED IV FLUID INTAKE AND BP SUPPORT RX DUE TO HYPOTENSION, BP NOW 117/62,HEART RATE 75,OCCASIONAL PVC, CHEST TUBE WITH MINIMAL AIR LEAK AND SOME SUBCUTANEOUS EMPHYSEMA IS PRESENT ALONG THE LATERAL RIGHT CHEST WALL, CXR WITH SMALL PNEUMOTHORAX AND STABLE LUNG APPEARANCE, "SURGICALLY" STABLE. HAVE CALLED TO GIVE AN UPDATE. KEEP INTUBATED NEXT 72 HOURS. 07/14/24 sedated, intubated, leukocytosis, afebrile, BP 128/40,heart rate 81, urine output adequate, cxr slightly improved, no chest tube air leak, at bedside, questions answered Plan discussed with: Spouse Dietary Evaluation Review Comments: encourage and monitor PO feedings to meet 75% of his needs. continue preasent plan of care: regular diet nutrition supplements with clinimix and ensure hi protein. may consider a 2GNA Diet with low fat Low cholesterol retriction if he has elevated lipid profile. Expected Outcomes/Goals: improved physical strength, gradual weight gain. JACE KRISHNA MD Jul 14, 2024 08:59
[2024-07-14 09:34] LABS: Base Excess -3.5 mmol/L (-2.0-3.0)
--- NOTE | 2024-07-14 16:11 | DVHPN2 ---
Subjective Overnight events noted. Patient is status post thoracotomy and decortication of the right lung with a parietal pleurectomy postop day one.. Reviewed: Care Plan Changes from previous H/P or p: No Changes Objective Vitals Vital Signs Date Time Temp Pulse Resp B/P (MAP) Pulse Ox O2 Delivery O2 Flow Rate FiO2 07/14/24 14:15 78 15 115/30 (58) 95 30 07/14/24 06:00 Mechanical Ventilator+ 07/14/24 04:00 98.6 98.6 Intake/Output Intake and Output 07/14/24 07:00 Intake Total 4844.222 ml Output Total 1055 ml Balance 3789.222 ml IV Total 4844.222 ml Output Urine Total 725 ml Chest Tube Drainage Total 330 ml Exam HEENT pupils are reactive Neck is supple CV is S1-S2 regular rate and rhythm Respiratory diminished breath sounds right lung base GI positive bowel sound Extremity no edema H[employer]ER intubated and sedated Medications Current Medications Medications Dose Ordered Sig/Anderson Route Start Time Stop Time Status Last Admin Dose Admin Ondansetron HCl 4 mg Q4HP PRN IV 06/28/24 14:45 Acetaminophen 650 mg Q6HP PRN PO 06/28/24 14:45 07/13/24 13:13 650 MG Nitroglycerin 0.4 mg Q5MINP PRN SL 06/28/24 14:45 Sennosides 8.6 mg QID PRN PO 06/30/24 11:00 06/30/24 17:25 8.6 MG Ceftriaxone Sodium 50 ml @ 100 mls/hr DAILY@09 IV 07/03/24 13:00 07/14/24 11:25 100 MLS/HR Azithromycin 500 mg DAILY PO 07/04/24 10:00 07/14/24 11:18 500 MG Amino Acids 0 ml @ 0 mls/hr PER PHARMACY IV 07/04/24 13:00 Diagnostic Test (Pha) 1 strip Q6HR 07/05/24 00:00 07/14/24 11:23 1 STRIP Insulin Human Regular FOLLOW SLIDING SCALE Q6HR SC 07/05/24 00:00 07/14/24 11:22 2 UNITS Dextrose 50 ml UD IV 07/05/24 00:00 Sodium Chloride 10 ml QSHIFT@ IV 07/05/24 22:00 07/14/24 11:18 10 ML Acetaminophen/ Hydrocodone Bitart 1 tab Q4HPRN PRN PO 07/07/24 20:15 07/11/24 21:24 1 TAB Fat Emulsion Intravenous 150 ml/Sodium Chloride 80 meq/ Sodium Phosphate 20 meq/Potassium Chloride 10 meq/ Magnesium Sulfate 16 meq/ Multivitamins 10 ml/Chromium/ Copper/Manganese/ Zinc 1 ml/Insulin Human Regular 2 units/Amino Acids/ Dextrose/Purified Water 1,345.02 ml @ 56 mls/hr Q24H2M IV 07/10/24 22:00 07/11/24 21:59 Cancel Midazolam HCl 50 ml @ 1 mls/hr Q24H IV 07/12/24 10:45 07/14/24 04:23 5 MLS/HR Fentanyl Citrate 250 ml @ 2.5 mls/hr Q24H IV 07/12/24 10:45 07/13/24 16:39 7.5 MLS/HR Hydromorphone HCl 1 mg Q4HPRN PRN IV 07/12/24 10:45 Docusate Sodium 100 mg BID GT 07/12/24 23:00 07/14/24 11:18 100 MG Fat Emulsion Intravenous 150 ml/Sodium Chloride 60 meq/ Sodium Phosphate 40 meq/Magnesium Sulfate 16 meq/ Multivitamins 10 ml/Insulin Human Regular 4 units/ Amino Acids/ Dextrose/Purified Water 1,539.04 ml @ 64 mls/hr Q24H3M IV 07/13/24 22:00 07/14/24 21:59 07/13/24 21:32 64 MLS/HR Dextrose/Sodium Chloride 1,000 ml @ 100 mls/hr Q10H IV 07/13/24 10:30 07/14/24 06:30 100 MLS/HR Phenylephrine HCl 80 mg/Sodium Chloride 250 ml @ 7.5 mls/hr Q24H IV 07/13/24 11:00 07/14/24 11:15 26.25 MLS/HR Enoxaparin Sodium 40 mg DAILY SC 07/13/24 16:15 07/14/24 11:19 40 MG Fat Emulsion Intravenous 150 ml/Sodium Chloride 80 meq/ Sodium Acetate 20 meq/Sodium Phosphate 20 meq/ Potassium Acetate 20 meq/Magnesium Sulfate 14 meq/ Multivitamins 10 ml/Insulin Human Regular 8 units/ Amino Acids/ Dextrose/Purified Water 1,658.58 ml @ 69 mls/hr Q24H3M IV 07/14/24 22:00 07/15/24 21:59 Laboratory Results Laboratory Tests 07/14/24 04:01 Chemistry Test 07/14/24 04:01 Albumin 2.7 g/dL (3.2-4.8) L Calcium Level 8.5 mg/dL (8.7-10.4) L Magnesium Level 2.3 mg/dL (1.6-2.6) Phosphorus Level 3.1 mg/dL (2.4-5.1) Total Protein 4.5 g/dL (5.7-8.2) L LFT Test 07/14/24 04:01 Alanine Aminotransferase (ALT) 50 U/L (7-40) H Alkaline Phosphatase 220 U/L (46-116) H Aspartate Amino Transferase (AST) 27 U/L (13-40) Total Bilirubin 1.7 mg/dL (0.2-1.0) H Urinalysis Test 06/29/24 01:10 Urine Color Yellow (Yellow) Urine Clarity Clear (Clear) Urine pH 5.5 (5.0-9.0) Urine Specific [place] 1.032 (1.001-1.035) Urine Protein Trace (Negative) H Urine Ketones Trace (Negative) Urine Blood Negative /uL (Negative) Urine Nitrite Negative (Negative) Urine Bilirubin Negative (Negative) Urine Urobilinogen 2 mg/dL (Negative) H Urine Leukocyte Esterase Negative /uL (Negative) Urine RBC 1 /hpf (0 - 3) Urine WBC <1 /hpf (0 - 3) Urine Squamous Epithelial Cells None seen /hpf (<5) Urine Bacteria None seen /hpf (None Seen) Urine Hyaline Casts Mod /lpf (0 - 2) Urine Mucus Few (None Seen) Urine Glucose Normal mg/dL (Normal) Blood Gas Results Test 07/14/24 09:03 Arterial Blood pH 7.284 (7.350-7.450) FiO2 % 30.0 Microbiology Microbiology Date/Time Source Procedure Growth Status 07/12/24 11:17 Trachea Gram Stain - Final Resulted 07/12/24 11:17 Trachea Respiratory Culture - Preliminary Resulted Assessment/Plan Assessment/Plan 78-year-old male with a known history of Hodgkin's lymphoma initially presented to the hospital with a hypoxia found to have 1. Acute hypoxic respiratory failure currently status post intubation after the surgery 2. Loculated Right-sided pleural effusiont status post chest tube placement, status post chest tube removal, status post thoracotomy and decortication of the right lung with a parietal pleurectomy postop day one 3. History of recurrent pneumonia 4. Lytic lesion 9th rib rule out malignancy 5. Acute CHF exacerbation with a possible systolic dysfunction 6. Coronary artery disease status post PCI 7. 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% -status post chest tube placement and removal, status post thoracotomy and decortication of right lung on07/12 with a chest tube placements -add DVT prophylaxis and GI prophylaxis -Continue current antibiotics -follow up Pulmonary/general surgery recommendation Plan discussed with: Other My Orders Orders - MICHELLE VALDES MD Procedure Category Date Status Time Enoxaparin Sodium PHA 07/13/24 In Process (Lovenox) 16:15 Chest Xray 1 View XY 07/14/24 Resulted 04:00 Date of Service: Jul 14, 2024 Billing Provider: MICHELLE VALDES MD Common Visit Codes: NOT BILLABLE MICHELLE VALDES MD Jul 14, 2024 16:11
[2024-07-14 18:14] LABS: Base Excess -4.9 mmol/L (-2.0-3.0)
[2024-07-14] MEDS: TPN PER PHARMACY IV NR (23:12)
--- NOTE | 2024-07-14 23:56 | DVHPN2 ---
Progress Note - Dictate Date Seen: Jul 14, 2024 Medical Necessity Reason Pt with a Central, PICC or Fol: Yes The following are medically ne: PICC Line, Caballero Catheter Reason for caballero catheter: Strict I&O Subjective Patient seen and examined at bedside. Sedated, intubated on mechanical ventilator. Overnight events reviewed. vital signs Vital Sign Date Time Temp Pulse Resp B/P (MAP) Pulse Ox O2 Delivery O2 Flow Rate FiO2 07/14/24 22:11 73 18 114/32 (59) 97 30 07/14/24 21:15 98.8 209.8 07/14/24 20:00 Mechanical Ventilator+ Total Intake and Output 07/13/24 07/13/24 07/14/24 15:00 23:00 07:00 Intake Total 1886.11 ml 1518.61 ml 1618.502 ml Output Total 565 ml 490 ml Balance 1886.11 ml 953.61 ml 1128.502 ml medications Current Medications Medications Dose Ordered Sig/Anderson Route Start Time Stop Time Status Last Admin Dose Admin Ondansetron HCl 4 mg Q4HP PRN IV 06/28/24 14:45 Acetaminophen 650 mg Q6HP PRN PO 06/28/24 14:45 07/13/24 13:13 650 MG Nitroglycerin 0.4 mg Q5MINP PRN SL 06/28/24 14:45 Sennosides 8.6 mg QID PRN PO 06/30/24 11:00 06/30/24 17:25 8.6 MG Ceftriaxone Sodium 50 ml @ 100 mls/hr DAILY@09 IV 07/03/24 13:00 07/14/24 11:25 100 MLS/HR Azithromycin 500 mg DAILY PO 07/04/24 10:00 07/14/24 11:18 500 MG Amino Acids 0 ml @ 0 mls/hr PER PHARMACY IV 07/04/24 13:00 Diagnostic Test (Pha) 1 strip Q6HR 07/05/24 00:00 07/14/24 17:32 1 STRIP Insulin Human Regular FOLLOW SLIDING SCALE Q6HR SC 07/05/24 00:00 07/14/24 17:31 4 UNITS Dextrose 50 ml UD IV 07/05/24 00:00 Sodium Chloride 10 ml QSHIFT@ IV 07/05/24 22:00 07/14/24 22:00 10 ML Acetaminophen/ Hydrocodone Bitart 1 tab Q4HPRN PRN PO 07/07/24 20:15 07/11/24 21:24 1 TAB Fat Emulsion Intravenous 150 ml/Sodium Chloride 80 meq/ Sodium Phosphate 20 meq/Potassium Chloride 10 meq/ Magnesium Sulfate 16 meq/ Multivitamins 10 ml/Chromium/ Copper/Manganese/ Zinc 1 ml/Insulin Human Regular 2 units/Amino Acids/ Dextrose/Purified Water 1,345.02 ml @ 56 mls/hr Q24H2M IV 07/10/24 22:00 07/11/24 21:59 Cancel Midazolam HCl 50 ml @ 1 mls/hr Q24H IV 07/12/24 10:45 07/14/24 17:08 5 MLS/HR Fentanyl Citrate 250 ml @ 2.5 mls/hr Q24H IV 07/12/24 10:45 07/14/24 17:24 10 MLS/HR Hydromorphone HCl 1 mg Q4HPRN PRN IV 07/12/24 10:45 Docusate Sodium 100 mg BID GT 07/12/24 23:00 07/14/24 23:09 100 MG Dextrose/Sodium Chloride 1,000 ml @ 100 mls/hr Q10H IV 07/13/24 10:30 07/14/24 17:48 100 MLS/HR Phenylephrine HCl 80 mg/Sodium Chloride 250 ml @ 7.5 mls/hr Q24H IV 07/13/24 11:00 07/14/24 20:51 26.25 MLS/HR Enoxaparin Sodium 40 mg DAILY SC 07/13/24 16:15 07/14/24 11:19 40 MG Fat Emulsion Intravenous 150 ml/Sodium Chloride 80 meq/ Sodium Acetate 20 meq/Sodium Phosphate 20 meq/ Potassium Acetate 20 meq/Magnesium Sulfate 14 meq/ Multivitamins 10 ml/Insulin Human Regular 8 units/ Amino Acids/ Dextrose/Purified Water 1,658.58 ml @ 69 mls/hr Q24H3M IV 07/14/24 22:00 07/15/24 21:59 07/14/24 23:12 69 MLS/HR objective Gen.: Patient lying in bed in medical ICU. Sedated, intubated on mechanical ventilator. Head: Normocephalic, atraumatic. Eyes: PERRLA. Ears: Normal external anatomy. Throat: Endotracheal tube and orogastric tube in place. Neck: Supple, trachea midline. Chest: Transmitted breath sounds bilaterally. Decreased air entry bilaterally. No wheezing. Bibasilar crackles. Cardiovascular: Positive S1, positive S2. Regular rate and rhythm. Abdomen: Positive bowel sounds in all 4 quadrants. Soft, nontender, nondistended. : Caballero in place. Normal external genitalia. Rectal: Deferred. Skin: Warm, dry. Intact. Extremities: 2+ radial pulses bilaterally. No lower extremity edema. Neuro: Sedated. laboratory and microbiology Laboratory Tests 07/14/24 04:01 Test 07/14/24 04:01 Range/Units Serum Glucose 270 H 74-106 mg/dL Assessment/Plan Impression: Acute hypoxic respiratory failure on mechanical ventilator Loculated pleural effusion, right Atelectasis Shock, possible sepsis Pneumonia likely gram negative S/p decortication, right lung Empyema Events: Remains on mechanical ventilator. AC mode with RR 18, VT 500, PEEP 5, FiO2 of 30% Sedated on Versed, Fentanyl. Patient is s/p decortication surgery Chest tube in place d/t empyema. Monitor chest tube output - now serous No air leak Continue antibiotics On pressors for hemodynamic support. On Rupert-Synephrine at 140 micrograms/minute. Titrate to keep mean arterial pressure greater than 65 mmHg. Monitor renal function Monitor electrolytes. Supplement as necessary. Monitor ins and outs. TPN for nutritional support Continue bronchodilators PRN Continue antibiotics Plan for CPAP in AM if OK with surgery. Labs and imaging reviewed. Rest of plan as noted below. Plan: s/p intubation on mechanical ventilator. AC mode with RR 18, VT 500, PEEP 5, FiO2 of 30% Sedated on Versed, Fentanyl. Pressors if necessary for hemodynamic support Titrate to keep mean arterial pressure greater than 65 mmHg. Bronchodilators PRN Antibiotics Incentive spirometry Pain control Avoid oversedation CT chest showing moderate-sized loculated right pleural effusion w/ surrounding pleural thickening and adjacent alveolar and interstitial opacities. A 2.6 cm lytic lesion in the medial aspect of the right 9th rib at the costochondral junction with full-thickness loss of the bone and overlying anterior and posterior cortices. See report for full details. Pt underwent right chest tube placement d/t loculated pleural effusion. Plan for tPA course to mobilize pleural fluid. S/p two doses of Alteplase S/p decortication surgery Deemed to be high risk from cardiology standpoint - EF of 20% Cardiology recommendations appreciated. Off pressors, hemodynamically stable. Monitor renal function. Monitor electrolytes. Supplement as necessary. Monitor ins and outs. DVT prophylaxis. Prognosis: Poor given patient's multiple co-morbidities. Condition: Critical Rest of plan per hospitalist and other consultants. A total of 35 minutes of critical care time was spent reviewing the patient record, examining the patient, making a diagnostic and therapeutic plan, discussing this plan with the medical personnel, following up on diagnostic studies and following the patient for clinical stability excluding any and all procedures. At least 50% of this time was spent in direct, [id number] contact. Thank you Dr. Maulik Chavira MD, for allowing me to participate in this patient's care. Further recommendations will depend on the patient's clinical course. Please do not hesitate to contact me if you have any questions or concerns. This medical document was created using an electronic medical record system with [employer] dictation system. Although these documentations are being carefully reviewed, there may still be some phonetic and typographical changes. The errors are purely typographical, due to imperfection on the software program, and do not reflect any compromise in the patient's medical care. Dietary Evaluation Review Comments: encourage and monitor PO feedings to meet 75% of his needs. continue preasent plan of care: regular diet nutrition supplements with clinimix and ensure hi protein. may consider a 2GNA Diet with low fat Low cholesterol retriction if he has elevated lipid profile. Expected Outcomes/Goals: improved physical strength, gradual weight gain. Plan discussed with: Other (IBETH Pink) Critical Care Time(min): 35 VLAERI BRANTLEY MD Jul 14, 2024 23:56
[2024-07-15] VITALS (108 sets, daily range): BP systolic 87–140; BP diastolic 27–45; PULSE 65–99; RESP 11–39; TEMP 97.2–99.5; O2SAT 93–98
[2024-07-15] MEDS ORDERED: VANCOMYCIN PER PHARMACY 0 MG IV SCH (00:15)
[2024-07-15 03:58] LABS: Anion Gap 4 (5-15); Aspartate Aminotransferase 28 U/L (13-40); BUN/Creatinine Ratio 45.9 (10.0-20.0); Calcium 8.8 mg/dL (8.7-10.4); Carbon Dioxide 25 mmol/L (20-31); Chloride 105 mmol/L (98-107); Magnesium 2.2 mg/dL (1.6-2.6); Phosphorus 3.1 mg/dL (2.4-5.1); Potassium 4.7 mmol/L (3.5-5.1)
[2024-07-15 04:15] LABS: Alanine Aminotransferase 44 U/L (7-40); Albumin 2.6 g/dL (3.2-4.8); Alkaline Phosphatase 206 U/L (46-116); Bilirubin, Total 1.8 mg/dL (0.2-1.0); Blood Urea Nitrogen 28 mg/dL (9-23); Glucose 162 mg/dL (74-106); Sodium 134 mmol/L (136-145); Total Protein 4.4 g/dL (5.7-8.2)
[2024-07-15 07:16] LABS: Base Excess -6.7 mmol/L (-2.0-3.0)
[2024-07-15] MEDS: SODIUM BICARB 8.4% 50Meq/50ml SYR Vial IV ONE (10:42)
--- NOTE | 2024-07-15 10:50 | DVHPN2 ---
Progress Note Date Seen: Jul 15, 2024 Medical Necessity Reason Pt with a Central, PICC or Fol: Yes The following are medically ne: PICC Line Objective vital signs Vital Sign Date Time Temp Pulse Resp B/P (MAP) Pulse Ox O2 Delivery O2 Flow Rate FiO2 07/15/24 09:59 69 18 125/35 (65) 98 30 07/15/24 07:00 99.1 210.4 07/15/24 06:00 Mechanical Ventilator+ Total Intake and Output 07/14/24 07/14/24 07/15/24 15:00 23:00 07:00 Intake Total 1587.00 ml 1285.80 ml 1701.6 ml Output Total 830 ml 530 ml Balance 1587.00 ml 455.80 ml 1171.6 ml medications Current Medications Medications Dose Ordered Sig/Anderson Route Start Time Stop Time Status Last Admin Dose Admin Ondansetron HCl 4 mg Q4HP PRN IV 06/28/24 14:45 Acetaminophen 650 mg Q6HP PRN PO 06/28/24 14:45 07/13/24 13:13 650 MG Nitroglycerin 0.4 mg Q5MINP PRN SL 06/28/24 14:45 Sennosides 8.6 mg QID PRN PO 06/30/24 11:00 06/30/24 17:25 8.6 MG Ceftriaxone Sodium 50 ml @ 100 mls/hr DAILY@09 IV 07/03/24 13:00 07/15/24 09:06 100 MLS/HR Azithromycin 500 mg DAILY PO 07/04/24 10:00 07/15/24 10:43 500 MG Amino Acids 0 ml @ 0 mls/hr PER PHARMACY IV 07/04/24 13:00 Diagnostic Test (Pha) 1 strip Q6HR 07/05/24 00:00 07/15/24 06:00 1 STRIP Insulin Human Regular FOLLOW SLIDING SCALE Q6HR SC 07/05/24 00:00 07/15/24 06:00 2 UNITS Dextrose 50 ml UD IV 07/05/24 00:00 Sodium Chloride 10 ml QSHIFT@, IV 07/05/24 22:00 07/14/24 22:00 10 ML Acetaminophen/ Hydrocodone Bitart 1 tab Q4HPRN PRN PO 07/07/24 20:15 07/11/24 21:24 1 TAB Fat Emulsion Intravenous 150 ml/Sodium Chloride 80 meq/ Sodium Phosphate 20 meq/Potassium Chloride 10 meq/ Magnesium Sulfate 16 meq/ Multivitamins 10 ml/Chromium/ Copper/Manganese/ Zinc 1 ml/Insulin Human Regular 2 units/Amino Acids/ Dextrose/Purified Water 1,345.02 ml @ 56 mls/hr Q24H2M IV 07/10/24 22:00 07/11/24 21:59 Cancel Midazolam HCl 50 ml @ 1 mls/hr Q24H IV 07/12/24 10:45 07/15/24 01:07 5 MLS/HR Fentanyl Citrate 250 ml @ 2.5 mls/hr Q24H IV 07/12/24 10:45 07/14/24 17:24 10 MLS/HR Hydromorphone HCl 1 mg Q4HPRN PRN IV 07/12/24 10:45 Docusate Sodium 100 mg BID GT 07/12/24 23:00 07/15/24 10:39 100 MG Dextrose/Sodium Chloride 1,000 ml @ 100 mls/hr Q10H IV 07/13/24 10:30 07/14/24 17:48 100 MLS/HR Phenylephrine HCl 80 mg/Sodium Chloride 250 ml @ 7.5 mls/hr Q24H IV 07/13/24 11:00 07/14/24 20:51 26.25 MLS/HR Enoxaparin Sodium 40 mg DAILY SC 07/13/24 16:15 07/15/24 10:42 40 MG Fat Emulsion Intravenous 150 ml/Sodium Chloride 80 meq/ Sodium Acetate 20 meq/Sodium Phosphate 20 meq/ Potassium Acetate 20 meq/Magnesium Sulfate 14 meq/ Multivitamins 10 ml/Insulin Human Regular 8 units/ Amino Acids/ Dextrose/Purified Water 1,658.58 ml @ 69 mls/hr Q24H3M IV 07/14/24 22:00 07/15/24 21:59 07/14/24 23:12 69 MLS/HR Vancomycin HCl 0 ml @ 0 mls/hr UD IV 07/15/24 00:15 UNV Fat Emulsion Intravenous 150 ml/Sodium Chloride 80 meq/ Sodium Acetate 20 meq/Sodium Phosphate 20 meq/ Magnesium Sulfate 14 meq/ Multivitamins 10 ml/Insulin Human Regular 6 units/ Amino Acids/ Dextrose/Purified Water 1,548.56 ml @ 64 mls/hr [id number] IV 07/15/24 22:00 07/16/24 21:59 laboratory and microbiology Laboratory Tests 07/15/24 03:09 07/14/24 04:01 Test 07/15/24 03:09 Range/Units Serum Glucose 162 #H 74-106 mg/dL Problem List/Assessment/Plan Problem List/Assessment/Plan 07/13/24 NEEDED INCREASED IV FLUID INTAKE AND BP SUPPORT RX DUE TO HYPOTENSION, BP NOW 117/62,HEART RATE 75,OCCASIONAL PVC, CHEST TUBE WITH MINIMAL AIR LEAK AND SOME SUBCUTANEOUS EMPHYSEMA IS PRESENT ALONG THE LATERAL RIGHT CHEST WALL, CXR WITH SMALL PNEUMOTHORAX AND STABLE LUNG APPEARANCE, "SURGICALLY" STABLE. HAVE CALLED TO GIVE AN UPDATE. KEEP INTUBATED NEXT 72 HOURS. 07/14/24 sedated, intubated, leukocytosis, afebrile, BP 128/40,heart rate 81, urine output adequate, cxr slightly improved, no chest tube air leak, at bedside, questions answered 07/15/24 remains unchangedm chest tube with moderate serosanguineous drainage, no air leak sub cut emphysema subsided, dressing dry, still requires BP support, OK to initiate weaning and CPAP trials, Plan discussed with: Other Dietary Evaluation Review Comments: encourage and monitor PO feedings to meet 75% of his needs. continue preasent plan of care: regular diet nutrition supplements with clinimix and ensure hi protein. may consider a 2GNA Diet with low fat Low cholesterol retriction if he has elevated lipid profile. Expected Outcomes/Goals: improved physical strength, gradual weight gain. JACE KRISHNA MD Jul 15, 2024 10:50
--- NOTE | 2024-07-15 16:37 | DVHPN2 ---
Subjective Overnight events noted. Patient is status post thoracotomy and decortication of the right lung with a parietal pleurectomy postop day three.. Reviewed: Care Plan Changes from previous H/P or p: No Changes Objective Vitals Vital Signs Date Time Temp Pulse Resp B/P (MAP) Pulse Ox O2 Delivery O2 Flow Rate FiO2 07/15/24 16:00 30 07/15/24 15:56 108/38 07/15/24 14:00 18 97 Mechanical Ventilator+ 07/15/24 13:51 74 07/15/24 07:00 99.1 210.4 Intake/Output Intake and Output 07/15/24 07:00 Intake Total 4574.40 ml Output Total 1360 ml Balance 3214.40 ml Intake Oral 20 ml IV Total 4554.40 ml Output Urine Total 1050 ml Chest Tube Drainage Total 310 ml Exam HEENT pupils are reactive Neck is supple CV is S1-S2 regular rate and rhythm Respiratory diminished breath sounds right lung base GI positive bowel sound Extremity no edema [employer] intubated and sedated Medications Current Medications Medications Dose Ordered Sig/Anderson Route Start Time Stop Time Status Last Admin Dose Admin Ondansetron HCl 4 mg Q4HP PRN IV 06/28/24 14:45 Acetaminophen 650 mg Q6HP PRN PO 06/28/24 14:45 07/13/24 13:13 650 MG Nitroglycerin 0.4 mg Q5MINP PRN SL 06/28/24 14:45 Sennosides 8.6 mg QID PRN PO 06/30/24 11:00 06/30/24 17:25 8.6 MG Ceftriaxone Sodium 50 ml @ 100 mls/hr DAILY@09 IV 07/03/24 13:00 07/15/24 09:06 100 MLS/HR Amino Acids 0 ml @ 0 mls/hr PER PHARMACY IV 07/04/24 13:00 Diagnostic Test (Pha) 1 strip Q6HR 07/05/24 00:00 07/15/24 12:12 1 STRIP Insulin Human Regular FOLLOW SLIDING SCALE Q6HR SC 07/05/24 00:00 07/15/24 12:11 4 UNITS Dextrose 50 ml UD IV 07/05/24 00:00 Sodium Chloride 10 ml QSHIFT@ IV 07/05/24 22:00 07/15/24 10:50 10 ML Acetaminophen/ Hydrocodone Bitart 1 tab Q4HPRN PRN PO 07/07/24 20:15 07/11/24 21:24 1 TAB Fat Emulsion Intravenous 150 ml/Sodium Chloride 80 meq/ Sodium Phosphate 20 meq/Potassium Chloride 10 meq/ Magnesium Sulfate 16 meq/ Multivitamins 10 ml/Chromium/ Copper/Manganese/ Zinc 1 ml/Insulin Human Regular 2 units/Amino Acids/ Dextrose/Purified Water 1,345.02 ml @ 56 mls/hr Q24H2M IV 07/10/24 22:00 07/11/24 21:59 Cancel Midazolam HCl 50 ml @ 1 mls/hr Q24H IV 07/12/24 10:45 07/15/24 15:21 5 MLS/HR Fentanyl Citrate 250 ml @ 2.5 mls/hr Q24H IV 07/12/24 10:45 07/14/24 17:24 10 MLS/HR Hydromorphone HCl 1 mg Q4HPRN PRN IV 07/12/24 10:45 Docusate Sodium 100 mg BID GT 07/12/24 23:00 07/15/24 10:39 100 MG Dextrose/Sodium Chloride 1,000 ml @ 100 mls/hr Q10H IV 07/13/24 10:30 07/15/24 15:20 100 MLS/HR Phenylephrine HCl 80 mg/Sodium Chloride 250 ml @ 7.5 mls/hr Q24H IV 07/13/24 11:00 07/15/24 15:52 26.25 MLS/HR Enoxaparin Sodium 40 mg DAILY SC 07/13/24 16:15 07/15/24 10:42 40 MG Fat Emulsion Intravenous 150 ml/Sodium Chloride 80 meq/ Sodium Acetate 20 meq/Sodium Phosphate 20 meq/ Potassium Acetate 20 meq/Magnesium Sulfate 14 meq/ Multivitamins 10 ml/Insulin Human Regular 8 units/ Amino Acids/ Dextrose/Purified Water 1,658.58 ml @ 69 mls/hr Q24H3M IV 07/14/24 22:00 07/15/24 21:59 07/14/24 23:12 69 MLS/HR Vancomycin HCl 0 ml @ 0 mls/hr UD IV 07/15/24 00:15 UNV Fat Emulsion Intravenous 150 ml/Sodium Chloride 80 meq/ Sodium Acetate 20 meq/Sodium Phosphate 20 meq/ Magnesium Sulfate 14 meq/ Multivitamins 10 ml/Insulin Human Regular 6 units/ Amino Acids/ Dextrose/Purified Water 1,548.56 ml @ 64 mls/hr [id number] IV 07/15/24 22:00 07/16/24 21:59 Laboratory Results Laboratory Tests 07/14/24 04:01 07/15/24 03:09 Chemistry Test 07/15/24 03:09 Albumin 2.6 g/dL (3.2-4.8) L Calcium Level 8.8 mg/dL (8.7-10.4) Magnesium Level 2.2 mg/dL (1.6-2.6) Phosphorus Level 3.1 mg/dL (2.4-5.1) Total Protein 4.4 g/dL (5.7-8.2) L LFT Test 07/15/24 03:09 Alanine Aminotransferase (ALT) 44 U/L (7-40) H Alkaline Phosphatase 206 U/L (46-116) H Aspartate Amino Transferase (AST) 28 U/L (13-40) Total Bilirubin 1.8 mg/dL (0.2-1.0) H Urinalysis Test 06/29/24 01:10 Urine Color Yellow (Yellow) Urine Clarity Clear (Clear) Urine pH 5.5 (5.0-9.0) Urine Specific [place] 1.032 (1.001-1.035) Urine Protein Trace (Negative) H Urine Ketones Trace (Negative) Urine Blood Negative /uL (Negative) Urine Nitrite Negative (Negative) Urine Bilirubin Negative (Negative) Urine Urobilinogen 2 mg/dL (Negative) H Urine Leukocyte Esterase Negative /uL (Negative) Urine RBC 1 /hpf (0 - 3) Urine WBC <1 /hpf (0 - 3) Urine Squamous Epithelial Cells None seen /hpf (<5) Urine Bacteria None seen /hpf (None Seen) Urine Hyaline Casts Mod /lpf (0 - 2) Urine Mucus Few (None Seen) Urine Glucose Normal mg/dL (Normal) Blood Gas Results Test 07/14/24 18:07 07/15/24 07:11 Arterial Blood pH 7.264 (7.350-7.450) 7.289 (7.350-7.450) FiO2 % 30.0 30.0 Microbiology Microbiology Date/Time Source Procedure Growth Status 07/12/24 11:17 Trachea Gram Stain - Final Complete 07/12/24 11:17 Trachea Respiratory Culture - Final Complete Assessment/Plan Assessment/Plan 78-year-old male with a known history of Hodgkin's lymphoma initially presented to the hospital with a hypoxia found to have 1. Acute hypoxic respiratory failure currently status post intubation after the surgery 2. Loculated Right-sided pleural effusiont status post chest tube placement, status post chest tube removal, status post thoracotomy and decortication of the right lung with a parietal pleurectomy postop day one 3. History of recurrent pneumonia 4. Lytic lesion 9th rib rule out malignancy 5. Acute CHF exacerbation with a possible systolic dysfunction 6. Coronary artery disease status post PCI 7. 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% -status post chest tube placement and removal, status post thoracotomy and decortication of right lung on07/12 with a chest tube placements -CPAP trial per Pulmonary -DVT prophylaxis and GI prophylaxis -Continue current antibiotics -follow up Pulmonary/general surgery recommendation Plan discussed with: Other My Orders Orders - MICHELLE VALDES MD Procedure Category Date Status Time * Wound Consult CONS 07/15/24 Transmitted Date of Service: Jul 15, 2024 Billing Provider: MICHELLE VALDES MD Common Visit Codes: NOT BILLABLE MICHELLE VALDES MD Jul 15, 2024 16:37
[2024-07-15] MEDS: TPN PER PHARMACY IV NR (22:00)
[2024-07-15] MEDS: D5W/SOD CHL 0.45% 1,000 ML IV SCH (22:13)
--- NOTE | 2024-07-15 22:45 | DVHPN2 ---
Progress Note - Dictate Date Seen: Jul 15, 2024 Medical Necessity Reason Pt with a Central, PICC or Fol: Yes The following are medically ne: PICC Line, Caballero Catheter Reason for caballero catheter: Strict I&O Subjective Patient seen and examined at bedside. Sedated, intubated on mechanical ventilator. Overnight events reviewed. vital signs Vital Sign Date Time Temp Pulse Resp B/P (MAP) Pulse Ox O2 Delivery O2 Flow Rate FiO2 07/15/24 22:21 74 18 136/37 (70) 97 30 07/15/24 20:00 Mechanical Ventilator+ 07/15/24 18:45 99.3 99.3 Total Intake and Output 07/14/24 07/14/24 07/15/24 14:59 22:59 06:59 Intake Total 1560.75 ml 1349.85 ml 1632.6 ml Output Total 830 ml 530 ml Balance 1560.75 ml 519.85 ml 1102.6 ml medications Current Medications Medications Dose Ordered Sig/Anderson Route Start Time Stop Time Status Last Admin Dose Admin Ondansetron HCl 4 mg Q4HP PRN IV 06/28/24 14:45 Acetaminophen 650 mg Q6HP PRN PO 06/28/24 14:45 07/13/24 13:13 650 MG Nitroglycerin 0.4 mg Q5MINP PRN SL 06/28/24 14:45 Sennosides 8.6 mg QID PRN PO 06/30/24 11:00 06/30/24 17:25 8.6 MG Ceftriaxone Sodium 50 ml @ 100 mls/hr DAILY@09 IV 07/03/24 13:00 07/15/24 09:06 100 MLS/HR Amino Acids 0 ml @ 0 mls/hr PER PHARMACY IV 07/04/24 13:00 Diagnostic Test (Pha) 1 strip Q6HR 07/05/24 00:00 07/15/24 19:06 1 STRIP Insulin Human Regular FOLLOW SLIDING SCALE Q6HR SC 07/05/24 00:00 07/15/24 19:03 2 UNITS Dextrose 50 ml UD IV 07/05/24 00:00 Sodium Chloride 10 ml QSHIFT@10,22 IV 07/05/24 22:00 07/15/24 22:00 10 ML Acetaminophen/ Hydrocodone Bitart 1 tab Q4HPRN PRN PO 07/07/24 20:15 07/11/24 21:24 1 TAB Fat Emulsion Intravenous 150 ml/Sodium Chloride 80 meq/ Sodium Phosphate 20 meq/Potassium Chloride 10 meq/ Magnesium Sulfate 16 meq/ Multivitamins 10 ml/Chromium/ Copper/Manganese/ Zinc 1 ml/Insulin Human Regular 2 units/Amino Acids/ Dextrose/Purified Water 1,345.02 ml @ 56 mls/hr Q24H2M IV 07/10/24 22:00 07/11/24 21:59 Cancel Midazolam HCl 50 ml @ 1 mls/hr Q24H IV 07/12/24 10:45 07/15/24 15:21 5 MLS/HR Fentanyl Citrate 250 ml @ 2.5 mls/hr Q24H IV 07/12/24 10:45 07/14/24 17:24 10 MLS/HR Hydromorphone HCl 1 mg Q4HPRN PRN IV 07/12/24 10:45 Docusate Sodium 100 mg BID GT 07/12/24 23:00 07/15/24 22:10 100 MG Phenylephrine HCl 80 mg/Sodium Chloride 250 ml @ 7.5 mls/hr Q24H IV 07/13/24 11:00 07/15/24 15:52 26.25 MLS/HR Enoxaparin Sodium 40 mg DAILY SC 07/13/24 16:15 07/15/24 10:42 40 MG Vancomycin HCl 0 ml @ 0 mls/hr UD IV 07/15/24 00:15 UNV Fat Emulsion Intravenous 150 ml/Sodium Chloride 80 meq/ Sodium Acetate 20 meq/Sodium Phosphate 20 meq/ Magnesium Sulfate 14 meq/ Multivitamins 10 ml/Insulin Human Regular 6 units/ Amino Acids/ Dextrose/Purified Water 1,548.56 ml @ 64 mls/hr [id number] IV 07/15/24 22:00 07/16/24 21:59 07/15/24 22:00 64 MLS/HR Dextrose/Sodium Chloride 1,000 ml @ 31 mls/hr Q24H IV 07/15/24 17:15 07/15/24 22:13 31 MLS/HR objective Gen.: Patient lying in bed in medical ICU. Sedated, intubated on mechanical ventilator. Head: Normocephalic, atraumatic. Eyes: PERRLA. Ears: Normal external anatomy. Throat: Endotracheal tube and orogastric tube in place. Neck: Supple, trachea midline. Chest: Transmitted breath sounds bilaterally. Decreased air entry bilaterally. No wheezing. Bibasilar crackles. Cardiovascular: Positive S1, positive S2. Regular rate and rhythm. Abdomen: Positive bowel sounds in all 4 quadrants. Soft, nontender, nondistended. : Caballero in place. Normal external genitalia. Rectal: Deferred. Skin: Warm, dry. Intact. Extremities: 2+ radial pulses bilaterally. No lower extremity edema. Neuro: Sedated. laboratory and microbiology Laboratory Tests 07/15/24 03:09 07/14/24 04:01 Test 07/15/24 03:09 Range/Units Serum Glucose 162 #H 74-106 mg/dL Assessment/Plan Impression: Acute hypoxic respiratory failure on mechanical ventilator Loculated pleural effusion, right Atelectasis Shock, possible sepsis Pneumonia likely gram negative S/p decortication, right lung Empyema Events: Remains on mechanical ventilator. AC mode with RR 18, VT 500, PEEP 5, FiO2 of 30% Sedated on Versed, Fentanyl. Patient is s/p decortication surgery Chest tube in place d/t empyema. Monitor chest tube output - 90 mL No air leak Continue antibiotics On pressors for hemodynamic support. On Rupert-Synephrine at 180 micrograms/minute. Titrate to keep mean arterial pressure greater than 65 mmHg. Pt did not tolerate sedation vacation. Monitor renal function Monitor electrolytes. Supplement as necessary. Monitor ins and outs. TPN for nutritional support Continue bronchodilators PRN Continue antibiotics Labs and imaging reviewed. Rest of plan as noted below. Plan: s/p intubation on mechanical ventilator. AC mode with RR 18, VT 500, PEEP 5, FiO2 of 30% Sedated on Versed, Fentanyl. Pressors for hemodynamic support Titrate to keep mean arterial pressure greater than 65 mmHg. Bronchodilators PRN Antibiotics Incentive spirometry Pain control Avoid oversedation CT chest showing moderate-sized loculated right pleural effusion w/ surrounding pleural thickening and adjacent alveolar and interstitial opacities. A 2.6 cm lytic lesion in the medial aspect of the right 9th rib at the costochondral junction with full-thickness loss of the bone and overlying anterior and posterior cortices. See report for full details. Pt underwent right chest tube placement d/t loculated pleural effusion. Plan for tPA course to mobilize pleural fluid. S/p two doses of Alteplase S/p decortication surgery Deemed to be high risk from cardiology standpoint - EF of 20% Cardiology recommendations appreciated. Off pressors, hemodynamically stable. Monitor renal function. Monitor electrolytes. Supplement as necessary. Monitor ins and outs. DVT prophylaxis. Prognosis: Poor given patient's multiple co-morbidities. Condition: Critical Rest of plan per hospitalist and other consultants. A total of 35 minutes of critical care time was spent reviewing the patient record, examining the patient, making a diagnostic and therapeutic plan, discussing this plan with the medical personnel, following up on diagnostic studies and following the patient for clinical stability excluding any and all procedures. At least 50% of this time was spent in direct, [id number] contact. Thank you Dr. Maulik Chavira MD, for allowing me to participate in this patient's care. Further recommendations will depend on the patient's clinical course. Please do not hesitate to contact me if you have any questions or concerns. This medical document was created using an electronic medical record system with [employer] dictation system. Although these documentations are being carefully reviewed, there may still be some phonetic and typographical changes. The errors are purely typographical, due to imperfection on the software program, and do not reflect any compromise in the patient's medical care. Dietary Evaluation Review Comments: encourage and monitor PO feedings to meet 75% of his needs. continue preasent plan of care: regular diet nutrition supplements with clinimix and ensure hi protein. may consider a 2GNA Diet with low fat Low cholesterol retriction if he has elevated lipid profile. Expected Outcomes/Goals: improved physical strength, gradual weight gain. Plan discussed with: Other (IBETH Pink) Critical Care Time(min): 35 VALERI BRANTLEY MD Jul 15, 2024 22:45
[2024-07-16] VITALS (107 sets, daily range): BP systolic 101–143; BP diastolic 32–53; PULSE 67–99; RESP 12–25; TEMP 97.7–100.4; O2SAT 93–99
[2024-07-16 02:32] LABS: Base Excess -5.7 mmol/L (-2.0-3.0)
[2024-07-16 04:46] LABS: Alanine Aminotransferase 37 U/L (7-40); Anion Gap 4 (5-15); Aspartate Aminotransferase 25 U/L (13-40); BUN/Creatinine Ratio 52.8 (10.0-20.0); Calcium 8.7 mg/dL (8.7-10.4); Carbon Dioxide 24 mmol/L (20-31); Chloride 106 mmol/L (98-107); Magnesium 2.3 mg/dL (1.6-2.6); Potassium 4.2 mmol/L (3.5-5.1)
[2024-07-16 04:47] LABS: Phosphorus 2.7 mg/dL (2.4-5.1)
[2024-07-16 04:50] LABS: Albumin 2.5 g/dL (3.2-4.8); Alkaline Phosphatase 225 U/L (46-116); Bilirubin, Total 1.7 mg/dL (0.2-1.0); Blood Urea Nitrogen 28 mg/dL (9-23); Glucose 286 mg/dL (74-106); Sodium 134 mmol/L (136-145)
[2024-07-16] MEDS: FUROSEMIDE 40 MG/4 ML VIAL IV ONE ×2 (15:31→22:19)
--- NOTE | 2024-07-16 18:06 | DVHPN2 ---
Subjective Overnight events noted. Patient is status post thoracotomy and decortication of the right lung with a parietal pleurectomy postop day4, patient has failed CPAP trial Reviewed: Care Plan Changes from previous H/P or p: No Changes Objective Vitals Vital Signs Date Time Temp Pulse Resp B/P (MAP) Pulse Ox O2 Delivery O2 Flow Rate FiO2 07/16/24 17:45 99.0 85 23 129/41 (70) 96 210.2 07/16/24 16:00 Mechanical Ventilator+ 30 30 Intake/Output Intake and Output 07/16/24 07:00 Intake Total 2918.13 ml Output Total 1140 ml Balance 1778.13 ml Intake Oral 100 ml IV Total 2818.13 ml Output Urine Total 1000 ml Chest Tube Drainage Total 140 ml Exam HEENT pupils are reactive Neck is supple CV is S1-S2 regular rate and rhythm Respiratory diminished breath sounds right lung base GI positive bowel sound Extremity no edema 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 Medications Current Medications Medications Dose Ordered Sig/Anderson Route Start Time Stop Time Status Last Admin Dose Admin Ondansetron HCl 4 mg Q4HP PRN IV 06/28/24 14:45 Acetaminophen 650 mg Q6HP PRN PO 06/28/24 14:45 07/13/24 13:13 650 MG Nitroglycerin 0.4 mg Q5MINP PRN SL 06/28/24 14:45 Sennosides 8.6 mg QID PRN PO 06/30/24 11:00 06/30/24 17:25 8.6 MG Ceftriaxone Sodium 50 ml @ 100 mls/hr DAILY@09 IV 07/03/24 13:00 07/16/24 09:39 100 MLS/HR Amino Acids 0 ml @ 0 mls/hr PER PHARMACY IV 07/04/24 13:00 Diagnostic Test (Pha) 1 strip Q6HR 07/05/24 00:00 07/16/24 17:27 1 STRIP Insulin Human Regular FOLLOW SLIDING SCALE Q6HR SC 07/05/24 00:00 07/16/24 17:27 4 UNITS Dextrose 50 ml UD IV 07/05/24 00:00 Sodium Chloride 10 ml QSHIFT@10,22 IV 07/05/24 22:00 07/16/24 09:39 10 ML Acetaminophen/ Hydrocodone Bitart 1 tab Q4HPRN PRN PO 07/07/24 20:15 07/11/24 21:24 1 TAB Fat Emulsion Intravenous 150 ml/Sodium Chloride 80 meq/ Sodium Phosphate 20 meq/Potassium Chloride 10 meq/ Magnesium Sulfate 16 meq/ Multivitamins 10 ml/Chromium/ Copper/Manganese/ Zinc 1 ml/Insulin Human Regular 2 units/Amino Acids/ Dextrose/Purified Water 1,345.02 ml @ 56 mls/hr Q24H2M IV 07/10/24 22:00 07/11/24 21:59 Cancel Midazolam HCl 50 ml @ 1 mls/hr Q24H IV 07/12/24 10:45 07/16/24 00:02 5 MLS/HR Fentanyl Citrate 250 ml @ 2.5 mls/hr Q24H IV 07/12/24 10:45 07/16/24 02:08 10 MLS/HR Hydromorphone HCl 1 mg Q4HPRN PRN IV 07/12/24 10:45 Docusate Sodium 100 mg BID GT 07/12/24 23:00 07/16/24 09:38 100 MG Phenylephrine HCl 80 mg/Sodium Chloride 250 ml @ 7.5 mls/hr Q24H IV 07/13/24 11:00 07/16/24 14:07 24.375 MLS/HR Enoxaparin Sodium 40 mg DAILY SC 07/13/24 16:15 07/16/24 09:38 40 MG Vancomycin HCl 0 ml @ 0 mls/hr UD IV 07/15/24 00:15 UNV Fat Emulsion Intravenous 150 ml/Sodium Chloride 80 meq/ Sodium Acetate 20 meq/Sodium Phosphate 20 meq/ Magnesium Sulfate 14 meq/ Multivitamins 10 ml/Insulin Human Regular 6 units/ Amino Acids/ Dextrose/Purified Water 1,548.56 ml @ 64 mls/hr [id number] IV 07/15/24 22:00 07/16/24 21:59 07/15/24 22:00 64 MLS/HR Dextrose/Sodium Chloride 1,000 ml @ 31 mls/hr Q24H IV 07/15/24 17:15 07/15/24 22:13 31 MLS/HR Fat Emulsion Intravenous 150 ml/Sodium Chloride 40 meq/ Sodium Acetate 20 meq/Sodium Phosphate 40 meq/ Magnesium Sulfate 10 meq/ Multivitamins 10 ml/Insulin Human Regular 8 units/ Potassium Acetate 20 meq/Chromium/ Copper/Manganese/ Zinc 1 ml/Amino Acids/Dextrose/ Purified Water 1,553.58 ml @ 64 mls/hr [id number] IV 07/16/24 22:00 07/17/24 21:59 Furosemide 40 mg DAILY IV 07/17/24 10:00 Sennosides 17.2 mg HS NG 07/16/24 22:00 Lactulose 30 ml TID NG 07/16/24 22:00 Dexmedetomidine HCl 400 mcg/ Dextrose 100 ml @ 3.9 mls/hr Q24H IV 07/16/24 17:45 UNV Laboratory Results Laboratory Tests 07/14/24 04:01 07/16/24 03:19 Chemistry Test 07/16/24 03:19 Albumin 2.5 g/dL (3.2-4.8) L Calcium Level 8.7 mg/dL (8.7-10.4) Magnesium Level 2.3 mg/dL (1.6-2.6) Phosphorus Level 2.7 mg/dL (2.4-5.1) Total Protein 4.0 g/dL (5.7-8.2) L LFT Test 07/16/24 03:19 Alanine Aminotransferase (ALT) 37 U/L (7-40) Alkaline Phosphatase 225 U/L (46-116) H Aspartate Amino Transferase (AST) 25 U/L (13-40) Total Bilirubin 1.7 mg/dL (0.2-1.0) H Urinalysis Test 06/29/24 01:10 Urine Color Yellow (Yellow) Urine Clarity Clear (Clear) Urine pH 5.5 (5.0-9.0) Urine Specific [place] 1.032 (1.001-1.035) Urine Protein Trace (Negative) H Urine Ketones Trace (Negative) Urine Blood Negative /uL (Negative) Urine Nitrite Negative (Negative) Urine Bilirubin Negative (Negative) Urine Urobilinogen 2 mg/dL (Negative) H Urine Leukocyte Esterase Negative /uL (Negative) Urine RBC 1 /hpf (0 - 3) Urine WBC <1 /hpf (0 - 3) Urine Squamous Epithelial Cells None seen /hpf (<5) Urine Bacteria None seen /hpf (None Seen) Urine Hyaline Casts Mod /lpf (0 - 2) Urine Mucus Few (None Seen) Urine Glucose Normal mg/dL (Normal) Blood Gas Results Test 07/16/24 02:25 Arterial Blood pH 7.311 (7.350-7.450) FiO2 % 30.0 Microbiology Microbiology Date/Time Source Procedure Growth Status 07/12/24 11:17 Trachea Gram Stain - Final Complete 07/12/24 11:17 Trachea Respiratory Culture - Final Complete Assessment/Plan Assessment/Plan 78-year-old male with a known history of Hodgkin's lymphoma initially presented to the hospital with a hypoxia found to have 1. Acute hypoxic respiratory failure currently status post intubation after the surgery 2. Loculated Right-sided pleural effusiont status post chest tube placement, status post chest tube removal, status post thoracotomy and decortication of the right lung with a parietal pleurectomy postop day one 3. History of recurrent pneumonia 4. Lytic lesion 9th rib rule out malignancy 5. Acute CHF exacerbation with a possible systolic dysfunction 6. Coronary artery disease status post PCI 7. 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% -status post chest tube placement and removal, status post thoracotomy and decortication of right lung on07/12 with a chest tube placements -CPAP trial per Pulmonary -DVT prophylaxis and GI prophylaxis -Continue current antibiotics -follow up Pulmonary/general surgery recommendation Plan discussed with: Other My Orders Orders - MICHELLE VALDES MD Procedure Category Date Status Time Apply Barrier Cream JESICA 07/15/24 In Process 15:30 * Dietary Consult CONS 07/15/24 Transmitted 15:30 Apply: JESICA 07/15/24 In Process 15:30 Furosemide Injection PHA 07/17/24 In Process (Lasix Injection) 10:00 Senna Pod Tablet PHA 07/16/24 In Process (Senokot Tablet) 22:00 Lactulose Oral PHA 07/16/24 In Process 22:00 Complete Blood Count LAB 07/17/24 Verified 04:00 Complete Blood Count LAB 07/18/24 Verified 04:00 Complete Blood Count LAB 07/19/24 Verified 04:00 Comprehensive LAB 07/18/24 Verified Metabolic Panel 04:00 Comprehensive LAB 07/19/24 Verified Metabolic Panel 04:00 Magnesium LAB 07/18/24 Verified 04:00 Magnesium LAB 07/19/24 Verified 04:00 Phosphorus LAB 07/18/24 Verified 04:00 Phosphorus LAB 07/19/24 Verified 04:00 Chest Portable XY 07/17/24 Logged 04:00 Chest Portable XY 07/18/24 Logged 04:00 Chest Portable XY 1/10/25 Logged 04:00 Date of Service: Jul 16, 2024 Billing Provider: MICHELLE VALDES MD Common Visit Codes: NOT BILLABLE MICHELLE VALDES MD Jul 16, 2024 18:06
[2024-07-16] MEDS: ROCURONIUM 10MG/ML 10ML VIAL IV ONE ×2 (18:50→19:00)
--- NOTE | 2024-07-16 19:03 | DVHNC2 ---
Procedure - Bronchoscopy procedure note: Indications: Increased ET tube secretions, Possible mucous plugging. Medicines: See INSURANCE SALES AGENT notes. Complications: None Procedure: Patient medications and allergies reviewed. The risks and benefits of the procedure and the sedation options and risk were discussed with the patient's healthcare proxy. All questions were answered and informed consent was obtained. Patient identification and proposed procedure were verified prior to the procedure by the physician, and a nurse, and the respiratory therapist in ICU room. The heart rate, respiratory rate, oxygen saturations, blood pressure, adequacy of pulmonary ventilation, and response to care were monitored throughout the procedure. The physical status of the patient was reassessed after the procedure. After obtaining informed consent, the bronchoscope was introduced through the endotracheal tube and advanced into the trachea bronchial tree of both lungs. The procedure was accomplished without difficulty. The patient tolerated the procedure well. Findings: The trachea is in normal caliber. The stevo is sharp. The tracheobronchial tree of the right lung was examined to at least the first subsegmental level. The bronchial mucosa and anatomy in the right lung are normal. There are no endobronchial lesions. There was copious clear secretions from right main stem bronchus onward throughout R6-R10. There was not mucous plugging. Will diurese patient as likely result of pulmonary edema. Right middle lobe (RML) Bronchoalveolar lavage (BAL) obtained. RML BAL sent for gram stain and culture. The left upper lobe, lingula, and left lower lobe were examined to at least the first subsegmental level. Bronchial mucosa and anatomy in the left upper lobe and lingula are normal. There were no endobronchial lesions. There was copious whitish secretions from left main stem bronchus onward throughout L1-L10. Mucous plugging removed from L6-L10. There was no active bleeding at the completion of the procedure. Of note, there were copious secretions in the ET tube dried narrowing the lumen. ET tube removal and exchange were done. See separate procedure note. Estimated blood loss: Less than 5 mL. Impression: Left lower lobe atelectasis due to mucous plugging Mucous plugging from L6-L10 RML BAL performed Pulmonary edema Recommendation: Follow-up RML BAL results and diuresis Procedure codes: 23701, bronchoscopy, rigid and flexible, including fluoroscopic guidance, one performed; with bronchial endobronchial broncho-alveolar lavage, single or multiple sites VALERI BRANTLEY MD Jul 16, 2024 19:03
--- NOTE | 2024-07-16 19:06 | DVHNC2 ---
Procedure - Procedure: Endotracheal Intubation INDICATION: Acute respiratory failure, accessory muscle usage Physician: Valeri Collado MD CONSENT: Emergent procedure. Implied. Time out time: 1854 pm Patient medications and allergies reviewed. Patient identification and proposed procedure were verified prior to the procedure by the physician, and a nurse in the patient's room. The heart rate, respiratory rate, oxygen saturations, blood pressure, adequacy of pulmonary ventilation, and response to care were monitored throughout the procedure. The physical status of the patient was reassessed after the procedure. PROCEDURE SUMMARY: A time out was performed. My hands were washed immediately prior to the procedure. I wore a surgical cap, mask with protective eyewear, gown and gloves throughout the procedure. The patient was placed on a color television console monitor including continuous pulse oximetry. The patient received 50 mg rocuronium for induction. Cricoid pressure was maintained from time induction agent was given to time of cuff balloon inflation. Using a MAC 4 GlideoScope and a size 8.0 endotracheal tube with stylet, the patient was intubated on the 1 attempt. The stylet was removed and cuff balloon was inflated. Appropriate endotracheal tube position was confirmed by direct visualization of vocal cord passage, fogging of the tube, CO2 colorimetric indicator and symmetric breath sounds. The tube was secured at 22 cm at the lips. Tube placement confirmed to be 5 cm above stevo bronchoscopically. CPT Code: 80459 VALERI COLLADO MD Jul 16, 2024 19:06
[2024-07-16] MEDS: LACTULOSE 20Gm/30ML SOLN NG SCH (22:16)
--- NOTE | 2024-07-16 22:16 | DVHPN2 ---
Progress Note - Dictate Date Seen: Jul 16, 2024 Medical Necessity Reason Pt with a Central, PICC or Fol: Yes The following are medically ne: PICC Line, Caballero Catheter Reason for caballero catheter: Strict I&O Subjective Patient seen and examined at bedside. Sedated, intubated on mechanical ventilator. Overnight events reviewed. vital signs Vital Sign Date Time Temp Pulse Resp B/P (MAP) Pulse Ox O2 Delivery O2 Flow Rate FiO2 07/16/24 20:05 91 18 119/39 (65) 99 30 07/16/24 18:15 99.1 210.4 07/16/24 18:00 Mechanical Ventilator+ Total Intake and Output 07/15/24 07/15/24 07/16/24 15:00 23:00 07:00 Intake Total 1630.63 ml 536.5 ml 751.0 ml Output Total 540 ml 600 ml Balance 1630.63 ml -3.5 ml 151.0 ml medications Current Medications Medications Dose Ordered Sig/Anderson Route Start Time Stop Time Status Last Admin Dose Admin Ondansetron HCl 4 mg Q4HP PRN IV 06/28/24 14:45 Acetaminophen 650 mg Q6HP PRN PO 06/28/24 14:45 07/13/24 13:13 650 MG Nitroglycerin 0.4 mg Q5MINP PRN SL 06/28/24 14:45 Sennosides 8.6 mg QID PRN PO 06/30/24 11:00 06/30/24 17:25 8.6 MG Ceftriaxone Sodium 50 ml @ 100 mls/hr DAILY@09 IV 07/03/24 13:00 07/16/24 09:39 100 MLS/HR Amino Acids 0 ml @ 0 mls/hr PER PHARMACY IV 07/04/24 13:00 Diagnostic Test (Pha) 1 strip Q6HR 07/05/24 00:00 07/16/24 17:27 1 STRIP Insulin Human Regular FOLLOW SLIDING SCALE Q6HR SC 07/05/24 00:00 07/16/24 17:27 4 UNITS Dextrose 50 ml UD IV 07/05/24 00:00 Sodium Chloride 10 ml QSHIFT@10,22 IV 07/05/24 22:00 07/16/24 09:39 10 ML Acetaminophen/ Hydrocodone Bitart 1 tab Q4HPRN PRN PO 07/07/24 20:15 1/2/25 21:24 1 TAB Fat Emulsion Intravenous 150 ml/Sodium Chloride 80 meq/ Sodium Phosphate 20 meq/Potassium Chloride 10 meq/ Magnesium Sulfate 16 meq/ Multivitamins 10 ml/Chromium/ Copper/Manganese/ Zinc 1 ml/Insulin Human Regular 2 units/Amino Acids/ Dextrose/Purified Water 1,345.02 ml @ 56 mls/hr Q24H2M IV 07/10/24 22:00 07/11/24 21:59 Cancel Midazolam HCl 50 ml @ 1 mls/hr Q24H IV 07/12/24 10:45 07/16/24 00:02 5 MLS/HR Fentanyl Citrate 250 ml @ 2.5 mls/hr Q24H IV 07/12/24 10:45 07/16/24 02:08 10 MLS/HR Hydromorphone HCl 1 mg Q4HPRN PRN IV 07/12/24 10:45 Docusate Sodium 100 mg BID GT 07/12/24 23:00 07/16/24 09:38 100 MG Phenylephrine HCl 80 mg/Sodium Chloride 250 ml @ 7.5 mls/hr Q24H IV 07/13/24 11:00 07/16/24 14:07 24.375 MLS/HR Enoxaparin Sodium 40 mg DAILY SC 07/13/24 16:15 07/16/24 09:38 40 MG Vancomycin HCl 0 ml @ 0 mls/hr UD IV 07/15/24 00:15 UNV Dextrose/Sodium Chloride 1,000 ml @ 31 mls/hr Q24H IV 07/15/24 17:15 07/15/24 22:13 31 MLS/HR Fat Emulsion Intravenous 150 ml/Sodium Chloride 40 meq/ Sodium Acetate 20 meq/Sodium Phosphate 40 meq/ Magnesium Sulfate 10 meq/ Multivitamins 10 ml/Insulin Human Regular 8 units/ Potassium Acetate 20 meq/Chromium/ Copper/Manganese/ Zinc 1 ml/Amino Acids/Dextrose/ Purified Water 1,553.58 ml @ 64 mls/hr [id number] IV 07/16/24 22:00 07/17/24 21:59 Furosemide 40 mg DAILY IV 07/17/24 10:00 Sennosides 17.2 mg HS NG 07/16/24 22:00 Lactulose 30 ml TID NG 07/16/24 22:00 Dexmedetomidine HCl 400 mcg/ Dextrose 100 ml @ 3.9 mls/hr Q24H IV 07/16/24 17:45 objective Gen.: Patient lying in bed in medical ICU. Sedated, intubated on mechanical ventilator. Head: Normocephalic, atraumatic. Eyes: PERRLA. Ears: Normal external anatomy. Throat: Endotracheal tube and orogastric tube in place. Neck: Supple, trachea midline. Chest: Transmitted breath sounds bilaterally. Decreased air entry bilaterally. No wheezing. Bibasilar crackles. Cardiovascular: Positive S1, positive S2. Regular rate and rhythm. Abdomen: Positive bowel sounds in all 4 quadrants. Soft, nontender, nondistended. : Caballero in place. Normal external genitalia. Rectal: Deferred. Skin: Warm, dry. Intact. Extremities: 2+ radial pulses bilaterally. No lower extremity edema. Neuro: Sedated. laboratory and microbiology Laboratory Tests 07/16/24 03:19 07/14/24 04:01 Test 07/16/24 03:19 Range/Units Serum Glucose 286 #H 74-106 mg/dL Assessment/Plan Impression: Acute hypoxic respiratory failure on mechanical ventilator Loculated pleural effusion, right Atelectasis Shock, possible sepsis Pneumonia likely gram negative S/p decortication, right lung Empyema Events: Remains on mechanical ventilator. AC mode with RR 18, VT 500, PEEP 5, FiO2 of 30% Sedated on Fentanyl. OK for Precedex drip for agitation TPN for nutritional support Patient is s/p decortication surgery Chest tube in place d/t empyema. Monitor chest tube output No air leak Continue antibiotics On pressors for hemodynamic support. On Rupert-Synephrine at 104 micrograms/minute. Titrate to keep mean arterial pressure greater than 65 mmHg. Increased ET tube secretions. Obtain consent for bronchoscopy to clear suspected mucous plugs. Diurese w/ Lasix as tolerated Good urine output Monitor renal function Monitor electrolytes. Supplement as necessary. Monitor ins and outs. Continue bronchodilators PRN Continue antibiotics Labs and imaging reviewed. Rest of plan as noted below. Plan: s/p intubation on mechanical ventilator. AC mode with RR 18, VT 500, PEEP 5, FiO2 of 30% Sedated on Fentanyl. Pressors for hemodynamic support Titrate to keep mean arterial pressure greater than 65 mmHg. Bronchodilators PRN Antibiotics Incentive spirometry Pain control Avoid oversedation CT chest showing moderate-sized loculated right pleural effusion w/ surrounding pleural thickening and adjacent alveolar and interstitial opacities. A 2.6 cm lytic lesion in the medial aspect of the right 9th rib at the costochondral junction with full-thickness loss of the bone and overlying anterior and posterior cortices. See report for full details. Pt underwent right chest tube placement d/t loculated pleural effusion. Plan for tPA course to mobilize pleural fluid. S/p two doses of Alteplase S/p decortication surgery Deemed to be high risk from cardiology standpoint - EF of 20% Cardiology recommendations appreciated. Monitor renal function. Monitor electrolytes. Supplement as necessary. Monitor ins and outs. DVT prophylaxis. Prognosis: Poor given patient's multiple co-morbidities. Condition: Critical Rest of plan per hospitalist and other consultants. A total of 35 minutes of critical care time was spent reviewing the patient record, examining the patient, making a diagnostic and therapeutic plan, discussing this plan with the medical personnel, following up on diagnostic studies and following the patient for clinical stability excluding any and all procedures. At least 50% of this time was spent in direct, [id number] contact. Thank you Dr. Maulik Chavira MD, for allowing me to participate in this patient's care. Further recommendations will depend on the patient's clinical course. Please do not hesitate to contact me if you have any questions or concerns. This medical document was created using an electronic medical record system with [employer] dictation system. Although these documentations are being carefully reviewed, there may still be some phonetic and typographical changes. The errors are purely typographical, due to imperfection on the software program, and do not reflect any compromise in the patient's medical care. Dietary Evaluation Review Comments: encourage and monitor PO feedings to meet 75% of his needs. continue preasent plan of care: regular diet nutrition supplements with clinimix and ensure hi protein. may consider a 2GNA Diet with low fat Low cholesterol retriction if he has elevated lipid profile. Expected Outcomes/Goals: improved physical strength, gradual weight gain. Plan discussed with: Other (IBETH Bolton) Critical Care Time(min): 35 VALERI BRANTLEY MD Jul 16, 2024 22:16
[2024-07-16] MEDS: SENNA 8.6 MG TAB NG SCH (22:17)
[2024-07-16] MEDS: TPN PER PHARMACY IV NR (23:05)
[2024-07-17] VITALS (114 sets, daily range): BP systolic 95–142; BP diastolic 33–95; PULSE 73–112; RESP 18–32; TEMP 97.7–98.4; O2SAT 86–100
[2024-07-17 03:46] LABS: Basophils # (auto) 0.2 10 ^3/uL (0-0.2); Eosinophils # (auto) 0.2 10 ^3/uL (0-0.8); Platelet Count (auto) 420 10^3/uL (140-450)
[2024-07-17 03:48] LABS: Basophils % (auto) 1.4 % (0.0-2.0); Eosinophils % (auto) 0.9 % (0.0-7.0); Hematocrit 26.3 % (41.0-53.0); Hemoglobin 8.3 g/dL (13.5-17.5); Lymphocytes # (auto) 1.4 10 ^3/uL (0.4-5.4); Lymphocytes % (auto) 7.5 % (10.0-50.0); Mean Corpuscular Hemoglobin 26.3 pg (28.0-32.0); Mean Corpuscular Hgb Conc. 31.4 g/dL (32.0-36.0); Mean Corpuscular Volume 83.8 fL (80.0-100.0); Monocytes # (auto) 1.9 10 ^3/uL (0-1.3); Monocytes % (auto) 10.4 % (0.0-12.0); Neutrophils # (auto) 14.3 10 ^3/uL (1.6-8.6); Neutrophils % (auto) 79.8 % (37.0-80.0); Nucleated Red Blood Cells % 0.1 %; Red Blood Cells 3.14 10^6/uL (4.5-5.90); Red Cell Distribution Width 18.3 % (11.8-14.3)
[2024-07-17 03:56] LABS: Alanine Aminotransferase 39 U/L (7-40); Anion Gap 5 (5-15); Aspartate Aminotransferase 29 U/L (13-40); BUN/Creatinine Ratio 53.6 (10.0-20.0); Calcium 9.1 mg/dL (8.7-10.4); Carbon Dioxide 28 mmol/L (20-31); Chloride 105 mmol/L (98-107); Magnesium 1.8 mg/dL (1.6-2.6); Potassium 3.7 mmol/L (3.5-5.1); Sodium 138 mmol/L (136-145)
[2024-07-17 03:57] LABS: Phosphorus 3.2 mg/dL (2.4-5.1)
[2024-07-17 03:59] LABS: Albumin 2.5 g/dL (3.2-4.8); Alkaline Phosphatase 187 U/L (46-116); Bilirubin, Total 1.7 mg/dL (0.2-1.0); Blood Urea Nitrogen 30 mg/dL (9-23); Glucose 207 mg/dL (74-106); Total Protein 4.2 g/dL (5.7-8.2)
--- NOTE | 2024-07-17 05:05 | DVH ---
CHEST RADIOGRAPH Indication: INTUBATED Technique: Single frontal view of the chest was obtained COMPARISON: XY CHEST XRAY 1 VIEW on DOS: 07/14/24, XY CHEST PORTABLE on DOS: 07/13/24, XY CHEST PORTABLE on DOS: 07/12/24, XY CHEST PORTABLE on DOS: 07/10/24, XY CHEST XRAY 1 VIEW on DOS: 07/04/24, XY CHEST XRA Y 1 VIEW on DOS: 07/14/24 FINDINGS: Lines and Tubes: Endotracheal tube, enteric catheter and right PICC in satisfactory position. Right c hest tube in satisfactory position. Lungs: Right mid and lower lung airspace disease. Diffuse congestion. Pleura: No effusion. No pneumothorax. Cardiomediastinal contours: Cardiomegaly Bones: Unremarkable IMPRESSION: Lines and tubes in satisfactory position. No significant interval change.
[2024-07-17 08:08] LABS: Base Excess -0.9 mmol/L (-2.0-3.0)
[2024-07-17] MEDS: FUROSEMIDE 40 MG/4 ML VIAL IV SCH (09:04)
--- NOTE | 2024-07-17 09:48 | DVHPN2 ---
Progress Note Date Seen: Jul 17, 2024 Medical Necessity Reason Pt with a Central, PICC or Fol: Yes The following are medically ne: PICC Line, Caballero Catheter Reason for caballero catheter: Strict I&O Subjective Patient reports: Other (intubated) Objective vital signs Vital Sign Date Time Temp Pulse Resp B/P (MAP) Pulse Ox O2 Delivery O2 Flow Rate FiO2 07/17/24 09:32 89 22 111/44 (66) 94 30 07/17/24 09:30 98.4 209.1 07/17/24 08:00 Mechanical Ventilator+ Total Intake and Output 07/16/24 07/16/24 07/17/24 15:00 23:00 07:00 Intake Total 1146.563 ml 737.504 ml 848.128 ml Output Total 1850 ml 2485 ml Balance 1146.563 ml -1112.496 ml -1636.872 ml medications Current Medications Medications Dose Ordered Sig/Anderson Route Start Time Stop Time Status Last Admin Dose Admin Ondansetron HCl 4 mg Q4HP PRN IV 06/28/24 14:45 Acetaminophen 650 mg Q6HP PRN PO 06/28/24 14:45 07/13/24 13:13 650 MG Nitroglycerin 0.4 mg Q5MINP PRN SL 06/28/24 14:45 Sennosides 8.6 mg QID PRN PO 06/30/24 11:00 06/30/24 17:25 8.6 MG Ceftriaxone Sodium 50 ml @ 100 mls/hr DAILY@09 IV 07/03/24 13:00 07/17/24 09:04 100 MLS/HR Amino Acids 0 ml @ 0 mls/hr PER PHARMACY IV 07/04/24 13:00 Diagnostic Test (Pha) 1 strip Q6HR 07/05/24 00:00 07/17/24 05:44 1 STRIP Insulin Human Regular FOLLOW SLIDING SCALE Q6HR SC 07/05/24 00:00 07/17/24 05:45 4 UNITS Dextrose 50 ml UD IV 07/05/24 00:00 Sodium Chloride 10 ml QSHIFT@10,22 IV 07/05/24 22:00 07/17/24 09:04 10 ML Fat Emulsion Intravenous 150 ml/Sodium Chloride 80 meq/ Sodium Phosphate 20 meq/Potassium Chloride 10 meq/ Magnesium Sulfate 16 meq/ Multivitamins 10 ml/Chromium/ Copper/Manganese/ Zinc 1 ml/Insulin Human Regular 2 units/Amino Acids/ Dextrose/Purified Water 1,345.02 ml @ 56 mls/hr Q24H2M IV 07/10/24 22:00 07/11/24 21:59 Cancel Midazolam HCl 50 ml @ 1 mls/hr Q24H IV 07/12/24 10:45 07/16/24 00:02 5 MLS/HR Fentanyl Citrate 250 ml @ 2.5 mls/hr Q24H IV 07/12/24 10:45 07/16/24 02:08 10 MLS/HR Hydromorphone HCl 1 mg Q4HPRN PRN IV 07/12/24 10:45 Docusate Sodium 100 mg BID GT 07/12/24 23:00 07/17/24 09:04 100 MG Phenylephrine HCl 80 mg/Sodium Chloride 250 ml @ 7.5 mls/hr Q24H IV 07/13/24 11:00 07/17/24 03:00 19.688 MLS/HR Enoxaparin Sodium 40 mg DAILY SC 07/13/24 16:15 07/17/24 09:05 40 MG Vancomycin HCl 0 ml @ 0 mls/hr UD IV 07/15/24 00:15 UNV Dextrose/Sodium Chloride 1,000 ml @ 31 mls/hr Q24H IV 07/15/24 17:15 07/16/24 23:44 31 MLS/HR Fat Emulsion Intravenous 150 ml/Sodium Chloride 40 meq/ Sodium Acetate 20 meq/Sodium Phosphate 40 meq/ Magnesium Sulfate 10 meq/ Multivitamins 10 ml/Insulin Human Regular 8 units/ Potassium Acetate 20 meq/Chromium/ Copper/Manganese/ Zinc 1 ml/Amino Acids/Dextrose/ Purified Water 1,553.58 ml @ 64 mls/hr [id number] IV 07/16/24 22:00 07/17/24 21:59 07/16/24 23:05 64 MLS/HR Furosemide 40 mg DAILY IV 07/17/24 10:00 07/17/24 09:04 40 MG Sennosides 17.2 mg HS NG 07/16/24 22:00 07/16/24 22:17 17.2 MG Lactulose 30 ml TID NG 07/16/24 22:00 07/17/24 05:48 30 ML Dexmedetomidine HCl 400 mcg/ Dextrose 100 ml @ 3.9 mls/hr Q24H IV 07/16/24 17:45 Fat Emulsion Intravenous 150 ml/Sodium Chloride 40 meq/ Sodium Acetate 10 meq/Sodium Phosphate 30 meq/ Potassium Chloride 20 meq/ Potassium Acetate 10 meq/Magnesium Sulfate 16 meq/ Multivitamins 10 ml/Chromium/ Copper/Manganese/ Zinc 1 ml/Insulin Human Regular 10 units/Amino Acids/ Dextrose/Purif... 1,602.6 ml @ 66 mls/hr [id number] IV 07/17/24 22:00 07/18/24 21:59 Examination: GENERAL:Normal (intubated) laboratory and microbiology Laboratory Tests 07/17/24 03:19 Test 07/17/24 03:19 Range/Units Serum Glucose 207 H 74-106 mg/dL Problem List/Assessment/Plan Problem List/Assessment/Plan 07/17/24 78 year old male s/p, thoracotomy, chest tube placement. No air leak seen. output 85 cc serosanguineous. wound clean, dry, and intact. Patient failed CPAP. Trial again today for CPAP. Abdomen slightly firm. No bowel movements since July 11. We'll order mineral enema. Recommend check for fecal impaction. Discussed with Doctor. Filiberto. Plan discussed with: Other (Nurse, Dr. barbosa ) Dietary Evaluation Review Comments: encourage and monitor PO feedings to meet 75% of his needs. continue preasent plan of care: regular diet nutrition supplements with clinimix and ensure hi protein. may consider a 2GNA Diet with low fat Low cholesterol retriction if he has elevated lipid profile. Expected Outcomes/Goals: improved physical strength, gradual weight gain. DEONTE GUNN VP [employer] Jul 17, 2024 09:48
--- NOTE | 2024-07-17 09:52 | MEDREC ---
[facility] Intervention Section I [facility] Intervention: Review courses of therapy (15 DAYS ON CEFTRIAXONE - PLEASE RE-CONSIDER THE NEED FOR ANTIBIOTIC THERAPY ) SELINA WONG PHARMACIST Jul 17, 2024 09:52
--- NOTE | 2024-07-17 16:13 | DVHPN2 ---
Progress Note - Dictate Date Seen: Jul 17, 2024 Medical Necessity Reason Pt with a Central, PICC or Fol: Yes The following are medically ne: PICC Line, Caballero Catheter Reason for caballero catheter: Strict I&O Subjective Status post thoracotomy with a decortication procedure this morning by surgeon. Postop patient remains intubated in the ICU. Patient failed CPAP trials on multiple days. His pad he is at bedside. vital signs Vital Sign Date Time Temp Pulse Resp B/P (MAP) Pulse Ox O2 Delivery O2 Flow Rate FiO2 07/17/24 15:45 97.9 91 28 100/45 (63) 92 208.2 07/17/24 14:00 30 07/17/24 14:00 Mechanical Ventilator+ Total Intake and Output 07/16/24 07/16/24 07/17/24 15:00 23:00 07:00 Intake Total 1146.563 ml 737.504 ml 848.128 ml Output Total 1850 ml 2485 ml Balance 1146.563 ml -1112.496 ml -1636.872 ml medications Current Medications Medications Dose Ordered Sig/Anderson Route Start Time Stop Time Status Last Admin Dose Admin Ondansetron HCl 4 mg Q4HP PRN IV 06/28/24 14:45 Acetaminophen 650 mg Q6HP PRN PO 06/28/24 14:45 07/13/24 13:13 650 MG Nitroglycerin 0.4 mg Q5MINP PRN SL 06/28/24 14:45 Sennosides 8.6 mg QID PRN PO 06/30/24 11:00 06/30/24 17:25 8.6 MG Ceftriaxone Sodium 50 ml @ 100 mls/hr DAILY@09 IV 07/03/24 13:00 07/17/24 09:04 100 MLS/HR Amino Acids 0 ml @ 0 mls/hr PER PHARMACY IV 07/04/24 13:00 Diagnostic Test (Pha) 1 strip Q6HR 07/05/24 00:00 07/17/24 11:31 1 STRIP Insulin Human Regular FOLLOW SLIDING SCALE Q6HR SC 07/05/24 00:00 07/17/24 11:35 4 UNITS Dextrose 50 ml UD IV 07/05/24 00:00 Sodium Chloride 10 ml QSHIFT@ IV 07/05/24 22:00 07/17/24 09:04 10 ML Fat Emulsion Intravenous 150 ml/Sodium Chloride 80 meq/ Sodium Phosphate 20 meq/Potassium Chloride 10 meq/ Magnesium Sulfate 16 meq/ Multivitamins 10 ml/Chromium/ Copper/Manganese/ Zinc 1 ml/Insulin Human Regular 2 units/Amino Acids/ Dextrose/Purified Water 1,345.02 ml @ 56 mls/hr Q24H2M IV 07/10/24 22:00 07/11/24 21:59 Cancel Midazolam HCl 50 ml @ 1 mls/hr Q24H IV 07/12/24 10:45 07/16/24 00:02 5 MLS/HR Fentanyl Citrate 250 ml @ 2.5 mls/hr Q24H IV 07/12/24 10:45 07/16/24 02:08 10 MLS/HR Hydromorphone HCl 1 mg Q4HPRN PRN IV 07/12/24 10:45 Docusate Sodium 100 mg BID GT 07/12/24 23:00 07/17/24 09:04 100 MG Phenylephrine HCl 80 mg/Sodium Chloride 250 ml @ 7.5 mls/hr Q24H IV 07/13/24 11:00 07/17/24 03:00 19.688 MLS/HR Enoxaparin Sodium 40 mg DAILY SC 07/13/24 16:15 07/17/24 09:05 40 MG Vancomycin HCl 0 ml @ 0 mls/hr UD IV 07/15/24 00:15 UNV Dextrose/Sodium Chloride 1,000 ml @ 31 mls/hr Q24H IV 07/15/24 17:15 07/16/24 23:44 31 MLS/HR Fat Emulsion Intravenous 150 ml/Sodium Chloride 40 meq/ Sodium Acetate 20 meq/Sodium Phosphate 40 meq/ Magnesium Sulfate 10 meq/ Multivitamins 10 ml/Insulin Human Regular 8 units/ Potassium Acetate 20 meq/Chromium/ Copper/Manganese/ Zinc 1 ml/Amino Acids/Dextrose/ Purified Water 1,553.58 ml @ 64 mls/hr [id number] IV 07/16/24 22:00 07/17/24 21:59 07/16/24 23:05 64 MLS/HR Furosemide 40 mg DAILY IV 07/17/24 10:00 07/17/24 09:04 40 MG Sennosides 17.2 mg HS NG 07/16/24 22:00 07/16/24 22:17 17.2 MG Lactulose 30 ml TID NG 07/16/24 22:00 07/17/24 13:33 30 ML Dexmedetomidine HCl 400 mcg/ Dextrose 100 ml @ 3.9 mls/hr Q24H IV 07/16/24 17:45 07/17/24 13:42 3.9 MLS/HR Fat Emulsion Intravenous 150 ml/Sodium Chloride 40 meq/ Sodium Acetate 10 meq/Sodium Phosphate 30 meq/ Potassium Chloride 20 meq/ Potassium Acetate 10 meq/Magnesium Sulfate 16 meq/ Multivitamins 10 ml/Chromium/ Copper/Manganese/ Zinc 1 ml/Insulin Human Regular 10 units/Amino Acids/ Dextrose/Purif... 1,602.6 ml @ 66 mls/hr [id number] IV 07/17/24 22:00 07/18/24 21:59 objective Comfortable in bed. On ventilator without any acute cardiopulmonary distress. HEENT neck supple no JVD. Heart regular rate and rhythm S1 and S2. Lungs no audible wheezing noted. Abdomen soft positive bowel sounds. Extremities no edema. laboratory and microbiology Laboratory Tests 07/17/24 03:19 Test 07/17/24 03:19 Range/Units Serum Glucose 207 H 74-106 mg/dL Assessment/Plan Status post thoracotomy with a decortication with this morning and postop he remains intubated. 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 This is discussed with at bedside as well as nurse at bedside. Failed CPAP trials. Patient's nurse and his is at bedside. She he is requesting to take him off the ventilator tomorrow morning around 10:00 a.m. given the patient had wishes to be not intubated/DNR and also remove his chest tube and make him full comfort measures only. She wants chest tube removed and all aggressive medications and care he is on to be discontinued as well. Discussed with her that we can honor his and her wishes and keep him comfortable post extubation and palliative/comfort measures including Ativan morphine as needed. This is what she was requesting and if he does survive post extubation she wants hospice. Meantime continue present management as he is on overnight. Further clinical management per clinical course. At present he is DNR. Advised the nurse to notify general surgeon and counter manager regarding patient's 's wishes. Problems(with codes): (1) Acute respiratory failure (2) Pneumonia (3) Pleural effusion, right Dietary Evaluation Review Comments: encourage and monitor PO feedings to meet 75% of his needs. continue preasent plan of care: regular diet nutrition supplements with clinimix and ensure hi protein. may consider a 2GNA Diet with low fat Low cholesterol retriction if he has elevated lipid profile. Expected Outcomes/Goals: improved physical strength, gradual weight gain. Plan discussed with: Spouse, Other LINO MCCORMACK MD Jul 17, 2024 16:13
[2024-07-17] MEDS: FLEET MINERAL OIL ENEMA 133 ML PR ONE (17:17)
[2024-07-17] MEDS: TPN PER PHARMACY IV NR (22:11)
--- NOTE | 2024-07-17 22:33 | DVHPN2 ---
Progress Note - Dictate Date Seen: Jul 17, 2024 Medical Necessity Reason Pt with a Central, PICC or Fol: Yes The following are medically ne: PICC Line, Caballero Catheter Reason for caballero catheter: Strict I&O Subjective Patient seen and examined at bedside. Sedated, intubated on mechanical ventilator. Overnight events reviewed. vital signs Vital Sign Date Time Temp Pulse Resp B/P (MAP) Pulse Ox O2 Delivery O2 Flow Rate FiO2 07/17/24 22:12 104 19 102/48 (66) 100 30 07/17/24 18:00 Mechanical Ventilator+ 07/17/24 17:45 97.9 208.2 Total Intake and Output 07/16/24 07/16/24 07/17/24 15:00 23:00 07:00 Intake Total 1146.563 ml 737.504 ml 848.128 ml Output Total 1850 ml 2485 ml Balance 1146.563 ml -1112.496 ml -1636.872 ml medications Current Medications Medications Dose Ordered Sig/Anderson Route Start Time Stop Time Status Last Admin Dose Admin Ondansetron HCl 4 mg Q4HP PRN IV 06/28/24 14:45 Acetaminophen 650 mg Q6HP PRN PO 06/28/24 14:45 07/13/24 13:13 650 MG Nitroglycerin 0.4 mg Q5MINP PRN SL 06/28/24 14:45 Sennosides 8.6 mg QID PRN PO 06/30/24 11:00 06/30/24 17:25 8.6 MG Ceftriaxone Sodium 50 ml @ 100 mls/hr DAILY@09 IV 07/03/24 13:00 07/17/24 09:04 100 MLS/HR Amino Acids 0 ml @ 0 mls/hr PER PHARMACY IV 07/04/24 13:00 Diagnostic Test (Pha) 1 strip Q6HR 07/05/24 00:00 07/17/24 17:23 1 STRIP Insulin Human Regular FOLLOW SLIDING SCALE Q6HR SC 07/05/24 00:00 07/17/24 17:25 12 UNITS Dextrose 50 ml UD IV 07/05/24 00:00 Sodium Chloride 10 ml QSHIFT@10,22 IV 07/05/24 22:00 07/17/24 22:11 10 ML Fat Emulsion Intravenous 150 ml/Sodium Chloride 80 meq/ Sodium Phosphate 20 meq/Potassium Chloride 10 meq/ Magnesium Sulfate 16 meq/ Multivitamins 10 ml/Chromium/ Copper/Manganese/ Zinc 1 ml/Insulin Human Regular 2 units/Amino Acids/ Dextrose/Purified Water 1,345.02 ml @ 56 mls/hr Q24H2M IV 07/10/24 22:00 07/11/24 21:59 Cancel Midazolam HCl 50 ml @ 1 mls/hr Q24H IV 07/12/24 10:45 07/16/24 00:02 5 MLS/HR Fentanyl Citrate 250 ml @ 2.5 mls/hr Q24H IV 07/12/24 10:45 07/16/24 02:08 10 MLS/HR Hydromorphone HCl 1 mg Q4HPRN PRN IV 07/12/24 10:45 Docusate Sodium 100 mg BID GT 07/12/24 23:00 07/17/24 22:07 100 MG Phenylephrine HCl 80 mg/Sodium Chloride 250 ml @ 7.5 mls/hr Q24H IV 07/13/24 11:00 07/17/24 03:00 19.688 MLS/HR Enoxaparin Sodium 40 mg DAILY SC 07/13/24 16:15 07/17/24 09:05 40 MG Vancomycin HCl 0 ml @ 0 mls/hr UD IV 07/15/24 00:15 UNV Dextrose/Sodium Chloride 1,000 ml @ 31 mls/hr Q24H IV 07/15/24 17:15 07/16/24 23:44 31 MLS/HR Furosemide 40 mg DAILY IV 07/17/24 10:00 07/17/24 09:04 40 MG Sennosides 17.2 mg HS NG 07/16/24 22:00 07/17/24 22:07 17.2 MG Lactulose 30 ml TID NG 07/16/24 22:00 07/17/24 22:07 30 ML Dexmedetomidine HCl 400 mcg/ Dextrose 100 ml @ 3.9 mls/hr Q24H IV 07/16/24 17:45 07/17/24 13:42 3.9 MLS/HR Fat Emulsion Intravenous 150 ml/Sodium Chloride 40 meq/ Sodium Acetate 10 meq/Sodium Phosphate 30 meq/ Potassium Chloride 20 meq/ Potassium Acetate 10 meq/Magnesium Sulfate 16 meq/ Multivitamins 10 ml/Chromium/ Copper/Manganese/ Zinc 1 ml/Insulin Human Regular 10 units/Amino Acids/ Dextrose/Purif... 1,602.6 ml @ 66 mls/hr [id number] IV 07/17/24 22:00 07/18/24 21:59 07/17/24 22:11 66 MLS/HR objective Gen.: Patient lying in bed in medical ICU. Sedated, intubated on mechanical ventilator. Head: Normocephalic, atraumatic. Eyes: PERRLA. Ears: Normal external anatomy. Throat: Endotracheal tube and orogastric tube in place. Neck: Supple, trachea midline. Chest: Transmitted breath sounds bilaterally. Decreased air entry bilaterally. No wheezing. Bibasilar crackles. Cardiovascular: Positive S1, positive S2. Regular rate and rhythm. Abdomen: Positive bowel sounds in all 4 quadrants. Soft, nontender, nondistended. : Caballero in place. Normal external genitalia. Rectal: Deferred. Skin: Warm, dry. Intact. Extremities: 2+ radial pulses bilaterally. No lower extremity edema. Neuro: Sedated. laboratory and microbiology Laboratory Tests 07/17/24 03:19 Test 07/17/24 03:19 Range/Units Serum Glucose 207 H 74-106 mg/dL Assessment/Plan Impression: Acute hypoxic respiratory failure on mechanical ventilator Loculated pleural effusion, right Atelectasis Shock, possible sepsis Pneumonia likely gram negative S/p decortication, right lung Empyema Events: Remains on mechanical ventilator. AC mode with RR 18, VT 500, PEEP 5, FiO2 of 30% Sedated on Fentanyl. Precedex drip for agitation TPN for nutritional support Patient is s/p decortication surgery Chest tube in place d/t empyema. Monitor chest tube output No air leak Continue antibiotics On pressors for hemodynamic support. On Rupert-Synephrine at 45 micrograms/minute. Titrate to keep mean arterial pressure greater than 65 mmHg. Diurese w/ Lasix as tolerated Good urine output Monitor renal function Monitor electrolytes. Supplement as necessary. Monitor ins and outs. Continue bronchodilators PRN S/p bronchoscopy with RML BAL on 07/16/24 - cleared mucous plugging from L6-L10 Labs and imaging reviewed. Rest of plan as noted below. Plan: s/p intubation on mechanical ventilator. AC mode with RR 18, VT 500, PEEP 5, FiO2 of 30% Sedated on Fentanyl. Pressors for hemodynamic support Titrate to keep mean arterial pressure greater than 65 mmHg. Bronchodilators PRN Antibiotics Incentive spirometry Pain control Avoid oversedation CT chest showing moderate-sized loculated right pleural effusion w/ surrounding pleural thickening and adjacent alveolar and interstitial opacities. A 2.6 cm lytic lesion in the medial aspect of the right 9th rib at the costochondral junction with full-thickness loss of the bone and overlying anterior and posterior cortices. See report for full details. Pt underwent right chest tube placement d/t loculated pleural effusion. Plan for tPA course to mobilize pleural fluid. S/p two doses of Alteplase S/p decortication surgery Deemed to be high risk from cardiology standpoint - EF of 20% Cardiology recommendations appreciated. Monitor renal function. Monitor electrolytes. Supplement as necessary. Monitor ins and outs. DVT prophylaxis. Prognosis: Poor given patient's multiple co-morbidities. Condition: Critical Rest of plan per hospitalist and other consultants. A total of 35 minutes of critical care time was spent reviewing the patient record, examining the patient, making a diagnostic and therapeutic plan, discussing this plan with the medical personnel, following up on diagnostic studies and following the patient for clinical stability excluding any and all procedures. At least 50% of this time was spent in direct, [id number] contact. Thank you Dr. Maulik Chavira MD, for allowing me to participate in this patient's care. Further recommendations will depend on the patient's clinical course. Please do not hesitate to contact me if you have any questions or concerns. This medical document was created using an electronic medical record system with [employer] dictation system. Although these documentations are being carefully reviewed, there may still be some phonetic and typographical changes. The errors are purely typographical, due to imperfection on the software program, and do not reflect any compromise in the patient's medical care. Dietary Evaluation Review Comments: encourage and monitor PO feedings to meet 75% of his needs. continue preasent plan of care: regular diet nutrition supplements with clinimix and ensure hi protein. may consider a 2GNA Diet with low fat Low cholesterol retriction if he has elevated lipid profile. Expected Outcomes/Goals: improved physical strength, gradual weight gain. Plan discussed with: Other (IBETH Bolton) Critical Care Time(min): 35 VALERI BRANTLEY MD Jul 17, 2024 22:33
[2024-07-18] VITALS (75 sets, daily range): BP systolic 101–151; BP diastolic 40–77; PULSE 98–192; RESP 14–38; TEMP 97.8–98.8; O2SAT 79–100
[2024-07-18 03:43] LABS: Hemoglobin 7.6 g/dL (13.5-17.5)
[2024-07-18 03:45] LABS: Mean Corpuscular Hemoglobin 26.1 pg (28.0-32.0); Mean Corpuscular Hgb Conc. 31.5 g/dL (32.0-36.0); Mean Corpuscular Volume 82.7 fL (80.0-100.0); Platelet Count (auto) 332 10^3/uL (140-450); Red Blood Cells 2.91 10^6/uL (4.5-5.90); Red Cell Distribution Width 18.5 % (11.8-14.3); White Blood Cell 13.5 10^3/uL (4.4-10.8)
[2024-07-18 03:54] LABS: Band Neutrophils % (manual) 0; Basophils % (manual) 0 (0.0-2.0); Blast Cells 0; Metamyelocytes % 0; Myelocytes % 0; Promyelocytes % 0; Reactive Lymphocytes 0
[2024-07-18 04:12] LABS: Anion Gap 5 (5-15); BUN/Creatinine Ratio 56.4 (10.0-20.0); Calcium 9.1 mg/dL (8.7-10.4); Carbon Dioxide 29 mmol/L (20-31); Chloride 105 mmol/L (98-107); Magnesium 1.9 mg/dL (1.6-2.6); Phosphorus 3.5 mg/dL (2.4-5.1); Sodium 139 mmol/L (136-145)
[2024-07-18 04:21] LABS: Alanine Aminotransferase 59 U/L (7-40); Albumin 2.6 g/dL (3.2-4.8); Alkaline Phosphatase 235 U/L (46-116); Aspartate Aminotransferase 50 U/L (13-40); Bilirubin, Total 1.3 mg/dL (0.2-1.0); Blood Urea Nitrogen 31 mg/dL (9-23); Glucose 169 mg/dL (74-106); Potassium 3.4 mmol/L (3.5-5.1); Total Protein 4.3 g/dL (5.7-8.2)
[2024-07-18 04:53] LABS: Triglycerides 151 mg/dL (< 150)
--- NOTE | 2024-07-18 05:04 | DVH ---
CHEST RADIOGRAPH Indication: INTUBATED Technique: Single frontal view of the chest was obtained COMPARISON: XY CHEST PORTABLE on DOS: 07/17/24, XY CHEST XRAY 1 VIEW on DOS: 07/14/24, XY CHEST PORTABLE on DOS: 07/13/24, XY CHEST PORTABLE on DOS: 07/12/24, XY CHEST PORTABLE on DOS: 07/10/24, XY CHEST PORTABLE on DOS: 07/17/24 FINDINGS: Lines and Tubes: Endotracheal tube, enteric catheter and right PICC in satisfactory position. Right c hest tube in satisfactory position. Lungs: Right mid and lower lung airspace disease. Diffuse congestion. Pleura: No effusion. No pneumothorax. Cardiomediastinal contours: Cardiomegaly Bones: Unremarkable IMPRESSION: Lines and tubes in satisfactory position. No significant interval change.
[2024-07-18 05:20] LABS: Eosinophils % (manual) 4 (0-7); Lymphocytes % (manual) 11 (10.0-50.0); Monocytes % (manual) 10 (0-12)
[2024-07-18 05:21] LABS: Anisocytosis Slight; Giant Platelets Few; Large Platelets FEW; Platelet Estimate Adequate
[2024-07-18 08:44] LABS: Base Excess 3.6 mmol/L (-2.0-3.0)
[2024-07-18] MEDS: MORPHINE SULFATE INJ 2 MG/ml SYRG IV PRN ×2 (12:49→13:57)
[2024-07-18] MEDS: LORazepam 2MG/ML-1ML VIAL IV PRN ×2 (12:49→13:55)
--- NOTE | 2024-07-18 14:31 | DVHPN2 ---
Progress Note - Dictate Date Seen: Jul 18, 2024 Medical Necessity Reason Pt with a Central, PICC or Fol: Yes The following are medically ne: PICC Line, Caballero Catheter Reason for caballero catheter: Strict I&O Subjective Status post thoracotomy with a decortication procedure this morning by surgeon. Postop patient remains intubated in the ICU. Patient's , [id number] azole family members are at bedside. Patient is scheduled to have compression and extubation with terminal wean with the comfort care this afternoon. They want to proceed with extubation as soon as possible. vital signs Vital Sign Date Time Temp Pulse Resp B/P (MAP) Pulse Ox O2 Delivery O2 Flow Rate FiO2 07/18/24 13:57 126 32 145/57 07/18/24 13:30 80 07/18/24 10:15 30 07/18/24 08:00 97.8 97.8 07/18/24 08:00 Mechanical Ventilator+ Total Intake and Output 07/17/24 07/17/24 07/18/24 15:00 23:00 07:00 Intake Total 964.129 ml 571.854 ml 351.004 ml Output Total 1750 ml Balance 964.129 ml -1178.146 ml 351.004 ml medications Current Medications Medications Dose Ordered Sig/Anderson Route Start Time Stop Time Status Last Admin Dose Admin Fat Emulsion Intravenous 150 ml/Sodium Chloride 80 meq/ Sodium Phosphate 20 meq/Potassium Chloride 10 meq/ Magnesium Sulfate 16 meq/ Multivitamins 10 ml/Chromium/ Copper/Manganese/ Zinc 1 ml/Insulin Human Regular 2 units/Amino Acids/ Dextrose/Purified Water 1,345.02 ml @ 56 mls/hr Q24H2M IV 07/10/24 22:00 07/11/24 21:59 Cancel Vancomycin HCl 0 ml @ 0 mls/hr UD IV 07/15/24 00:15 UNV Morphine Sulfate 2 mg [id number] PRN IV 07/18/24 13:15 07/18/24 13:57 2 MG Lorazepam 2 mg [id number] PRN IV 07/18/24 13:15 07/18/24 13:55 2 MG objective Comfortable in bed. On ventilator and opens his eyes calling his name. HEENT pupils equal round react light. Heart regular rate and rhythm is homeless S2. Lungs fair removed without any audible wheezing middle abdomen soft positive bowel sounds. Extremities no edema. laboratory and microbiology Laboratory Tests 07/18/24 03:20 Test 07/18/24 03:20 Range/Units Serum Glucose 169 H 74-106 mg/dL Assessment/Plan Status post thoracotomy with a decortication with this morning and postop he remains intubated. Family meeting along with the nurses at bedside done this afternoon. Per their request we will proceed with compassionate extubation with the comfort care. We will use morphine and Ativan every 30 minutes to an hour for comfort. Family wants him to be comfortable without any pain or suffering. They want all active medications to be discontinued including antibiotics and nutrition IV. They are also requesting chest tube to be removed. Therefore we will notify General surgeon for possible removal of the chest tube. At present he is DNR/DNI. Advised the nurse to notify general surgeon and property handler regarding patient's 's wishes. If he survives overnight we will consider hospice evaluation for tomorrow. The patient's , daughter and the rest of the family members verbalized understanding of his diagnosis prognosis and understand compassionate extubation and a terminal wean and want to proceed as planned. Dietary Evaluation Review Comments: encourage and monitor PO feedings to meet 75% of his needs. continue preasent plan of care: regular diet nutrition supplements with clinimix and ensure hi protein. may consider a 2GNA Diet with low fat Low cholesterol retriction if he has elevated lipid profile. Expected Outcomes/Goals: improved physical strength, gradual weight gain. Plan discussed with: Spouse, Other LINO MCCORMACK MD Jul 18, 2024 14:31
[2024-07-18] MEDS ORDERED: SUCCINYLCHOLINE CHLORIDE 20 MG/ML 10ML VIAL IV ONE (20:24)
--- NOTE | 2024-07-18 21:55 | DVHPN2 ---
Progress Note - Dictate Date Seen: Jul 18, 2024 Medical Necessity Reason Pt with a Central, PICC or Fol: Yes The following are medically ne: PICC Line, Caballero Catheter Reason for caballero catheter: Strict I&O Subjective Patient seen and examined at bedside. S/p compassionate extubation, on supplemental oxygen Overnight events reviewed. vital signs Vital Sign Date Time Temp Pulse Resp B/P (MAP) Pulse Ox O2 Delivery O2 Flow Rate FiO2 07/18/24 17:30 128 20 101/46 (64) 79 07/18/24 16:00 Mechanical Ventilator+ 30 30 07/18/24 08:00 97.8 97.8 Total Intake and Output 07/17/24 07/17/24 07/18/24 15:00 23:00 07:00 Intake Total 964.129 ml 571.854 ml 464.442 ml Output Total 1750 ml Balance 964.129 ml -1178.146 ml 464.442 ml medications Current Medications Medications Dose Ordered Sig/Anderson Route Start Time Stop Time Status Last Admin Dose Admin Fat Emulsion Intravenous 150 ml/Sodium Chloride 80 meq/ Sodium Phosphate 20 meq/Potassium Chloride 10 meq/ Magnesium Sulfate 16 meq/ Multivitamins 10 ml/Chromium/ Copper/Manganese/ Zinc 1 ml/Insulin Human Regular 2 units/Amino Acids/ Dextrose/Purified Water 1,345.02 ml @ 56 mls/hr Q24H2M IV 07/10/24 22:00 07/11/24 21:59 Cancel Vancomycin HCl 0 ml @ 0 mls/hr UD IV 07/15/24 00:15 UNV objective Gen.: Patient lying in bed in no apparent distress. On supplemental oxygen. Head: Normocephalic, atraumatic. Eyes: EOMI/PERRLA. Ears: Normal hearing. Normal anatomy. Neck/trachea: Trachea midline, supple. Nose: Normal external anatomy. Mouth: Moist mucous membranes. Chest: Decreased air entry bilaterally. No wheezing or rhonchi. Cardiovascular: Positive S1, positive S2. Regular rate and rhythm. Abdomen: Positive bowel sounds in all 4 quadrants. Soft, non-tender, non- distended. : Deferred. Rectal: Deferred. Skin: Warm, dry. Intact. Extremities: 2+ radial pulses bilaterally. No lower extremity edema. Neuro: Opens eyes to calling his name. No gross motor or sensory deficits. Cranial nerves II through XII intact. Gait not assessed. laboratory and microbiology Laboratory Tests 07/18/24 03:20 Test 07/18/24 03:20 Range/Units Serum Glucose 169 H 74-106 mg/dL Assessment/Plan Impression: Acute hypoxic respiratory failure on mechanical ventilator Loculated pleural effusion, right Atelectasis Shock, possible sepsis Pneumonia likely gram negative S/p decortication, right lung Empyema Events: Family agreed for compassionate extubation. Patient is s/p extubation, placed on simple mask. Poor prognosis due to malignancy High likelihood of demise. Sedated on Fentanyl. Off pressors, hemodynamically stable. TPN for nutritional support Patient is s/p decortication surgery Chest tube in place d/t empyema. Monitor chest tube output No air leak Continue antibiotics Continue bronchodilators PRN Pain control Avoid oversedation Diurese w/ Lasix as tolerated Monitor renal function Monitor electrolytes. Supplement as necessary. Monitor ins and outs. Labs and imaging reviewed. Addendum: Note, I was informed by RN that patient at 1750 hours. Plan: S/p compassionate extubation On supplemental oxygen Sedated on Fentanyl. Pressors for hemodynamic support - off Titrate to keep mean arterial pressure greater than 65 mmHg. Bronchodilators PRN Antibiotics Incentive spirometry Pain control Avoid oversedation CT chest showing moderate-sized loculated right pleural effusion w/ surrounding pleural thickening and adjacent alveolar and interstitial opacities. A 2.6 cm lytic lesion in the medial aspect of the right 9th rib at the costochondral junction with full-thickness loss of the bone and overlying anterior and posterior cortices. See report for full details. Pt underwent right chest tube placement d/t loculated pleural effusion. Plan for tPA course to mobilize pleural fluid. S/p two doses of Alteplase S/p decortication surgery Deemed to be high risk from cardiology standpoint - EF of 20% Cardiology recommendations appreciated. Monitor renal function. Monitor electrolytes. Supplement as necessary. Monitor ins and outs. DVT prophylaxis. Prognosis: Poor given patient's multiple co-morbidities. Condition: Critical Rest of plan per hospitalist and other consultants. A total of 35 minutes of critical care time was spent reviewing the patient record, examining the patient, making a diagnostic and therapeutic plan, discussing this plan with the medical personnel, following up on diagnostic studies and following the patient for clinical stability excluding any and all procedures. At least 50% of this time was spent in direct, [id number] contact. Thank you Dr. Maulik Chavira MD, for allowing me to participate in this patient's care. Further recommendations will depend on the patient's clinical course. Please do not hesitate to contact me if you have any questions or concerns. This medical document was created using an electronic medical record system with [employer] dictation system. Although these documentations are being carefully reviewed, there may still be some phonetic and typographical changes. The errors are purely typographical, due to imperfection on the software program, and do not reflect any compromise in the patient's medical care. Dietary Evaluation Review Comments: encourage and monitor PO feedings to meet 75% of his needs. continue preasent plan of care: regular diet nutrition supplements with clinimix and ensure hi protein. may consider a 2GNA Diet with low fat Low cholesterol retriction if he has elevated lipid profile. Expected Outcomes/Goals: improved physical strength, gradual weight gain. Plan discussed with: Other (IBETH Bolton) Critical Care Time(min): 35 VALERI BRANTLEY MD Jul 18, 2024 21:55
[2024-07-18] MEDS ORDERED: TPN PER PHARMACY IV NR (22:00)
--- NOTE | 2024-07-19 13:16 | ECG ---
[facility] Test Date: 2024-07-18 Test Time: 21:22:57 Pat Name: ASHLYN CHEN Department: Room: [address] [place] [address] A Gender: M L D Rn: : 1945 Requested By: MICHELLE VALDES Order Number: [id number] Reading MD: Camille Guillen Measurements Intervals Jones Rate: 123 P: -14 [place]: 208 QRS: -11 QRSD: 140 T: 134 QT: 300 QTc: 429 Interpretive Statements Sinus tachycardia Left bundle branch block Electronically Signed On 07-22-2024 8:28:52 PST by Camille Guillen Please click the below link to view image of tracing.
--- NOTE | 2024-07-19 15:55 | DVHDS2 ---
Summary Date of Admission Jun 28, 2024 at 14:43 Date and Time of Expiration: Jul 18, 2024 17:50 Reason for Admission: Shortness of breath Labs/Diagnostic Data: Laboratory Results Test 07/18/24 11:51 07/18/24 06:56 07/18/24 03:20 07/17/24 03:19 POC Glucose 189 mg/dl (70-106) Blood Gas Specimen Type Arterial Blood Gas Sample Site Right radial Blood Gas Patient Temperature 37.0 Arterial Blood Date Drawn [id number] Arterial Blood pH 7.423 (7.350-7.450) Arterial Blood Partial Pressure CO2 44.6 mmHg (35.0-48.0) Arterial Blood Partial Pressure O2 77.8 mmHg (83.0-108.0) Arterial Blood HCO3 28.5 mmol/L (21.0-28.0) Arterial Blood Oxygen Saturation 94.1 % (94.0-98.0) Arterial Blood Base Excess 3.6 mmol/L (-2.0-3.0) Arterial Blood Oxyhemoglobin 93.7 % (94.0-98.0) Arterial Blood Carboxyhemoglobin 0.3 % (0.5-1.5) Arterial Blood Methemoglobin 0.1 % (0.0-1.5) [place] Test Modified Blood Gas Total Hemoglobin 9.00 g/dL (13.5-17.5) Blood Gas Set Respiration Rate 18.0 Blood Gas Modality Vent - ac FiO2 % 30.0 Blood Gas Tidal Volume 500.0 Blood Gas PEEP or CPAP 5.0 Blood Gas Critical Value Read Back Yes White Blood Count 13.5 10^3/uL (4.4-10.8) Red Blood Count 2.91 10^6/uL (4.5-5.90) Hemoglobin 7.6 g/dL (13.5-17.5) Hematocrit 24.0 % (41.0-53.0) Mean Corpuscular Volume 82.7 fL (80.0-100.0) Mean Corpuscular Hemoglobin 26.1 pg (28.0-32.0) Mean Corpuscular Hemoglobin Concent 31.5 g/dL (32.0-36.0) Red Cell Distribution Width 18.5 % (11.8-14.3) Platelet Count 332 10^3/uL (140-450) Mean Platelet Volume 7.9 fL (6.9-10.8) Neutrophils (%) (Auto) % (37.0-80.0) Lymphocytes (%) (Auto) % (10.0-50.0) Monocytes (%) (Auto) % (0.0-12.0) Basophils (%) (Auto) % (0.0-2.0) Neutrophils # (Auto) 10 ^3/uL (1.6-8.6) Lymphocytes # (Auto) 10 ^3/uL (0.4-5.4) Monocytes # (Auto) 10 ^3/uL (0-1.3) Differential Total Cells Counted 100.0 (100) Neutrophils % (Manual) 75 (37.0-80.0) Band Neutrophils % (Manual) 0 Lymphocytes % (Manual) 11 (10.0-50.0) Monocytes % (Manual) 10 (0-12) Eosinophils % (Manual) 4 (0-7) Basophils % (Manual) 0 (0.0-2.0) Metamyelocytes % (manual) 0 Myelocytes % (Manual) 0 Promyelocytes % (Manual) 0 Blast Cells % (Manual) 0 Reactive Lymphocytes 0 Platelet Estimate Adequate Clumped Platelets Few Large Platelets Few Giant Platelets Few Anisocytosis (manual) Slight Sodium Level 139 mmol/L (136-145) Potassium Level 3.4 mmol/L (3.5-5.1) Chloride Level 105 mmol/L (98-107) Carbon Dioxide Level 29 mmol/L (20-31) Anion Gap 5 (5-15) Blood Urea Nitrogen 31 mg/dL (9-23) Creatinine 0.55 mg/dL (0.700-1.30) Glomerular Filtration Rate Calc 101 mL/min (>90) BUN/Creatinine Ratio 56.4 (10.0-20.0) Serum Glucose 169 mg/dL (74-106) Calcium Level 9.1 mg/dL (8.7-10.4) Phosphorus Level 3.5 mg/dL (2.4-5.1) Magnesium Level 1.9 mg/dL (1.6-2.6) Total Bilirubin 1.3 mg/dL (0.2-1.0) Aspartate Amino Transferase (AST) 50 U/L (13-40) Alanine Aminotransferase (ALT) 59 U/L (7-40) Alkaline Phosphatase 235 U/L (46-116) Total Protein 4.3 g/dL (5.7-8.2) Albumin 2.6 g/dL (3.2-4.8) Triglycerides Level 151 mg/dL (< 150) Eosinophils (%) (Auto) 0.9 % (0.0-7.0) Eosinophils # (Auto) 0.2 10 ^3/uL (0-0.8) Basophils # (Auto) 0.2 10 ^3/uL (0-0.2) Nucleated Red Blood Cells 0.1 % Test 07/14/24 18:07 07/11/24 00:11 07/08/24 06:36 06/29/24 01:10 Blood Gas Spontaneous Rate 18 Specimen Drawn By Mike jimenez rt Prothrombin Time 11.4 sec (9.3-11.8) Prothrombin Time INR 1.06 (0.9-1.15) Activated Partial Thromboplast Time 30.8 SEC (24.5-34.5) Estimated GFR () 164 mL/min Estimated GFR (Non- 136 mL/min Urine Color Yellow (Yellow) Urine Clarity Clear (Clear) Urine pH 5.5 (5.0-9.0) Urine Specific [place] 1.032 (1.001-1.035) Urine Protein Trace (Negative) Urine Ketones Trace (Negative) Urine Blood Negative /uL (Negative) Urine Nitrite Negative (Negative) Urine Bilirubin Negative (Negative) Urine Urobilinogen 2 mg/dL (Negative) Urine Leukocyte Esterase Negative /uL (Negative) Urine RBC 1 /hpf (0 - 3) Urine WBC <1 /hpf (0 - 3) Urine Squamous Epithelial Cells None seen /hpf (<5) Urine Bacteria None seen /hpf (None Seen) Urine Hyaline Casts Mod /lpf (0 - 2) Urine Mucus Few (None Seen) Urine Glucose Normal mg/dL (Normal) Test 06/28/24 15:12 06/28/24 11:10 Lactic Acid Level 1.4 mmol/L (0.4-2.0) Troponin I High Sensitivity 11 ng/L (</=54) B-Type Natriuretic Peptide 137.58 pg/mL (0-100) Other Laboratory Tests 07/18/24 03:20 Brief Hx & Hospital Course: 78-year-old male with a known history of congestive heart failure with EF of 30%, coronary artery disease status post PCI, was seen by Dr. Collado in his clinic was found to have hypoxia with saturation at 60%. Eventually patient was sent to ER. In the ER patient was found to have right-sided pleural effusion rule out empyema. Patient does have known history of Hodgkin's disease. Patient is currently denies any chest pain palpitation cough or phlegm. He is admitted and evaluated by general surgery, ash pit worker and temporary help agency referral clerk as well as Infectious Disease. Patient had a thoracentesis and chest tube placement with continuous pleural effusion. Therefore he is recommended to undergo thoracotomy with lung biopsy to rule out underlying malignancy. Patient recommended to undergo thoracotomy with a decortication given the patient has persistent ongoing pleural effusion despite having a chest tube. Patient known to have cardiomyopathy and poor ejection fraction felt he has intermittent to high-risk for perioperative complications.Therefore ongoing discussions were done with the family members and patient and given the patient is not clinically getting better and having chest tube he understood the risks of perioperative complications given his heart history and wanted to at least have a chance for decortication and lung biopsy to find out the diagnosis and eventually remove the chest tube. Patient underwent a successful decortication of his lung and lung biopsy. The lung biopsy came back showing carcinoma of the lung. These rales were discussed with the patient's family/. Postop patient remained intubated in the ICU. Patient failed multiple CPAP trials and unable to be extubated within the next 2-3 days. Meantime patient's based on patient's wishes did not want him to be on life support any longer than few days. Therefore she requested to take him off the ventilator and life support and do compassionate extubation. Patient already has a DNR on his chart even prior to decortication procedure. Given patient's/'s wishes compassionate extubation was done and subsequently patient a few hours later comfortable in the ICU and he was pronounced by his ash pit worker. Consults/Reason for consult EXAM: Two-dimensional echocardiogram. Blood Pressure: 94/49 mmHg INDICATION Limited for EF RISK FACTORS Height: 5' 5", Weight: 140 DIMENSIONS LVDd 4.9 (3.8-5.7cm) LA (2D) 4.0 (1.9-4.0cm) Aortic Root (2.0- 3.7cm) LVDs 4.3 (2.5-4.0cm) LA (MM) (1.9-4.0cm) Aortic Cusp Exc (1.5- 2.0cm) EF (%) 25.0 (55-70%) Rt. Atrium 3.7 (1.9-4.0cm) Asc. Aorta cm IVSd 0.9 (0.7-1.1cm) RV (D) (1.8-2.4cm) PWd 1.1 (0.7-1.1cm) Mitral Valve Mitral Mitral Stenosis E/A ratio 0.0 2D MVA cm2 Other Information Quality : Limited Rhythm : Conclusion limited study to reassess LV function LV is dilated LV systolic function is severely depressed ejection fraction is estimated at 20% SIGNED BY: ELEANOR SALMON MD SIGNED DATE/TIME: 07/05/24 1339 Operations or Procedures DATE OF SURGERY: 07/12/2024 PREOPERATIVE DIAGNOSES: Right lung pleural peel, pneumonia, pleural effusion. POSTOPERATIVE DIAGNOSES: Right lung pleural peel, pneumonia, pleural effusion. SURGEON: Anam De Los Santos MD CREDIT ADMINISTRATOR: Riley Goldman NP ANESTHESIA: General endotracheal, Dr. Sosa. PROCEDURES: * Right thoracotomy. * Right lung decortication. * Partial parietal pleurectomy. * Right upper lobe lung biopsy. DESCRIPTION OF PROCEDURE: Under general endotracheal anesthesia with the patient's skin prepped and the patient's body secured in a lateral decubitus position with the right chest facing upward, the down axilla protected by axillary roll, the knees on pillows, arms protected and padded and the body secured with a beanbag insufflation, the right posterolateral thoracotomy was accomplished. Incision deepened with electrocautery through subcutaneous fat and muscles. The thoracotomy was an incision in the fifth interspace. The intercostal muscles were and the pleural cavity was entered. The lung was densely adherent to the chest wall. The pleural peel was several millimeters thick. It was stripped from the lung to the best of my ability incurring several areas of disrupted pulmonary parenchyma. Following thorough mobilization of the lung, decortication of the accessible portions of the lung, there was an induration of the lingular segment anterolateral portion of the right upper lung. This was secured for biopsy. Biopsy was submitted. The patient's chest cavity was then irrigated and irrigant was aspirated. A size 40 chest tube was placed and directed posterosuperiorly. Subsequently, the chest cavity was closed using pericostal [id number] sutures with approximation of the ribs. Muscles were reapproximated using #1 double-stranded PDS suture. Skin was approximated using metallic skin suze. Approximately 7 mL of plain 0.5% Marcaine was then injected beneath the fourth and fifth ribs to accomplish a partial intercostal block. Skin approximated using metallic skin suze. The patient remained relatively stable throughout the procedure, left the operating room following an accurate needle and sponge count. Anam De Los Santos MD PF/JPS Final Diagnosis/Problems List Lung cancer Pleural effusion Congestive cardiomyopathy Atherosclerotic heart disease Discharge Disposition: at [facility] LINO MCCORMACK MD Jul 19, 2024 15:55
== END 2024-07-18 20:25 | DRG 853 ==
LOC: ER 10:53 → TELE 14:43 → TELE-WESTW 14:46 → CATH ICU 07-12 16:54 → ICU WEST 07-14
PROVIDERS: ADMIT Internal Medicine; ATTEND Internal Medicine
PROC: 0W9930Z Drainage of Right Pleural Cavity with Drainage Device, Percutaneous Approach (ICD-10-PCS; 2024-06-28)
PROC: 02HV33Z Insertion of Infusion Device into Superior Vena Cava, Percutaneous Approach (ICD-10-PCS; 2024-07-05)
PROC: B548ZZA Ultrasonography of Superior Vena Cava, Guidance (ICD-10-PCS; 2024-07-05)
PROC: 0BNK0ZZ Release Right Lung, Open Approach (ICD-10-PCS; 2024-07-12)
PROC: 0BBN0ZZ Excision of Right Pleura, Open Approach (ICD-10-PCS; 2024-07-12)
PROC: 0W9900Z Drainage of Right Pleural Cavity with Drainage Device, Open Approach (ICD-10-PCS; 2024-07-12)
PROC: 5A1955Z Respiratory Ventilation, Greater than 96 Consecutive Hours (ICD-10-PCS; 2024-07-12)
PROC: 30233N1 Transfusion of Nonautologous Red Blood Cells into Peripheral Vein, Percutaneous Approach (ICD-10-PCS; 2024-07-12)
PROC: 0BBC0ZX Excision of Right Upper Lung Lobe, Open Approach, Diagnostic (ICD-10-PCS; principal; 2024-07-12 09:18)
PROC: 0BH17EZ Insertion of Endotracheal Airway into Trachea, Via Natural or Artificial Opening (ICD-10-PCS; 2024-07-16)
PROC: 0B9D8ZX Drainage of Right Middle Lung Lobe, Via Natural or Artificial Opening Endoscopic, Diagnostic (ICD-10-PCS; 2024-07-16)
DX: A41.50 Gram-negative sepsis, unspecified (principal); I50.23 Acute on chronic systolic (congestive) heart failure; J15.69 Pneumonia due to other Gram-negative bacteria; J86.9 Pyothorax without fistula; J96.01 Acute respiratory failure with hypoxia; J15.9 Unspecified bacterial pneumonia; J98.11 Atelectasis; C34.90 Malignant neoplasm of unspecified part of unspecified bronchus or lung; I42.0 Dilated cardiomyopathy; I11.0 Hypertensive heart disease with heart failure; I25.10 Atherosclerotic heart disease of native coronary artery without angina pectoris; I25.5 Ischemic cardiomyopathy; K59.00 Constipation, unspecified; Z66 Do not resuscitate; I25.2 Old myocardial infarction; Z83.3 Family history of diabetes mellitus; Z98.61 Coronary angioplasty status; Z85.71 Personal history of Hodgkin lymphoma; Z82.49 Family history of ischemic heart disease and other diseases of the circulatory system; Z87.891 Personal history of nicotine dependence
CPT/HCPCS: 32557; 36415; 36569; 36600; 71045; 71250; 74176; 76937; 76942; 80053; 80069; 81001; 82805; 82962; 83605; 83735; 83880; 84100; 84478; 84484; 85007; 85025; 85027; 85610; 85730; 86850; 86900; 86901; 86920; 87070; 87081; 87205; 93306; 94002; 94003; 97110; 97116; 97163; 97530; 99291; 99292; A4565; G0378; J0330; J1815; J2003; J2250; J2704; J3480; J3490; J7042; J7060; J7131